=== PATIENT | female | born 1940 | race Caucasian/White ===

== ENCOUNTER 2017-03-11 11:23 | Outpatient (RCR) | payer MEDICARE, OTHER, SELFPAY ==
[2017-03-11 14:27] LABS: International Normalized Ratio 2.2; Prothrombin Time (Protime)PT. 23.9 SECONDS (11.7-14.9)
== END 2017-03-11 11:45 | disposition home or self-care (01) ==
LOC: MTLAB 11:23
PROVIDERS: Family Provider Internal Medicine; PCP Internal Medicine; Visit Provider Internal Medicine Cardiovascular Disease
DX: I48.0 Paroxysmal atrial fibrillation (principal)
CPT/HCPCS: 36415; 85610

== ENCOUNTER → 2017-05-08 10:17 | Outpatient (CLI) | payer MEDICARE, OTHER, SELFPAY ==
[2017-05-08 12:17] LABS: Hemoglobin A1c 7.6 % (4.2-6.3)
[2017-05-08 12:20] LABS: ALB/GLOB Ratio 1.2 RATIO (0.9-2.4); AST(SGOT) 19 U/L (15-37); Alanine Aminotransfer ALT/SGPT 24 U/L (13-56); Albumin, Serum 3.9 g/dL (3.2-5.0); Alkaline Phosphatase 119 U/L (45-117); Anion Gap 9 (5-15); BUN 20 mg/dL (7-18); BUN/Creat Ratio 22.7 RATIO (10-20); Calcium,Total 9.2 mg/dL (8.5-10.1); Chloride 100 mmol/L (98-107); Creatinine, Serum 0.88 mg/dL (0.55-1.02); EST Glomerular Filtration Rate 66 mL/min (>60); Est Glom Filt Rate - Afr Amer 80 mL/min (>60); Globulin 3.2 g/dL (2.2-4.2); Glucose 116 mg/dL (74-106); Protein, Total 7.1 g/dL (6.4-8.2); Sodium Level 139 mmol/L (136-145); Thyroid Stim Hormone (TSH) 1.79 uIU/mL (0.358-3.74)
[2017-05-08 12:27] LABS: Microalbumin,Random Urine 8.7 mg/L (NO RANGE EST.)
== END ==
PROVIDERS: Family Provider Internal Medicine; PCP Internal Medicine; Visit Provider Internal Medicine Endocrinology, Diabetes & Metabolism
DX: E11.65 Type 2 diabetes mellitus with hyperglycemia (principal); E03.8 Other specified hypothyroidism
CPT/HCPCS: 36415; 80053; 82043; 83036; 84443

== ENCOUNTER 2017-05-30 13:25 | Outpatient (RCR) | payer MEDICARE, OTHER, SELFPAY ==
[2017-05-05 10:35] LABS: International Normalized Ratio 2.9; Prothrombin Time (Protime)PT. 30.8 SECONDS (11.7-14.9)
[2017-05-30 14:40] LABS: Prothrombin Time (Protime)PT. 22.3 SECONDS (11.7-14.9)
== END 2017-05-30 14:00 | disposition home or self-care (01) ==
LOC: MTLAB 13:25
PROVIDERS: Family Provider Internal Medicine; PCP Internal Medicine; Visit Provider Internal Medicine Cardiovascular Disease
DX: I48.0 Paroxysmal atrial fibrillation (principal)
CPT/HCPCS: 36415; 85610

== ENCOUNTER → 2017-06-26 09:37 | Outpatient (CLI) | payer MEDICARE, OTHER, SELFPAY ==
--- NOTE | 2017-06-26 09:41 | RAD_ITS ---
STUDY: X-RAY - CERVICAL SPINE REASON FOR EXAM: Female, 77 years old. Radiculopathy. Pain. TECHNIQUE: 3 view(s) of the cervical spine were obtained with flexion and extension. COMPARISON: None FINDINGS: Normal anterior atlantoaxial articulation. Normal odontoid process. There is straightening of the normal cervical lordosis. There is multi-level endplate spondylosis. There is mild multi-level degenerative disc disease with multilevel disc space narrowing. Normal alignment. Extremely limited extension and decreased flexion. No subluxations. The soft tissue structures are unremarkable. RAD/Cerv Spine 4 or 5 Views IMPRESSION: Relatively mild multilevel degenerative changes significantly decreased range of motion. Electronically Signed: Atul Maurer MD at 17:14 EDT , Service support ,
== END ==
PROVIDERS: Family Provider Internal Medicine; PCP Internal Medicine; Visit Provider Internal Medicine
DX: M54.12 Radiculopathy, cervical region (principal)
CPT/HCPCS: 72050

== ENCOUNTER 2017-07-01 08:59 | Outpatient (RCR) | payer MEDICARE, OTHER, SELFPAY ==
[2017-07-01 10:52] LABS: AST(SGOT) 13 U/L (15-37); Alanine Aminotransfer ALT/SGPT 20 U/L (13-56); Albumin, Serum 3.7 g/dL (3.2-5.0); Alkaline Phosphatase 114 U/L (45-117); Cholesterol 203 mg/dL (200); Globulin 3.4 g/dL (2.2-4.2); High Density Lipoprotein 44 mg/dL; Protein, Total 7.1 g/dL (6.4-8.2); Triglycerides 165 mg/dL; Very Low Density Lipoprotein 33 mg/dL (5-40)
== END 2017-07-01 09:00 | disposition home or self-care (01) ==
LOC: MTLAB 08:59
PROVIDERS: Family Provider Internal Medicine; PCP Internal Medicine; Visit Provider Internal Medicine Cardiovascular Disease
DX: E78.5 Hyperlipidemia, unspecified (principal)
CPT/HCPCS: 36415; 80061; 80076

== ENCOUNTER → 2017-07-04 10:58 | Outpatient (CLI) | payer MEDICARE, OTHER, SELFPAY ==
[2017-07-04 12:26] LABS: International Normalized Ratio 2.4; Prothrombin Time (Protime)PT. 26.2 SECONDS (11.7-14.9)
== END ==
PROVIDERS: Family Provider Internal Medicine; PCP Internal Medicine; Visit Provider Internal Medicine Cardiovascular Disease
DX: I48.0 Paroxysmal atrial fibrillation (principal); Z79.01 Long term (current) use of anticoagulants
CPT/HCPCS: 36415; 85610

== ENCOUNTER 2017-07-10 11:30 | Outpatient (RCR) | payer MEDICARE, OTHER, SELFPAY ==
--- NOTE | 2017-07-01 09:26 | HP.PTEVAL_ITS ---
Patient's Visit Information EMMA HUNG is a 77 year old F referred to Physical Therapy by Maria C Melton with a diagnosis of Neck pain with radiculopathy. Date of Evaluation: 07/01/17 Physical Therapist: Kalyan Bess, PT, - Visit Plan Frequency: 2x /Week Duration: 3 Weeks Plan: Postural edu, DTR, US, C-Tx, scap stab ex's, and HEP - Subjective Subjective: Pt reports she has had neck pain for 6 weeks. 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 Pt reports she has been taking prednisone which has ;helped a little bit , but is still present. Pt notes sleep diff secondary to pain. Pt reports if she walks with her arms hanging down to her side, she feels increased L UE radiculopathy. Pt is R hand dominant. Pt has not found any way to relieve her pain. Pt reports no pain if she just sits and does nothing. 5/10 at rest, 10/10 at worst. - Pain neck Pain Intensity (Out of 10): 5 Pain Intensity Range: 10 - Objective Neuro: B UE sensation is WNL to light touch. B bicepital reflex= 1/3. Palpation : Pt is sore in the upper trap region. Pt has no obvious deformity. MMT: R shoulder 5/5 throughout. L shoulder flex and ER= 4-/5, abd and IR= 5/5. ROM: Pt is moderately limited with retraction, ext, L SB, and L rot. Pt has pain with all these movments. Repeated movements: RPIS has no effect. RRIS provokes L UE sx's. Special testing: repeated retraction and ext produce L UE radiculopathy - Goals Goal 1:: Decrease neck pain x 50% to aid with sleep Goal Time Frame: 2-4 Weeks Goal 2:: Decrease the frequency and intensity of L UE radiculopathy x 50% to aid with IADL's Goal Time Frame: 2-4 Weeks Goal 3:: Increase cervical spine ROM x 1 grade to aid with IADL's Goal Time Frame: 2-4 Weeks Goal 4:: I with HEP Goal Time Frame: 2-4 Weeks - Rehabilitation Potential Physical Therapy Diagnosis: Pt has neck pain, limited c/s ROM, and L UE radiculopathy secondary to deg changes of the C/S Rehabilitation Potential: Good - Anticipated Interventions Patient/Client Instruction: Educate patient on: Condition, Plan of Care For the Purpose of:: To improve self management Therapeutic Exercise to Include: Strength training, Endurance training, Postural training, Active ROM, Scapular Strength/Stabilization For the Purpose of:: To decrease pain, To increase ROM, To improve muscle performance and motor function Ultrasound (thermal/non thermal): Yes Intermittent cervical traction: Yes For the Purpose of:: To decrease pain Thank you for the opportunity to evaluate your patient. For Medicare and Medicare HMO plans, please review the plan of care and approve it. It will need to be FAXED BACK to us at [phone] for Medicare purposes. Please let me know if there are questions or concerns regarding this plan of care. Physician Signature: Date:
--- NOTE | 2017-10-02 17:21 | HP.PT.NRP ---
HP - Discharge Summary (1) - Patient Information EMMA HUNG was seen in my office for initial evaluation on 07/01/17. The following Plan of Care was established for this patient: Initial Frequency: 2x /Week Initial Duration: 3 Weeks - Anticipated Interventions Patient/Client Instruction: Educate patient on: Condition, Plan of Care For the Purpose of:: To improve self management Therapeutic Exercise to Include: Strength training, Endurance training, Postural training, Active ROM, Scapular Strength/Stabilization For the Purpose of:: To decrease pain, To increase ROM, To improve muscle performance and motor function Ultrasound (thermal/non thermal): Yes Intermittent cervical traction: Yes For the Purpose of:: To decrease pain This patient was last seen in our office . Pertinent comments regarding their Physical therapy will appear below: Pt was treated for neck pain for 3 PT visits through the date of 07/10/17. Pt did not return after that visit, and is therefore discontinued at this time At this point I will be discontinuing this patient from physical therapy. I would be happy to see this patient again in the future if found appropriate by the physician. Thank you! Kalyan Bess, PT,
== END 2017-07-10 19:00 | disposition home or self-care (01) ==
LOC: PT 11:30
PROVIDERS: Family Provider Internal Medicine; PCP Internal Medicine; Visit Provider Internal Medicine
DX: M54.12 Radiculopathy, cervical region (principal); M25.512 Pain in left shoulder
CPT/HCPCS: 97012; 97161

== ENCOUNTER → 2017-07-25 12:36 | Outpatient (CLI) | payer MEDICARE, OTHER, SELFPAY ==
--- NOTE | 2017-07-25 12:38 | ECHOD_ITS ---
Reason For Study: Afib, Aflutter Procedure This was a 2D Doppler, Color Flow transthoracic echocardiogram. Exam performed in department. Left Ventricle Normal LV size. Moderate concentric left ventricular hypertrophy. The estimated ejection fraction is 50 %. There is evidence of diastolic dysfunction. No regional wall motion abnormalities noted. Mitral Valve Normal mitral valve. Mild (1+) eccentric mitral valve insufficiency. Tricuspid Valve Normal tricuspid valve. Mild (1+) tricuspid valve insufficiency. Pulmonary artery systolic pressure is 38 mmHg. Aortic Valve Trisinus/trileaflet aortic valve. Moderate focal aortic valve calcification. Peak aortic valve gradient 38 mmHg. Mean aortic valve gradient 21 mmHg. Mild to moderate aortic stenosis. Calculated aortic valve area (continuity equation) is 1.4 cm2. Trivial aortic valve insufficiency. Pulmonic Valve Normal pulmonic valve. Great Vessels Normal aortic root. The pulmonary artery is normal size. Normal inferior vena cava. Pericardium/Pleural No pericardial effusion. MMode/2D Measurements & Calculations LVIDd: 4.0 cm IVSd: 1.4 cm LVOT diam: 2.1 cm LVIDs: 3.0 cm LVPWd: 1.4 cm LVOT area: 3.4 cm2 RVDd: 3.2 cm FS: 25.3 % Ao root diam: 3.4 cm LAV(MOD-bp): 89.2 ml LA A4 area: 26.8 cm2 LA dimension: 4.4 cm LAV(MOD-bp) Indexed: 45.7 ml/m2 LAV(MOD-sp2): 73.8 ml LAV(MOD-sp4): 89.9 ml Doppler Measurements & Calculations MV E max bradley: 133.8 cm/sec Lat Peak E' Bradley: 6.9 cm/sec Med Peak E' Bradley: 5.1 cm/sec MV A max bradley: 118.5 cm/sec E/E' lat: 19.3 E/E' med: 26.4 MV E/A: 1.1 MV V2 max: 139.5 cm/sec Ao V2 max: 302.9 cm/sec AI max bradley: 330.2 cm/sec MV max P.8 mmHg Ao max P.7 mmHg AI max P.7 mmHg MV V2 mean: 89.7 cm/sec Ao V2 mean: 216.3 cm/sec AI dec slope: 199.0 cm/sec2 MV mean P.5 mmHg Ao mean P.6 mmHg AI P1/2t: 485.9 msec MV V2 VTI: 37.1 cm Ao V2 VTI: 61.6 cm MVA(VTI): 2.3 cm2 NAIF(I,D): 1.4 cm2 NAIF(V,D): 1.4 cm2 LV V1 max: 120.6 cm/sec SV(LVOT): 84.8 ml PA V2 max: 99.8 cm/sec LV V1 max P.8 mmHg LV V1 mean P.8 mmHg LV V1 mean: 78.7 cm/sec LV V1 VTI: 24.7 cm TR max bradley: 290.4 cm/sec TR max P.8 mmHg Interpretation Summary Normal LV size. Moderate concentric left ventricular hypertrophy. The estimated ejection fraction is 50 %. Moderate focal aortic valve calcification. Mild to moderate aortic stenosis. Calculated aortic valve area (continuity equation) is 1.4 cm2. Compared to prior study, there is no significant change. Ordering Physician: Fish Muniz Referring Physician: Maria C Melton Performed By: Torrie Craig, RDCS, RVT
== END ==
PROVIDERS: Family Provider Internal Medicine; PCP Internal Medicine; Visit Provider Internal Medicine Cardiovascular Disease
DX: I50.32 Chronic diastolic (congestive) heart failure (principal)
CPT/HCPCS: 93306

== ENCOUNTER 2017-08-12 08:47 | Outpatient (RCR) | payer MEDICARE, OTHER, SELFPAY ==
[2017-08-12 10:39] LABS: International Normalized Ratio 2.6; Prothrombin Time (Protime)PT. 27.7 SECONDS (11.7-14.9)
[2017-08-12 10:50] LABS: Hemoglobin A1c 8.1 % (4.2-6.3)
[2017-08-12 10:52] LABS: ALB/GLOB Ratio 1.2 RATIO (0.9-2.4); AST(SGOT) 14 U/L (15-37); Alanine Aminotransfer ALT/SGPT 23 U/L (13-56); Albumin, Serum 3.6 g/dL (3.2-5.0); Alkaline Phosphatase 99 U/L (45-117); Anion Gap 9 (5-15); BUN 22 mg/dL (7-18); BUN/Creat Ratio 23.8 RATIO (10-20); Chloride 103 mmol/L (98-107); Cholesterol 209 mg/dL (200); Creatinine, Serum 0.92 mg/dL (0.55-1.02); EST Glomerular Filtration Rate 62 mL/min (>60); Est Glom Filt Rate - Afr Amer 76 mL/min (>60); Globulin 3.1 g/dL (2.2-4.2); Glucose 157 mg/dL (74-106); High Density Lipoprotein 38 mg/dL; Potassium 3.9 mmol/L (3.5-5.1); Protein, Total 6.7 g/dL (6.4-8.2); Sodium Level 141 mmol/L (136-145); Triglycerides 209 mg/dL; Very Low Density Lipoprotein 42 mg/dL (5-40)
== END 2017-08-12 10:00 | disposition home or self-care (01) ==
LOC: MTLAB 08:47
PROVIDERS: Family Provider Internal Medicine; PCP Internal Medicine; Visit Provider Internal Medicine Cardiovascular Disease
DX: I48.0 Paroxysmal atrial fibrillation (principal); Z79.01 Long term (current) use of anticoagulants; E11.65 Type 2 diabetes mellitus with hyperglycemia; E78.2 Mixed hyperlipidemia
CPT/HCPCS: 36415; 80053; 80061; 83036; 85610

== ENCOUNTER 2017-09-09 11:02 | Outpatient (RCR) | payer MEDICARE, OTHER, SELFPAY ==
[2017-09-09 14:23] LABS: International Normalized Ratio 2.9; Prothrombin Time (Protime)PT. 30.1 SECONDS (11.7-14.9)
== END 2017-09-09 12:00 ==
LOC: MTLAB 11:02
PROVIDERS: Family Provider Internal Medicine; PCP Internal Medicine; Visit Provider Internal Medicine Cardiovascular Disease
DX: I48.0 Paroxysmal atrial fibrillation (principal); Z79.01 Long term (current) use of anticoagulants
CPT/HCPCS: 36415; 85610

== ENCOUNTER 2017-10-06 14:41 | Outpatient (RCR) | payer MEDICARE, OTHER, SELFPAY ==
[2017-10-06 17:40] LABS: International Normalized Ratio 2.8; Prothrombin Time (Protime)PT. 29.3 SECONDS (11.7-14.9)
== END 2017-10-06 16:00 | disposition home or self-care (01) ==
LOC: MTLAB 14:41
PROVIDERS: Family Provider Internal Medicine; PCP Internal Medicine; Visit Provider Internal Medicine Cardiovascular Disease
DX: I48.0 Paroxysmal atrial fibrillation (principal); Z79.01 Long term (current) use of anticoagulants
CPT/HCPCS: 36415; 85610

== ENCOUNTER 2017-11-04 08:14 | Outpatient (RCR) | payer MEDICARE, OTHER, SELFPAY ==
[2017-11-04 10:10] LABS: International Normalized Ratio 2.4; Prothrombin Time (Protime)PT. 26.6 SECONDS (11.7-14.9)
[2017-11-04 10:25] LABS: Hemoglobin A1c 7.1 % (4.2-6.3)
[2017-11-04 10:34] LABS: ALB/GLOB Ratio 1.2 RATIO (0.9-2.4); AST(SGOT) 14 U/L (15-37); Alanine Aminotransfer ALT/SGPT 21 U/L (13-56); Albumin, Serum 3.7 g/dL (3.2-5.0); Alkaline Phosphatase 88 U/L (45-117); Anion Gap 11 (5-15); BUN 36 mg/dL (7-18); BUN/Creat Ratio 38.8 RATIO (10-20); Calcium,Total 8.9 mg/dL (8.5-10.1); Chloride 105 mmol/L (98-107); Creatinine, Serum 0.93 mg/dL (0.55-1.02); EST Glomerular Filtration Rate 62 mL/min (>60); Est Glom Filt Rate - Afr Amer 75 mL/min (>60); Globulin 3.2 g/dL (2.2-4.2); Glucose 193 mg/dL (74-106); Potassium 4.1 mmol/L (3.5-5.1); Protein, Total 6.9 g/dL (6.4-8.2); Sodium Level 138 mmol/L (136-145); Thyroid Stim Hormone (TSH) 1.38 uIU/mL (0.358-3.74)
[2017-11-05 08:42] LABS: Vitamin D,25 Hydroxy 33.7 ng/mL (29.95-100.01)
== END 2017-11-05 11:49 ==
LOC: MTLAB 08:14
PROVIDERS: Internal Medicine Endocrinology, Diabetes & Metabolism; Family Provider Internal Medicine; PCP Internal Medicine; Visit Provider Internal Medicine Cardiovascular Disease
DX: I48.0 Paroxysmal atrial fibrillation (principal); Z79.01 Long term (current) use of anticoagulants; E11.65 Type 2 diabetes mellitus with hyperglycemia; E55.9 Vitamin D deficiency, unspecified; E03.8 Other specified hypothyroidism
CPT/HCPCS: 36415; 80053; 82306; 83036; 84443; 85610

== ENCOUNTER → 2017-12-29 15:47 | Outpatient (CLI) | payer MEDICARE, OTHER, SELFPAY ==
--- NOTE | 2017-12-29 15:51 | RAD_ITS ---
STUDY: X-RAY - LUMBAR SPINE REASON FOR EXAM: Female, 77 years old. Low back pain TECHNIQUE: 5 view(s) of the lumbar spine were obtained. COMPARISON: 2014 FINDINGS: Normal lumbar lordosis. There is no substantial scoliosis. There is a normal alignment of the vertebrae. There is diffuse demineralization with multi-level endplate spondylosis. There is multi-level degenerative disc disease with multi-level disc space narrowing. There is no demonstrated fracture. There is atherosclerotic calcification of the abdominal aorta without a demonstrated aneurysm. RAD/L/S Spine Min 4 Views IMPRESSION: Degenerative changes of the spine, as detailed above. Electronically Signed: Golden Narayan MD at 16:01 EDT , Service support ,
--- NOTE | 2017-12-29 15:51 | RAD_ITS ---
STUDY: X-RAY - SACROILIAC JOINTS REASON FOR EXAM: Female, 77 years old. Pain TECHNIQUE: 3 view(s) of the sacroiliac joints were obtained. COMPARISON: None. FINDINGS: There are degenerative changes of the bilateral sacroiliac joints. Normal visualized sacral ala and sacrum. There is no demonstrated fracture. Normal visualized iliac bones. Normal visualized soft tissue structures. RAD/S-I Jts 3 or More Views IMPRESSION: Degenerative changes of the bilateral sacroiliac joints, as described above. Electronically Signed: Golden Narayan MD at 16:01 EDT , Service support ,
== END ==
PROVIDERS: Family Provider Internal Medicine; PCP Internal Medicine; Referring Provider Internal Medicine; Visit Provider Internal Medicine
DX: M54.5 Low back pain (principal); M54.16 Radiculopathy, lumbar region
CPT/HCPCS: 72110; 72202

== ENCOUNTER 2017-12-31 11:44 | Outpatient (RCR) | payer MEDICARE, OTHER, SELFPAY ==
[2017-12-01 14:09] LABS: International Normalized Ratio 2.6; Prothrombin Time (Protime)PT. 28.1 SECONDS (11.7-14.9)
[2017-12-31 14:46] LABS: International Normalized Ratio 2.7; Prothrombin Time (Protime)PT. 28.5 SECONDS (11.7-14.9)
== END 2017-12-31 13:00 | disposition home or self-care (01) ==
LOC: MTLAB 11:44
PROVIDERS: Family Provider Internal Medicine; PCP Internal Medicine; Referring Provider Internal Medicine Cardiovascular Disease; Visit Provider Internal Medicine Cardiovascular Disease
DX: I48.0 Paroxysmal atrial fibrillation (principal); Z79.01 Long term (current) use of anticoagulants; M54.16 Radiculopathy, lumbar region
CPT/HCPCS: 36415; 85610; 97161

== ENCOUNTER 2018-01-26 11:54 | Outpatient (RCR) | payer MEDICARE, OTHER, SELFPAY ==
[2018-01-05 10:29] VITALS: BMI 45.3
[2018-01-26 14:47] LABS: International Normalized Ratio 2.6; Prothrombin Time (Protime)PT. 27.7 SECONDS (11.7-14.9)
== END 2018-01-26 12:00 | disposition home or self-care (01) ==
LOC: MTLAB 11:54
PROVIDERS: Family Provider Internal Medicine; PCP Internal Medicine; Referring Provider Internal Medicine Cardiovascular Disease; Visit Provider Internal Medicine Cardiovascular Disease
DX: I48.0 Paroxysmal atrial fibrillation (principal); Z79.01 Long term (current) use of anticoagulants
CPT/HCPCS: 36415; 85610

== ENCOUNTER 2018-02-11 11:30 | Outpatient (RCR) | payer MEDICARE, OTHER, SELFPAY ==
--- NOTE | 2017-12-31 11:39 | HP.PTEVAL ---
Patient's Visit Information EMMA HUNG is a 77 year old F referred to Physical Therapy by Maria C Melton with a diagnosis of Lumbar with radiculopathy. Date of Evaluation: 12/31/17 Physical Therapist: Lakesha Castrejon - Visit Plan Frequency: 3x /Week Duration: 3 Weeks Plan: Focus on core s/s and endurance with functional activities. - Subjective Subjective: Patient reports that she has had back pain for a long time. She has pain in the back and is now in the buttocks and traveling down the back of the legs- right is worse than left. She was seeing chiro which made her better but it didn't last 2-3 years ago. Worst: 10/10 Agg: walking, being up on her feet, standing for long periods of time- has to lean on the counter when cooking. Best: 0/10 Eases: laying in bed at night. Takes 3 minutes from being up and moving when she sits down it goes away. Is still doing all her cleaning and ADL's she just has to sit down more often due to her back pain and A-fib. Can be described as sharp/shooting and dull/achy. Is still doing yard work but it is very hard. No N/T in the lower extremity. Sleep: uncomfortable when she turns the wrong way- side sleeper. Has had x-rays of the back but no MRI. Fully I lives alone- has stairs with HR on single side. PMHx: HTN, DM, thyroid,CHF, A-fib. The only injury she can think of was she fell back when pulling weeds- no car accidents. Meds: levothyroxine, victoza, metoprolol, fuosemide, lisinopril, isosorbide er, glipizide, warfarin, zetia, asprin, tylenel. - Objective Posture: FH, RS, Increased kyphosis- can correct minimally but required tactile and verbal cues. Gait: straight cane- decreased stance time bilateral LE- reported pain and fatigue- danilo was decreased. Stairs: asc 8 recip with 1 HR and one cane with significant UE use, Desc non recip with right leg leading with body turned sideways- HR and cane. HR/TR: able but reports significant pain with TR on right right- TR decreased by 75%. SLS: unable without UE A from table with reports of discomfort. ROM: LE: WFL, Lumbar: flexion to knees with UE A, extn to neutral, SB: decreased by 50% Rotation: decreased by 50%. Sensation: WNL. Flex: HS: severe. Gastroc: Severe. Palpation: not tender. Strength: Ankle: 4+/5, Knee: 4/5, Hip: 4-/5 Core: poor. Slump Test: positive - Goals Goal 1:: Patient will be I with HEP and progression Goal Time Frame: 4-6 Weeks Goal 2:: Patient will ambualte >300 feet with a normalized gait pattern with LRD Goal Time Frame: 4-6 Weeks Goal 3:: Patient will asc/desc 8 stairs recip with a normal pattern Goal Time Frame: 4-6 Weeks Goal 4:: Patient will maintain proper posture t/o demo increased core s/s. Goal Time Frame: 4-6 Weeks - Rehabilitation Potential Physical Therapy Diagnosis: Patient presents with hypomobility- she has decreased ROM, strength and muscular endurance leading to poor posture and increased pain with ADL's. Rehabilitation Potential: Fair - Anticipated Interventions Patient/Client Instruction: Educate patient on: Benefits of Fitness Program Therapeutic Exercise to Include: Strength training, Endurance training, Balance training, Agility training, Body mechanics, Postural training, Flexibilty training, Gait and locomotor training, Dynamic Lumbar Stabilization For the Purpose of:: To improve muscle performance and motor function TENS: Yes Cryotherapy (ice pack, ice massage): Yes Thermo therapy (hot pack): Yes For the Purpose of:: To decrease pain Thank you for the opportunity to evaluate your patient. For Medicare and Medicare HMO plans, please review the plan of care and approve it. It will need to be FAXED BACK to us at [phone] for Medicare purposes. Please let me know if there are questions or concerns regarding this plan of care. Physician Signature: Date:
--- NOTE | 2018-01-26 11:58 | HP.PTREVAL_ITS ---
Maria C Melton, It has been my pleasure to treat EMMA HUNG over the last 8 visits for Lumbar with radiculopathy. Please see the progress note below for an update on the physical therapy plan of care! Subjective: Vahe reports that is getting better- no pain medication at home. No back pain just the pain down the legs to the knees when she walks to far. Objective/Function: Posture: FH, RS, Increased kyphosis- sitting posture today was good but as she sat more than 3 min she started to slide out to keep her leg s straight instead of 90/90 Gait: straight cane- decreased stance time bilateral LE- reported no pain- good danilo. HR/TR: able but reports significant pain with TR on right right- TR decreased by 50%. SLS: unable without UE A from table with no reports of discomfort. ROM: LE: WFL, Lumbar: flexion to knees with UE A, extn to neutral, SB: decreased by 50% Rotation: decreased by 50%. Flex: HS: severe. Gastroc: moderate. Strength: Ankle:5/5, Knee: 4+/5, Hip: 4/5 Core: fair. Slump Test: positive Plan Plan: Continue 2x a week for 2 weeks- focus on progression of HEP- unable to get silver sneakers due to insurance limitations. Goals Goal 1:: Patient will be I with HEP and progression Goal Time Frame: 4-6 Weeks Goal Progress: Progressing Goal 2:: Patient will ambualte >300 feet with a normalized gait pattern with LRD Goal Time Frame: 4-6 Weeks Goal Progress: Progressing Goal 3:: Patient will asc/desc 8 stairs recip with a normal pattern Goal Time Frame: 4-6 Weeks Goal Progress: Progressing Goal 4:: Patient will maintain proper posture t/o demo increased core s/s. Goal Time Frame: 4-6 Weeks Goal Progress: Progressing Anticipated Interventions Patient/Client Instruction: Educate patient on: Benefits of Fitness Program Therapeutic Exercise to Include: Strength training, Endurance training, Balance training, Agility training, Body mechanics, Postural training, Flexibilty training, Gait and locomotor training, Dynamic Lumbar Stabilization For the Purpose of:: To improve muscle performance and motor function TENS: Yes Cryotherapy (ice pack, ice massage): Yes Thermo therapy (hot pack): Yes For the Purpose of:: To decrease pain Please do not hesitate to contact me at [phone] by phone or if you have questions or concerns regarding this new plan of care! Sincerely, Lakesha Castrejon
--- NOTE | 2018-02-11 11:55 | HP.PTDCSUM ---
HP - PT D/C Summary It has been my pleasure to treat EMMA HUNG under orders from Maria C Melton, for the diagnosis of Lumbar with radiculopathy for a total of 12 visit(s). Discharge Date: Please see the following information for a summary of their discharge status. - Subjective Subjective: Patient reports that she is very happy with progress and is doing her exercises at home. Now her left knee is bad and needs replaced - Pain bilat. buttocks Pain Intensity (Out of 10): 0 - Overall Improvement % Improvement: 75 - Objective Objective/Function: Posture: FH, RS, Increased kyphosis- sitting posture today was good Gait: straight cane- decreased stance time bilateral LE- reported no pain- good danilo. HR/TR: able but reports significant pain with TR on right right- TR decreased by 50%. SLS: unable without UE A from table with no reports of discomfort- maintain weight shift for 10 seconds each ROM: LE: WFL, Lumbar: flexion to knees with UE A, extn to neutral, SB: decreased by 50% Rotation: decreased by 50%. Flex: HS: severe. Gastroc: moderate. Strength: Ankle:5/5, Knee: 4+/5, Hip: 4/5 Core: fair. Slump Test: positive - Goals Goal 1:: Patient will be I with HEP and progression Goal Progress: Goal Met Goal 2:: Patient will ambualte >300 feet with a normalized gait pattern with LRD Goal Progress: Progressing Goal 3:: Patient will asc/desc 8 stairs recip with a normal pattern Goal Progress: Progressing Goal 4:: Patient will maintain proper posture t/o demo increased core s/s. Goal Progress: Progressing - Plan Plan: Patient is I with HEP and is appropriate for d.c - D/C Information If there are questions or concerns regarding this patient's physical therapy, please feel free to call me at [phone]. Thank you for the referral of this patient. Sincerely, Lakesha Castrejon
== END 2018-02-11 12:41 | disposition home or self-care (01) ==
LOC: PT 11:30
PROVIDERS: Family Provider Internal Medicine; PCP Internal Medicine; Referring Provider Internal Medicine; Visit Provider Internal Medicine
DX: M54.16 Radiculopathy, lumbar region (principal)
CPT/HCPCS: 97110; 97161; 97164

== ENCOUNTER 2018-02-25 08:18 | Outpatient (RCR) | payer MEDICARE, OTHER, SELFPAY ==
[2018-01-05 10:29] VITALS: BMI 45.3
[2018-02-25 10:17] LABS: International Normalized Ratio 2.9; Prothrombin Time (Protime)PT. 30.4 SECONDS (11.7-14.9)
[2018-02-25 10:31] LABS: AST(SGOT) 18 U/L (15-37); Alanine Aminotransfer ALT/SGPT 24 U/L (13-56); Albumin, Serum 3.8 g/dL (3.2-5.0); Alkaline Phosphatase 100 U/L (45-117); Bilirubin, Direct 0.14 mg/dL (0.00-0.30); Cholesterol 229 mg/dL (200); Globulin 3.1 g/dL (2.2-4.2); High Density Lipoprotein 40 mg/dL; Protein, Total 6.9 g/dL (6.4-8.2); Triglycerides 232 mg/dL; Very Low Density Lipoprotein 46 mg/dL (5-40)
== END 2018-02-25 09:00 | disposition home or self-care (01) ==
LOC: MTLAB 08:18
PROVIDERS: Family Provider Internal Medicine; PCP Internal Medicine; Referring Provider Internal Medicine Cardiovascular Disease; Visit Provider Internal Medicine Cardiovascular Disease
DX: I48.0 Paroxysmal atrial fibrillation (principal); Z79.01 Long term (current) use of anticoagulants; E78.5 Hyperlipidemia, unspecified
CPT/HCPCS: 36415; 80061; 80076; 85610

== ENCOUNTER → 2018-03-10 08:54 | Outpatient (CLI) | payer MEDICARE, OTHER, SELFPAY ==
[2018-01-05 10:29] VITALS: BMI 45.3
[2018-03-10 10:39] LABS: Microalbumin:Creatinine Ratio 148.1 mg/g CRE (<30 mg/g CRE)
[2018-03-10 10:46] LABS: ALB/GLOB Ratio 1.2 RATIO (0.9-2.4); AST(SGOT) 14 U/L (15-37); Alanine Aminotransfer ALT/SGPT 21 U/L (13-56); Albumin, Serum 3.7 g/dL (3.2-5.0); Alkaline Phosphatase 102 U/L (45-117); Anion Gap 9 (5-15); BUN 21 mg/dL (7-18); BUN/Creat Ratio 22.8 RATIO (10-20); Chloride 106 mmol/L (98-107); Cholesterol 228 mg/dL (200); Creatinine, Serum 0.92 mg/dL (0.55-1.02); EST Glomerular Filtration Rate 63 mL/min (>60); Est Glom Filt Rate - Afr Amer 76 mL/min (>60); Glucose 143 mg/dL (74-106); High Density Lipoprotein 42 mg/dL; Potassium 4.2 mmol/L (3.5-5.1); Protein, Total 6.7 g/dL (6.4-8.2); Sodium Level 141 mmol/L (136-145); Thyroid Stim Hormone (TSH) 3.14 uIU/mL (0.358-3.74); Triglycerides 171 mg/dL; Very Low Density Lipoprotein 34 mg/dL (5-40); Vitamin D,25 Hydroxy 38.7 ng/mL (29.95-100.01)
[2018-03-10 10:50] LABS: Hemoglobin A1c 8.4 % (4.2-6.3)
== END ==
PROVIDERS: Family Provider Internal Medicine; PCP Internal Medicine; Referring Provider Internal Medicine Endocrinology, Diabetes & Metabolism; Visit Provider Internal Medicine Endocrinology, Diabetes & Metabolism
DX: E11.65 Type 2 diabetes mellitus with hyperglycemia (principal); E78.2 Mixed hyperlipidemia; E03.8 Other specified hypothyroidism; E55.9 Vitamin D deficiency, unspecified
CPT/HCPCS: 36415; 80053; 80061; 82043; 82306; 82570; 83036; 84443

== ENCOUNTER 2018-03-25 12:10 | Outpatient (RCR) | payer MEDICARE, OTHER, SELFPAY ==
[2018-01-05 10:29] VITALS: BMI 45.3
[2018-03-25 14:44] LABS: International Normalized Ratio 2.5; Prothrombin Time (Protime)PT. 27.3 SECONDS (11.7-14.9)
--- OUTSIDE RECORDS SUMMARY | 2018-05-27 10:28 | XMS RPT_ITS ---
:1940 Author Organization OHIP Support Name Relationship Address Phone BETTE, CRYSTAL Unavailable [address] + [place] [address] R Unavailable Unavailable Unavailable BETTE, CRYSTAL Unavailable [address] + [place] [address] R Unavailable Unavailable Unavailable BETTE, CRYSTAL Unavailable [address] + [place] [address] R Unavailable Unavailable Unavailable BETTE, CRYSTAL Unavailable [address] + [place] [address] R Unavailable Unavailable Unavailable BETTE, CRYSTAL Unavailable [address] + [place] [address] R Unavailable Unavailable Unavailable BETTE, CRYSTAL Unavailable [address] + [place] [address] R Unavailable Unavailable Unavailable BETTE, CRYSTAL Unavailable [address] + [place] [address] R Unavailable Unavailable Unavailable BETTE, CRYSTAL Unavailable [address] + [place] [address] R Unavailable Unavailable Unavailable BETTE, CRYSTAL Unavailable [address] + [place] [address] R Unavailable Unavailable Unavailable BETTE, CRYSTAL Unavailable [address] + [place] [address] R Unavailable Unavailable Unavailable BETTE, CRYSTAL Unavailable [address] + [place] [address] R Unavailable Unavailable Unavailable BETTE, CRYSTAL Unavailable [address] + [place] [address] R Unavailable Unavailable Unavailable BETTE, CRYSTAL Unavailable [address] + [place] [address] R Unavailable Unavailable Unavailable BETTE, CRYSTAL Unavailable [address] + [place] [address] R Unavailable Unavailable Unavailable BETTE, CRYSTAL Unavailable [address] + [place] [address] R Unavailable Unavailable Unavailable BETTE, CRYSTAL Unavailable [address] [place] [address] DR + [place] [address] R Unavailable Unavailable Unavailable R Unavailable Unavailable Unavailable BETTE, CRYSTAL Unavailable [address] [place] [address] DR + [place] [address] R Unavailable Unavailable Unavailable BETTE, CRYSTAL Unavailable [address] [place] [address] DR + [place] [address] R Unavailable Unavailable Unavailable R Unavailable Unavailable Unavailable JENNIFER HUNG Unavailable [address] [phone] [place] [address] R Unavailable Unavailable Unavailable VERTUCCI, SCOT Unavailable [address] [place] [address] DR + [place] [address] JENNIFER HUNG Unavailable [address] [phone] [place] [address] R Unavailable Unavailable Unavailable VERTUCCI, SCOT Unavailable [address] [place] [address] DR + [place] [address] JENNIFER HUNG Unavailable [address] [phone] [place] [address] R Unavailable Unavailable Unavailable VERTUCCI, SCOT Unavailable [address] [place] [address] DR + [place] [address] JENNIFER HUNG Unavailable [address] [phone] [place] [address] R Unavailable Unavailable Unavailable VERTUCCI, SCOT Unavailable [address] [place] [address] DR + [place] [address] JENNIFER HUNG Unavailable [address] [phone] [place] [address] R Unavailable Unavailable Unavailable VERTUCCI, SCOT Unavailable [address] [place] [address] DR + [place] [address] Care Team Providers Name Role Phone Fish Muniz Attending Unavailable Cristy, Fish Referring Unavailable Linh, Maria C Primary Care Unavailable ELIE LOUISE Consulting Unavailable ELIE LOUISE Attending Unavailable ELIE LOUISE Referring Unavailable Linh, Maria C Primary Care Unavailable Cristy, Fish Attending Unavailable Cristy, Fish Referring Unavailable Linh, Maria C Primary Care Unavailable WIETECHA, ELIE Attending Unavailable WIETECHA, ELIE Referring Unavailable Linh, Maria C Primary Care Unavailable Cristy, Underwood Attending Unavailable Cristy, Underwood Referring Unavailable Linh, Maria C Primary Care Unavailable Linh, Maria C Attending Unavailable Linh, Maria C Referring Unavailable Linh, Maria C Primary Care Unavailable Linh, Maria C Attending Unavailable Linh, Maria C Referring Unavailable Linh, Maria C Primary Care Unavailable Vianca Ochoa Attending Unavailable Cristy, Underwood Attending Unavailable Linh, Maria C Referring Unavailable Linh, Maria C Primary Care Unavailable Cristy, Underwood Attending Unavailable Cristy, Fish Referring Unavailable Linh, Maria C Primary Care Unavailable Cristy, Fish Attending Unavailable Cristy, Underwood Referring Unavailable Linh, Maria C Primary Care Unavailable Cristy, Underwood Attending Unavailable Cristy, Underwood Referring Unavailable Linh, Maria C Primary Care Unavailable WIETECHA, ELIE Consulting Unavailable Cristy, Fish Attending Unavailable Cristy, Fish Attending Unavailable Cristy, Underwood Referring Unavailable Linh, Maria C Primary Care Unavailable WIETECHA, ELIE Consulting Unavailable Cristy, Fish Attending Unavailable Cristy, Underwood Referring Unavailable Linh, Maria C Primary Care Unavailable WIETECHA, ELIE Consulting Unavailable Cristy, Fish Attending Unavailable Cristy, Fish Referring Unavailable Linh, Maria C Primary Care Unavailable WIETECHA, ELIE Consulting Unavailable Cristy, Underwood Attending Unavailable Cristy, Underwood Referring Unavailable Linh, Maria C Primary Care Unavailable WIETECHA, ELIE Consulting Unavailable Cristy, Underwood Attending Unavailable Cristy, Underwood Referring Unavailable Linh, Maria C Primary Care Unavailable WIETECHA, ELIE Consulting Unavailable Linh, Maria C Attending Unavailable Linh, Maria C Referring Unavailable Linh, Maria C Primary Care Unavailable Linh, Maria C Attending Unavailable Linh, Maria C Referring Unavailable Linh, Maria C Primary Care Unavailable Cristy, Fish Attending Unavailable Cristy, Underwood Referring Unavailable Linh, Maria C Primary Care Unavailable WIETECHA, ELIE Consulting Unavailable Vianca Pinon Attending Unavailable Linh, Maria C Referring Unavailable Cristy, Fish Attending Unavailable Cristy, Underwood Referring Unavailable Linh, Maria C Primary Care Unavailable WIETECHA, ELIE Consulting Unavailable PROBLEMS PROBLEMS DATE TYPE CONDITION / CODE ATTENDING STATUS SOURCE 03/02/2018 Unknown I48.0 - Paroxysmal Cristy, Underwood Active [place] atrial fibrillation / Community I48.0(ICD-10) Hospital Repository 03/02/2018 Unknown E78.5 - Cristy, Underwood Active [place] Hyperlipidemia, Community unspecified / Hospital E78.5(ICD-10) Repository 02/11/2018 Unknown M54.16 - Linh, Active [place] Radiculopathy, lumbar [facility] region / Hospital M54.16(ICD-10) Repository 02/03/2018 Unknown Z79.01 - assisted Cristy, Fish Active [place] (current) use of Community anticoagulants / Hospital Z79.01(ICD-10) Repository 12/01/2017 Unknown E11.65 - Type 2 Cristy, Fish Active [place] diabetes mellitus Community with hyperglycemia / Hospital E11.65(ICD-10) Repository 12/01/2017 Unknown E55.9 - Vitamin D Cristy, Underwood Active [place] deficiency, Community unspecified / Hospital E55.9(ICD-10) Repository 10/08/2017 Unknown M54.12 - Linh, Active [place] Radiculopathy, [facility] cervical region / Hospital M54.12(ICD-10) Repository 07/04/2017 Unknown I50.32 - Chronic Cristy, Fish Active [place] diastolic [facility] (congestive[facility] heart Hospital failure / Repository I50.32(ICD-10) 07/04/2017 Unknown I25.10 - Cristy, Underwood Active [place] Atherosclerotic heart Community disease of [facility] coronary artery Repository without angina pectoris / I25.10(ICD-10) 07/04/2017 Unknown I34.2 - Nonrheumatic Cristy, Fish Active [place] mitral (valve) Community stenosis / Hospital I34.2(ICD-10) Repository 07/04/2017 Unknown I35.0 - Nonrheumatic Cristy, Fish Active [place] aortic (valve) Community stenosis / Hospital I35.0(ICD-10) Repository 07/04/2017 Unknown I10 - Essential Cristy, Underwood Active [place] (primary) Community hypertension / Hospital I10(ICD-10) Repository 05/08/2017 Unknown E03.8 - Other ELIE LOUISE Active [place] specified Community hypothyroidism / Hospital E03.8(ICD-10) Repository PROCEDURES PROCEDURES No Procedure Records FoundRESULTS RESULTS PROTHROMBIN TIME W/INR Collected: 03/25/2018 Status: F Source: [place] 12:20 PM [facility] [place] CODE TESTS RESULT OUT OF RANGE REFERENCE UNITS LAB L300.4150 11.7-14.9 SECONDS High PROTIME 27.3 LAB L300.4200 Normal INR 2.5 Performed By: #### L300.3900 #### [facility] [address] [place], [address] MICROALB:CREAT Collected: 03/10/2018 Status: F Source: [place] RATIO,RANDOM UR 8:59 AM [facility] [place] TYPE CODE TESTS RESULT OUT OF RANGE REFERENCE UNITS LAB L501.1200 NO RANGE EST. mg/dL Normal UR CREAT 37.80 LAB L502.0500 NO RANGE EST. mg/L Normal 56.0 MICROALBUMIN ,UR LAB L502.0600 <30 mg/g CRE mg/g CRE High 148.1 MALB:CREAT Performed By: #### L502.0250 #### [facility] [address] [place], [address] COMPREHENSIVE METABOLIC Collected: 03/10/2018 Status: F Source: [place] PROFIL 8:59 AM [facility] [place] TYPE CODE TESTS RESULT OUT OF RANGE REFERENCE UNITS LAB L501.0100 74-106 mg/dL High GLU 143 Result Comment: Fasting Glucose result greater than or equal to 126 mg/dL suggests DIABETES MELLITUS per A.D.A. criteria. Please note revised GLUCOSE reference range effective 2017. LAB L501.1000 7-18 mg/dL High BUN 21 LAB L501.1100 0.55-1.02 mg/dL Normal CREAT,SERUM 0.92 Result Comment: The validity of the calculated GFR AND GFRAA in patients over 70 years has not been determined. Clinical correlation is essential. LAB L501.1110 >60 mL/min Normal EST GFR 63 Result Comment: Non- GFR Calc LAB L501.1115 >60 mL/min Normal EST GFR - AA 76 Result Comment: GFR Calc LAB L501.1300 10-20 RATIO High BUN/CRE 22.8 LAB L501.1500 6.4-8.2 g/dL T Normal PROT 6.7 LAB L501.1800 3.2-5.0 g/dL Normal ALB 3.7 LAB L501.1950 2.2-4.2 g/dL Normal GLOB 3.0 LAB L501.2000 0.9-2.4 RATIO Normal A/G 1.2 LAB L501.2200 8.5-10.1 mg/dL CA Normal 9.0 LAB L501.4100 15-37 U/L Low AST 14 LAB L501.4305 45-117 U/L Normal ALK P 102 LAB L501.4405 13-56 U/L Normal ALT 21 LAB L501.4600 0.20-1.00 mg/dL T Normal BILI 0.50 LAB L501.5300 136-145 mmol/L NA Normal 141 LAB L501.5600 3.5-5.1 mmol/L K Normal 4.2 LAB L501.5900 98-107 mmol/L CL Normal 106 LAB L501.6100 21.0-32.0 mmol/L Normal CO2 26.0 LAB L501.6200 5-15 Normal GAP 9 Performed By: #### L500.4050, L500.4100, L501.9520 #### [facility] [address] [place], [address] LIPID PROFILE Collected: 03/10/2018 Status: F Source: [place] 8:59 AM [facility] [place] TYPE CODE TESTS RESULT OUT OF RANGE REFERENCE UNITS LAB L501.4900 200 mg/dL High CHOL 228 Result Comment: <200 mg/dL Desirable 200-240 mg/dL Borderline >240 mg/dL High Risk LAB L501.5000 mg/dL Normal TRIG 171 Result Comment: The drugs N-Acetylcysteine and Metamizole may falsely depress this assay. Serum Triglycerides Reference Interval Normal <150 mg/dL Borderline high 150 - 199 mg/dL High 200 - 499 mg/dL Very High > or = 500 mg/dL LAB L501.6400 mg/dL Normal HDL 42 Result Comment: The drugs N-Acetylcysteine and Metamizole may falsely depress this assay. Reference Range HDL <40 mg/dL Low HDL Cholesterol HDL >or= 60 mg/dL High HDL Cholesterol LAB L501.6500 0-130 mg/dL High LDL 152 LAB L501.6600 5-40 mg/dL Normal VLDL 34 Performed By: #### L500.4050, L500.4100, L501.9520 #### [facility] [address] [place], [address] THYROID STIM HORMONE Collected: 03/10/2018 Status: F Source: [place] (TSH) 8:59 AM [facility] [place] TYPE CODE TESTS RESULT OUT OF RANGE REFERENCE UNITS LAB L501.9520 0.358-3.74 uIU/mL Normal TSH 3.14 Performed By: #### L500.4050, L500.4100, L501.9520 #### [facility] [address] [place], [address] VITAMIN D,25 HYDROXY Collected: 03/10/2018 Status: F Source: [place] 8:59 AM [facility] [place] TYPE CODE TESTS RESULT OUT OF RANGE REFERENCE UNITS LAB L506.1000 29.95-100.01 ng/mL Normal Vitamin D 38.7 25-OH Result Comment: Vitamin D 25(OH) Status Range Deficiency <20 ng/mL (50nmol/L) Insuffciency 20 - 30 ng/mL (50 - 75 nmol/L) Sufficiency 30 - 100 ng/mL (75 - 250 nmol/L) Toxicity >100 ng/mL (>250 nmol/L) Performed By: #### L506.1000 #### [facility] [address] [place], [address] HEMOGLOBIN A1C Collected: 03/10/2018 Status: F Source: [place] 8:59 AM [facility] [place] TYPE CODE TESTS RESULT OUT OF RANGE REFERENCE UNITS LAB L501.9985 4.2-6.3 % High HGB A1C 8.4 Performed By: #### L501.9985 #### [facility] [address] [place], [address] PROTHROMBIN TIME W/INR Collected: 02/25/2018 Status: F Source: [place] 8:23 AM [facility] [place] TYPE CODE TESTS RESULT OUT OF RANGE REFERENCE UNITS LAB L300.4150 11.7-14.9 SECONDS High PROTIME 30.4 LAB L300.4200 Normal INR 2.9 Performed By: #### L300.3900 #### [facility] [address] [facility] [place], [place], [address] LIVER PROFILE Collected: 02/25/2018 Status: F Source: [place] 8:23 AM [facility] [place] TYPE CODE TESTS RESULT OUT OF RANGE REFERENCE UNITS LAB L501.1500 6.4-8.2 g/dL Normal T PROT 6.9 LAB L501.1800 3.2-5.0 g/dL Normal ALB 3.8 LAB L501.1950 2.2-4.2 g/dL Normal GLOB 3.1 LAB L501.4100 15-37 U/L Normal AST 18 LAB L501.4305 45-117 U/L Normal ALK P 100 LAB L501.4405 13-56 U/L Normal ALT 24 LAB L501.4600 0.20-1.00 mg/dL Normal T BILI 0.50 LAB L501.4700 0.00-0.30 mg/dL Normal D BILI 0.14 Performed By: #### L500.3400, L500.4100 #### [facility] [address] [facility] [place], [place], [address] LIPID PROFILE Collected: 02/25/2018 Status: F Source: [place] 8:23 AM [facility] [place] TYPE CODE TESTS RESULT OUT OF RANGE REFERENCE UNITS LAB L501.4900 200 mg/dL High CHOL 229 Result Comment: <200 mg/dL Desirable 200-240 mg/dL Borderline >240 mg/dL High Risk LAB L501.5000 mg/dL High TRIG 232 Result Comment: The drugs N-Acetylcysteine and Metamizole may falsely depress this assay. Serum Triglycerides Reference Interval Normal <150 mg/dL Borderline high 150 - 199 mg/dL High 200 - 499 mg/dL Very High > or = 500 mg/dL LAB L501.6400 mg/dL Normal HDL 40 Result Comment: The drugs N-Acetylcysteine and Metamizole may falsely depress this assay. Reference Range HDL <40 mg/dL Low HDL Cholesterol HDL >or= 60 mg/dL High HDL Cholesterol LAB L501.6500 0-130 mg/dL High LDL 143 LAB L501.6600 5-40 mg/dL High VLDL 46 Performed By: #### L500.3400, L500.4100 #### [facility] [address] [place], [address] PT D/C SUMMARY (1) Observed: 02/11/2018 Status: F Source: [place] 11:56 AM [facility] [place] [facility] [address] [place] [address] Fax REHABILITATION SERVICES DISCHARGE SUMMARY MR#: [id number] Acct: [id number] Name: EMMA HUNG Rep #: [id number] : 1940 78 From: Lakesha Castrejon DPT Referring Dr.: Maria C Melton DO Status: REG RCR Insurance: MEDICARE PART A B [employer] HP - PT D/C Summary It has been my pleasure to treat EMMA HUNG under orders from Maria C Melton, for the diagnosis of Lumbar with radiculopathy for a total of 12 visit(s). Discharge Date: Please see the following information for a summary of their discharge status. - Subjective Subjective: Patient reports that she is very happy with progress and is doing her exercises at home. Now her left knee is bad and needs replaced - Pain bilat. buttocks Pain Intensity (Out of 10): 0 - Overall Improvement % Improvement: 75 - Objective Objective/Function: Posture: FH, RS, Increased kyphosis- sitting posture today was good Gait: straight cane- decreased stance time bilateral LE- reported no pain- good danilo. HR/TR: able but reports significant pain with TR on right right- TR decreased by 50%. SLS: unable without UE A from table with no reports of discomfort- maintain weight shift for 10 seconds each ROM: LE: WFL, Lumbar: flexion to knees with UE A, extn to neutral, SB: decreased by 50% Rotation: decreased by 50%. Flex: HS: severe. Gastroc: moderate. Strength: Ankle:5/5, Knee: 4+/5, Hip: 4/5 Core: fair. Slump Test: positive - Goals Goal 1:: Patient will be I with HEP and progression Goal Progress: Goal Met Goal 2:: Patient will ambualte >300 feet with a normalized gait pattern with LRD Goal Progress: Progressing Goal 3:: Patient will asc/desc 8 stairs recip with a normal pattern Goal Progress: Progressing Goal 4:: Patient will maintain proper posture t/o demo increased core s/s. Goal Progress: Progressing - Plan Plan: Patient is I with HEP and is appropriate for d.c - D/C Information If there are questions or concerns regarding this patient's physical therapy, please feel free to call me at [phone]. Thank you for the referral of this patient. Sincerely, Lakesha Castrejon <Electronically signed by Lakesha Castrejon DPT> 02/11/18 1156 CC: Maria C Melton DO ELR Signed RE-EVALUATION - PT (1) Observed: 01/26/2018 Status: F Source: [place] 11:58 AM [facility] [place] [facility] [address] [place] [address]. [address] [place] [address] Fax REEVALUATION / MEDICARE RECERTIFICATION PHYSICAL THERAPY MR#: [id number] Acct: [id number] Name: EMMA HUNG Rep #: [id number] : 1940 78 From: Lakesha Castrejon DPT Referring DrLitzy: Maria C Melton DO Status: REG RCR Insurance: MEDICARE PART A B AGNES Melton, It has been my pleasure to treat EMMA HUNG over the last 8 visits for Lumbar with radiculopathy. Please see the progress note below for an update on the physical therapy plan of care! Subjective: Vahe reports that is getting better- no pain medication at home. No back pain just the pain down the legs to the knees when she walks to far. Objective/Function: Posture: FH, RS, Increased kyphosis- sitting posture today was good but as she sat more than 3 min she started to slide out to keep her legs straight instead of 90/90 Gait: straight cane- decreased stance time bilateral LE- reported no pain- good danilo. HR/TR: able but reports significant pain with TR on right right- TR decreased by 50%. SLS: unable without UE A from table with no reports of discomfort. ROM: LE: WFL, Lumbar: flexion to knees with UE A, extn to neutral, SB: decreased by 50% Rotation: decreased by 50%. Flex: HS: severe. Gastroc: moderate. Strength: Ankle:5/5, Knee: 4+/5, Hip: 4/5 Core: fair. Slump Test: positive Plan Plan: Continue 2x a week for 2 weeks- focus on progression of HEP- unable to get silver sneakers due to insurance limitations. Goals Goal 1:: Patient will be I with HEP and progression Goal Time Frame: 4-6 Weeks Goal Progress: Progressing Goal 2:: Patient will ambualte >300 feet with a normalized gait pattern with LRD Goal Time Frame: 4-6 Weeks Goal Progress: Progressing Goal 3:: Patient will asc/desc 8 stairs recip with a normal pattern Goal Time Frame: 4-6 Weeks Goal Progress: Progressing Goal 4:: Patient will maintain proper posture t/o demo increased core s/s. Goal Time Frame: 4-6 Weeks Goal Progress: Progressing Anticipated Interventions Patient/Client Instruction: Educate patient on: Benefits of Fitness Program Therapeutic Exercise to Include: Strength training, Endurance training, Balance training, Agility training, Body mechanics, Postural training, Flexibilty training, Gait and locomotor training, Dynamic Lumbar Stabilization For the Purpose of:: To improve muscle performance and motor function TENS: Yes Cryotherapy (ice pack, ice massage): Yes Thermo therapy (hot pack): Yes For the Purpose of:: To decrease pain Please do not hesitate to contact me at [phone] by phone or if you have questions or concerns regarding this new plan of care! Sincerely, Lakesha Castrejon <Electronically signed by Lakesha Castrejon DPT> 01/26/18 1158 CC: Maria C Melton DO ELR Signed For Medicare only, by signing this I certify the plan of care. Physicians Signature Date PROTHROMBIN TIME W/INR Collected: 01/26/2018 Status: F Source: [place] 11:57 AM [facility] [place] TYPE CODE TESTS RESULT OUT OF RANGE REFERENCE UNITS LAB L300.4150 11.7-14.9 SECONDS High PROTIME 27.7 LAB L300.4200 Normal INR 2.6 Performed By: #### L300.3900 #### [facility] [address] [place], [address] CARDIOLOGY VISIT Observed: 2018 Status: F Source: [place] REPORT 4:06 PM [facility] [place] [facility] [address] [place] [address] OFFICE VISIT Date of Service: 01/05/18 MR#: [id number] Acct: [id number] Name: EMMA HUNG Rep #: [id number] : 1940 Provider: Vianca Pinon Age/Sex: 77/F [place] [facility] [place] Status: Signed [facility] Chief Complaint: Follow-up visit. Details: EMMA HUNG, is a 77 F who presents to the office today for a cardiovascular follow-up. She has a history of paroxysmal atrial fibrillation, minimal coronary artery disease, hypertension, and diastolic dysfunction and diabetes. From a cardiac standpoint, patient is doing well. She does not have any chest discomfort/heaviness/tightness. She does not have any worsening symptoms of shortness of breath. She does not have any orthopnea. She denies PND. She does not have any symptoms of congestive heart failure. She does not have any palpitations that she is aware of. She does not have any lightheadedness or dizziness. She does not have any near-syncope or syncope. She does not have any lower extremity edema. She does not have any symptoms of claudication. 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 Accompanied by: none Is patient in pain?: No Allergies Fdwnooj-Txe-Bsr Reductase Inhibitor Adverse Reaction (Severe, Verified 07/04/17 10:00) myalgias Medications Aspirin [Aspirin, Baby] 81 mg PO DAILY@0800 06/30/15 [History Confirmed 01/05/18] Glipizide [Glucotrol Xl] 15 mg PO BID 06/30/15 [History Confirmed 01/05/18] Liraglutide [Victoza] 1.8 mg SQ DAILY 06/30/15 [History Confirmed 01/05/18] Metoprolol Succinate 200 mg PO DAILY 06/30/15 [History Confirmed 01/05/18] Ezetimibe [Zetia] 10 mg PO QHS 07/17/15 [History Confirmed 01/05/18] Calcium Carb/Vitamin D [Caltrate-600 With Vit D Tab] 1 tab PO QHS 05/22/16 [History Confirmed 01/05/18] Multivit-Min/FA/Lycopen/Lutein [Centrum Silver Tablet] 1 ea PO QHS 05/22/16 [History Confirmed 01/05/18] warfarin 5 mg tablet 5 mg PO SUSA #30 tab 03/10/17 [Rx Confirmed 01/05/18] furosemide 40 mg tablet 40 mg PO DAILY #90 tab 06/30/17 [Rx Confirmed 01/05/18] cholecalciferol (vitamin D3) 1,000 unit capsule 2,000 unit PO QHS cap 07/04/17 [History Confirmed 01/05/18] levothyroxine 75 mcg tablet 75 mcg PO QDAY 07/04/17 [History Confirmed 01/05/18] isosorbide mononitrate ER 30 mg tablet,extended release 24 hr 30 mg PO DAILY #90 tab 07/23/17 [Rx Confirmed 01/05/18] lisinopril 20 mg tablet 20 mg PO DAILY #90 tab 07/23/17 [Rx Confirmed 01/05/18] warfarin 1 mg tablet 1 mg PO .COMPLEX #90 tab 12/09/17 [Rx Confirmed 01/05/18] diclofenac 1 % topical gel TOPICAL 25 Days #100 g 01/05/18 [History Confirmed 01/05/18] PFSH Medical History Chronic diastolic heart failure (Chronic) Atherosclerotic heart disease of [place] coronary artery without angina pectoris (Chronic) Paroxysmal atrial fibrillation (Acute) Nonrheumatic mitral (valve) stenosis (Chronic) Peripheral vascular disease with claudication (Acute) Nonrheumatic aortic (valve) stenosis (Chronic) Acute on chronic diastolic (congestive) heart failure (Chronic) Nonrheumatic mitral valve regurgitation (Chronic) 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) Acquired hypothyroidism (Chronic) Benign hypertension (Chronic) Type II diabetes mellitus (Chronic) NSTEMI (non-ST elevated myocardial infarction) (Acute) Hyperlipidemia (Chronic) Surgical History History of cataract surgery (Resolved) History of cholecystectomy (Resolved) History of total right knee replacement (Resolved) Family History Father CVA (cerebral vascular accident) Mother Diabetes Hypertension Brother CAD (coronary artery disease) CVA (cerebral vascular accident) Hypertension Brother Diabetes Sister Diabetes Social History Smoking Status: Former smoker alcohol intake: never substance use type: does not use caffeine: No what type of physical activity do you participate in: other details: PT frequency: 1-2 times per week duration: 45-60 minutes/day seatbelt use: always do you feel safe at home: Yes ROS Const Const: Negative for weakness, fatigue, fever(s) or headache(s) Eyes Eyes: Negative for blind spots, loss of peripheral vision or transient loss of vision ENT ENT: Negative for headache(s), dizziness, tinnitus or Nosebleed/epistaxis Cardio Chest Pain: No Palpitations: No Edema: None Muscle aches with walking: None Resp Respiratory: Negative for SOB with activity, SOB at rest, SOB orthopnea\SOB lying down or Cough GI GI: Negative nausea, vomiting, heartburn or vomiting blood/hematemesis : Negative for hematuria Musc Musc: Negative for muscle aches/ myalgia Neuro Neuro: Negative for weakness, headache(s), dizziness, near syncope, syncope, lightheadedness or orthostatic symptoms [place] Hematologic/Lymphatic: Negative for easy bleeding Endo Endo: Negative for fatigue Cardiology Exam Const Appearance: cooperative, no acute distress and well developed Orientation: alert, awake and oriented x3 Head Head: normocephalic and atraumatic Mouth: moist mucous membranes Eyes General: appearance normal, both eyes and all related structures Conjunctivae: conjunctivae normal Pupils: PERRL EOM: EOM intact bilaterally Neck Neck: normal visual inspection, no lymphadenopathy and no JVD Carotids: Negative bruit Neck Mass: Negative Neck mass Chest Chest inspection: normal inspection of the chest and symmetric chest movement Auscultation: Bilateral: Clear to Auscultation Cardio Palpation: normal PMI Rate: regular rate Rhythm: regular rhythm Heart sounds: S1 normal and S2 normal; negative rub, gallop or murmur GI GI: normal to inspection, soft, no hepatosplenomegaly and bowel sounds present; negative tender Neuro General: alert, awake, oriented x3, CN's II-XI intact bilaterally and moves all extremities Extremities Pulses: Normal: Right Posterior Tibial Pulse, Left Posterior Tibial Pulse, Right Radial Pulse, Left Radial Pulse Lower Extremity Edema: None: Bilateral Psych Psychological: normal affect Supplemental Info Patient had a left and right heart catheterization in 2016 which demonstrated mild pulmonary hypertension, left circumflex moderate disease, RCA mild to moderate disease, LAD mild to moderate disease. Echocardiogram in 2018 demonstrated Normal LV size. Moderate concentric left ventricular hypertrophy. The estimated ejection fraction is 50 %. Moderate focal aortic valve calcification. Mild to moderate aortic stenosis. Calculated aortic valve area (continuity equation) is 1.4 cm2. Compared to prior study, there is no significant change. Assessment AND Plan 1. Atherosclerosis of solomon coronary artery of solomon heart without angina pectoris I25.10 MEDARDO Norris Patient has minimal coronary artery disease. We will continue to monitor. Will continue with risk factor modification. 2. Paroxysmal atrial fibrillation I48.0 MEDARDO Norris Patient is not symptomatic. She will continue with rate limiting medication in addition to her Coumadin with a therapeutic INR goal of 2-3. 3. Benign hypertension I10 MEDARDO Norris Blood pressure is well controlled on current medications, we do not recommend any changes at this time. 4. Pure hypercholesterolemia E78.00; E78.0 MEDARDO Norris Recent lipid profile demonstrates total cholesterol 209, HDL 38, LDL 29. These are less than ideal. Patient is aware of this. She is trying dietary modification. She is not tolerant of statins. 5. Nonrheumatic aortic (valve) stenosis I35.0 MEDARDO Norris Recent echocardiogram has been reviewed. We will continue to monitor by history, exam and echocardiograms as deemed appropriate. 6. Nonrheumatic mitral (valve) stenosis I34.2 MEDARDO Norris Recent echocardiogram has been reviewed. We will continue to monitor by history, exam and echocardiograms as deemed appropriate. Plan Detail Additional Comments - MEDARDO Pierre The above patient was discussed with Dr. Muniz, he agrees with plan of care. Thank you for allowing us to participate in patient's plan of care, if you have any questions please do not hesitate to call. This note was generated using a voice recognition system and there may be incorrect words, spelling or punctuation errors that were not noted when reviewing the office note prior to saving. 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 transplanted heart: solomon heart Paroxysmal atrial fibrillation I48.0 Benign hypertension I10 Pure hypercholesterolemia E78.00; E78.0 Hyperlipidemia type: pure hypercholesterolemia Nonrheumatic aortic (valve) stenosis I35.0 Nonrheumatic mitral (valve) stenosis I34.2 Coding Level of Care Code Off vis,est,level 3 Diagnoses Atherosclerosis of solomon coronary artery of solomon heart without angina pectoris I25.10 [place] vs. transplanted heart: solomon heart Paroxysmal atrial fibrillation I48.0 Benign hypertension I10 Pure hypercholesterolemia E78.00; E78.0 Hyperlipidemia type: pure hypercholesterolemia Nonrheumatic aortic (valve) stenosis I35.0 Nonrheumatic mitral (valve) stenosis I34.2 01/05/18 1145 <Electronically signed by Vianca BATRES> Date Vianca BATRES 01/09/18 1606<Electronically signed by Fish Muniz MD> Cosigner Signature: Date (if applicable) Fish Muniz MD CC: Maria C Melton DO PROTHROMBIN TIME W/INR Collected: 12/31/2017 Status: F Source: [place] 12:04 PM [facility] TYPE CODE TESTS RESULT OUT OF RANGE REFERENCE UNITS LAB L300.4150 11.7-14.9 SECONDS High PROTIME 28.5 LAB L300.4200 Normal INR 2.7 Performed By: #### L300.3900 #### [facility] [address] [place], [address] INITAL EVALUATION (1) Observed: 12/31/2017 Status: F Source: ACME - PT 11:40 AM [facility] [address] [place] [address] Fax REHABILITATION SERVICES INITIAL EVALUATION MR#: [id number] Acct: [id number] Name: EMMA HUNG Rep #: [id number] : 1940 77 From: Lakesha Castrejon DPT Referring Dr.: Maria C Melton DO Status: REG RCR Insurance: MEDICARE PART A B [employer] Patient's Visit Information EMMA HUNG is a 77 year old F referred to Physical Therapy by Maria C Melton with a diagnosis of Lumbar with radiculopathy. Date of Evaluation: 12/31/17 Physical Therapist: Lakesha Castrejon - Visit Plan Frequency: 3x /Week Duration: 3 Weeks Plan: Focus on core s/s and endurance with functional activities. - Subjective Subjective: Patient reports that she has had back pain for a long time. She has pain in the back and is now in the buttocks and traveling down the back of the legs- right is worse than left. She was seeing chiro which made her better but it didn't last 2-3 years ago. Worst: 10/10 Agg: walking, being up on her feet, standing for long periods of time- has to lean on the counter when cooking. Best: 0/10 Eases: laying in bed at night. Takes 3 minutes from being up and moving when she sits down it goes away. Is still doing all her cleaning and ADL's she just has to sit down more often due to her back pain and A-fib. Can be described as sharp/shooting and dull/achy. Is still doing yard work but it is very hard. No N/T in the lower extremity. Sleep: uncomfortable when she turns the wrong way- side sleeper. Has had x-rays of the back but no MRI. Fully I lives alone- has stairs with HR on single side. PMHx: HTN, DM, thyroid,CHF, A-fib. The only injury she can think of was she fell back when pulling weeds- no car accidents. Meds: levothyroxine, victoza, metoprolol, fuosemide, lisinopril, isosorbide er, glipizide, warfarin, zetia, asprin, tylenel. - Objective Posture: FH, RS, Increased kyphosis- can correct minimally but required tactile and verbal cues. Gait: straight cane- decreased stance time bilateral LE- reported pain and fatigue- danilo was decreased. Stairs: asc 8 recip with 1 HR and one cane with significant UE use, Desc non recip with right leg leading with body turned sideways- HR and cane. HR/TR: able but reports significant pain with TR on right right- TR decreased by 75%. SLS: unable without UE A from table with reports of discomfort. ROM: LE: WFL, Lumbar: flexion to knees with UE A, extn to neutral, SB: decreased by 50% Rotation: decreased by 50%. Sensation: WNL. Flex: HS: severe. Gastroc: Severe. Palpation: not tender. Strength: Ankle: 4+/5, Knee: 4/5, Hip: 4-/5 Core: poor. Slump Test: positive - Goals Goal 1:: Patient will be I with HEP and progression Goal Time Frame: 4-6 Weeks Goal 2:: Patient will ambualte >300 feet with a normalized gait pattern with LRD Goal Time Frame: 4-6 Weeks Goal 3:: Patient will asc/desc 8 stairs recip with a normal pattern Goal Time Frame: 4-6 Weeks Goal 4:: Patient will maintain proper posture t/o demo increased core s/s. Goal Time Frame: 4-6 Weeks - Rehabilitation Potential Physical Therapy Diagnosis: Patient presents with hypomobility- she has decreased ROM, strength and muscular endurance leading to poor posture and increased pain with ADL's. Rehabilitation Potential: Fair - Anticipated Interventions Patient/Client Instruction: Educate patient on: Benefits of Fitness Program Therapeutic Exercise to Include: Strength training, Endurance training, Balance training, Agility training, Body mechanics, Postural training, Flexibilty training, Gait and locomotor training, Dynamic Lumbar Stabilization For the Purpose of:: To improve muscle performance and motor function TENS: Yes Cryotherapy (ice pack, ice massage): Yes Thermo therapy (hot pack): Yes For the Purpose of:: To decrease pain Thank you for the opportunity to evaluate your patient. For Medicare and Medicare HMO plans, please review the plan of care and approve it. It will need to be FAXED BACK to us at [phone] for Medicare purposes. Please let me know if there are questions or concerns regarding this plan of care. Physician Signature: Date: <Electronically signed by Lakesha Castrejon DPT> 12/31/17 1140 CC: Maria C Melton DO ELR Signed For Medicare only, by signing this I certify the plan of care. Physicians Signature Date L/S SPINE MIN 4 Observed: 12/29/2017 Status: F Source: [facility] VIEWS 3:52 PM [facility] Services [address] [place] [id number] L/S Spine Min 4 Views MR#: [id number] Acct: [id number] Name: EMMA HUNG Rep #: [id number] : 1940 F 77 From: Aditya Narayan MD PCP: Maria C Melton DO Status: REG CLI Study: L/S Spine Min 4 Views Date of Exam: 12/29/17 Exam# [id number] Ordering Dr: Maria C Melton DO STUDY: X-RAY - LUMBAR SPINE REASON FOR EXAM: Female, 77 years old. Low back pain TECHNIQUE: 5 view(s) of the lumbar spine were obtained. COMPARISON: 2014 FINDINGS: Normal lumbar lordosis. There is no substantial scoliosis. There is a normal alignment of the vertebrae. There is diffuse demineralization with multi-level endplate spondylosis. There is multi-level degenerative disc disease with multi- level disc space narrowing. There is no demonstrated fracture. There is atherosclerotic calcification of the abdominal aorta without a demonstrated aneurysm. RAD/L/S Spine Min 4 Views IMPRESSION: Degenerative changes of the spine, as detailed above. Electronically Signed: Golden Narayan MD at 16:01 EDT , Service support , CC: Maria C Melton DO Pharmacology Professor: Signed S-I JTS 3 OR MORE Observed: 12/29/2017 Status: F Source: [facility] VIEWS 3:52 PM [facility] Services [address] [place] [id number] S-I Jts 3 or More Views MR#: [id number] Acct: [id number] Name: EMMA HUNG Rep #: [id number] : 1940 F 77 From: Aditya Narayan MD PCP: Maria C Melton DO Status: REG CLI Study: S-I Jts 3 or More Views Date of Exam: 12/29/17 Exam# [id number] Ordering Dr: Maria C Melton DO STUDY: X-RAY - SACROILIAC JOINTS REASON FOR EXAM: Female, 77 years old. Pain TECHNIQUE: 3 view(s) of the sacroiliac joints were obtained. COMPARISON: None. FINDINGS: There are degenerative changes of the bilateral sacroiliac joints. Normal visualized sacral ala and sacrum. There is no demonstrated fracture. Normal visualized iliac bones. Normal visualized soft tissue structures. RAD/S-I Jts 3 or More Views IMPRESSION: Degenerative changes of the bilateral sacroiliac joints, as described above. Electronically Signed: Golden Narayan MD at 16:01 EDT , Service support , CC: Maria C Melton DO Pharmacology Professor: Signed PROTHROMBIN TIME W/INR Collected: 12/01/2017 Status: F Source: [place] 12:04 PM [facility] [place] TYPE CODE TESTS RESULT OUT OF RANGE REFERENCE UNITS LAB L300.4150 11.7-14.9 SECONDS High PROTIME 28.1 LAB L300.4200 Normal INR 2.6 Performed By: #### L300.3900 #### [facility] [address] [place], [address] PROTHROMBIN TIME W/INR Collected: 11/04/2017 Status: F Source: [place] 8:37 AM [facility] Order Comment: DR. MUNIZ WANTS THE PT DR. LOUISE WANTS THE CMP TSH VITD A1C TYPE CODE TESTS RESULT OUT OF RANGE REFERENCE UNITS LAB L300.4150 11.7-14.9 SECONDS High PROTIME 26.6 LAB L300.4200 Normal INR 2.4 Performed By: #### L300.3900 #### [facility] [address] [place], [place], [address] HEMOGLOBIN A1C Collected: 11/04/2017 Status: F Source: [place] 8:26 AM [facility] Order Comment: DR. MUNIZ WANTS THE PT DR. LOUISE WANTS THE CMP TSH VITD A1C TYPE CODE TESTS RESULT OUT OF RANGE REFERENCE UNITS LAB L501.9985 4.2-6.3 % High HGB A1C 7.1 Performed By: #### L501.9985 #### [facility] [address] [place], [address] COMPREHENSIVE METABOLIC Collected: 11/04/2017 Status: F Source: [place] MAO 8:26 AM [facility] Order Comment: DR. MUNIZ WANTS THE PT DR. LOUISE WANTS THE CMP TSH VITD A1C TYPE CODE TESTS RESULT OUT OF RANGE REFERENCE UNITS LAB L501.0100 74-106 mg/dL High GLU 193 Result Comment: Fasting Glucose result greater than or equal to 126 mg/dL suggests DIABETES MELLITUS per A.D.A. criteria. Please note revised GLUCOSE reference range effective 2017. LAB L501.1000 7-18 mg/dL High BUN 36 LAB L501.1100 0.55-1.02 mg/dL Normal CREAT,SERUM 0.93 Result Comment: The validity of the calculated GFR AND GFRAA in patients over 70 years has not been determined. Clinical correlation is essential. LAB L501.1110 >60 mL/min Normal EST GFR 62 Result Comment: Non- GFR Calc LAB L501.1115 >60 mL/min Normal EST GFR - AA 75 Result Comment: GFR Calc LAB L501.1300 10-20 RATIO High BUN/CRE 38.8 LAB L501.1500 6.4-8.2 g/dL T Normal PROT 6.9 LAB L501.1800 3.2-5.0 g/dL Normal ALB 3.7 LAB L501.1950 2.2-4.2 g/dL Normal GLOB 3.2 LAB L501.2000 0.9-2.4 RATIO Normal A/G 1.2 LAB L501.2200 8.5-10.1 mg/dL CA Normal 8.9 LAB L501.4100 15-37 U/L Low AST 14 LAB L501.4305 45-117 U/L Normal ALK P 88 LAB L501.4405 13-56 U/L Normal ALT 21 LAB L501.4600 0.20-1.00 mg/dL T Normal BILI 0.40 LAB L501.5300 136-145 mmol/L NA Normal 138 LAB L501.5600 3.5-5.1 mmol/L K Normal 4.1 LAB L501.5900 98-107 mmol/L CL Normal 105 LAB L501.6100 21.0-32.0 mmol/L Normal CO2 22.0 LAB L501.6200 5-15 Normal GAP 11 Performed By: #### L500.4050, L501.9584 #### [facility] [address] [place], [address] THYROID STIM HORMONE Collected: 11/04/2017 Status: F Source: [place] (TSH) 8:26 AM [facility] Order Comment: DR. MUNIZ WANTS THE PT DR. LOUISE WANTS [facility] TSH VITD A1C TYPE CODE TESTS RESULT OUT OF RANGE REFERENCE UNITS LAB L501.9520 0.358-3.74 uIU/mL Normal TSH 1.38 Performed By: #### L500.4050, L501.9520 #### [facility] [address] [place], [address] VITAMIN D,25 HYDROXY Collected: 11/04/2017 Status: F Source: [place] 8:26 AM [facility] Order Comment: DR. MUNIZ WANTS THE PT DR. LOUISE WANTS [facility] TSH VITD A1C TYPE CODE TESTS RESULT OUT OF RANGE REFERENCE UNITS LAB L506.1000 29.95-100.01 ng/mL Normal Vitamin D 33.7 25-OH Result Comment: Vitamin D 25(OH) Status Range Deficiency <20 ng/mL (50nmol/L) Insuffciency 20 - 30 ng/mL (50 - 75 nmol/L) Sufficiency 30 - 100 ng/mL (75 - 250 nmol/L) Toxicity >100 ng/mL (>250 nmol/L) Performed By: #### L506.1000 #### [facility] [address] [place], [address] PROTHROMBIN TIME W/INR Collected: 10/06/2017 Status: F Source: [place] 2:54 PM [facility] TYPE CODE TESTS RESULT OUT OF RANGE REFERENCE UNITS LAB L300.4150 11.7-14.9 SECONDS High PROTIME 29.3 LAB L300.4200 Normal INR 2.8 Performed By: #### L300.3900 #### [facility] [address] [place], [address] PROTHROMBIN TIME W/INR Collected: 09/09/2017 Status: F Source: [place] 11:03 AM [facility] TYPE CODE TESTS RESULT OUT OF RANGE REFERENCE UNITS LAB L300.4150 11.7-14.9 SECONDS High PROTIME 30.1 LAB L300.4200 Normal INR 2.9 Performed By: #### L300.3900 #### [facility] [address] [place], [address] PROTHROMBIN TIME W/INR Collected: 08/12/2017 Status: F Source: [facility] 8:52 AM [facility] TYPE CODE TESTS RESULT OUT OF RANGE REFERENCE UNITS LAB L300.4150 11.7-14.9 SECONDS High PROTIME 27.7 LAB L300.4200 Normal INR 2.6 Performed By: #### L300.3900 #### [facility] [address] [place], [address] HEMOGLOBIN A1C Collected: 08/12/2017 Status: F Source: [place] 8:52 AM [facility] Order Comment: SEND RESULTS TO . TYPE CODE TESTS RESULT OUT OF RANGE REFERENCE UNITS LAB L501.9985 4.2-6.3 % High HGB A1C 8.1 Performed By: #### L501.9985 #### [facility] [address] [place], [address] COMPREHENSIVE METABOLIC Collected: 08/12/2017 Status: F Source: [facility] 8:52 AM [facility] Order Comment: SEND RESULTS TO . TYPE CODE TESTS RESULT OUT OF RANGE REFERENCE UNITS LAB L501.0100 74-106 mg/dL High GLU 157 Result Comment: Fasting Glucose result greater than or equal to 126 mg/dL suggests DIABETES MELLITUS per A.D.A. criteria. Please note revised GLUCOSE reference range effective 2017. LAB L501.1000 7-18 mg/dL High BUN 22 LAB L501.1100 0.55-1.02 mg/dL Normal CREAT,SERUM 0.92 Result Comment: The validity of the calculated GFR AND GFRAA in patients over 70 years has not been determined. Clinical correlation is essential. LAB L501.1110 >60 mL/min Normal EST GFR 62 Result Comment: Non- GFR Calc LAB L501.1115 >60 mL/min Normal EST GFR - AA 76 Result Comment: GFR Calc LAB L501.1300 10-20 RATIO High BUN/CRE 23.8 LAB L501.1500 6.4-8.2 g/dL T Normal PROT 6.7 LAB L501.1800 3.2-5.0 g/dL Normal ALB 3.6 LAB L501.1950 2.2-4.2 g/dL Normal GLOB 3.1 LAB L501.2000 0.9-2.4 RATIO Normal A/G 1.2 LAB L501.2200 8.5-10.1 mg/dL CA Normal 9.0 LAB L501.4100 15-37 U/L Low AST 14 LAB L501.4305 45-117 U/L Normal ALK P 99 LAB L501.4405 13-56 U/L Normal ALT 23 LAB L501.4600 0.20-1.00 mg/dL T Normal BILI 0.50 LAB L501.5300 136-145 mmol/L NA Normal 141 LAB L501.5600 3.5-5.1 mmol/L K Normal 3.9 LAB L501.5900 98-107 mmol/L CL Normal 103 LAB L501.6100 21.0-32.0 mmol/L Normal CO2 29.0 LAB L501.6200 5-15 Normal GAP 9 Performed By: #### L500.4050, L500.4100 #### [facility] [address] [place], [address] LIPID PROFILE Collected: 08/12/2017 Status: F Source: [facility] 8:52 AM [facility] Order Comment: SEND RESULTS TO . TYPE CODE TESTS RESULT OUT OF RANGE REFERENCE UNITS LAB L501.4900 200 mg/dL High CHOL 209 Result Comment: <200 mg/dL Desirable 200-240 mg/dL Borderline >240 mg/dL High Risk LAB L501.5000 mg/dL High TRIG 209 Result Comment: The drugs N-Acetylcysteine and Metamizole may falsely depress this assay. Serum Triglycerides Reference Interval Normal <150 mg/dL Borderline high 150 - 199 mg/dL High 200 - 499 mg/dL Very High > or = 500 mg/dL LAB L501.6400 mg/dL Low HDL 38 Result Comment: The drugs N-Acetylcysteine and Metamizole may falsely depress this assay. Reference Range HDL <40 mg/dL Low HDL Cholesterol HDL >or= 60 mg/dL High HDL Cholesterol LAB L501.6500 0-130 mg/dL Normal LDL 129 LAB L501.6600 5-40 mg/dL High VLDL 42 Performed By: #### L500.4050, L500.4100 #### [facility] [address] [place], [address] PROTHROMBIN TIME W/INR Collected: 07/04/2017 Status: F Source: [facility] 11:03 AM [facility] Order Comment: Comments: STANDING ORDER Comments: STANDING ORDER TYPE CODE TESTS RESULT OUT OF RANGE REFERENCE UNITS LAB L300.4150 11.7-14.9 SECONDS High PROTIME 26.2 LAB L300.4200 Normal INR 2.4 Performed By: #### L300.3900 #### [facility] [address] [place], [address] CARDIOLOGY VISIT Observed: 07/04/2017 Status: F Source: ACME REPORT 10:28 AM [facility] [address] [place] [address] OFFICE VISIT Date of Service: 07/04/17 MR#: [id number] Acct: [id number] Name: EMMA HUNG Rep #: [id number] : 1940 Provider: Fish Muniz MD Age/Sex: 77/F [place] [facility] [place] Status: Signed [facility] Chief Complaint: Follow-up visit. Details: EMMA HUNG, is a 77 F who presents to the office today for a follow-up visit. She is a lady with a history of mild coronary artery disease valvular heart disease paroxysmal atrial fibrillation who returns for follow-up visit. You do remember that approximately a year and a half ago she underwent a cardiac authorization with demonstrated normal left main coronary artery left circumflex artery and moderate disease in the proximal obtuse marginal branches in the right coronary artery with mild to moderate diffuse disease. There was mild disease noted in the left anterior descending artery ejection fraction was noted to be normal her aortic valve was mildly stenotic and she did have mild mitral valve stenosis with a mean transmitral gradient of 4 mmHg with mild to moderate mitral regurgitation. She has had no neck arm or jaw discomfort suggest angina no dizziness or diaphoresis no near syncope or syncope. She has been compliant with all her medications. She tells me that her major problems are related to body aches as well as neck discomfort with some tingling in her left arm. Intake Vital Signs07/04/17 Height 5 ft 2 in 07/04/17 Weight: 246 lb 07/04/17 Body Mass Index (BMI) 44.9 07/04/17 Blood Pressure 106/60 07/04/17 Blood Pressure Location Lt brachial Intake Visit Reasons: 6 M FU (pt moved from 4-10) Architectural Modeler Required: No Accompanied by: None Is patient in pain?: Yes (neck discomfort) Pain scale (1-10): 3 Allergies Wegnsjx-Qry-Axt Reductase Inhibitor Adverse Reaction (Severe, Verified 07/04/17 10:00) myalgias Medications Aspirin [Aspirin, Baby] 81 mg PO DAILY@0800 06/30/15 [History Confirmed 07/04/17] Glipizide [Glucotrol Xl] 15 mg PO BID 06/30/15 [History Confirmed 07/04/17] Liraglutide [Victoza] 1.8 mg SQ DAILY 06/30/15 [History Confirmed 07/04/17] Metoprolol Succinate 200 mg PO DAILY 06/30/15 [History Confirmed 07/04/17] Warfarin [Coumadin] 6 mg PO MOTUWETHFR 06/30/15 [History Confirmed 07/04/17] Isosorbide Mononitrate [Imdur] 30 mg PO DAILY #30 tab 07/03/15 [Rx Confirmed 07/04/17] Lisinopril [Zestril] 20 mg PO DAILY #30 tab 07/03/15 [Rx Confirmed 07/04/17] Ezetimibe [Zetia] 10 mg PO QHS 07/17/15 [History Confirmed 07/04/17] Calcium Carb/Vitamin D [Caltrate-600 With Vit D Tab] 1 tab PO QHS 05/22/16 [History Confirmed 07/04/17] Multivit-Min/FA/Lycopen/Lutein [Centrum Silver Tablet] 1 ea PO QHS 05/22/16 [History Confirmed 07/04/17] warfarin 5 mg tablet 5 mg PO SUSA #30 tab 03/10/17 [Rx Confirmed 07/04/17] furosemide 40 mg tablet 40 mg PO DAILY #90 tab 06/30/17 [Rx Confirmed 07/04/17] cholecalciferol (vitamin D3) 1,000 unit capsule 2,000 unit PO QHS cap 07/04/17 [History Confirmed 07/04/17] empagliflozin 10 mg tablet 10 mg PO QDAY 07/04/17 [History Confirmed 07/04/17] levothyroxine 75 mcg tablet 75 mcg PO QDAY 07/04/17 [History Confirmed 07/04/17] Ejection fraction %: 65 to 70 (65% per echo 04/18/2016 at [facility]) [facility] Medical History Chronic diastolic heart failure (Chronic) Atherosclerotic heart disease of solomon coronary artery without angina pectoris (Chronic) Paroxysmal atrial fibrillation (Acute) Nonrheumatic mitral (valve) stenosis (Chronic) Peripheral vascular disease with claudication (Acute) Nonrheumatic aortic (valve) stenosis (Chronic) Acute on chronic diastolic (congestive) heart failure (Chronic) Nonrheumatic mitral valve regurgitation (Chronic) assisted (current) use of anticoagulants (Chronic) Acquired hypothyroidism (Chronic) Benign hypertension (Chronic) Type II diabetes mellitus (Chronic) NSTEMI (non-ST elevated myocardial infarction) (Acute) Hyperlipidemia (Chronic) Surgical History History of cataract surgery (Resolved) History of cholecystectomy (Resolved) History of total right knee replacement (Resolved) Family History Father CVA (cerebral vascular accident) Mother Diabetes Hypertension Brother CAD (coronary artery disease) CVA (cerebral vascular accident) Hypertension Brother Diabetes Sister Diabetes Social History Smoking Status: Former smoker alcohol intake: never substance use type: does not use caffeine: No what type of physical activity do you participate in: other details: PT frequency: 1-2 times per week duration: 45-60 minutes/day seatbelt use: always do you feel safe at home: Yes ROS Const Const: Positive for body ache (atrhritis); negative for fever(s), chills, night sweats, daytime sleepiness, difficulty sleeping, weight gain, weight loss, increased appetite, poor appetite, anorexia, other, frequent falls, headache(s), weakness, fatigue or excessive sweating Eyes Eyes: Negative for blind spots, loss of peripheral vision, transient loss of vision, change in vision, floaters, tunnel vision, other, blurry vision or double vision ENT ENT: Positive for balance problems and neck pain; negative for hearing loss, tinnitus, Nosebleed/epistaxis, post nasal drip, bleeding gums, hoarseness, dry mouth, other, dizziness, headache(s), tongue swelling or lip swelling Cardio Chest Pain: No Palpitations: No Edema: None Muscle aches with walking: Bilateral (lower extremities) Resp Respiratory: Negative for SOB with activity, SOB at rest, SOB orthopnea\SOB lying down, Cough, Coughing up blood/hemoptysis, chest congestion, pain on inspiration, snoring, stridor, wheezing, crackles, paroxysmal nocturnal dyspnea or other GI GI: Negative nausea, vomiting, heartburn, constipation, belching, bloating, cramping, vomiting blood/hematemesis, bright, red blood in stools, black,tarry stools, loose stools, Difficulty Swallowing or other : Negative for hematuria, frequent nighttime urination/ nocturia, erectile dysfunction or abnormal vaginal bleeding Musc Musc: Positive for balance problems and joint pain; negative for muscle aches/ myalgia or muscle weakness Skin Skin: Negative redness, non-healing lesions, unusual bruising, skin ulcer, wounds, jaundice, other or rash Neuro Neuro: Negative for dizziness, lightheadedness, near syncope, syncope, orthostatic symptoms, frequent falls, headache(s), weakness, confusion, memory loss, restless legs, blurry vision, double vision, vertigo, seizures, lack of coordination or other [place] Hematologic/Lymphatic: Negative for easy bleeding, easy bruising, enlarged lymph nodes or other Endo Endo: Negative for fatigue, cold intolerance, heat intolerance, excessive sweating, flushing, increased thirst/drinking, increased hunger, hair loss, hair growth or other Psych Psych: Negative for anxiety, depression, thoughts of harming anyone, thoughts of harming yourself, visual hallucinations, panic attacks or audible hallucinations Allergy Allergy/Immunology: Negative for throat swelling, Negative for tongue swelling, Negative for hives, Negative for rash, Negative for lip swelling Cardiology Exam Const Appearance: cooperative, healthy appearing, well developed, well groomed and no acute distress Nutritional Appearance: well nourished and average body habitus Orientation: alert, awake and oriented x3 Head Head: normal to inspection, normocephalic and atraumatic Ears: hearing grossly normal bilaterally and external ears normal Nose: external nose normal, nasal mucous membranes and turbinates normal, nares normal, septum normal, no nasal discharge Face and Sinus: face symmetric Mouth: oral mucosae normal, tongue normal, oropharynx normal and moist mucous membranes Teeth and gingiva: dentition normal Throat: posterior oropharynx normal, tonsils normal and uvula midline Eyes General: appearance normal, both eyes and all related structures Eyelids: eyelids normal Conjunctivae: conjunctivae normal Pupils: PERRL, normal by confrontation and accommodation normal EOM: EOM intact bilaterally Neck Neck: normal visual inspection, trachea midline and no JVD JVD: +5 Carotids: normal carotid upstroke and bounding pulses Chest Chest inspection: normal inspection of the chest, symmetric chest movement and normal respiratory effort Auscultation: Bilateral: Clear to Auscultation Cardio Palpation: normal PMI Rate: regular rate Rhythm: regular rhythm Heart sounds: S1 normal, S2 normal and normal, physiologic split S2; negative rub, gallop or murmur GI GI: normal to inspection, soft, no hepatosplenomegaly and bowel sounds present Neuro General: alert, awake, oriented x3, no focal sensory deficit, gait normal and moves all extremities Skin Skin: no rashes or lesions noted Extremities Pulses: Normal: Right Femoral Pulse, Left Femoral Pulse, Right Dorsalis Pedis Pulse, Left Dorsalis Pedis Pulse, Right Posterior Tibial Pulse, Left Posterior Tibial Pulse, Right Radial Pulse, Left Radial Pulse Lower Extremity Edema: None: Bilateral Musculoskel Musculoskeletal: No joint tenderness Psych Psychological: normal affect Assessment AND Plan 1. 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 2. Nonrheumatic mitral (valve) stenosis I34.2 Plan She does have evidence of mild mitral stenosis with a peak gradient of 10 mmHg and a mean gradient of 4 mmHg noted on her last echocardiogram. This was in 2017 she appears to be free of symptoms my recommendation will be to observe her for another 6 months 3. Nonrheumatic aortic (valve) stenosis I35.0 Plan She does have mild aortic stenosis as well with a valve area of 1.3 cm . She should have a repeat echocardiogram to reassess her left ventricular function as well as the aortic valve area. Further recommendations will depend on the results of the above tests. 4. HTN (hypertension), benign I10 Plan Her blood pressure appears to be under good control on the current medical therapy. She has not had any dizziness or diaphoresis and once again I would not recommend that we make any changes. 5. Paroxysmal atrial fibrillation I48.0 Plan She does have paroxysmal atrial fibrillation but has been maintaining sinus rhythm. As you know she does have a history of hypertension diabetes and age over 75 giving her a chads vas score of 5. She therefore should be on the anticoagulation maintaining an INR of 2-3. 6. Chronic diastolic heart failure I50.32 Plan She does have a history of chronic diastolic heart failure and at this time she remains on 40 mg of furosemide which she appears to be tolerating. Fluid limitation as well as sodium limitation should be continued. Thank you for allowing me to participate in the care of your patient. 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 transplanted heart: solomon heart Nonrheumatic mitral (valve) stenosis I34.2 Nonrheumatic aortic (valve) stenosis I35.0 HTN (hypertension), benign I10 Paroxysmal atrial fibrillation I48.0 Chronic diastolic heart failure I50.32 07/04/17 1028 <Electronically signed by Fish Muniz MD> Date Fish Taylor Signature: Date (if applicable) CC: Maria C Melton DO INITAL EVALUATION (1) Observed: 07/01/2017 Status: F Source: [place] - PT 9:26 AM [facility] [address] [place] [address] Fax REHABILITATION SERVICES INITIAL EVALUATION MR#: [id number] Acct: [id number] Name: EMMA HUNG Rep #: [id number] : 1940 77 From: Kalyan Bess PT, ATC Referring Dr.: Maria C Melton DO Status: REG RCR Insurance: MEDICARE PART A B [employer] Patient's Visit Information EMMA HUNG is a 77 year old F referred to Physical Therapy by Maria C Melton with a diagnosis of Neck pain with radiculopathy. Date of Evaluation: 07/01/17 Physical Therapist: Kalyan Bess PT, - Visit Plan Frequency: 2x /Week Duration: 3 Weeks Plan: Postural edu, DTR, US, C-Tx, scap stab ex's, and HEP - Subjective Subjective: Pt reports she has had neck pain for 6 weeks. 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 Pt reports she has been taking prednisone which has ;helped a little bit , but is still present. Pt notes sleep diff secondary to pain. Pt reports if she walks with her arms hanging down to her side, she feels increased L UE radiculopathy. Pt is R hand dominant. Pt has not found any way to relieve her pain. Pt reports no pain if she just sits and does nothing. 5/10 at rest, 10/10 at worst. - Pain neck Pain Intensity (Out of 10): 5 Pain Intensity Range: 10 - Objective Neuro: B UE sensation is WNL to light touch. B bicepital reflex= 1/3. Palpation: Pt is sore in the upper trap region. Pt has no obvious deformity. MMT: R shoulder 5/5 throughout. L shoulder flex and ER= 4-/5, abd and IR= 5/5. ROM: Pt is moderately limited with retraction, ext, L SB, and L rot. Pt has pain with all these movments. Repeated movements: RPIS has no effect. RRIS provokes L UE sx's. Special testing: repeated retraction and ext produce L UE radiculopathy - Goals Goal 1:: Decrease neck pain x 50% to aid with sleep Goal Time Frame: 2-4 Weeks Goal 2:: Decrease the frequency and intensity of L UE radiculopathy x 50% to aid with IADL's Goal Time Frame: 2-4 Weeks Goal 3:: Increase cervical spine ROM x 1 grade to aid with IADL's Goal Time Frame: 2-4 Weeks Goal 4:: I with HEP Goal Time Frame: 2-4 Weeks - Rehabilitation Potential Physical Therapy Diagnosis: Pt has neck pain, limited c/s ROM, and L UE radiculopathy secondary to deg changes of the C/S Rehabilitation Potential: Good - Anticipated Interventions Patient/Client Instruction: Educate patient on: Condition, Plan of Care For the Purpose of:: To improve self management Therapeutic Exercise to Include: Strength training, Endurance training, Postural training, Active ROM, Scapular Strength/Stabilization For the Purpose of:: To decrease pain, To increase ROM, To improve muscle performance and motor function Ultrasound (thermal/non thermal): Yes Intermittent cervical traction: Yes For the Purpose of:: To decrease pain Thank you for the opportunity to evaluate your patient. For Medicare and Medicare HMO plans, please review the plan of care and approve it. It will need to be FAXED BACK to us at [phone] for Medicare purposes. Please let me know if there are questions or concerns regarding this plan of care. Physician Signature: Date: <Electronically signed by Kalyan Bess PT, ATC> 07/01/17 0926 CC: Maria C Melton DO [facility] Signed For Medicare only, by signing this I certify the plan of care. Physicians Signature Date LIVER PROFILE Collected: 07/01/2017 Status: F Source: [place] 9:02 AM [facility] Order Comment: Order Date: 01/28/17 Order Info: [id number] - *Hepatic Function Panel Order Info: [id number] - *Lipid Profile CC PCP Comments: 12 hours fasting, may have water. TYPE CODE TESTS RESULT OUT OF RANGE REFERENCE UNITS LAB L501.1500 6.4-8.2 g/dL Normal T PROT 7.1 LAB L501.1800 3.2-5.0 g/dL Normal ALB 3.7 LAB L501.1950 2.2-4.2 g/dL Normal GLOB 3.4 LAB L501.4100 15-37 U/L Low AST 13 LAB L501.4305 45-117 U/L Normal ALK P 114 LAB L501.4405 13-56 U/L Normal ALT 20 LAB L501.4600 0.20-1.00 mg/dL Normal T BILI 0.50 LAB L501.4700 0.00-0.30 mg/dL Normal D BILI 0.10 Performed By: #### L500.3400 #### [facility] [address] [place], [address] LIPID PROFILE Collected: 07/01/2017 Status: F Source: [place] 9:02 AM [facility] Order Comment: Order Date: 01/28/17 Order Info: [id number] - *Hepatic Function Panel Order Info: [id number] - *Lipid Profile CC PCP Comments: 12 hours fasting, may have water. TYPE CODE TESTS RESULT OUT OF RANGE REFERENCE UNITS LAB L501.4900 200 mg/dL High CHOL 203 Result Comment: <200 mg/dL Desirable 200-240 mg/dL Borderline >240 mg/dL High Risk LAB L501.5000 mg/dL Normal TRIG 165 Result Comment: The drugs N-Acetylcysteine and Metamizole may falsely depress this assay. Serum Triglycerides Reference Interval Normal <150 mg/dL Borderline high 150 - 199 mg/dL High 200 - 499 mg/dL Very High > or = 500 mg/dL LAB L501.6400 mg/dL Normal HDL 44 Result Comment: The drugs N-Acetylcysteine and Metamizole may falsely depress this assay. Reference Range HDL <40 mg/dL Low HDL Cholesterol HDL >or= 60 mg/dL High HDL Cholesterol LAB L501.6500 0-130 mg/dL Normal LDL 126 LAB L501.6600 5-40 mg/dL Normal VLDL 33 Performed By: #### L500.4100 #### [facility] [address] [place], [address] CERV SPINE 4 OR 5 Observed: 06/26/2017 Status: F Source: [facility] 9:42 AM [facility] Services [address] [place] [address] Cerv Spine 4 or 5 Views MR#: [id number] Acct: [id number] Name: EMMA HUNG Rep #: [id number] : 1940 F 77 From: Atul Maurer MD PCP: Maria C Melton DO Status: REG CLI Study: Cerv Spine 4 or 5 Views Date of Exam: 06/26/17 Exam# [id number] Ordering Dr: Maria C Melton DO STUDY: X-RAY - CERVICAL SPINE REASON FOR EXAM: Female, 77 years old. Radiculopathy. Pain. TECHNIQUE: 3 view(s) of the cervical spine were obtained with flexion and extension. COMPARISON: None FINDINGS: Normal anterior atlantoaxial articulation. Normal odontoid process. There is straightening of the normal cervical lordosis. There is multi-level endplate spondylosis. There is mild multi-level degenerative disc disease with multilevel disc space narrowing. Normal alignment. Extremely limited extension and decreased flexion. No subluxations. The soft tissue structures are unremarkable. RAD/Cerv Spine 4 or 5 Views IMPRESSION: Relatively mild multilevel degenerative changes significantly decreased range of motion. Electronically Signed: Atul Maurer MD at 17:14 EDT , Service support , CC: Maria C Melton DO Pharmacology Professor: Signed PROTHROMBIN TIME W/INR Collected: 05/30/2017 Status: F Source: [facility] 1:30 PM [facility] TYPE CODE TESTS RESULT OUT OF RANGE REFERENCE UNITS LAB L300.4150 11.7-14.9 SECONDS High PROTIME 22.3 LAB L300.4200 Normal INR 2.0 Performed By: #### L300.3900 #### [facility] [address] [place], [address] HEMOGLOBIN A1C Collected: 05/08/2017 Status: F Source: [facility] 10:22 AM [facility] TYPE CODE TESTS RESULT OUT OF RANGE REFERENCE UNITS LAB L501.9985 4.2-6.3 % High HGB A1C 7.6 Performed By: #### L501.9985 #### [facility] [address] [place], [address] COMPREHENSIVE METABOLIC Collected: 05/08/2017 Status: F Source: [facility] PROFIL 10:22 AM [facility] TYPE CODE TESTS RESULT OUT OF RANGE REFERENCE UNITS LAB L501.0100 74-106 mg/dL High GLU 116 Result Comment: Fasting Glucose result from 100 to 125 mg/dL suggests IMPAIRED HOMEOSTASIS per A.D.A. criteria. Please note revised GLUCOSE reference range effective 2017. LAB L501.1000 7-18 mg/dL High BUN 20 LAB L501.1100 0.55-1.02 mg/dL Normal CREAT,SERUM 0.88 Result Comment: The validity of the calculated GFR AND GFRAA in patients over 70 years has not been determined. Clinical correlation is essential. LAB L501.1110 >60 mL/min Normal EST GFR 66 Result Comment: Non- GFR Calc LAB L501.1115 >60 mL/min Normal EST GFR - AA 80 Result Comment: GFR Calc LAB L501.1300 10-20 RATIO High BUN/CRE 22.7 LAB L501.1500 6.4-8.2 g/dL T Normal PROT 7.1 LAB L501.1800 3.2-5.0 g/dL Normal ALB 3.9 LAB L501.1950 2.2-4.2 g/dL Normal GLOB 3.2 LAB L501.2000 0.9-2.4 RATIO Normal A/G 1.2 LAB L501.2200 8.5-10.1 mg/dL CA Normal 9.2 LAB L501.4100 15-37 U/L Normal AST 19 LAB L501.4305 45-117 U/L High ALK P 119 LAB L501.4405 13-56 U/L Normal ALT 24 Result Comment: Please note revised ALT reference range effective 2017. LAB L501.4600 0.20-1.00 mg/dL Normal T BILI 0.40 LAB L501.5300 136-145 mmol/L Normal NA 139 LAB L501.5600 3.5-5.1 mmol/L Normal K 4.0 LAB L501.5900 98-107 mmol/L Normal CL 100 LAB L501.6100 21.0-32.0 mmol/L Normal CO2 30.0 LAB L501.6200 5-15 Normal GAP 9 Performed By: #### L500.4050, L501.9520 #### [facility] [address] [place], [place], [address] THYROID STIM HORMONE Collected: 05/08/2017 Status: F Source: [place] (TSH) 10:22 AM [facility] TYPE CODE TESTS RESULT OUT OF RANGE REFERENCE UNITS LAB L501.9520 0.358-3.74 uIU/mL Normal TSH 1.79 Performed By: #### L500.4050, L501.9520 #### [facility] [address] [place], [place], [id number] MICROALBUMIN,RANDOM URINE Collected: Status: F Source: [place] 05/08/2017 10:22 AM [facility] TYPE CODE TESTS RESULT OUT OF RANGE REFERENCE UNITS LAB L502.0500 NO RANGE EST. mg/L Normal 8.7 MICROALBUMIN ,UR Performed By: #### L502.0500 #### [facility] [address] [place], [address] PROTHROMBIN TIME W/INR Collected: 05/05/2017 Status: F Source: [place] 8:21 AM [facility] TYPE CODE TESTS RESULT OUT OF RANGE REFERENCE UNITS LAB L300.4150 11.7-14.9 SECONDS High PROTIME 30.8 LAB L300.4200 Normal INR 2.9 Performed By: #### L300.3900 #### [facility] [address] [place], [address] ALLERGIES ALLERGIES DATE TYPE / CODE NAME / CODE REACTION SEVERITY SOURCE 07/04/2017 Drug Dqmelpb-Bws-Ves [facility] Allergy[facility]416 [facility] 000547(SNOM Inhibitor/G37026 Repository ED CT) 0095(RXNORM) 01/20/2017 Drug No Known [facility] Allergy/416 Allergies/M77303 Hospital 640512(SNOM 0388(RXNORM) Repository ED CT) ENCOUNTERS ENCOUNTERS ADMIT/DISCHARGE ACCOUNT ADMITTING ENCOUNTER LOCATION SOURCE NUMBER CLASS 03/25/2018 [id number] [place] 5 [facility] ing:MTLAB Repository 03/10/2018 [id number] [place] 9 [facility] ing:MTLAB Repository 02/25/2018/ [id number] [place] 8 6 [facility] ing:MTLAB Repository 02/11/2018/ [id number] [place] 7 [facility] ing:PT Repository 01/26/2018/ [id number] [place] 8 [facility] ing:MTLAB Repository 01/05/2018/ [id number] Ambulatory [facility] [place] 8 2 [facility] Repository 12/31/2017/ [id number] [place] 5 [facility] Repository 12/29/2017 [id number] [place] 2 [facility] ing:HPRAD Repository 11/11/2017 [id number] [place] 2 [facility] ing:[facility] Repository 11/04/2017/ [id number] [place] 6 [facility] ing:[facility] Repository 10/06/2017/ [id number] [place] 8 3 [facility] ing:[facility] Repository 09/09/2017/ [id number] [place] 7 [facility] ing:[facility] Repository 08/12/2017/ [id number] [place] 8 8 [facility] ing:[facility] Repository 07/25/2017 [id number] [place] 1 [facility] ing:[facility] Repository 07/25/2017 [id number] Ambulatory [facility] [place] 0 [facility] Repository 07/10/2017/ [id number] [place] 8 4 [facility] ing:PT Repository 07/04/2017 [id number] [place] 9 [facility] ing:[facility] Repository 07/04/2017/ [id number] Ambulatory [facility] [place] 8 6 [facility] Repository 07/01/2017 [id number] Ambulatory [facility] [place] 2 [facility] Repository 07/01/2017/ [id number] [place] 7 [facility] ing:MTLAB Repository 06/26/2017 [id number] [place] [facility] ing:HPRAD Repository 05/30/2017/ [id number] Ambulatory [place] 8 5 [facility] ing:MTLAB Repository 05/08/2017 [id number] Ambulatory [place] 4 [facility] ing:MTLAB Repository PAYERS PAYERS ENCOUNTER GUARANTOR PAYER SUBSCRIBER SOURCE 03/25/2018 EMMA E Primary EMMA Reynoso [id number] Insurance:MEDICARE MOOREDOB: [facility] PART A [facility] [id number] Number: Repository [address]Hmu: 330 [id number] [phone] () Date:2017-11-04 03/25/2018 Secondary EMMA E [place] Insurance:CIGNAPolicy MOOREDOB: Community Number: [id number] Hospital [id number] Repository Date:0920-75-26TP [address], [place] [address]XT: 03/25/2018 Tertiary NOT GIVENUNK [place] Insurance:SELF PAY [facility] Number: Effective Repository Date:2018-03-02 03/10/2018 EMMA E Primary EMMA E [place] [id number] Insurance:MEDICARE MOOREDOB: [facility] PART A [facility] [id number] Number[place] Repository [address]Ktz: 330 [id number] [phone] () Date:2018-03-10 03/10/2018 Secondary EMMA Ballesteros [place] Insurance:CIGNAPolicy MOOREDOB: Community Number: [id number] Hospital [id number] Repository Date:5933-03-32VE [address]CVZXNMOECJM, [place] [address]YY: 03/10/2018 Tertiary NOT GIVENUNK [place] Insurance:SELF PAY [facility] Number: Effective Repository Date:2018-03-10 02/25/2018 EMMA E Primary EMMA E [place] [id number] Insurance:MEDICARE MOOREDOB: [facility] PART A [facility] [id number] Number[place] Repository [address]Vmb: 330 [id number] [phone] () Date:2017-11-04 02/25/2018 Secondary EMMA E [place] Insurance:CIGNAPolicy MOOREDOB: Community Number: [id number] Hospital [id number] Repository Date:5448-59-06CF [address]DVQXJDGCFJD, [place] [address]MO: 02/25/2018 Tertiary NOT GIVENUNK [place] Insurance:SELF PAY [facility]: Effective Repository Date:2018-02-03 02/11/2018 EMMA E Primary EMMA [place] [id number] Insurance:MEDICARE MOOREDOB: Community [place] PART A [facility] [id number] [place] Number: Repository [address]Dem: [phone] [id number] [phone] () Date:2005-01-01 02/11/2018 Secondary EMMA Ballesteros [place] Insurance:CIGNAPolicy ABHILASHDOB: Community Number: [id number] Hospital [id number] Repository Date:3725-70-51WK [address]LTAHYFLBYQM, [place] [address]CL: 02/11/2018 Tertiary NOT GIVENUNK [place] Insurance:SELF PAY [facility] Effective Repository Date:2017-12-29 01/26/2018 EMMA E Primary EMMA Reynoso [id number] Insurance:MEDICARE MOOREDOB: Community [place] PART A [facility] [id number] [place] Number: Repository [address]Xne: [phone] [id number] [phone] () Date:2017-11-04 01/26/2018 Secondary EMMA E [place] Insurance:CIGNAPolicy MOOREDOB: Community Number: [id number] Hospital [id number] Repository Date:8388-35-20JX [address]NWOZKNULCTS, [place] [address]RP: 01/26/2018 Tertiary NOT GIVENUNK [place] Insurance:SELF PAY [facility] Number: Effective Repository Date:2018-01-01 01/05/2018 EMMA E Primary EMMA Reynoso [id number] Insurance:MEDICARE MOOREDOB: Community [place] PART A [facility] [id number] Number[place] Repository [address]Ymu: 330 [id number] [phone] () Date:2017-07-04 01/05/2018 Secondary EMMA Favian [place] Insurance:CIGNAPolicy MOOREDOB: Community Number: [id number] Hospital [id number] Repository Date:4156-27-31JR [address]NTHISFSTDHG, [place] [address]MN: 01/05/2018 Tertiary NOT GIVENUNK [place] Insurance:SELF PAY [facility] Number: Effective Repository Date:2018-01-05 12/31/2017 EMMA E Primary EMMA E [place] [id number] Insurance:MEDICARE MOOREDOB: Community [place] PART A [facility] [id number] [place] Number: Repository [address]Ank: 330 [id number] [phone] () Date:2017-11-04 12/31/2017 Secondary EMMA E [place] Insurance:CIGNAPolicy MOOREDOB: Community Number: [id number] Hospital [id number] Repository Date:9384-03-53[address]ZFOXUZXGIUX, [place] [address]FN: 12/31/2017 Tertiary NOT GIVENUNK [place] Insurance:SELF PAY [facility] Number: Effective Repository Date:2017-12-01 12/29/2017 EMMA E Primary EMMA E [place] [id number] Insurance:MEDICARE MOOREDOB: [facility] PART A [facility] [id number] [place] Number: Repository [address]Nij: 330 [id number] [phone] () Date:2017-12-29 12/29/2017 Secondary EMMA E [place] Insurance:CIGNAPolicy ABHILASHDOB: Community Number: [id number] Hospital [id number] Repository Date:8703-69-30WG [address]NRJZSWJDEZO, [place] [address]XQ: 12/29/2017 Tertiary NOT GIVENUNK [place] Insurance:SELF PAY [facility] Number: Effective Repository Date:2017-12-29 11/11/2017 EMMA E Primary EMMA E [place] [id number] Insurance:MEDICARE MOOREDOB: Community [place] PART A [facility] [id number] [place], [place] Number: Repository [address]Uix: 330 [id number] [phone] () Date:2017-04-08 11/11/2017 Secondary EMMA E [place] Insurance:CIGNAPolicy MOOREDOB: Community Number: [id number] Hospital [id number] Repository Date:9140-57-07UJ [address]IHOEKANUTFV, [place] [address]PC: 11/11/2017 Tertiary NOT GIVENUNK [place] Insurance:SELF PAY [facility] Number: Effective Repository Date:2017-11-05 11/04/2017 EMMA E Primary EMMA E [place] [id number] Insurance:MEDICARE MOOREDOB: Community [place] PART A [facility] [id number] Peaks [facility] [place] Number: Repository [address]Tsj: 330 [id number] [phone] () Date:2017-11-04 11/04/2017 Secondary EMMA E [place] Insurance:CIGNAPolicy MOOREDOB: Community Number: [id number] Hospital [id number] Repository Date:2036-07-78LT [address]YBQIRACGWLF, [place] [address]ZG: 11/04/2017 Tertiary NOT GIVENUNK [place] Insurance:SELF PAY [facility] Number: Effective Repository Date:2017-11-04 10/06/2017 EMMA E Primary EMMA E [place] [id number] Insurance:MEDICARE MOOREDOB: Community [place] PART A [facility] [id number] [facility]aks [facility] [place] Number: Repository [address]Sng: 330 [id number] [phone] () Date:2017-04-08 10/06/2017 Secondary EMMA E [place] Insurance:CIGNAPolicy MOOREDOB: Community Number: [id number] Hospital [id number] Repository Date:6382-75-06CB [address]NVRSJOAIGNL, [place] [address]FP: 10/06/2017 Tertiary NOT GIVENUNK [place] Insurance:SELF PAY [facility] Number: Effective Repository Date:2017-10-03 09/09/2017 EMMA E Primary EMMA E [place] [id number] Insurance:MEDICARE MOOREDOB: Community [place] PART A [facility] [id number] Number[place] Repository [address]Mfn: (104) [id number] [phone] () Date:2017-04-08 09/09/2017 Secondary EMMA E [place] Insurance:CIGNAPolicy MOOREDOB: Community Number: [id number] Hospital [id number] Repository Date:5839-62-02UT [address]HRPORJNYDKM, [place] [address]YS: 09/09/2017 Tertiary NOT GIVENUNK [place] Insurance:SELF PAY [facility] Number: Effective Repository Date:2017-08-29 08/12/2017 EMMA E Primary EMMA E [place] [id number] Insurance:MEDICARE MOOREDOB: Community [place] PART A [facility] [id number] [facility] Number[place] Repository [address]Cwi: 330 [id number] [phone] () Date:2017-04-08 08/12/2017 Secondary EMMA E [place] Insurance:CIGNAPolicy MOOREDOB: Community Number: [id number] Hospital [id number] Repository Date:9536-08-79TT [address]APYAQNLWGYRPEGRAM, [place] [address]YO: 08/12/2017 Tertiary NOT GIVENUNK [place] Insurance:SELF PAY [facility] Number: Effective Repository Date:2017-08-01 07/25/2017 EMMA E Primary EMMA E [place] [id number] Insurance:MEDICARE MOOREDOB: Community [place] PART A [facility] [id number] Samaritan [facility] Number[place] Repository [address]Pfa: [phone] [id number] [phone] () Date:2017-07-04 07/25/2017 Secondary EMMA E [place] Insurance:CIGNAPolicy MOOREDOB: Community Number: [id number] Hospital [id number] Repository Date:1665-22-09[address]DHDROCTGQYS, [place] [address]FG: 07/25/2017 Tertiary NOT GIVENUNK [place] Insurance:SELF PAY [facility] Number: Effective Repository Date:2017-07-04 07/25/2017 EMMA E Primary EMMA [id number] Insurance:MEDICARE MOOREDOB: Community [place] PART A [facility] [id number] [place] Number: Repository [address]Nzl: [phone] [id number] [phone] () Date:2017-07-04 07/25/2017 Secondary EMMA E [place] Insurance:CIGNAPolicy MOOREDOB: Community Number: [id number] Hospital [id number] Repository Date:1669-55-65FP [address]WXNVESFWQUH, [place] [address]FR: 07/25/2017 Tertiary NOT GIVENUNK [place] Insurance:SELF PAY [facility] Number: Effective Repository Date:2017-07-25 07/10/2017 EMMA E Primary EMMA Reynoso [id number] Insurance:MEDICARE MOOREDOB: Community [place] PART A [facility] [id number] [place] Number: Repository [address]Kyq: 330 [id number] [phone] () Date:2005-01-01 07/10/2017 Secondary EMMA Ballesteros [place] Insurance:CIGNAPolicy MOOREDOB: Community Number: [id number] Hospital [id number] Repository Date:7332-12-98SH [address]SMOKXTQUXKN, [place] [address]PL: 07/10/2017 Tertiary NOT GIVENUNK [place] Insurance:SELF PAY [facility] Number: Effective Repository Date:2017-06-26 07/04/2017 EMMA E Primary EMMA [place] [id number] Insurance:MEDICARE MOOREDOB: Community [place] PART A [facility] [id number] [facility] Number[place] Repository [address]Epd: 330 [id number] [phone] () Date:2017-07-04 07/04/2017 Secondary EMMA Favian [place] Insurance:CIGNAPolicy MOOREDOB: Community Number: [id number] Hospital [id number] Repository Date:2842-99-02RW [address]BUOYFHUYVFQ, [place] [address]QS: 07/04/2017 Tertiary NOT GIVENUNK [place] Insurance:SELF PAY [facility] Number: Effective Repository Date:2017-07-04 07/04/2017 EMMA E Primary EMMA E [place] [id number] Insurance:MEDICARE MOOREDOB: Community [place] PART A [facility] [id number] [place] Number[place]ository [address]Bpf: 330 [id number] [phone] () Date:2017-02-09 07/04/2017 Secondary EMMA E [place] Insurance:CIGNAPolicy MOOREDOB: Community Number: [id number] Hospital [id number] Repository Date:5865-95-60KB [address]ACMZRRABVVE, [place] [address]KZ: 07/04/2017 Tertiary NOT GIVENUNK [place] Insurance:SELF PAY [facility] Number: Effective Repository Date:2017-07-04 07/01/2017 EMMA E Primary EMMA E [place] [id number] Insurance:MEDICARE MOOREDOB: Community [place] PART A [facility] [id number] [facility] Number[place] Repository [address]Tsy: 330 [id number] [phone] () Date:2017-07-01 07/01/2017 Secondary EMMA E [place] Insurance:CIGNAPolicy MOOREDOB: Community Number: [id number] Hospital [id number] Repository Date:1448-43-29IX [address]RHLZUHJQTPM, [place] [address]TG: 07/01/2017 Tertiary NOT GIVENUNK [place] Insurance:SELF PAY [facility] Number: Effective Repository Date:2017-07-01 07/01/2017 EMMA E Primary EMMA E [place] [id number] Insurance:MEDICARE MOOREDOB: Community [place] PART A [facility] [id number] [facility]aritan [facility] Number[place] Repository [address]Nts: 330 [id number] [phone] () Date:2017-04-08 07/01/2017 Secondary EMMA E [place] Insurance:CIGNAPolicy MOOREDOB: Community Number: [id number] Hospital [id number] Repository Date:8732-22-62[address]UAXAUKTTJMT, [place] [address]IW: 07/01/2017 Tertiary NOT GIVENUNK [place] Insurance:SELF PAY [facility] Number: Effective Repository Date:2017-06-02 06/26/2017 EMMA E Primary EMMA E [place] [id number] Insurance:MEDICARE MOOREDOB: Community [place] PART A [facility] [id number] [facility]aritan [facility] Repository [address]Xgi: 330 [id number] [phone] () Date:2017-06-26 06/26/2017 Secondary EMMA E [place] Insurance:CIGNAPolicy MOOREDOB: Community Number: [id number] Hospital [id number] Repository Date:7330-45-76YW [address]DOHBLYMGARU, [place] [address]JY: 06/26/2017 Tertiary NOT GIVENUNK [place] Insurance:SELF PAY [facility] Number: Effective Repository Date:2017-06-26 05/30/2017 EMMA Primary EMMA [place] [id number] Insurance:MEDICARE MOOREDOB: Community [place] PART A [facility] [id number] [facility]aritan [facility] Number[place] Repository [address]Eqk: 330 [id number] [phone] (HP) Date:2017-04-08 05/30/2017 Secondary EMMA [place] Insurance:CIGNAPolicy MOOREDOB: Community Number: [id number] Hospital [id number] Repository Date:0834-56-26QF [address]TRJHCWNYOSI, [place] [address]NZ: 05/30/2017 Tertiary NOT GIVENUNK [place] Insurance:SELF PAY [facility] Number: Effective Repository Date:2017-04-08 05/08/2017 EMMA Primary EMMA [place] [id number] Insurance:MEDICARE MOOREDOB: Community [place] PART A [facility] [id number] [place] Number: Repository [address]Hph: [phone] [id number] [phone] () Date:2017-05-08 05/08/2017 Secondary EMMA [place] Insurance:CIGNAPolicy MOOREDOB: Community Number: [id number] Hospital [id number] Repository Date:2957-12-28BL [address]SBDGJCFMBSF, [place] [address]XW: 05/08/2017 Tertiary NOT GIVENUNK [place] Insurance:SELF PAY [facility] Number: Effective Repository Date:2017-05-08
== END 2018-03-25 13:00 | disposition home or self-care (01) ==
LOC: MTLAB 12:10
PROVIDERS: Family Provider Internal Medicine; PCP Internal Medicine; Referring Provider Internal Medicine Cardiovascular Disease; Visit Provider Internal Medicine Cardiovascular Disease
DX: I48.0 Paroxysmal atrial fibrillation (principal); Z79.01 Long term (current) use of anticoagulants
CPT/HCPCS: 36415; 85610

== ENCOUNTER 2018-05-12 11:49 | Outpatient (RCR) | payer MEDICARE, OTHER, SELFPAY ==
[2018-01-05 10:29] VITALS: BMI 45.3
[2018-05-12 14:05] LABS: International Normalized Ratio 2.7; Prothrombin Time (Protime)PT. 28.5 SECONDS (11.7-14.9)
== END 2018-05-12 12:00 | disposition home or self-care (01) ==
LOC: MTLAB 11:49
PROVIDERS: Family Provider Internal Medicine; PCP Internal Medicine; Referring Provider Internal Medicine Cardiovascular Disease; Visit Provider Internal Medicine Cardiovascular Disease
DX: I48.0 Paroxysmal atrial fibrillation (principal); Z79.01 Long term (current) use of anticoagulants
CPT/HCPCS: 36415; 85610

== ENCOUNTER → 2018-05-25 09:10 | Outpatient (CLI) | payer MEDICARE, OTHER, SELFPAY ==
[2018-01-05 10:29] VITALS: BMI 45.3
[2018-05-25 12:51] LABS: ALB/GLOB Ratio 1.2 RATIO (0.9-2.4); AST(SGOT) 17 U/L (15-37); Alanine Aminotransfer ALT/SGPT 21 U/L (13-56); Albumin, Serum 3.8 g/dL (3.2-5.0); Alkaline Phosphatase 107 U/L (45-117); Anion Gap 4 (5-15); BUN 21 mg/dL (7-18); BUN/Creat Ratio 21.5 RATIO (10-20); Calcium,Total 9.1 mg/dL (8.5-10.1); Chloride 103 mmol/L (98-107); Creatinine, Serum 0.98 mg/dL (0.55-1.02); EST Glomerular Filtration Rate 59 mL/min (>60); Est Glom Filt Rate - Afr Amer 71 mL/min (>60); Globulin 3.3 g/dL (2.2-4.2); Glucose 176 mg/dL (74-106); Protein, Total 7.1 g/dL (6.4-8.2); Sodium Level 137 mmol/L (136-145)
[2018-05-25 12:53] LABS: Hemoglobin A1c 7.7 % (4.2-6.3)
[2018-05-25 12:59] LABS: Microalbumin,Random Urine 20.2 mg/L (NO RANGE EST.); Microalbumin:Creatinine Ratio 70.9 mg/g CRE (<30 mg/g CRE)
== END ==
PROVIDERS: Family Provider Internal Medicine; PCP Internal Medicine; Referring Provider Internal Medicine Endocrinology, Diabetes & Metabolism; Visit Provider Internal Medicine Endocrinology, Diabetes & Metabolism
DX: E11.65 Type 2 diabetes mellitus with hyperglycemia (principal)
CPT/HCPCS: 36415; 80053; 82043; 82570; 83036

== ENCOUNTER 2018-06-11 08:56 | Outpatient (RCR) | payer MEDICARE, OTHER, SELFPAY ==
[2018-01-05 10:29] VITALS: BMI 45.3
[2018-06-11 10:01] LABS: International Normalized Ratio 2.4; Prothrombin Time (Protime)PT. 26.4 SECONDS (11.7-14.9)
== END 2018-06-30 16:00 | disposition home or self-care (01) ==
LOC: MTLAB 08:56
PROVIDERS: Family Provider Internal Medicine; PCP Internal Medicine; Referring Provider Internal Medicine Cardiovascular Disease; Visit Provider Internal Medicine Cardiovascular Disease
DX: I48.0 Paroxysmal atrial fibrillation (principal); Z79.01 Long term (current) use of anticoagulants
CPT/HCPCS: 36415; 85610

== ENCOUNTER 2018-07-09 11:23 | Outpatient (RCR) | payer MEDICARE, OTHER, SELFPAY ==
[2018-01-05 10:29] VITALS: BMI 45.3
[2018-07-01 12:21] LABS: AST(SGOT) 19 U/L (15-37); Alanine Aminotransfer ALT/SGPT 23 U/L (13-56); Albumin, Serum 3.8 g/dL (3.2-5.0); Alkaline Phosphatase 109 U/L (45-117); Cholesterol 207 mg/dL (200); Globulin 2.9 g/dL (2.2-4.2); High Density Lipoprotein 37 mg/dL; Protein, Total 6.7 g/dL (6.4-8.2); Triglycerides 211 mg/dL; Very Low Density Lipoprotein 42 mg/dL (5-40)
[2018-07-09 12:33] LABS: International Normalized Ratio 2.5; Prothrombin Time (Protime)PT. 26.7 SECONDS (11.7-14.9)
== END 2018-07-09 13:00 | disposition home or self-care (01) ==
LOC: MTLAB 11:23
PROVIDERS: Family Provider Internal Medicine; PCP Internal Medicine; Referring Provider Internal Medicine Cardiovascular Disease; Visit Provider Internal Medicine Cardiovascular Disease
DX: I48.0 Paroxysmal atrial fibrillation (principal); Z79.01 Long term (current) use of anticoagulants; E78.5 Hyperlipidemia, unspecified
CPT/HCPCS: 36415; 80061; 80076; 85610

== ENCOUNTER 2018-08-07 15:38 | Outpatient (RCR) | payer MEDICARE, OTHER, SELFPAY ==
[2018-07-16 09:16] VITALS: BMI 44.4
[2018-08-07 17:35] LABS: International Normalized Ratio 2.8; Prothrombin Time (Protime)PT. 29.7 SECONDS (11.7-14.9)
== END 2018-08-07 16:00 | disposition home or self-care (01) ==
LOC: MTLAB 15:38
PROVIDERS: Family Provider Internal Medicine; PCP Internal Medicine; Referring Provider Internal Medicine Cardiovascular Disease; Visit Provider Internal Medicine Cardiovascular Disease
DX: I48.0 Paroxysmal atrial fibrillation (principal); Z79.01 Long term (current) use of anticoagulants
CPT/HCPCS: 36415; 85610

== ENCOUNTER → 2018-08-17 13:42 | Outpatient (CLI) | payer MEDICARE, OTHER, SELFPAY ==
[2018-07-16 09:16] VITALS: BMI 44.4
--- NOTE | 2018-08-17 13:45 | ECHOD_ITS ---
Reason For Study: Murmur Procedure This was a 2D Doppler, Color Flow transthoracic echocardiogram. Exam performed in department. Left Ventricle Normal LV size. Moderate concentric left ventricular hypertrophy. Left ventricular systolic function is normal. The estimated ejection fraction is 60 %. No regional wall motion abnormalities noted. Right Ventricle Normal RV size. Normal systolic function. Atria The left atrium is moderately enlarged. Normal right atrium. Mitral Valve There is moderate mitral annular calcification. Mild-Moderate (1-2+) eccentric mitral valve insufficiency. Tricuspid Valve Normal tricuspid valve. Moderate (2+) tricuspid valve insufficiency. Right ventricular systolic pressure estimated to be 50 mmHg. Aortic Valve Trisinus/trileaflet aortic valve. Moderate focal aortic valve calcification. Peak aortic valve gradient 41 mmHg. Mean aortic valve gradient 22 mmHg. Moderate aortic stenosis. Calculated aortic valve area (continuity equation) is 1.0 cm2. Mild (1+) aortic valve insufficiency. Pulmonic Valve Normal pulmonic valve. Great Vessels Normal aortic root. The pulmonary artery is normal size. Normal inferior vena cava. Pericardium/Pleural No pericardial effusion. MMode/2D Measurements & Calculations LVIDd: 4.2 cm IVSd: 1.5 cm LVOT diam: 2.0 cm LVIDs: 2.9 cm LVPWd: 1.2 cm LVOT area: 3.0 cm2 FS: 29.2 % Ao root diam: 3.8 cm LAV(MOD-bp): 89.8 ml LVAd ap4: 28.8 cm2 LA dimension: 4.8 cm LAV(MOD-bp) Indexed: 42.0 ml/m2 EDV(MOD-sp4): 85.0 ml LAV(MOD-sp2): 79.8 ml EDV(sp4-el): 87.4 ml LAV(MOD-sp4): 101.8 ml LVAs ap4: 18.5 cm2 ESV(MOD-sp4): 42.6 ml ESV(sp4-el): 38.8 ml EF(MOD-sp4): 49.8 % EF(sp4-el): 55.6 % SV(MOD-sp4): 42.4 ml SV(sp4-el): 48.7 ml Aortic Valve Planimetry: 1.0 cm2 LA A4 area: 29.3 cm2 RA A4 area: 17.0 cm2 Time Measurements MV dec time: 0.22 sec Doppler Measurements & Calculations MV E max robert: 171.3 cm/sec MV V2 max: 192.6 cm/sec MV P1/2t max robert: 191.6 cm/sec MV A max robert: 89.1 cm/sec MV max P.8 mmHg MV P1/2t: 77.3 msec MV E/A: 1.9 MV V2 mean: 99.8 cm/sec MV dec slope: 726.2 cm/sec2 MV mean P.6 mmHg MVA(P1/2t): 2.8 cm2 MV V2 VTI: 48.5 cm MVA(VTI): 1.5 cm2 Ao V2 max: 322.1 cm/sec AI max robert: 319.0 cm/sec LV V1 max: 98.4 cm/sec Ao max P.5 mmHg AI max P.7 mmHg LV V1 max P.9 mmHg Ao V2 mean: 220.5 cm/sec AI dec slope: 208.7 cm/sec2 LV V1 mean P.0 mmHg Ao mean P.3 mmHg AI P1/2t: 447.7 msec LV V1 mean: 65.2 cm/sec Ao V2 VTI: 71.9 cm LV V1 VTI: 24.2 cm NAIF(I,D): 1.0 cm2 NAIF(V,D): 0.92 cm2 MR max robert: 569.4 cm/sec SV(LVOT): 72.8 ml PA V2 max: 93.4 cm/sec MR max P.7 mmHg MR mean robert: 455.4 cm/sec MR mean P.1 mmHg MR VTI: 185.0 cm TR max robert: 353.7 cm/sec TR max P.1 mmHg Interpretation Summary Normal LV size. Moderate concentric left ventricular hypertrophy. Left ventricular systolic function is normal. The estimated ejection fraction is 60 %. Moderate focal aortic valve calcification. Peak aortic valve gradient 41 mmHg. Mean aortic valve gradient 22 mmHg. Moderate aortic stenosis. The left atrium is moderately enlarged. Compared to previous the pulmonary pressures are higher Ordering Physician: Fish Muniz Referring Physician: Fish Muniz Performed By: Garret Telles RCS
== END ==
PROVIDERS: Family Provider Internal Medicine; PCP Internal Medicine; Referring Provider Internal Medicine Cardiovascular Disease; Visit Provider Internal Medicine Cardiovascular Disease
DX: I25.10 Atherosclerotic heart disease of native coronary artery without angina pectoris (principal)
CPT/HCPCS: 93306

== ENCOUNTER 2018-09-01 11:50 | Outpatient (RCR) | payer MEDICARE, OTHER, SELFPAY ==
[2018-07-16 09:16] VITALS: BMI 44.4
[2018-09-01 13:46] LABS: International Normalized Ratio 2.6; Prothrombin Time (Protime)PT. 27.9 SECONDS (11.7-14.9)
[2018-09-01 13:49] LABS: Hemoglobin A1c 8.1 % (4.2-6.3)
[2018-09-01 13:55] LABS: ALB/GLOB Ratio 1.2 RATIO (0.9-2.4); AST(SGOT) 18 U/L (15-37); Alanine Aminotransfer ALT/SGPT 27 U/L (13-56); Alkaline Phosphatase 106 U/L (45-117); Anion Gap 11 (5-15); BUN 22 mg/dL (7-18); BUN/Creat Ratio 23.7 RATIO (10-20); Calcium,Total 9.4 mg/dL (8.5-10.1); Chloride 104 mmol/L (98-107); Creatinine, Serum 0.93 mg/dL (0.55-1.02); EST Glomerular Filtration Rate 62 mL/min (>60); Est Glom Filt Rate - Afr Amer 75 mL/min (>60); Globulin 3.2 g/dL (2.2-4.2); Glucose 122 mg/dL (74-106); Potassium 4.1 mmol/L (3.5-5.1); Protein, Total 7.2 g/dL (6.4-8.2); Sodium Level 141 mmol/L (136-145); Thyroid Stim Hormone (TSH) 1.15 uIU/mL (0.358-3.74)
== END 2018-09-01 12:00 | disposition home or self-care (01) ==
LOC: MTLAB 11:50
PROVIDERS: Internal Medicine Endocrinology, Diabetes & Metabolism; Family Provider Internal Medicine; PCP Internal Medicine; Referring Provider Internal Medicine Cardiovascular Disease; Visit Provider Internal Medicine Cardiovascular Disease
DX: I27.21 Secondary pulmonary arterial hypertension (principal); I34.2 Nonrheumatic mitral (valve) stenosis; I34.0 Nonrheumatic mitral (valve) insufficiency; I50.32 Chronic diastolic (congestive) heart failure; I48.0 Paroxysmal atrial fibrillation; I73.9 Peripheral vascular disease, unspecified; I35.0 Nonrheumatic aortic (valve) stenosis; I10 Essential (primary) hypertension; E78.5 Hyperlipidemia, unspecified; I25.10 Atherosclerotic heart disease of native coronary artery without angina pectoris; Z79.01 Long term (current) use of anticoagulants; E11.65 Type 2 diabetes mellitus with hyperglycemia; E03.8 Other specified hypothyroidism
CPT/HCPCS: 36415; 80053; 83036; 84443; 85610

== ENCOUNTER 2018-10-06 13:32 | Outpatient (RCR) | payer MEDICARE, OTHER, SELFPAY ==
[2018-07-16 09:16] VITALS: BMI 44.4
[2018-10-06 15:47] LABS: International Normalized Ratio 2.4
== END 2018-10-06 14:32 | disposition home or self-care (01) ==
LOC: MTLAB 13:32
PROVIDERS: Family Provider Internal Medicine; PCP Internal Medicine; Referring Provider Internal Medicine Cardiovascular Disease; Visit Provider Internal Medicine Cardiovascular Disease
DX: I27.21 Secondary pulmonary arterial hypertension (principal); I34.2 Nonrheumatic mitral (valve) stenosis; I34.0 Nonrheumatic mitral (valve) insufficiency; I11.0 Hypertensive heart disease with heart failure; I50.32 Chronic diastolic (congestive) heart failure; I48.0 Paroxysmal atrial fibrillation; I73.9 Peripheral vascular disease, unspecified; I35.0 Nonrheumatic aortic (valve) stenosis; E78.5 Hyperlipidemia, unspecified; I25.10 Atherosclerotic heart disease of native coronary artery without angina pectoris; Z79.01 Long term (current) use of anticoagulants
CPT/HCPCS: 36415; 85610

== ENCOUNTER 2018-11-03 11:08 | Outpatient (RCR) | payer MEDICARE, OTHER, SELFPAY ==
[2018-07-16 09:16] VITALS: BMI 44.4
[2018-11-03 12:33] LABS: International Normalized Ratio 2.6; Prothrombin Time (Protime)PT. 27.8 SECONDS (11.7-14.9)
== END 2018-11-03 18:00 | disposition home or self-care (01) ==
LOC: MTLAB 11:08
PROVIDERS: Family Provider Internal Medicine; PCP Internal Medicine; Referring Provider Internal Medicine Cardiovascular Disease; Visit Provider Internal Medicine Cardiovascular Disease
DX: I27.21 Secondary pulmonary arterial hypertension (principal); I34.2 Nonrheumatic mitral (valve) stenosis; I34.0 Nonrheumatic mitral (valve) insufficiency; I11.0 Hypertensive heart disease with heart failure; I50.32 Chronic diastolic (congestive) heart failure; I48.0 Paroxysmal atrial fibrillation; I73.9 Peripheral vascular disease, unspecified; I35.0 Nonrheumatic aortic (valve) stenosis; E78.5 Hyperlipidemia, unspecified; I25.10 Atherosclerotic heart disease of native coronary artery without angina pectoris; Z79.01 Long term (current) use of anticoagulants
CPT/HCPCS: 36415; 85610

== ENCOUNTER 2018-12-01 09:52 | Outpatient (RCR) | payer MEDICARE, OTHER, SELFPAY ==
[2018-07-16 09:16] VITALS: BMI 44.4
[2018-12-01 12:38] LABS: International Normalized Ratio 2.5; Prothrombin Time (Protime)PT. 27.2 SECONDS (11.7-14.9)
== END 2018-12-01 18:00 | disposition home or self-care (01) ==
LOC: MTLAB 09:52
PROVIDERS: Family Provider Internal Medicine; PCP Internal Medicine; Referring Provider Internal Medicine Cardiovascular Disease; Visit Provider Internal Medicine Cardiovascular Disease
DX: I27.21 Secondary pulmonary arterial hypertension (principal); I34.2 Nonrheumatic mitral (valve) stenosis; I34.0 Nonrheumatic mitral (valve) insufficiency; I11.0 Hypertensive heart disease with heart failure; I50.32 Chronic diastolic (congestive) heart failure; I48.0 Paroxysmal atrial fibrillation; I73.9 Peripheral vascular disease, unspecified; I35.0 Nonrheumatic aortic (valve) stenosis; E78.5 Hyperlipidemia, unspecified; I25.10 Atherosclerotic heart disease of native coronary artery without angina pectoris; Z79.01 Long term (current) use of anticoagulants
CPT/HCPCS: 36415; 85610

== ENCOUNTER → 2018-12-09 14:44 | Outpatient (CLI) | payer MEDICARE, OTHER, SELFPAY ==
[2018-07-16 09:16] VITALS: BMI 44.4
[2018-12-09 15:55] LABS: Hemoglobin A1c 7.2 % (4.2-6.3)
[2018-12-09 16:06] LABS: ALB/GLOB Ratio 1.2 RATIO (0.9-2.4); AST(SGOT) 26 U/L (15-37); Alanine Aminotransfer ALT/SGPT 23 U/L (13-56); Albumin, Serum 3.7 g/dL (3.2-5.0); Alkaline Phosphatase 101 U/L (45-117); Anion Gap 7 (5-15); BUN 30 mg/dL (7-18); BUN/Creat Ratio 22.2 RATIO (10-20); Calcium,Total 8.9 mg/dL (8.5-10.1); Chloride 104 mmol/L (98-107); Creatinine, Serum 1.35 mg/dL (0.55-1.02); EST Glomerular Filtration Rate 40 mL/min (>60); Est Glom Filt Rate - Afr Amer 49 mL/min (>60); Glucose 179 mg/dL (74-106); Potassium 4.5 mmol/L (3.5-5.1); Protein, Total 6.7 g/dL (6.4-8.2); Sodium Level 143 mmol/L (136-145)
== END ==
PROVIDERS: Family Provider Internal Medicine; PCP Internal Medicine; Referring Provider Internal Medicine Endocrinology, Diabetes & Metabolism; Visit Provider Internal Medicine Endocrinology, Diabetes & Metabolism
DX: E11.65 Type 2 diabetes mellitus with hyperglycemia (principal)
CPT/HCPCS: 36415; 80053; 83036

== ENCOUNTER 2019-01-01 12:39 | Outpatient (RCR) | payer MEDICARE, OTHER, SELFPAY ==
[2018-07-16 09:16] VITALS: BMI 44.4
[2019-01-01 14:12] LABS: International Normalized Ratio 2.5; Prothrombin Time (Protime)PT. 27.1 SECONDS (11.7-14.9)
== END 2019-01-01 18:00 | disposition home or self-care (01) ==
LOC: MTLAB 12:39
PROVIDERS: Family Provider Internal Medicine; PCP Internal Medicine; Referring Provider Internal Medicine Cardiovascular Disease; Visit Provider Internal Medicine Cardiovascular Disease
DX: I27.21 Secondary pulmonary arterial hypertension (principal); I34.2 Nonrheumatic mitral (valve) stenosis; I34.0 Nonrheumatic mitral (valve) insufficiency; I11.0 Hypertensive heart disease with heart failure; I50.32 Chronic diastolic (congestive) heart failure; I48.0 Paroxysmal atrial fibrillation; I73.9 Peripheral vascular disease, unspecified; I35.0 Nonrheumatic aortic (valve) stenosis; E78.5 Hyperlipidemia, unspecified; I25.10 Atherosclerotic heart disease of native coronary artery without angina pectoris; Z79.01 Long term (current) use of anticoagulants
CPT/HCPCS: 36415; 85610

== ENCOUNTER → 2019-01-04 12:11 | Outpatient (CLI) | payer MEDICARE, OTHER, SELFPAY ==
[2018-07-16 09:16] VITALS: BMI 44.4
[2019-01-04 14:35] LABS: AST(SGOT) 16 U/L (15-37); Alanine Aminotransfer ALT/SGPT 25 U/L (13-56); Albumin, Serum 3.8 g/dL (3.2-5.0); Alkaline Phosphatase 113 U/L (45-117); Bilirubin, Direct 0.12 mg/dL (0.00-0.30); Cholesterol 265 mg/dL (200); Globulin 3.3 g/dL (2.2-4.2); High Density Lipoprotein 37 mg/dL; Protein, Total 7.1 g/dL (6.4-8.2); Triglycerides 216 mg/dL; Very Low Density Lipoprotein 43 mg/dL (5-40)
== END ==
PROVIDERS: Nurse Practitioner Family; Family Provider Internal Medicine; PCP Internal Medicine; Referring Provider Internal Medicine Cardiovascular Disease; Visit Provider Internal Medicine Cardiovascular Disease
DX: E78.5 Hyperlipidemia, unspecified (principal)
CPT/HCPCS: 36415; 80061; 80076

== ENCOUNTER → 2019-01-21 09:55 | Outpatient (CLI) | payer MEDICARE, OTHER, SELFPAY ==
[2019-01-18 10:56] VITALS: BMI 41.1
--- NOTE | 2019-01-21 09:57 | CDU_ITS ---
Reason For Study: vertigo Rt. Velocities/BP Lt. Velocities/BP Prox CCA 66.9/14.7 cm/sec. Prox CCA 72.8/14.6 cm/sec. Mid CCA 49.9/10.8 cm/sec. Mid CCA 77.2/15.7 cm/sec. Dist CCA 43.4/13.4 cm/sec. Dist CCA 48.7/12.4 cm/sec. Prox ICA 49.8/11.3 cm/sec. Prox ICA 49.8/11.3 cm/sec. Mid ICA 53.1/19.0 cm/sec. Mid ICA 78.3/26.7 cm/sec. Dist ICA 54.2/14.6 cm/sec. Dist ICA 75.0/21.2 cm/sec. Rt. ICA/CCA = 1.1. Lt. ICA/CCA = 1.0. Prox ECA 64.3/5.6 cm/sec. Prox ECA 74.0/8.0 cm/sec. Rt. Vert. 31.1/10.2 cm/sec. Lt. Vert. 59.7/12.4 cm/sec. Right Extracranial There is heterogeneous, irregular atherosclerotic plaque noted in the right common carotid artery. The right common carotid artery is tortuous. There is heterogeneous, irregular atherosclerotic plaque noted in the right internal carotid artery. The right internal carotid artery is very tortuous. There is heterogeneous, irregular atherosclerotic plaque noted in the right external carotid artery. Antegrade flow is noted in the right vertebral artery. Left Extracranial There is intimal thickening but no significant atherosclerotic plaque noted in the left common carotid artery. There is heterogeneous, irregular atherosclerotic plaque noted in the left internal carotid artery. The left internal carotid artery is very tortuous. There is intimal thickening but no significant atherosclerotic plaque noted in the left external carotid artery. Antegrade flow is noted in the left vertebral artery. Procedure Carotid Duplex [id number]. The exam was diagnostic. Exam performed in department. Interpretation Summary Mild (<50%) stenosis right extracranial internal carotid. Mild (<50%) stenosis left extracranial internal carotid. Flow within the vertebral arteries is antegrade bilaterally. Ordering Physician: Vianca Pinon Performed By: Arturo Huerta RVT
== END ==
PROVIDERS: Family Provider Internal Medicine; PCP Internal Medicine; Referring Provider Physician Assistant Medical; Visit Provider Physician Assistant Medical
DX: I25.10 Atherosclerotic heart disease of native coronary artery without angina pectoris (principal); I73.9 Peripheral vascular disease, unspecified; R42 Dizziness and giddiness
CPT/HCPCS: 93880

== ENCOUNTER 2019-02-01 10:00 | Outpatient (RCR) | payer MEDICARE, OTHER, SELFPAY ==
[2019-01-18 10:56] VITALS: BMI 41.1
[2019-02-01 12:22] LABS: International Normalized Ratio 2.4
== END 2019-02-01 18:00 | disposition home or self-care (01) ==
LOC: MTLAB 10:00
PROVIDERS: Family Provider Internal Medicine; PCP Internal Medicine; Referring Provider Internal Medicine Cardiovascular Disease; Visit Provider Internal Medicine Cardiovascular Disease
DX: I27.21 Secondary pulmonary arterial hypertension (principal); I34.2 Nonrheumatic mitral (valve) stenosis; I34.0 Nonrheumatic mitral (valve) insufficiency; I11.0 Hypertensive heart disease with heart failure; I50.32 Chronic diastolic (congestive) heart failure; I48.0 Paroxysmal atrial fibrillation; I73.9 Peripheral vascular disease, unspecified; I35.0 Nonrheumatic aortic (valve) stenosis; E78.5 Hyperlipidemia, unspecified; I25.10 Atherosclerotic heart disease of native coronary artery without angina pectoris; Z79.01 Long term (current) use of anticoagulants
CPT/HCPCS: 36415; 85610

== ENCOUNTER → 2019-02-15 10:38 | Outpatient (CLI) | payer MEDICARE, OTHER, SELFPAY ==
[2018-07-16 09:16] VITALS: BMI 44.4
[2019-01-18 10:56] VITALS: BMI 41.1
[2019-02-15 13:15] LABS: CPK Total, Creatine Kinase 65 U/L (26-192); Cholesterol 229 mg/dL (200); High Density Lipoprotein 37 mg/dL; Thyroid Stim Hormone (TSH) 1.87 uIU/mL (0.358-3.74); Triglycerides 201 mg/dL; Very Low Density Lipoprotein 40 mg/dL (5-40)
== END ==
PROVIDERS: Family Provider Internal Medicine; PCP Internal Medicine; Referring Provider Internal Medicine Endocrinology, Diabetes & Metabolism; Visit Provider Internal Medicine Endocrinology, Diabetes & Metabolism
DX: E11.65 Type 2 diabetes mellitus with hyperglycemia (principal); E78.2 Mixed hyperlipidemia; E03.8 Other specified hypothyroidism
CPT/HCPCS: 36415; 80061; 82550; 84443

== ENCOUNTER 2019-03-17 11:34 | Outpatient (RCR) | payer MEDICARE, OTHER, SELFPAY ==
[2019-01-18 10:56] VITALS: BMI 41.1
[2019-03-17 14:40] LABS: International Normalized Ratio 2.9; Prothrombin Time (Protime)PT. 30.1 SECONDS (11.7-14.9)
== END 2019-03-17 18:00 | disposition home or self-care (01) ==
LOC: MTLAB 11:34
PROVIDERS: Family Provider Internal Medicine; PCP Internal Medicine; Referring Provider Internal Medicine Cardiovascular Disease; Visit Provider Internal Medicine Cardiovascular Disease
DX: I27.21 Secondary pulmonary arterial hypertension (principal); I34.2 Nonrheumatic mitral (valve) stenosis; I34.0 Nonrheumatic mitral (valve) insufficiency; I11.0 Hypertensive heart disease with heart failure; I50.32 Chronic diastolic (congestive) heart failure; I48.0 Paroxysmal atrial fibrillation; I73.9 Peripheral vascular disease, unspecified; I35.0 Nonrheumatic aortic (valve) stenosis; E78.5 Hyperlipidemia, unspecified; I25.10 Atherosclerotic heart disease of native coronary artery without angina pectoris; Z79.01 Long term (current) use of anticoagulants
CPT/HCPCS: 36415; 85610

== ENCOUNTER 2019-04-14 11:25 | Outpatient (RCR) | payer MEDICARE, OTHER, SELFPAY ==
[2019-01-18 10:56] VITALS: BMI 41.1
[2019-04-14 15:00] LABS: International Normalized Ratio 2.1; Prothrombin Time (Protime)PT. 23.8 SECONDS (11.7-14.9)
== END 2019-04-14 18:00 | disposition home or self-care (01) ==
LOC: MTLAB 11:25
PROVIDERS: Family Provider Internal Medicine; PCP Internal Medicine; Referring Provider Internal Medicine Cardiovascular Disease; Visit Provider Internal Medicine Cardiovascular Disease
DX: I27.21 Secondary pulmonary arterial hypertension (principal); I34.2 Nonrheumatic mitral (valve) stenosis; I34.0 Nonrheumatic mitral (valve) insufficiency; I11.0 Hypertensive heart disease with heart failure; I50.32 Chronic diastolic (congestive) heart failure; I48.0 Paroxysmal atrial fibrillation; I73.9 Peripheral vascular disease, unspecified; I35.0 Nonrheumatic aortic (valve) stenosis; E78.5 Hyperlipidemia, unspecified; I25.10 Atherosclerotic heart disease of native coronary artery without angina pectoris; Z79.01 Long term (current) use of anticoagulants
CPT/HCPCS: 36415; 85610

== ENCOUNTER 2019-05-04 13:47 | Outpatient (RCR) | payer MEDICARE, OTHER, SELFPAY ==
[2019-01-18 10:56] VITALS: BMI 41.1
[2019-05-04 15:19] LABS: International Normalized Ratio 2.6; Prothrombin Time (Protime)PT. 27.9 SECONDS (11.7-14.9)
[2019-05-04 15:27] LABS: Hemoglobin A1c 7.9 % (4.2-6.3)
[2019-05-04 15:37] LABS: Microalbumin,Random Urine 11.6 mg/L (NO RANGE EST.)
[2019-05-04 17:55] LABS: Vitamin D,25 Hydroxy 56.9 ng/mL
[2019-05-04 17:56] LABS: ALB/GLOB Ratio 1.3 RATIO (0.9-2.4); AST(SGOT) 14 U/L (15-37); Alanine Aminotransfer ALT/SGPT 21 U/L (13-56); Albumin, Serum 3.8 g/dL (3.2-5.0); Alkaline Phosphatase 96 U/L (45-117); Anion Gap 5 (5-15); BUN 39 mg/dL (7-18); BUN/Creat Ratio 28.5 RATIO (10-20); Calcium,Total 9.2 mg/dL (8.5-10.1); Chloride 103 mmol/L (98-107); Creatinine, Serum 1.37 mg/dL (0.55-1.02); EST Glomerular Filtration Rate 40 mL/min (>60); Est Glom Filt Rate - Afr Amer 48 mL/min (>60); Glucose 220 mg/dL (74-106); Potassium 4.6 mmol/L (3.5-5.1); Protein, Total 6.8 g/dL (6.4-8.2); Sodium Level 138 mmol/L (136-145)
== END 2019-05-04 18:00 | disposition home or self-care (01) ==
LOC: MTLAB 13:47
PROVIDERS: Family Provider Internal Medicine; PCP Internal Medicine; Referring Provider Internal Medicine Cardiovascular Disease; Visit Provider Internal Medicine Cardiovascular Disease
DX: E11.65 Type 2 diabetes mellitus with hyperglycemia (principal); E55.9 Vitamin D deficiency, unspecified; I27.21 Secondary pulmonary arterial hypertension; I34.2 Nonrheumatic mitral (valve) stenosis; I34.0 Nonrheumatic mitral (valve) insufficiency; I11.0 Hypertensive heart disease with heart failure; I50.32 Chronic diastolic (congestive) heart failure; I48.0 Paroxysmal atrial fibrillation; I73.9 Peripheral vascular disease, unspecified; I35.0 Nonrheumatic aortic (valve) stenosis; E78.5 Hyperlipidemia, unspecified; I25.10 Atherosclerotic heart disease of native coronary artery without angina pectoris; Z79.01 Long term (current) use of anticoagulants
CPT/HCPCS: 36415; 80053; 82043; 82306; 83036; 85610

== ENCOUNTER 2019-06-30 12:18 | Outpatient (RCR) | payer MEDICARE, OTHER, SELFPAY ==
[2019-01-18 10:56] VITALS: BMI 41.1
[2019-06-03 18:17] LABS: Prothrombin Time (Protime)PT. 22.9 SECONDS (11.7-14.9)
[2019-06-30 12:35] LABS: Prothrombin Time Fingerstick 33.8 SEC (11.9-14.4)
== END 2019-07-01 18:00 | disposition home or self-care (01) ==
LOC: MTLAB 12:18
PROVIDERS: Family Provider Internal Medicine; PCP Internal Medicine; Referring Provider Internal Medicine Cardiovascular Disease; Visit Provider Internal Medicine Cardiovascular Disease
DX: I27.21 Secondary pulmonary arterial hypertension (principal); I34.2 Nonrheumatic mitral (valve) stenosis; I34.0 Nonrheumatic mitral (valve) insufficiency; I11.0 Hypertensive heart disease with heart failure; I50.32 Chronic diastolic (congestive) heart failure; I48.0 Paroxysmal atrial fibrillation; I73.9 Peripheral vascular disease, unspecified; E78.5 Hyperlipidemia, unspecified; I25.10 Atherosclerotic heart disease of native coronary artery without angina pectoris
CPT/HCPCS: 36415; 36416; 85610

== ENCOUNTER 2019-07-28 08:33 | Outpatient (RCR) | payer MEDICARE, OTHER, SELFPAY ==
[2019-01-18 10:56] VITALS: BMI 41.1
[2019-07-28 10:19] LABS: International Normalized Ratio 2.1; Prothrombin Time (Protime)PT. 22.7 SECONDS (11.7-14.9)
[2019-07-28 10:29] LABS: Microalbumin,Random Urine 8.1 mg/L (NO RANGE EST.)
[2019-07-28 10:32] LABS: Hemoglobin A1c 6.9 % (3.8-5.6)
[2019-07-28 10:44] LABS: ALB/GLOB Ratio 1.2 RATIO (0.9-2.4); AST(SGOT) 16 U/L (15-37); Alanine Aminotransfer ALT/SGPT 19 U/L (13-56); Albumin, Serum 3.8 g/dL (3.2-5.0); Alkaline Phosphatase 99 U/L (45-117); Anion Gap 8 (5-15); BUN 42 mg/dL (7-18); BUN/Creat Ratio 37.8 RATIO (10-20); Bilirubin, Direct 0.11 mg/dL (0.00-0.30); Calcium,Total 9.1 mg/dL (8.5-10.1); Chloride 103 mmol/L (98-107); Cholesterol 212 mg/dL (200); Creatinine, Serum 1.11 mg/dL (0.55-1.02); EST Glomerular Filtration Rate 50 mL/min (>60); Est Glom Filt Rate - Afr Amer 61 mL/min (>60); Globulin 3.1 g/dL (2.2-4.2); Glucose 148 mg/dL (74-106); High Density Lipoprotein 39 mg/dL; Potassium 4.2 mmol/L (3.5-5.1); Protein, Total 6.9 g/dL (6.4-8.2); Sodium Level 137 mmol/L (136-145); Triglycerides 149 mg/dL; Very Low Density Lipoprotein 30 mg/dL (5-40)
== END 2019-07-28 18:00 | disposition home or self-care (01) ==
LOC: MTLAB 08:33
PROVIDERS: Nurse Practitioner Family; Family Provider Internal Medicine; PCP Internal Medicine; Referring Provider Internal Medicine Cardiovascular Disease; Visit Provider Internal Medicine Cardiovascular Disease
DX: E11.65 Type 2 diabetes mellitus with hyperglycemia (principal); I27.21 Secondary pulmonary arterial hypertension; I34.2 Nonrheumatic mitral (valve) stenosis; I34.0 Nonrheumatic mitral (valve) insufficiency; I11.0 Hypertensive heart disease with heart failure; I50.32 Chronic diastolic (congestive) heart failure; I48.0 Paroxysmal atrial fibrillation; I73.9 Peripheral vascular disease, unspecified; E78.5 Hyperlipidemia, unspecified; I25.10 Atherosclerotic heart disease of native coronary artery without angina pectoris
CPT/HCPCS: 36415; 80053; 80061; 82043; 82248; 82306; 83036; 85610

== ENCOUNTER 2019-08-30 16:20 | Outpatient (RCR) | payer MEDICARE, OTHER, SELFPAY ==
[2019-01-18 10:56] VITALS: BMI 41.1
[2019-08-30 18:26] LABS: International Normalized Ratio 1.2; Prothrombin Time (Protime)PT. 14.2 SECONDS (11.7-14.9)
[2019-08-31 07:21] LABS: Prothrombin Time Fingerstick 14.6 SEC (11.9-14.4)
== END 2019-08-30 18:00 | disposition home or self-care (01) ==
LOC: MTLAB 16:20
PROVIDERS: Family Provider Internal Medicine; PCP Internal Medicine; Referring Provider Internal Medicine Cardiovascular Disease; Visit Provider Internal Medicine Cardiovascular Disease
DX: I27.21 Secondary pulmonary arterial hypertension (principal); I34.2 Nonrheumatic mitral (valve) stenosis; E11.65 Type 2 diabetes mellitus with hyperglycemia; I34.0 Nonrheumatic mitral (valve) insufficiency; I11.0 Hypertensive heart disease with heart failure; I50.32 Chronic diastolic (congestive) heart failure; I48.0 Paroxysmal atrial fibrillation; I73.9 Peripheral vascular disease, unspecified; E78.5 Hyperlipidemia, unspecified; I25.10 Atherosclerotic heart disease of native coronary artery without angina pectoris
CPT/HCPCS: 36415; 36416; 85610

== ENCOUNTER 2019-09-23 14:00 | Outpatient (RCR) | payer MEDICARE, OTHER, SELFPAY ==
[2019-01-18 10:56] VITALS: BMI 41.1
[2019-09-13 18:46] LABS: International Normalized Ratio 1.9; Prothrombin Time (Protime)PT. 21.3 SECONDS (11.7-14.9)
[2019-09-23 14:49] LABS: International Normalized Ratio 2.6; Prothrombin Time (Protime)PT. 27.1 SECONDS (11.7-14.9)
== END 2019-09-23 18:00 | disposition home or self-care (01) ==
LOC: LAB 14:00
PROVIDERS: Family Provider Internal Medicine; PCP Internal Medicine; Referring Provider Internal Medicine Cardiovascular Disease; Visit Provider Internal Medicine Cardiovascular Disease
DX: I48.0 Paroxysmal atrial fibrillation (principal); Z79.01 Long term (current) use of anticoagulants
CPT/HCPCS: 36415; 85610

== ENCOUNTER 2019-10-29 16:00 | Outpatient (RCR) | payer MEDICARE, OTHER, SELFPAY ==
[2019-09-23 12:22] VITALS: BMI 38.4
[2019-10-29 17:23] LABS: International Normalized Ratio 2.1
== END 2019-11-01 18:00 | disposition home or self-care (01) ==
LOC: LAB 16:00
PROVIDERS: Family Provider Internal Medicine; PCP Internal Medicine; Referring Provider Internal Medicine Cardiovascular Disease; Visit Provider Internal Medicine Cardiovascular Disease
DX: I48.0 Paroxysmal atrial fibrillation (principal); Z79.01 Long term (current) use of anticoagulants
CPT/HCPCS: 36415; 85610

== ENCOUNTER → 2019-11-04 14:06 | Outpatient (CLI) | payer MEDICARE, OTHER, SELFPAY ==
[2019-11-04 11:00] VITALS: BMI 39.0
[2019-11-04 15:34] LABS: Vitamin B12 659 pg/mL (211-911)
== END ==
PROVIDERS: PCP Internal Medicine; Referring Provider Nurse Practitioner Family; Visit Provider Nurse Practitioner Family
DX: G62.9 Polyneuropathy, unspecified (principal)
CPT/HCPCS: 36415; 82607; 82746

== ENCOUNTER → 2019-11-11 15:22 | Outpatient (CLI) | payer MEDICARE, OTHER, SELFPAY ==
[2019-11-04 11:00] VITALS: BMI 39.0
--- NOTE | 2019-11-11 15:23 | MRI_ITS ---
We are attempting to reach an attending provider to discuss findings. An addendum with communication details will be sent when the communication is complete. STUDY: MRI LUMBAR SPINE WITHOUT CONTRAST REASON FOR EXAM: Female, 79 years old. low back pain, rt leg/foot pain TECHNIQUE: Standardized fat and water weighted pulse sequences were obtained in the sagittal and axial planes. COMPARISON: Lumbar spine x-rays 12/29/2017 FINDINGS: T12-L1: Normal endplates. Normal disc height, hydration and morphology. Normal bilateral facet joints. Normal central canal and bilateral lateral recesses. Normal bilateral intervertebral neural foramina. Normal lumbar lordosis. There is no substantial scoliosis. Normal conus medullaris that terminates at T12-L1 L1-2: There is an expansile lesion within the L1 vertebral body on the left extending into the pedicle suspicious for neoplasm. There is disruption of the cortex with tumor extension into the left anterolateral epidural space and left nerve root foramen. Normal disc height, hydration and morphology. Normal bilateral facet joints. Normal central canal. Mild left lateral recess and neuroforaminal stenosis. L2-3: Normal endplates. Normal disc height, hydration and morphology. Normal bilateral facet joints. Normal central canal and bilateral lateral recesses. Normal bilateral intervertebral neural foramina. L3-4: Narrowed disc space with desiccation of disc and minimal annular bulge.. Bilateral facet arthropathy and thickening of ligamenta flava.. Severe central canal bilateral recess and neuroforaminal stenosis L4-5: There is expansile lesion within the L4 vertebral body more pronounced on the right extending into the pedicle with cortical disruption and extension into the anterior epidural space on the right narrowing the spinal canal and compressing the thecal sac.. Normal disc height, desiccation and mild annular bulge.. Bilateral facet arthropathy and thickening of ligamenta flava.. Severe central canal bilateral recess and neuroforaminal stenosis. L5-S1: There is expansile lesion in the L5 vertebral body extending into the right pedicle posterior cortical disruption extending into the spinal canal on the right compressing the thecal sac. Normal disc height, desiccation and normal morphology. Facet arthropathy and thickening of ligamenta flava greater on the left. Normal central canal and bilateral lateral recesses. Normal bilateral intervertebral neural foramina. Normal visualized sacral ala. Normal visualized paraspinous soft tissue structures. MRI/Spine Lumbar (Routine) IMPRESSION: Destructive lesions within the L1, L4 and L5 vertebral bodies extending into the pedicles in the anterior epidural extension consistent with metastatic disease or multiple myeloma. Limited repeat study with contrast would be useful for further evaluation if indicated.. Also noted is mild multilevel spinal stenosis secondary to disc disease and bony hypertrophy most severe at L3-4 and L4-5. Electronically Signed: Mitchell Armendariz MD at 22:50 EDT , Service support ,
== END ==
PROVIDERS: PCP Internal Medicine; Referring Provider Nurse Practitioner Family; Visit Provider Nurse Practitioner Family
DX: M54.16 Radiculopathy, lumbar region (principal)
CPT/HCPCS: 72148

== ENCOUNTER → 2019-11-16 11:04 | Outpatient (CLI) | payer MEDICARE, OTHER, SELFPAY ==
[2018-07-16 09:16] VITALS: BMI 44.4
[2019-11-04 11:00] VITALS: BMI 39.0
[2019-11-16 13:14] LABS: Hemoglobin A1c 7.2 % (3.8-5.6)
[2019-11-16 13:41] LABS: ALB/GLOB Ratio 1.2 RATIO (0.9-2.4); AST(SGOT) 15 U/L (15-37); Alanine Aminotransfer ALT/SGPT 20 U/L (13-56); Albumin, Serum 3.9 g/dL (3.2-5.0); Alkaline Phosphatase 118 U/L (45-117); Anion Gap 8 (5-15); BUN 23 mg/dL (7-18); BUN/Creat Ratio 22.5 RATIO (10-20); Calcium,Total 9.4 mg/dL (8.5-10.1); Chloride 102 mmol/L (98-107); Creatinine, Serum 1.02 mg/dL (0.55-1.02); EST Glomerular Filtration Rate 55 mL/min (>60); Est Glom Filt Rate - Afr Amer 67 mL/min (>60); Globulin 3.3 g/dL (2.2-4.2); Glucose 168 mg/dL (74-106); Potassium 4.1 mmol/L (3.5-5.1); Protein, Total 7.2 g/dL (6.4-8.2); Sodium Level 140 mmol/L (136-145); Thyroid Stim Hormone (TSH) 1.95 uIU/mL (0.358-3.74)
== END ==
PROVIDERS: Family Provider Internal Medicine; PCP Internal Medicine; Referring Provider Internal Medicine Endocrinology, Diabetes & Metabolism; Visit Provider Internal Medicine Endocrinology, Diabetes & Metabolism
DX: E11.42 Type 2 diabetes mellitus with diabetic polyneuropathy (principal); E11.65 Type 2 diabetes mellitus with hyperglycemia; E78.2 Mixed hyperlipidemia; E03.8 Other specified hypothyroidism
CPT/HCPCS: 36415; 80053; 83036; 84443

== ENCOUNTER → 2019-11-23 10:27 | Outpatient (CLI) | payer MEDICARE, OTHER, SELFPAY ==
[2019-11-17 15:25] VITALS: BMI 38.2
[2019-11-18 13:34] VITALS: BMI 38.2
--- NOTE | 2019-11-23 10:28 | NM_ITS ---
CLINICAL: 79-year-old female with reported history of low back discomfort and destructive radiographic abnormalities involving the first, fourth and fifth lumbar vertebra. WHOLE BODY 99m Tc MDP RADIONUCLIDE BONE SCINTIGRAPHY COMPARISON: MRI of the lumbar spine report 11/11/2019 FINDINGS: Following the intravenous administration of 25.5 mCi of 99m Tc MDP, whole body bone images reveal: 1. Heterogeneous increased radiopharmaceutical concentration is demonstrated in the first, fourth and fifth lumbar vertebra the left posterior ilium and sacroiliac joint correlating in part with the anatomic abnormalities defined on MRI of the lumbar spine report dated 11/11/2019. 2. Increased tracer uptake is defined in the medial and lateral femoral and tibial compartments of the left knee, the right ankle, the bilateral mid and forefoot, the acromioclavicular and sternoclavicular compartments of both shoulders, glenohumeral compartment of the right shoulder, mid cervical spine posteriorly on the left and right. 3. The remaining skeletal structures are scintigraphically unremarkable with normal-appearing renal images and urinary bladder activity identified. The presumably asymptomatic right knee prosthesis demonstrates no significant increase in tracer distribution. NM/Bone Scan Whole Body IMPRESSION: 1. The increase in radiopharmaceutical concentration identified in the first, fourth and fifth lumbar vertebra, the left posterior ilium and sacroiliac joint may represent skeletal metastatic disease. Uptake in the lumbar spine appears to correlate with the anatomic findings defined on MRI of the lumbar spine report dated 11/11/2019. 2. 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 Electronically Signed: Ruben Torres DO at 23:17 EDT Tel , Service support ,
== END ==
PROVIDERS: PCP Internal Medicine; Referring Provider Internal Medicine Medical Oncology; Visit Provider Internal Medicine Medical Oncology
DX: M89.9 Disorder of bone, unspecified (principal)
CPT/HCPCS: 78306

== ENCOUNTER → 2019-11-26 12:46 | Outpatient (CLI) | payer MEDICARE, OTHER, SELFPAY ==
[2019-11-17 15:25] VITALS: BMI 38.2
[2019-11-18 13:34] VITALS: BMI 38.2
--- NOTE | 2019-11-26 12:48 | CT_ITS ---
STUDY: CT CHEST WITH CONTRAST REASON FOR EXAM: Female, 79 years old. FOLLOW UP BONE LESION SEEN ON MRI RADIATION DOSAGE (If Supplied By Facility): CTDIvol = ( 22.88 ) mGy, DLP = ( 1790.28 ) mGycm TECHNIQUE: Transaxial imaging was performed following intravenous administration of Oral and amp; IV Readi-CAT and amp; 100mL Isovue-370. Multiplanar coronal and sagittal images were reformatted. Individualized dose optimization techniques were used for this CT. COMPARISON: None. FINDINGS: There is a 1.6 cm x 1.5 cm slightly irregular nodular density in the deep posterior aspect of the left breast inferior and lateral. Small benign appearing bilateral axillary lymph nodes. Mild degree of emphysematous changes in the right upper lobe with the small bolus formation. 2.5 mm noncalcified nodule in the peripheral lateral anterior aspect of the right upper lobe as seen on axial image #40. There is no demonstrated pleural abnormality. There are calcifications of the coronary arteries. Enlargement of the left atrium. There are multiple small lymph nodes within the mediastinum, which are normal in size and morphology most compatible with reactive lymph hyperplasia. Normal hilar regions. Normal enhanced pulmonary arteries. There is atherosclerotic calcification of the aortic arch with tortuosity and elongation of the aortic arch and descending thoracic aorta. There are multi-level degenerative changes of the thoracic spine. Demineralization of the thoracic vertebrae. There is no demonstrated abnormality of the visualized upper abdomen. CT/Chest WITH Contrast IMPRESSION: 1.6 cm x 1.5 cm irregular nodular mass in the deep posterior aspect of the left breast inferior and laterally. A neoplastic process should be ruled out. Mild degree of emphysematous changes more prominent in the right upper lobe. Electronically Signed: Joel Early, at 13:52 EDT , Service support ,
--- NOTE | 2019-11-26 13:00 | CT_ITS ---
STUDY: CT ABDOMEN AND PELVIS WITH CONTRAST REASON FOR EXAM: Female, 79 years old. Bone lesion on mri. RADIATION DOSAGE (If Supplied By Facility): CTDIvol = ( 22.88 ) mGy, DLP = ( 1790.28 ) mGycm TECHNIQUE: Transaxial images were obtained from the dome of the diaphragm to the symphysis pubis without oral contrast. Oral and amp;amp; IV Readi-CAT and amp;amp; 100mL Isovue-370 was administered. Sagittal and coronal images were reconstructed. Individualized dose optimization techniques were used for this CT. COMPARISON: None. FINDINGS: The visualized lung bases are unremarkable. Coronary artery calcification. Cardiomegaly. Normal liver. The patient is status post cholecystectomy. Mild splenomegaly. Normal pancreas. Normal bilateral adrenal glands. There is a 2.8 cm x 3.1 cm cyst in the lower pole of the right kidney. 1 cm cyst in the lateral posterior aspect of the left kidney. There is a small hiatal hernia. Normal small intestine. Normal colon. The appendix is visualized and appears normal. There is diffuse atherosclerotic calcification of the abdominal aorta, without a demonstrated aneurysm. Normal inferior vena cava. Normal retroperitoneum. Normal urinary bladder. Normal abdominal wall. There are diffuse degenerative changes of the visualized lumbar spine. Sclerotic foci are seen in the L1, L3-L4 and L5 vertebrae. There is destruction of the L5, L4 vertebrae with the posterior soft tissue extension or prominent on the right side. This extends into the pedicle posteriorly and causing compression of the thecal sac. This corresponds to the abnormal nuclear medicine bone scan. There is evidence of a 3.5 cm x 2.1 cm lytic lesion in the posterior aspect of the left iliac bone. Is also evidence of a 9.1 mm rounded lytic lesion in the posterior aspect of the right iliac bone. CT/Abdomen/Pelvis WITH Contrast IMPRESSION: Bony metastasis as described. Bilateral renal cysts more on the right side. Mild splenomegaly. Electronically Signed: Joel Early, at 13:57 EDT , Service support ,
== END ==
PROVIDERS: PCP Internal Medicine; Referring Provider Internal Medicine Medical Oncology; Visit Provider Internal Medicine Medical Oncology
DX: M89.9 Disorder of bone, unspecified (principal); R93.7 Abnormal findings on diagnostic imaging of other parts of musculoskeletal system
CPT/HCPCS: 71260; 74177; Q9967; A4216

== ENCOUNTER → 2019-12-01 09:21 | Outpatient (CLI) | payer MEDICARE, OTHER, SELFPAY ==
[2019-11-30 14:03] VITALS: BMI 37.4
--- NOTE | 2019-12-01 09:23 | US_ITS ---
STUDY: ULTRASOUND BREAST - LEFT REASON FOR EXAM: Female, 79 years old. Palpable lump left breast. TECHNIQUE: Axial and longitudinal images of the LEFT breast were performed with a high resolution ultrasound transducer. # OF IMAGES: 28 COMPARISON: Comparison is made with prior mammogram done earlier today. FINDINGS: LEFT Breast: There is a 1.7 cm x 1.9 cm x 1.5 cm irregular hypoechoic solid nodule at the 2 o''clock position of the breast at 3 cm from the nipple. There is evidence of increased vascularity. This corresponds to the mammographic findings. Biopsy is recommended. US/Breast Limited Unilateral IMPRESSION: 1.7 cm x 1.9 cm x 1.5 cm irregular hypoechoic solid nodule at the 2 o''clock position of the breast at 3 cm from the nipple. Biopsy is recommended. ASSESSMENT CATEGORY: BIRADS Category 5: Highly Suggestive of Malignancy - Appropriate Action Should Be Taken. A letter regarding these results will be sent to the patient by the facility within 30 days. Electronically Signed: Joel Early, at 11:11 EDT , Service support ,
--- NOTE | 2019-12-01 09:26 | BI_ITS ---
MAMMOGRAPHY - BILATERAL DIAGNOSTIC REASON FOR EXAM: Female, 79 years old. Left breast mass. PERTINENT HISTORY: Non-contributory. TECHNIQUE: Digital bilateral breast portillo (3D mammographic acquisition) in the CC and MLO projections. 2-D mediolateral oblique (MLO) and craniocaudad (CC) views of both breasts were obtained. CAD: Full Field Digital Mammography with Computer Added Detection was performed. COMPARISON: No comparison mammograms available at this time. If any prior films become available, an addendum to this report can be generated. FINDINGS: Breast Composition: The breasts are heterogeneously dense, which may obscure small masses. There is a 1.6 cm x 1.7 cm spiculated mass in the slightly upper lateral aspect of the left breast. A neoplastic process should be ruled out. Correlation with ultrasound is recommended. Small benign appearing bilateral axillary nodes. No other significant abnormalities are identified. BI/DIAG MAMM W/CAD, BILAT IMPRESSION: 1.6 cm x 1.7 cm spiculated mass in the left breast as described. Correlation with ultrasound is recommended. ASSESSMENT CATEGORY: BIRADS Category 0: Incomplete. Need additional imaging evaluation. A letter regarding these results will be sent to the patient by the facility within 30 days. Approximately 10% of breast cancers are not detected by mammography. A normal mammogram should not delay biopsy of a clinically suspicious abnormality. Electronically Signed: Joel Early, at 10:33 EDT , Service support ,
== END ==
PROVIDERS: PCP Internal Medicine; Referring Provider Internal Medicine Medical Oncology; Visit Provider Internal Medicine Medical Oncology
DX: N63.42 Unspecified lump in left breast, subareolar (principal); R93.89 Abnormal findings on diagnostic imaging of other specified body structures
CPT/HCPCS: 76642; 77062; 77066; G0279

== ENCOUNTER → 2019-12-07 | Outpatient (CLI) | payer MEDICARE, OTHER, SELFPAY ==
--- NOTE | 2019-12-07 | IMM_PTH ---
PATIENT: Favian HUNG LOC: [facility] U#:[id number] AGE/SX: 79/F ROOM: RE12/07/[address]: Dr. Romulo Thorpe MD : 1940 BED: DIS: 12/07/2019 SPEC #: [id number] RECD: 12/09/19 12:00 STATUS: ANASTACIA REPolina #: [id number] HARSHAD: 12/07/19 00:[address]: Romulo Thorpe DEPT: IMMUNOHISTOCHEMISTRY RECD BY: Katlin Ritchie ENTERED: 12/09/19 12:01 SP TYPE: IMMUNO OTHR DR: Dr. Merle Villagomez MD Tissues: Left breast, NOS Procedures: CALPONIN-1 (add) CK19 (add) CK5-6 (add) CK8 (add) E-CAD (add) HER2 MYCHAL (add) KI-67 (add) MAMM (add) P53 (add) LA (add) GATA3 (add) P40 (add) ER (initial) PHYSICIAN & INSTITUTION [address] [address] SPECIMEN INFORMATION: Tissue Source: Left breast tissue Clinical Info: Abnormal left mammogram Specimen Number: [id number] CPT code: 41752, 24096 x9, 77493 x3 METHODOLOGY: Deparaffinized sections of prefer/formalin-fixed tissue or PAP/DQ stained slides are incubated with monoclonal/polyclonal antibodies/oligonucleotide probes. Localization is made via biotin free immunoperoxidase method. Appropriate controls are performed and reacted as expected. Results on target cell population are indicated in the following table: RESULTS: ANTIBODY / CLONE RESULT P53 (DO-7) negative Ki-67 (30-9) positive, low CK8 (28ntipV82) positive CK5-6 (D5 & 1684) negative Calponin-1 (VJ454W) negative P40 (BC28) negative E-Cad (ECH-6) positive GATA3 (L50-823) positive Mammaglobin (31A5) positive, focal, dim CK19 (A53-B/A2.26) negative MORPHOMETRIC ANALYSIS ER (clone 6F11) >95%, strong LA (clone 16/1E2) >95%, strong Her-2Neu (clone CB11) 0 The prognostic test for HER2 is performed on formalin-fixed paraffin embedded tissue. A 3+ (positive) staining pattern is defined as intense, homogeneous, complete, circumferential membranous staining in >10% of contiguous tumor cells. A similar weak (2+) staining pattern is interpreted as equivocal. SHAYNE follow-up testing is recommended for all equivocal cases. Positivity/negativity for ER/LA is reported if > or < 1% of the tumor cells are immuno- reactive, respectively. The ASCO/CAP criteria is used for scoring. Reference: Journal of Clinical Oncology, 2013; 31:2597-4732 & 2010; 16:3616-1414. Duration of fixation: 31.5 Hrs; Sample Adequate: Yes. These assays have not been validated on decalcified tissues. Results should be interpreted with caution given the likelihood of false negativity on decalcified specimens. These tests were developed and their performance characteristics determined by [facility]. They may not have been cleared or approved by the U.S. Food and Drug Administration. The FDA has determined that such clearance or approval is not necessary. The above immunohistochemical/dualISH markers are ordered and reviewed by the Pathologist. 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 Positive for estrogen receptors (favorable prognostic indicator). Positive for progesterone receptors (favorable prognostic indicator). Negative for overexpression of [id number]. AM:kyle 12/10/19 Case has been reviewed in consultation with Dr. Tello who concurs with the above diagnosis. IDC:SJ
[2019-12-07 14:41] VITALS: BMI 35.6
--- NOTE | 2019-12-07 14:45 | BRBX_PTH ---
PATIENT: Favian HUNG LOC: [facility] U#:[id number] AGE/SX: 79/F ROOM: RE12/07/[address]: Dr. Romulo Thorpe MD : 1940 BED: DIS: 12/07/2019 SPEC #: [id number] RECD: 12/07/19 15:52 STATUS: ANASTACIA KEILA #: [id number] HARSHAD: 12/07/19 14:[address]: Romulo Thorpe DEPT: SURGICAL PATHOLOGY RECD BY: Cj Najera ENTERED: 12/08/19 10:22 SP TYPE: BREAST BX OTHR DR: Dr. Merle Villagomez MD Tissues: Left breast, NOS Procedures: Surgery Specimen Level IV HEADER OPERATION: Ultrasound-guided left breast biopsy PRE-OP DIAGNOSIS: Abnormal left mammogram TISSUE SUBMITTED: Left breast tissue MICROSCOPIC DIAGNOSIS Left breast, ultrasound-guided needle core biopsy: Invasive ductal carcinoma with the following characteristics: Maximal length - 8 millimeters Nuclear grade - 2/3. See comment. AM:kyle 12/09/19 COMMENT ER/LA/Gmr9pwh studies are being performed on sections of tumor and the results from this study will be reported separately ([id number]). Case has been reviewed in consultation with Dr. Tello who concurs with the above diagnosis. IDC:SJ MICROSCOPIC DESCRIPTION Slides are reviewed. GROSS DESCRIPTION Received in fixative is one container labeled with the patient's name and designated left breast. The specimen consists of multiple elongated fragments of horton-white tissue that in aggregate measure 2 x 1 x 0.1 cm. The specimen is totally submitted in one cassette. / AM:kyle 12/08/19 TC:0 CPT: 78622
== END | disposition home or self-care (01) ==
LOC: LABSPEC 16:08
PROVIDERS: PCP Internal Medicine; Referring Provider Surgery; Visit Provider Surgery
DX: R92.8 Other abnormal and inconclusive findings on diagnostic imaging of breast (principal)
CPT/HCPCS: 88305; 88341; 88342

== ENCOUNTER → 2019-12-08 | Outpatient (CLI) | payer MEDICARE, OTHER, SELFPAY ==
[2019-11-30 14:03] VITALS: BMI 37.4
[2019-12-07 14:41] VITALS: BMI 35.6
--- NOTE | 2019-12-08 15:19 | MRI_ITS ---
STUDY: MRI BRAIN WITH AND WITHOUT CONTRAST REASON FOR EXAM: Female, 79 years old. initial staging breast ca TECHNIQUE: Standardized multiplanar fat and water weighted pulse sequences were obtained. dotarem 19 ml was administered for the contrast portion of the examination. COMPARISON: None. FINDINGS: Normal size of the ventricles and extra-axial spaces for the patient''s age. Minor periventricular white matter ischemic changes.. Chronic ischemic changes in the cerebellar hemispheres Normal bilateral basal ganglia. Normal thalami. There is no extra-axial fluid accumulation. Normal flow voids within the major intracranial circulation suggesting patency by spin echo criteria. Normal venous enhancement. There is no enhancing intra-axial or extra-axial abnormality. Normal sella turcica, pituitary gland, infundibular stalk, optic chiasm and hypothalamus. Normal tectal plate and pineal gland. Normal midbrain, leila and medulla. . Normal basal cisterns. Normal bilateral temporal bones. Normal bilateral internal auditory canals. Postsurgical changes of the orbits.. Normal visualized paranasal sinuses. Normal calvarium and skull base. Normal visualized soft tissue structures. Normal visualized upper cervical spine. MRI/Brain W/WO Contrast IMPRESSION: Minor periventricular white matter ischemic changes and chronic ischemic changes in the cerebellar hemispheres. No evidence for acute infarct. No evidence for metastatic disease. Electronically Signed: Mitchell Armendariz MD at 16:54 EDT , Service support ,
== END | disposition home or self-care (01) ==
LOC: MRI 15:19
PROVIDERS: PCP Internal Medicine; Referring Provider Internal Medicine Medical Oncology; Visit Provider Internal Medicine Medical Oncology
DX: C80.0 Disseminated malignant neoplasm, unspecified (principal)
CPT/HCPCS: 70553; A9575

== ENCOUNTER → 2019-12-30 09:46 | Outpatient (CLI) | payer MEDICARE, OTHER, SELFPAY ==
[2019-12-09 08:55] VITALS: BMI 35.6
[2019-12-29 14:52] VITALS: BMI 37.5
--- NOTE | 2019-12-30 10:00 | BD_ITS ---
STUDY: DUAL ENERGY X-RAY ABSORPTIOMETRY / DXA REASON FOR EXAM: Female, 79 years old. Age of dominguez 38. Pat is 220.1# and 61.5 and quot; a loss of 5.5 and quot; per patient. Past hx of smoking. Type II diabetic and takes glypazide and victosa. Currently takes a thyroid med and a diuretic. Takes 600mg of calcium and a multi-vit. Does not exercise. Has had a recent diagnosis of spine CA. TECHNIQUE: Bone Mineral Density (BMD) measurements of lumbar spine and bilateral hips were obtained. COMPARISON: Comparison is made with prior study dated 01/17/2009. FINDINGS: Lumbar Spine (L1-L4): g/cm2 (1.486) / T-score (2.7) / Z-score (4.5) Findings are suggestive of normal bone density with a low fracture risk. Left Femur Total: g/cm2 (1.050) / T-score (0.3) / Z-score (2.3) Left Femoral Neck: g/cm2 (1.075) / T-score (0.3) / Z-score (2.4) Right Femur Total: g/cm2 (0.989) / T-score (-0.1) / Z-score (1.8) Right Femoral Neck: g/cm2 (1.051) / T-score (0.1) / Z-score (2.2) The T-Scores on the most recent prior examination were: Lumbar Spine (L1-L4): There has been improvement of bone density since the previous examination. Left Femur Total: which represents a worsening of 5.4%. Right Femur Total: which represents a worsening of 1.5%. BD/Dexa Bone Density Study IMPRESSION: The patient is considered normal as outlined below according to World Gonzalez Organization (WHO) criteria with a low fracture risk. There has been worsening of bone density since the previous examination. Reference Information: The T-score is the number of standard deviations above or below the standard which is normal for young adults at their peak bone mineral density. The World Health Organization (WHO) interprets the T-scores as follows: Above -1 Normal bone density Between -1 and -2.5 Osteopenia Equal to / or below -2.5 Osteoporosis As a practical clinical guideline, osteopenia may be graded as follows: Mild -1 through -1.5 Moderate -1.6 through -2.0 Severe -2.1 through -2.4 The Z-score is the number of standard deviations above or below age-matched controls. A Z-score of less than -1.5 would be considered abnormal. References: 1. NIH Osteoporosis and Related Bone Diseases www osteo.org 2. International Society for Clinical Densitometry www iscd.org 3. National Osteoporosis Foundation www nof.org Electronically Signed: Joel Early, at 11:03 EDT , Service support ,
== END ==
PROVIDERS: PCP Internal Medicine; Referring Provider Internal Medicine Medical Oncology; Visit Provider Internal Medicine Medical Oncology
DX: M81.0 Age-related osteoporosis without current pathological fracture (principal); C50.912 Malignant neoplasm of unspecified site of left female breast; C79.51 Secondary malignant neoplasm of bone; C78.89 Secondary malignant neoplasm of other digestive organs
CPT/HCPCS: 77014; 77080; 77290

== ENCOUNTER 2019-12-31 10:32 | Outpatient (RCR) | payer MEDICARE, OTHER, SELFPAY ==
[2019-09-23 12:22] VITALS: BMI 38.4
[2019-12-02 15:26] VITALS: BMI 35.6
[2019-12-02 17:44] LABS: International Normalized Ratio 2.1; Prothrombin Time (Protime)PT. 23.4 SECONDS (11.7-14.9)
[2019-12-17 15:19] LABS: International Normalized Ratio 1.6; Prothrombin Time (Protime)PT. 18.4 SECONDS (11.7-14.9)
[2019-12-31 13:42] LABS: International Normalized Ratio 2.3
== END 2019-12-31 18:00 | disposition home or self-care (01) ==
LOC: MTLAB 10:32
PROVIDERS: Family Provider Internal Medicine; PCP Internal Medicine; Referring Provider Internal Medicine Cardiovascular Disease; Visit Provider Internal Medicine Cardiovascular Disease
DX: I48.0 Paroxysmal atrial fibrillation (principal); Z79.01 Long term (current) use of anticoagulants
CPT/HCPCS: 36415; 85610

== ENCOUNTER 2020-01-14 16:28 | Outpatient (RCR) | payer MEDICARE, OTHER, SELFPAY ==
[2019-12-09 08:55] VITALS: BMI 35.6
[2019-12-29 14:52] VITALS: BMI 37.5
[2020-01-14 17:36] LABS: Prothrombin Time (Protime)PT. 21.8 SECONDS (11.7-14.9)
== END 2020-01-14 18:00 | disposition home or self-care (01) ==
LOC: MTLAB 16:28
PROVIDERS: Family Provider Internal Medicine; PCP Internal Medicine; Referring Provider Internal Medicine Cardiovascular Disease; Visit Provider Internal Medicine Cardiovascular Disease
DX: I48.0 Paroxysmal atrial fibrillation (principal); Z79.01 Long term (current) use of anticoagulants
CPT/HCPCS: 36415; 85610

== ENCOUNTER 2020-03-01 12:56 | Outpatient (RCR) | payer MEDICARE, OTHER, SELFPAY ==
[2019-12-09 08:55] VITALS: BMI 35.6
[2019-12-29 14:52] VITALS: BMI 37.5
[2020-02-02 14:27] VITALS: BMI 37.5
[2020-02-09 15:29] LABS: International Normalized Ratio 2.9; Prothrombin Time (Protime)PT. 29.7 SECONDS (11.7-14.9)
[2020-02-23 18:03] LABS: International Normalized Ratio 1.6; Prothrombin Time (Protime)PT. 18.3 SECONDS (11.7-14.9)
[2020-03-01 15:56] LABS: International Normalized Ratio 1.8; Prothrombin Time (Protime)PT. 19.9 SECONDS (11.7-14.9)
== END 2020-03-01 18:00 | disposition home or self-care (01) ==
LOC: MTLAB 12:56
PROVIDERS: Family Provider Internal Medicine; PCP Internal Medicine; Referring Provider Internal Medicine Cardiovascular Disease; Visit Provider Internal Medicine Cardiovascular Disease
DX: I48.0 Paroxysmal atrial fibrillation (principal); Z79.01 Long term (current) use of anticoagulants
CPT/HCPCS: 36415; 85610

== ENCOUNTER 2020-03-20 15:07 | Outpatient (RCR) | payer MEDICARE, OTHER, SELFPAY ==
[2019-12-29 14:52] VITALS: BMI 37.5
[2020-02-02 14:27] VITALS: BMI 37.5
[2020-03-08 17:57] LABS: International Normalized Ratio 1.9; Prothrombin Time (Protime)PT. 21.5 SECONDS (11.7-14.9)
[2020-03-08 18:05] LABS: ALB/GLOB Ratio 1.2 RATIO (0.9-2.4); AST(SGOT) 15 U/L (15-37); Alanine Aminotransfer ALT/SGPT 23 U/L (13-56); Albumin, Serum 3.8 g/dL (3.2-5.0); Alkaline Phosphatase 115 U/L (45-117); Anion Gap 6 (5-15); BUN 27 mg/dL (7-18); BUN/Creat Ratio 25.7 RATIO (10-20); Chloride 104 mmol/L (98-107); Creatinine, Serum 1.05 mg/dL (0.55-1.02); EST Glomerular Filtration Rate 54 mL/min (>60); Est Glom Filt Rate - Afr Amer 65 mL/min (>60); Globulin 3.1 g/dL (2.2-4.2); Glucose 229 mg/dL (74-106); Potassium 3.6 mmol/L (3.5-5.1); Protein, Total 6.9 g/dL (6.4-8.2); Sodium Level 139 mmol/L (136-145)
[2020-03-08 18:07] LABS: Hemoglobin A1c 7.2 % (3.8-5.6)
[2020-03-20 18:29] LABS: Prothrombin Time (Protime)PT. 21.8 SECONDS (11.7-14.9)
== END 2020-03-20 18:00 | disposition home or self-care (01) ==
LOC: MTLAB 15:07
PROVIDERS: Internal Medicine Endocrinology, Diabetes & Metabolism; Family Provider Internal Medicine; PCP Internal Medicine; Referring Provider Internal Medicine Cardiovascular Disease; Visit Provider Internal Medicine Cardiovascular Disease
DX: I48.0 Paroxysmal atrial fibrillation (principal); Z79.01 Long term (current) use of anticoagulants; E11.42 Type 2 diabetes mellitus with diabetic polyneuropathy
CPT/HCPCS: 36415; 80053; 83036; 85610

== ENCOUNTER 2020-04-03 11:16 | Outpatient (RCR) | payer MEDICARE, SELFPAY ==
[2019-12-29 14:52] VITALS: BMI 37.5
[2020-03-28 13:33] VITALS: BMI 37.0
[2020-04-03 15:25] LABS: International Normalized Ratio 2.3; Prothrombin Time (Protime)PT. 24.8 SECONDS (11.7-14.9)
[2020-04-03 15:50] LABS: AST(SGOT) 18 U/L (15-37); Alanine Aminotransfer ALT/SGPT 22 U/L (13-56); Albumin, Serum 3.8 g/dL (3.2-5.0); Alkaline Phosphatase 102 U/L (45-117); Bilirubin, Direct 0.09 mg/dL (0.00-0.30); Cholesterol 219 mg/dL (200); High Density Lipoprotein 43 mg/dL; Protein, Total 6.8 g/dL (6.4-8.2); Triglycerides 264 mg/dL; Very Low Density Lipoprotein 53 mg/dL (5-40)
== END 2020-04-03 18:00 | disposition home or self-care (01) ==
LOC: MTLAB 11:16
PROVIDERS: Physician Assistant Medical; Family Provider Internal Medicine; PCP Internal Medicine; Referring Provider Internal Medicine Cardiovascular Disease; Visit Provider Internal Medicine Cardiovascular Disease
DX: I48.0 Paroxysmal atrial fibrillation (principal); Z79.01 Long term (current) use of anticoagulants; I25.10 Atherosclerotic heart disease of native coronary artery without angina pectoris
CPT/HCPCS: 36415; 80061; 80076; 85610

== ENCOUNTER → 2020-04-06 13:34 | Outpatient (CLI) | payer MEDICARE, SELFPAY ==
[2019-12-29 14:52] VITALS: BMI 37.5
[2020-03-28 13:33] VITALS: BMI 37.0
[2020-04-05 13:12] VITALS: BMI 37.9
--- NOTE | 2020-04-06 13:36 | ECHODONC_ITS ---
Reason For Study: MODERATE AORTIC STENOSIS Procedure This was a 2D Doppler, Color Flow transthoracic echocardiogram. Myocardial strain analysis was performed in this exam to aid in the assessment of cardiac function. Exam performed in department. Left Ventricle Normal LV size. Left ventricular systolic function is normal. The estimated ejection fraction is 60 %. No regional wall motion abnormalities noted. Right Ventricle Normal RV size. Normal systolic function. Atria The left atrium is mildly enlarged. Normal right atrium. Mitral Valve Normal mitral valve. Mild (1+) eccentric mitral valve insufficiency. Tricuspid Valve Normal tricuspid valve. Mild (1+) tricuspid valve insufficiency. Pulmonary artery systolic pressure is 34 mmHg. Aortic Valve Trisinus/trileaflet aortic valve. Moderate focal aortic valve calcification. Peak aortic valve gradient 46 mmHg. Mean aortic valve gradient 27 mmHg. Moderate aortic stenosis. Calculated aortic valve area (continuity equation) is 0.93 cm2. Mild (1+) aortic valve insufficiency. Pulmonic Valve Normal pulmonic valve. Great Vessels Normal aortic root. The pulmonary artery is normal size. Normal inferior vena cava. Pericardium/Pleural No pericardial effusion. MMode/2D Measurements & Calculations LVIDd: 4.6 cm IVSd: 0.98 cm LVOT diam: 2.0 cm LVIDs: 3.2 cm LVPWd: 0.99 cm LVOT area: 3.2 cm2 RVDd: 3.3 cm FS: 30.0 % Ao root diam: 3.2 cm LAV(MOD-bp): 84.4 ml LVAd ap4: 32.8 cm2 LAV(MOD-bp) Indexed: 40.7 ml/m2 EDV(MOD-sp4): 108.0 ml LAV(MOD-sp2): 83.3 ml EDV(sp4-el): 111.0 ml LAV(MOD-sp4): 75.6 ml LVAs ap4: 18.2 cm2 ESV(MOD-sp4): 41.5 ml ESV(sp4-el): 40.0 ml EF(MOD-sp4): 61.6 % EF(sp4-el): 64.0 % SV(MOD-sp4): 66.5 ml SV(sp4-el): 71.0 ml LA A4 area: 24.4 cm2 LA dimension(2D): 4.0 cm RA A4 area: 16.2 cm2 Time Measurements MV dec time: 0.34 sec Doppler Measurements & Calculations MV E max bradley: 136.5 cm/sec Lat Peak E' Bradley: 6.9 cm/sec Med Peak E' Bradley: 6.5 cm/sec MV A max bradley: 106.3 cm/sec E/E' lat: 19.7 E/E' med: 21.1 MV E/A: 1.3 MV V2 max: 146.0 cm/sec MV P1/2t max bradley: 149.5 cm/sec Ao V2 max: 336.7 cm/sec MV max P.5 mmHg MV P1/2t: 101.9 msec Ao max P.4 mmHg MV V2 mean: 103.0 cm/sec Ao V2 mean: 249.7 cm/sec MV mean P.5 mmHg MV dec slope: 429.8 cm/sec2 Ao mean P.4 mmHg MV V2 VTI: 38.1 cm MVA(P1/2t): 2.2 cm2 Ao V2 VTI: 71.8 cm MVA(VTI): 1.7 cm2 NAIF(I,D): 0.90 cm2 NAIF(V,D): 0.93 cm2 LV V1 max: 96.4 cm/sec SV(LVOT): 64.4 ml PA V2 max: 117.2 cm/sec LV V1 max P.7 mmHg LV V1 mean P.8 mmHg LV V1 mean: 61.8 cm/sec LV V1 VTI: 19.9 cm TR max bradley: 269.3 cm/sec TR max P.0 mmHg Interpretation Summary Normal LV size. Left ventricular systolic function is normal. The estimated ejection fraction is 60 %. The left atrium is mildly enlarged. Mild (1+) eccentric mitral valve insufficiency. Peak aortic valve gradient 46 mmHg. Mean aortic valve gradient 27 mmHg. Moderate aortic stenosis. Calculated aortic valve area (continuity equation) is 0.93 cm2. Compared to previous study, the left ventricular systolic function is the same.. Ordering Physician: Vianca Pinon/Fish Muniz Referring Physician: LEW KLEIN Performed By: Leah Romero RDCS
== END ==
PROVIDERS: PCP Internal Medicine; Referring Provider Physician Assistant Medical; Visit Provider Physician Assistant Medical
DX: I35.0 Nonrheumatic aortic (valve) stenosis (principal)
CPT/HCPCS: 93306; 93356

== ENCOUNTER → 2020-04-28 10:33 | Outpatient (CLI) | payer MEDICARE, SELFPAY ==
[2019-12-29 14:52] VITALS: BMI 37.5
[2020-04-05 13:12] VITALS: BMI 37.9
--- NOTE | 2020-04-28 10:36 | NM_ITS ---
CLINICAL: 80-year-old female with reported history of carcinoma of the breast. WHOLE BODY 99m Tc MDP RADIONUCLIDE BONE SCINTIGRAPHY COMPARISON: Previous whole body bone scintigraphy study dated 11/23/2019, FDG PET CT report 12/18/2019 FINDINGS: Following the intravenous administration of 26.0 mCi of 99m Tc MDP, whole body bone images reveal: 1. On the current examination, there is increased radiopharmaceutical concentration redemonstrated, relatively unchanged in the first, fourth-fifth lumbar vertebra and left posterior ilium, sacroiliac joint (with a decrease in the intensity and spatial distribution of uptake). 2. Enhanced tracer uptake is observed in the bilateral shoulders, mid cervical spine posteriorly on the left, the left knee. 3. The remaining skeletal structures are scintigraphically unremarkable with normal-appearing renal images and urinary bladder activity identified. The presumably asymptomatic right knee arthroplasty continues to demonstrate no evidence of significant radiopharmaceutical concentration. NM/Bone Scan Whole Body IMPRESSION: 1. The increase in tracer uptake redemonstrated in the left sacroiliac joint, left posterior ilium, lumbar spine remains consistent with osteoblastic turnover attributed to skeletal metastatic disease. 2. Degenerative arthritis appears expressed in the bilateral shoulders, cervical spine and left knee. 3. 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 There is interval improvement in the degree of detected osteoblastic turnover (facilitated radiotracer uptake) in the left posterior ilium, sacroiliac joint commensurate with a component of interim healing. Electronically Signed: Ruben Torres DO at 8:06 EST Tel , Service support ,
== END ==
PROVIDERS: PCP Internal Medicine; Referring Provider Internal Medicine Medical Oncology; Visit Provider Internal Medicine Medical Oncology
DX: C50.912 Malignant neoplasm of unspecified site of left female breast (principal); C79.51 Secondary malignant neoplasm of bone
CPT/HCPCS: 78306

== ENCOUNTER 2020-05-09 08:58 | Outpatient (RCR) | payer MEDICARE, SELFPAY ==
[2019-12-29 14:52] VITALS: BMI 37.5
[2020-05-03 14:56] VITALS: BMI 38.6
[2020-05-09] MEDS: COVID-19 VACC, MRNA(PFIZER)/PF 30 MCG/0.3 ML SYRINGE IM (10:57)
[2020-05-30] MEDS: COVID-19 VACC, MRNA(PFIZER)/PF 30 MCG/0.3 ML SYRINGE IM (10:59)
== END 2020-08-08 23:59 ==
LOC: IMMUN 08:58
PROVIDERS: PCP Internal Medicine; Visit Provider Family Medicine
DX: Z23 Encounter for immunization (principal)
CPT/HCPCS: 0001A; 0002A; 91300

== ENCOUNTER 2020-05-29 09:58 | Outpatient (RCR) | payer MEDICARE, SELFPAY ==
[2019-12-29 14:52] VITALS: BMI 37.5
[2020-04-05 13:12] VITALS: BMI 37.9
[2020-05-02 15:42] LABS: International Normalized Ratio 2.1; Prothrombin Time (Protime)PT. 23.1 SECONDS (11.7-14.9)
[2020-05-29 12:10] LABS: International Normalized Ratio 2.5; Prothrombin Time (Protime)PT. 26.4 SECONDS (11.7-14.9)
== END 2020-05-29 18:00 | disposition home or self-care (01) ==
LOC: MTLAB 09:58
PROVIDERS: Family Provider Internal Medicine; PCP Internal Medicine; Referring Provider Internal Medicine Cardiovascular Disease; Visit Provider Internal Medicine Cardiovascular Disease
DX: I48.0 Paroxysmal atrial fibrillation (principal); Z79.01 Long term (current) use of anticoagulants
CPT/HCPCS: 36415; 85610

== ENCOUNTER 2020-06-26 13:11 | Outpatient (RCR) | payer MEDICARE, SELFPAY ==
[2019-12-29 14:52] VITALS: BMI 37.5
[2020-05-03 14:56] VITALS: BMI 38.6
[2020-06-06 11:28] VITALS: BMI 37.0
[2020-06-26 13:43] LABS: International Normalized Ratio 2.6; Prothrombin Time (Protime)PT. 27.2 SECONDS (11.7-14.9)
[2020-06-26 13:55] LABS: Anion Gap 5 (5-15); BUN 22 mg/dL (7-18); BUN/Creat Ratio 21.6 RATIO (10-20); Calcium,Total 9.1 mg/dL (8.5-10.1); Chloride 99 mmol/L (98-107); Creatinine, Serum 1.02 mg/dL (0.55-1.02); EST Glomerular Filtration Rate 55 mL/min (>60); Est Glom Filt Rate - Afr Amer 67 mL/min (>60); Glucose 137 mg/dL (74-106); Sodium Level 136 mmol/L (136-145)
== END 2020-06-26 18:00 | disposition home or self-care (01) ==
LOC: LAB 13:11
PROVIDERS: Physician Assistant Medical; Family Provider Internal Medicine; PCP Internal Medicine; Referring Provider Internal Medicine Cardiovascular Disease; Visit Provider Internal Medicine Cardiovascular Disease
DX: I48.0 Paroxysmal atrial fibrillation (principal); Z79.01 Long term (current) use of anticoagulants
CPT/HCPCS: 36415; 80048; 85610

== ENCOUNTER 2020-07-10 10:53 | Day surgery (SDC) | payer MEDICARE, SELFPAY ==
[2019-12-29 14:52] VITALS: BMI 37.5
[2020-06-30 14:26] VITALS: BMI 39.8
[2020-07-07 13:17] VITALS: BMI 39.8
--- NOTE | 2020-07-10 08:25 | HP_ITS ---
HPI HPI History of Present Illness Surgical H&P: Yes Details: EMMA HUNG, is a 80 F who presents to the office today for an urgent cardiovascular follow-up. She has a history of paroxysmal atrial fibrillation, minimal coronary artery disease, hypertension, and diastolic dysfunction and diabetes. 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 She just finished radiation. She is now taking a daily pill. She has had pain to her left breast. She does not think she has any chest pain. She does not have any worsening SOB. She does not have any palpitations. She does not have any orthopnea. She does have some swelling in her right foot. She use a walker. She still does have pain in her right leg and back. This did improve during radiation but has returned. Pt is here with her daughter today. She notes that she is more SOB with exertion. She finds that she is having rattling in her lungs. She feel that this is worse over the last month. She notes that he legs are more swollen. EKG today demonstrates Afib with a HR of 98 She has gained 10 lbs in the last 6 months. Intake Vital Signs 06/30/20 14:26 Height 5 ft 4 in Weight: 232 lb BMI 39.8 BP 121/75 H Blood Pressure Location Lt brachial Position Sitting Respiration 18 Pulse 100 Pulse Source Monitor Pulse Oximetry (%) 99 Intake Visit Reasons: Increased SOB Trauma Program Manager Required: No Is patient in pain?: No Allergies [id number]-Hmk Reductase Inhibitor Adverse Reaction (Severe, Verified 06/30/20 14:24) myalgias Medications aspirin 81 mg PO DAILY@0800 06/30/15 [History Confirmed 06/30/20] glipizide 15 mg PO BID 06/30/15 [History Confirmed 06/30/20] liraglutide 1.8 mg SQ DAILY 06/30/15 [History Confirmed 06/30/20] jbixysqk-bhi-NR-lycopen-lutein 1 each PO QHS 05/22/16 [History Confirmed 06/30/20] levothyroxine 75 mcg tablet 75 mcg PO QDAY 07/04/17 [History Confirmed 06/30/20] metoprolol succinate 200 mg tablet,extended release 24 hr 200 mg PO DAILY #90 tablet 01/18/19 [Rx Confirmed 06/30/20] ezetimibe 10 mg tablet 10 mg PO QHS #90 tablet 04/21/19 [Rx Confirmed 06/30/20] cholecalciferol (vitamin D3) 125 mcg (5,000 unit) capsule 125 mcg PO DAILY 09/23/19 [History Confirmed 06/30/20] isosorbide mononitrate 30 mg tablet,extended release 24 hr 30 mg PO DAILY #90 tablet 09/23/19 [Rx Confirmed 06/30/20] acetaminophen 500 mg tablet 500 mg PO Q6H PRN 11/16/19 [History Confirmed 06/30/20] anastrozole 1 mg PO DAILY #90 tablet 02/02/20 [Rx Confirmed 06/30/20] warfarin 5 mg tablet 5 mg PO .COMPLEX #90 tablet 02/29/20 [Rx Confirmed 06/30/20] dapagliflozin 5 mg tablet 10 mg PO DAILY tablet 03/28/20 [History Confirmed 06/30/20] warfarin 1 mg tablet 1 mg PO .COMPLEX #120 tablet 05/29/20 [Rx Confirmed 06/30/20] denosumab 120 mg/1.7 mL (70 mg/mL) subcutaneous solution 120 mg SC Q4W 06/06/20 [History Confirmed 06/30/20] furosemide 40 mg tablet 40 mg PO BID #180 tablet 06/12/20 [Rx Confirmed 06/30/20] gabapentin 100 mg capsule 200 mg PO TID #180 cap 06/26/20 [Rx Confirmed 06/30/20] [facility] Medical History (Updated 06/30/20 @ 15:03 by Vianca Pinon PA, PA) A-fib Acquired hypothyroidism Atherosclerotic heart disease of tejon coronary artery without angina pectoris Benign hypertension Cataracts, bilateral Chronic diastolic heart failure Gout History of non-ST elevation myocardial infarction (NSTEMI) (06/30/15) Hyperlipidemia care home (current) use of anticoagulants Nonrheumatic aortic (valve) stenosis Nonrheumatic mitral valve regurgitation Nonrheumatic mitral valve stenosis with insufficiency Osteoarthritis Paroxysmal atrial fibrillation Peripheral vascular disease with claudication Persistent atrial fibrillation Secondary pulmonary arterial hypertension Type 2 diabetes mellitus Surgical History History of carpal tunnel release History of cataract surgery History of cholecystectomy History of foot surgery History of right and left heart catheterization (07/03/15) History of total right knee replacement Family History Father CVA (cerebral vascular accident) Mother Diabetes Hypertension Brother CAD (coronary artery disease) CVA (cerebral vascular accident) Hypertension Brother Diabetes Sister Diabetes Social History (Updated 06/06/20 @ 21:[address] Yusef Canales MD) Smoking Status: Former smoker quit date: 03/03/69 Tobacco: How many years used: 5 Electronic Cigarette Use: not used how long ago did patient quit smokin second hand exposure: No alcohol intake: former substance use type: does not use caffeine: No what type of physical activity do you participate in: other details: PT frequency: 1-2 times per week duration: 45-60 minutes/day seatbelt use: always do you feel safe at home: Yes ROS Const Const: Positive for fatigue and weakness; Negative for fever(s), headache(s) or excessive sweating Eyes Eyes: Negative for blind spots, loss of peripheral vision or transient loss of vision ENT ENT: Negative for headache(s), dizziness, tinnitus, Nosebleed/epistaxis or balance problems Cardio Chest Pain: No Palpitations: No Edema: Bilateral Muscle aches with walking: None Resp Respiratory: Positive for SOB with activity and SOB at rest; Negative for SOB orthopnea\SOB lying down or Cough GI GI: Negative nausea, vomiting, heartburn or vomiting blood/hematemesis : Negative for hematuria Musc Musc: Negative for muscle aches/ myalgia, muscle weakness, joint pain or balance problems Neuro Neuro: Positive for weakness; Negative for dizziness, lightheadedness, near syncope, syncope, orthostatic symptoms or headache(s) [place] Hematologic/Lymphatic: Negative for easy bleeding or easy bruising Endo Endo: Positive for fatigue; Negative for excessive sweating or flushing Cardiology Exam Const Appearance: cooperative, no acute distress, well developed and other (in WC) Orientation: alert, awake and oriented x3 Head Head: normocephalic and atraumatic Mouth: moist mucous membranes Eyes General: appearance normal, both eyes and all related structures Conjunctivae: conjunctivae normal Pupils: PERRL EOM: EOM intact bilaterally Neck Neck: normal visual inspection, no lymphadenopathy and no JVD Carotids: Negative bruit Neck Mass: Negative Neck mass Chest Chest inspection: normal inspection of the chest and symmetric chest movement Auscultation: Bilateral: Diminished Lung Sounds Cardio Palpation: normal PMI Rate: tachycardic Rhythm: irregularly irregular Heart sounds: S1 normal, S2 normal and murmur; Negative rub or gallop Murmur: Grade 3/6 and mid systolic GI GI: normal to inspection, soft, no hepatosplenomegaly and bowel sounds present; Negative tender Neuro General: patient alert, patient awake, patient oriented x3, CN's II-XI intact bilaterally and moves all extremities Extremities Pulses: Normal: Right Posterior Tibial Pulse, Left Posterior Tibial Pulse, Right Radial Pulse and Left Radial Pulse Lower Extremity Edema: +1: Bilateral Psych Psychological: normal affect Coding Level of Care Code Off vis,est,level 4 Diagnoses Persistent atrial fibrillation I48.19 Nonrheumatic aortic (valve) stenosis I35.0 Chronic diastolic heart failure I50.32 Benign hypertension I10 Hyperlipidemia E78.00; E78.0 Hyperlipidemia type: pure hypercholesterolemia Coding Level of Care Code Off vis,est,level 4 Diagnoses Persistent atrial fibrillation I48.19 Nonrheumatic aortic (valve) stenosis I35.0 Chronic diastolic heart failure I50.32 Benign hypertension I10 Hyperlipidemia E78.00; E78.0 Hyperlipidemia type: pure hypercholesterolemia Supplemental Info Supplemental Information Echocardiogram 04/23: Normal LV size. Left ventricular systolic function is normal. The estimated ejection fraction is 60 %. The left atrium is mildly enlarged. Mild (1+) eccentric mitral valve insufficiency. Peak aortic valve gradient 46 mmHg. Mean aortic valve gradient 27 mmHg. Moderate aortic stenosis. Calculated aortic valve area (continuity equation) is 0.93 cm2. Compared to previous study, the left ventricular systolic function is the same.. Echocardiogram in 08/2018: Normal LV size. Moderate concentric left ventricular hypertrophy. Left ventricular systolic function is normal. The estimated ejection fraction is 60 %. Moderate focal aortic valve calcification. Peak aortic valve gradient 41 mmHg. Mean aortic valve gradient 22 mmHg. Moderate aortic stenosis. The left atrium is moderately enlarged. Compared to previous the pulmonary pressures are higher Echocardiogram in 2018: Normal LV size. Moderate concentric left ventricular hypertrophy. The estimated ejection fraction is 50 %. Moderate focal aortic valve calcification. Mild to moderate aortic stenosis. Calculated aortic valve area (continuity equation) is 1.4 cm2. Compared to prior study, there is no significant change. Labs: LDL Cholesterol 123 mg/dL (0-130) HDL Cholesterol 43 mg/dL (40-) Triglycerides 264 mg/dL (-199) H VLDL Cholesterol 53 mg/dL (5-40) H Diagnostics: Electrocardiogram Echocardiogram Pulmonary: No Data to Display COVID (Procedure Consent) Procedure Criteria Procedure Criteria: Yes Elective The surgeon/proceduralist and patient have discussed in detail the risk of exposure to and/or potential harm posed by the COVID-19 virus with having a surgery/procedure at this time versus the risk of? delaying the surgery/procedure. It is not possible to know either the risk of delaying the surgery or procedure or chance of getting an infection with perfect accuracy, but a joint decision was made between the patient and the surgeon/proceduralist ?to proceed at this time with the scheduled surgery/procedure as indicated on the consent form. Assessment and Plan Assessment and Plan (1) Persistent atrial fibrillation: Status: Acute MEDARDO Haile: It appears that patient has returned to atrial fibrillation. Feel that this is the cause of her diastolic heart failure. Would like for her to be scheduled for a cardioversion. This will be done in the near future. Will reassess after her cardioversion with her diastolic heart failure. Patient Instructions: I am going to schedule your for a cardioversion 07/10/2020. You will need a double bottom driver that day. Nothing to eat or drink after midnight. In the morning with a small sip of water take your: take all of your morning medications except your furosemide. You will need to have your INR done weekly until the procedure. (2) Nonrheumatic aortic (valve) stenosis: Status: Chronic Mingo BATRES PA: Patient does have moderately severe aortic stenosis. For now we will continue to monitor. Will reassess after cardioversion. Feel that her aortic stenosis is causing her congestive heart failure symptoms to be worse. (3) Chronic diastolic heart failure: Status: Chronic Mingo BATRES PA: Feel that patient does have diastolic heart failure symptoms from her atrial fibrillation. She will continue with her current dose of diuretics at 40 mg twice a day. (4) Benign hypertension: Status: MEDARDO Bustos: Blood pressure is well controlled on current medications, we do not recommend any changes at this time. (5) Hyperlipidemia: Status: Chronic Qualifiers: Hyperlipidemia type: pure hypercholesterolemia Qualified Code(s): E78.00 - Pure hypercholesterolemia, unspecified; E78.0 - Pure hypercholesterolemia Mingo Pinon PA, PA: Patient will continue with her Zetia. Plan Details Follow Up: 06/30/20 (Please schedule cardioversion with DATABASE MANAGEMENT SYSTEM SPECIALIST for 07/10. ) 6 Weeks (MMM/DATABASE MANAGEMENT SYSTEM SPECIALIST)
[2020-07-10 11:10] LABS: INR Fingerstick 3.5; Prothrombin Time Fingerstick 37.7 SEC (11.9-14.4)
--- NOTE | 2020-07-10 13:27 | PCM.OP.BLANK ---
Problems Associated Problem List Diagnoses (1) Persistent atrial fibrillation: Operative Report Date of Procedure: 07/10/20 Direct current cardioversion. Procedure: 80-year-old lady with a history of persistent symptomatic atrial fibrillation. The patient was brought to the noninvasive cardiovascular lab in the postabsorptive nonsedated state. Patient was seen by Dr. Campos of the critical care division. Informed consent was obtained. Anterior-posterior pads were applied. The patient was administered 40 mg of intravenous propofol. 200 J of synchronized DC cardioversion energy were applied with prompt reversal to sinus rhythm. Patient tolerated the procedure well. Conclusion: Successful DC cardioversion from atrial fibrillation to sinus rhythm. Continue current medical therapy. Follow-up as per office protocol.
--- NOTE | 2020-07-10 13:36 | PCM.OP.PRO ---
Procedure Report Date of Procedure: 07/10/20 CONSCIOUS SEDATION REPORT BRIEF HISTORY OF PRESENT ILLNESS: The patient is an 80-year-old female who presented to [facility] for an elective outpatient cardioversion due to underlying atrial fibrillation. The patient reports no PO intake since midnight. The patient does not have a history of obstructive sleep apnea. The patient reports a history of smoking, but denies COPD. The patient denies any recent constitutional symptoms such as fevers, chills, nausea or vomiting. The patient denies previous anesthetic complications. Patient's last known ejection fraction was 60%. Patient's INR on the day of the procedure was 3.5. PHYSICAL EXAMINATION: VITAL SIGNS: Reviewed and were acceptable. GENERAL: The patient is a female, in no apparent distress, speaking in full sentences. HEENT: Normocephalic, atraumatic. Mucous membranes are moist and pink. Good mouth opening noted. Trachea is midline. Good neck mobility. MP IV CHEST: S1, S2 irregularly irregular. No murmurs, rubs or gallops were noted. LUNGS: Clear to auscultation bilaterally without appreciable wheezes, rales or rhonchi. ABDOMEN: Soft, nontender, nondistended. Positive bowel sounds. EXTREMITIES: There is no clubbing, cyanosis or edema. ASA Class: II DESCRIPTION OF PROCEDURE: After confirmation of informed consent, the patient's anesthesia plan was reviewed in detail. Propofol was chosen. Risks and benefits were reviewed and the patient agreed to proceed. At 1:22 PM, the patient was given 40 mg of propofol. The patient achieved an appropriate level of sedation and received 1 attempt synchronized cardioversion, at [address] Muniz at the bedside. This was successful in achieving normal sinus rhythm. The patient was monitored until 1:34 PM, at which time the patient reached their baseline mental status and function. The patient tolerated the procedure well. COMPLICATIONS: None ESTIMATED BLOOD LOSS: None RECOMMENDATIONS: Okay to recover in usual fashion. Procedures Pulmonary 9xxxx: Other Procedure See Report ([id number] -12 minutes conscious sedation)
== END 2020-07-10 14:35 | disposition home or self-care (01) ==
LOC: CLSP 10:57
PROVIDERS: PCP Internal Medicine; Referring Provider Internal Medicine Cardiovascular Disease; Visit Provider Internal Medicine Cardiovascular Disease
DX: I48.19 Other persistent atrial fibrillation (principal); I25.10 Atherosclerotic heart disease of native coronary artery without angina pectoris; I11.0 Hypertensive heart disease with heart failure; I50.32 Chronic diastolic (congestive) heart failure; I08.0 Rheumatic disorders of both mitral and aortic valves; I27.21 Secondary pulmonary arterial hypertension; I25.2 Old myocardial infarction; E11.51 Type 2 diabetes mellitus with diabetic peripheral angiopathy without gangrene; E78.00 Pure hypercholesterolemia, unspecified; E03.9 Hypothyroidism, unspecified; C50.912 Malignant neoplasm of unspecified site of left female breast; C78.89 Secondary malignant neoplasm of other digestive organs; C79.51 Secondary malignant neoplasm of bone; M19.90 Unspecified osteoarthritis, unspecified site; Z79.82 Long term (current) use of aspirin; Z79.01 Long term (current) use of anticoagulants; Z79.84 Long term (current) use of oral hypoglycemic drugs; Z92.3 Personal history of irradiation; Z87.891 Personal history of nicotine dependence
CPT/HCPCS: 36416; 85610; 92960; 93005; J7040

== ENCOUNTER 2020-07-26 12:15 | Outpatient (RCR) | payer MEDICARE, SELFPAY ==
[2019-12-29 14:52] VITALS: BMI 37.5
[2020-06-30 14:26] VITALS: BMI 39.8
[2020-07-03 15:31] LABS: International Normalized Ratio 2.7; Prothrombin Time (Protime)PT. 27.7 SECONDS (11.7-14.9)
== END 2020-07-26 18:00 | disposition home or self-care (01) ==
LOC: MTLAB 12:15
PROVIDERS: Family Provider Internal Medicine; PCP Internal Medicine; Referring Provider Internal Medicine Cardiovascular Disease; Visit Provider Internal Medicine Cardiovascular Disease
DX: I48.0 Paroxysmal atrial fibrillation (principal); Z79.01 Long term (current) use of anticoagulants
CPT/HCPCS: 36415; 85610

== ENCOUNTER → 2020-08-11 15:49 | Outpatient (CLI) | payer MEDICARE, SELFPAY ==
[2019-12-29 14:52] VITALS: BMI 37.5
[2020-08-11 14:57] VITALS: BMI 39.9
[2020-08-11 17:22] LABS: Anion Gap 7 (5-15); BUN 32 mg/dL (7-18); Calcium,Total 9.8 mg/dL (8.5-10.1); Chloride 102 mmol/L (98-107); EST Glomerular Filtration Rate 33 mL/min (>60); Est Glom Filt Rate - Afr Amer 40 mL/min (>60); Glucose 113 mg/dL (74-106); Potassium 3.6 mmol/L (3.5-5.1); Sodium Level 139 mmol/L (136-145)
== END ==
PROVIDERS: PCP Internal Medicine; Referring Provider Physician Assistant Medical; Visit Provider Physician Assistant Medical
DX: I48.19 Other persistent atrial fibrillation (principal)
CPT/HCPCS: 36415; 80048

== ENCOUNTER 2020-08-16 16:04 | Outpatient (RCR) | payer MEDICARE, SELFPAY ==
[2019-12-29 14:52] VITALS: BMI 37.5
[2020-07-17 10:52] VITALS: BMI 39.8
[2020-08-02 15:14] LABS: International Normalized Ratio 2.4; Prothrombin Time (Protime)PT. 25.5 SECONDS (11.7-14.9)
[2020-08-16 18:15] LABS: International Normalized Ratio 2.9; Prothrombin Time (Protime)PT. 29.8 SECONDS (11.7-14.9)
== END 2020-08-16 18:00 | disposition home or self-care (01) ==
LOC: MTLAB 16:04
PROVIDERS: Family Provider Internal Medicine; PCP Internal Medicine; Referring Provider Internal Medicine Cardiovascular Disease; Visit Provider Internal Medicine Cardiovascular Disease
DX: I48.0 Paroxysmal atrial fibrillation (principal); Z79.01 Long term (current) use of anticoagulants
CPT/HCPCS: 36415; 85610

== ENCOUNTER 2020-08-21 10:28 | Day surgery (SDC) | payer MEDICARE, SELFPAY ==
[2019-12-29 14:52] VITALS: BMI 37.5
[2020-08-11 14:57] VITALS: BMI 39.9
[2020-08-18 08:06] VITALS: BMI 39.9
[2020-08-21 10:45] LABS: INR Fingerstick 3.7; Prothrombin Time Fingerstick 40.4 SEC (11.9-14.4)
[2020-08-21 10:45] LABS: INR Fingerstick 3.7; Prothrombin Time Fingerstick 39.6 SEC (11.9-14.4)
--- NOTE | 2020-08-21 12:12 | PCM.OP.PRO ---
Assessment & Plan Assessment/Plan (1) Persistent atrial fibrillation: Procedure Report Date of Procedure: 08/21/20 DC cardioversion. 80-year-old lady with a history of chronic persistent atrial fibrillation. Patient was noted to be therapeutic anticoagulated for at least 3 weeks. EKG confirmed atrial fibrillation. The patient was brought in in the postabsorptive nonsedated state. Patient was seen by Dr. Campos of the critical care division. Informed consent was obtained. Anterior-posterior pads were applied. The patient was then administered 40 mg of intravenous propofol and 200 J of synchronized DC cardioversion energy were applied with prompt reversal to sinus rhythm. Patient tolerated the procedure well. Conclusion: Successful DC cardioversion from atrial fibrillation to sinus rhythm. Continue office protocol.
--- NOTE | 2020-08-21 12:51 | PCM.OP.PRO ---
Assessment & Plan Assessment/Plan (1) Persistent atrial fibrillation: (2) Chronic diastolic heart failure: (3) Secondary pulmonary arterial hypertension: Procedure Report Date of Procedure: 08/21/20 CONSCIOUS SEDATION REPORT BRIEF HISTORY OF PRESENT ILLNESS: The patient is an 80-year-old female who presented to [facility] for an elective outpatient cardioversion due to underlying atrial fibrillation. The patient reports no PO intake since midnight, but is currently therapeutic on anticoagulation. The patient does not have a history of obstructive sleep apnea. The patient reports a history of smoking, but denies COPD. The patient denies any recent constitutional symptoms such as fevers, chills, nausea or vomiting. The patient denies previous applicable anesthetic complications. PHYSICAL EXAMINATION: VITAL SIGNS: Reviewed and were acceptable. GENERAL: The patient is a female, in no apparent distress, speaking in full sentences. HEENT: Normocephalic, atraumatic. Mucous membranes are moist and pink. Good mouth opening noted. Trachea is midline. Good neck mobility. MP IV CHEST: S1, S2 irregularly irregular. No murmurs, rubs or gallops were noted. LUNGS: Clear to auscultation bilaterally without appreciable wheezes, rales or rhonchi. ABDOMEN: Soft, nontender, nondistended. Positive bowel sounds. EXTREMITIES: There is no clubbing, cyanosis or edema. ASA Class: II DESCRIPTION OF PROCEDURE: After confirmation of informed consent, the patient's anesthesia plan was reviewed in detail. Propofol was chosen. Risks and benefits were reviewed and the patient agreed to proceed. At 12:05 PM, the patient was given 40 mg of propofol. The patient achieved an appropriate level of sedation and received 1 attempt synchronized cardioversion, at [address] Muniz at the bedside. This was successful in achieving normal sinus rhythm. The patient was monitored until 12:20 PM, at which time the patient reached their baseline mental status and function. The patient tolerated the procedure well. COMPLICATIONS: None ESTIMATED BLOOD LOSS: None RECOMMENDATIONS: Okay to recover in usual fashion. Procedures Pulmonary 9xxxx: [id number] Con Sedation
== END 2020-08-21 13:20 | disposition home or self-care (01) ==
PROVIDERS: PCP Internal Medicine; Referring Provider Internal Medicine Cardiovascular Disease; Visit Provider Internal Medicine Cardiovascular Disease
DX: I48.19 Other persistent atrial fibrillation (principal)
CPT/HCPCS: 36416; 85610; 92960; 93005; J7040

== ENCOUNTER 2020-08-22 09:00 | Observation (INO) | payer MEDICARE, SELFPAY ==
[2019-12-29 14:52] VITALS: BMI 37.5
[2020-08-18 08:06] VITALS: BMI 39.9
[2020-08-22] VITALS (14 sets, daily range): BP systolic 114–164; BP diastolic 59–79; PULSE 71–88; RESP 14–25; TEMP 36.1–37.1; O2SAT 88–98; BMI 39.9; BMI 39.4
--- NOTE | 2020-08-22 09:09 | RAD_ITS ---
STUDY: X-RAY CHEST REASON FOR EXAM: Female, 80 years old. sob TECHNIQUE: Portable upright COMPARISON: 01/20/2017 FINDINGS: The heart is slightly enlarged the lung zepeda are clear except for heavy markings centrally but no obvious consolidation or atelectasis seen. The costophrenic angles are clear no evidence of pneumothorax. The visualized bony structures are intact. There are calcifications noted in the thoracic aortic knob. RAD/Chest 1 View (Portable) IMPRESSION: Heavy markings centrally but no obvious active disease. No significant change noted since the last study. Electronically Signed: Jazmín Cuba, at 9:42 EDT Tel , Service support ,
--- NOTE | 2020-08-22 09:09 | EKG12_ITS ---
Test Reason : SOB Blood Pressure : / mmHG Vent. Rate : 078 BPM Atrial Rate : 078 BPM P-R Int : 198 ms QRS Dur : 092 ms QT Int : 428 ms P-R-T Axes : 065 069 096 degrees QTc Int : 487 ms Normal sinus rhythm Nonspecific ST abnormality Abnormal ECG Confirmed by DENNIS SPENCE, ZAMZAM ([id number]), story editor KENNETH EDWARDS ([id number]) on 08/24/2020 12:33:50 PM Referred By: [facility] Confirmed By:ZAMZAM COLLINS MD
--- NOTE | 2020-08-22 09:10 | ED.VIS.DYS ---
HPI History of Present Illness Chief Complaint: Shortness of Breath Informant: patient and EMS Onset/Context/Timing Onset: Yesterday Context: gradual Timing: Continuous Quality: Positive for Dyspnea on exertion and Orthopnea Current Severity: Moderate Maximum Severity: Severe Worsened by: Exertion, Lying flat and Coughing Relieved by: Nothing Associated Symptoms cough Chest Pain: Positive for None Narrative Narrative: Patient is an 80-year-old female with multiple comorbidities including paroxysmal atrial fibrillation, breast cancer with metastasis, diastolic CHF, pulmonary hypertension, and valvular heart disease who presents to the emergency department with increasing shortness of breath and weight gain. The patient underwent outpatient cardioversion yesterday. She states that she actually felt very well after it. She was out with family. She states they went to lunch. She states by the evening, she started to have more shortness of breath. She states she was only to sleep about an hour because of her dyspnea. She states she could not lay flat. She is also had increasing lower edema of her extremities. She denies any chest pain. She had a scant cough which she states is chronic. [facility] Medical History Acquired hypothyroidism Atherosclerotic heart disease of [place] coronary artery without angina pectoris Benign hypertension Cataracts, bilateral Chronic diastolic heart failure Gout History of non-ST elevation myocardial infarction (NSTEMI) (06/30/15) Hyperlipidemia skilled nursing (current) use of anticoagulants Nonrheumatic aortic (valve) stenosis Nonrheumatic mitral valve regurgitation Nonrheumatic mitral valve stenosis with insufficiency Osteoarthritis Paroxysmal atrial fibrillation Peripheral vascular disease with claudication Persistent atrial fibrillation Secondary pulmonary arterial hypertension Type 2 diabetes mellitus Home Medications aspirin 81 mg PO DAILY@0800 06/30/15 [History Last Taken 08/21/20] glipizide 15 mg PO BID 06/30/15 [History Last Taken 08/21/20] liraglutide 1.8 mg SQ DAILY 06/30/15 [History Last Taken 07/10/20] wnkbwmkt-ewu-JK-lycopen-lutein 1 each PO QHS 05/22/16 [History Last Taken 06/05/16 22:14] levothyroxine 75 mcg tablet 75 mcg PO QDAY 07/04/17 [History Last Taken 08/21/20] metoprolol succinate 200 mg tablet,extended release 24 hr 200 mg PO DAILY #90 tablet 01/18/19 [Rx Last Taken 08/21/20] ezetimibe 10 mg tablet 10 mg PO QHS #90 tablet 04/21/19 [Rx Last Taken Unknown] cholecalciferol (vitamin D3) 125 mcg (5,000 unit) capsule 125 mcg PO DAILY 09/23/19 [History Last Taken 08/21/20] isosorbide mononitrate 30 mg tablet,extended release 24 hr 30 mg PO DAILY #90 tablet 09/23/19 [Rx Last Taken 08/21/20] anastrozole 1 mg PO DAILY #90 tablet 02/02/20 [Rx Last Taken 07/10/20] warfarin 5 mg tablet 5 mg PO .COMPLEX #90 tablet 02/29/20 [Rx Last Taken 08/20/20] warfarin 1 mg tablet 1 mg PO .COMPLEX #120 tablet 05/29/20 [Rx Last Taken 07/09/20] gabapentin 100 mg capsule 200 mg PO TID #180 cap 06/26/20 [Rx Last Taken 07/10/20] amiodarone 200 mg tablet 200 mg PO DAILY #30 tab 07/18/20 [Rx Last Taken 08/21/20] furosemide 40 mg PO DAILY 08/22/20 [History Last Taken Unknown] Allergy/AdvReac Type Severity Reaction Status Date / Time Wjbbdam-Jqs-Wjc Reductase AdvReac Severe myalgias Verified 08/22/20 09:01 Inhibitor Family History Father CVA (cerebral vascular accident) Mother Diabetes Hypertension Brother CAD (coronary artery disease) CVA (cerebral vascular accident) Hypertension Brother Diabetes Sister Diabetes Surgical History History of cardioversion (07/10/20) History of carpal tunnel release History of cataract surgery History of cholecystectomy History of foot surgery History of right and left heart catheterization (07/03/15) History of total right knee replacement Social History Smoking Status: Former smoker quit date: 03/03/69 Tobacco: How many years used: 5 Electronic Cigarette Use: not used how long ago did patient quit smokin second hand exposure: No alcohol intake: former substance use type: does not use caffeine: No what type of physical activity do you participate in: other details: PT frequency: 1-2 times per week duration: 45-60 minutes/day seatbelt use: always do you feel safe at home: Yes ROS ROS ED Constitutional Constitutional ED: Denies chills or fever(s) Eyes Eyes: Denies blurry vision or change in vision ENT ENT ED: Denies ear pain or sore throat Cardiovascular Cardiovascular: Reports orthopnea Respiratory/Chest Respiratory/Chest: Reports cough, dyspnea, dyspnea on exertion and orthopnea Gastrointestinal Gastrointestinal: Reports nausea Genitourinary Genitourinary ED: Denies dysuria or urinary frequency Musculoskeletal Musculoskeletal: Denies arthralgias or myalgias Integumentary Denies rash Neurologic Neurologic: Denies headache(s) or paresthesias Psychiatric Psychiatric: Denies anxiety or depression Endocrine Endocrinology: Denies polydipsia or polyuria Allergic/Immunologic Allergic/Immunologic ED: Denies urticaria EXAM Physical Exam Const Vital Signs: 08/22/20 09:01 08/22/20 09:05 08/22/20 09:06 Temperature 98.2 F 98.2 F Temperature Source Temporal Temporal Pulse Rate 88 88 Respiratory Rate 25 H 25 H Respiratory Effort Blood Pressure 164/79 H 164/79 H Blood Pressure Mean 107 107 Pulse Ox 88 88 97 Oxygen Delivery Method Room Air Room Air Nasal Cannula Oxygen Flow Rate (L/min) 2 08/22/20 09:07 Temperature Temperature Source Pulse Rate Respiratory Rate Respiratory Effort Non-Labored Short of Breath Blood Pressure Blood Pressure Mean Pulse Ox Oxygen Delivery Method Nasal Cannula Oxygen Flow Rate (L/min) 2 Positive well nourished and well developed General Appearance ED: well developed HEENT Reports moist mucous membranes atraumatic Eyes PERRL and EOMs intact bilaterally Neck no lymphadenopathy, supple and No no JVD Resp normal respiratory effort Auscultation: rales and diminished lung sounds Cardio regular rate and regular rhythm Cardio Narrative: Systolic ejection murmur 3 out of 6 GI non-tender, non-distended and no masses Auscultation: normoactive bowel sounds Palpation: soft Back/Spine normal to inspection Extremity Extremity Narrative: 1+ symmetric lower extremity edema General Extremety ED: Yes edema; Negative for tenderness General Extremity: edema Neuro oriented x3, CN's II-XII intact bilaterally and no sensory deficits noted Sensorium / Orientation: alert, oriented to person and oriented to place Motor Exam: strength 5/5 throughout Psych mental status grossly normal Skin Lesions: no lesions Rashes: no rashes MDM MDM MDM Narrative Medical decision making narrative: Patient presents with shortness of breath status post cardioversion. She has had no chest pain. EKG was obtained. The patient is in a sinus rhythm. She does have rales in both bases and is requiring supplemental oxygen. She chest x-ray obtained. Is reviewed by both myself and the radiologist. I do suspect this is more likely congestive heart failure. There is increased vascularity and enlargement of the pulmonary arteries. Patient does have mildly elevated BNP. High sensitive troponin is 30. The patient will be started on IV diuresis. Given her hypoxia, the patient will be admitted. Impression 1. Decompensated CHF 2. Hypoxic respiratory failure Lab Data Attestation: I reviewed the patient's lab results. Labs: Laboratory Results - last 24 hr 08/22/20 08/22/20 08/22/20 09:10 09:10 09:10 WBC 5.7 RBC 4.19 L Hgb 11.6 L Hct 36.5 L MCV 87.1 MCH 27.7 MCHC 31.8 L RDW Std Deviation 54.7 H RDW Coeff of Cresencio 17.2 H Plt Count 157 MPV 9.7 Immature Gran % (Auto) 1.100 H Neut % (Auto) 74.5 H Lymph % (Auto) 13.5 L [place] % (Auto) 7.9 Eos % (Auto) 2.1 Baso % (Auto) 0.9 Absolute Neuts (auto) 4.3 Absolute Lymphs (auto) 0.77 L Nucleated RBC % 0 PT 27.0 H INR 2.6 Sodium 136 Potassium 4.9 Chloride 103 Carbon Dioxide 27.0 Anion Gap 6 BUN 35 H Creatinine 1.09 H Estim Creat Clear Calc 37.04 Est GFR (MDRD) Af Amer 62 Est GFR (MDRD) Non-Af 51 L BUN/Creatinine Ratio 32.1 H Glucose 170 H Calcium 9.2 Total Bilirubin 0.90 AST 52 H ALT 38 Alkaline Phosphatase 103 Troponin I Cancelled Troponin I High Sens 30.2 B-Natriuretic Peptide Total Protein 7.2 Albumin 3.8 Globulin 3.4 Albumin/Globulin Ratio 1.1 08/22/20 09:10 WBC RBC Hgb Hct MCV MCH MCHC RDW Std Deviation RDW Coeff of Cresencio Plt Count MPV Immature Gran % (Auto) Neut % (Auto) Lymph % (Auto) [place] % (Auto) Eos % (Auto) Baso % (Auto) Absolute Neuts (auto) Absolute Lymphs (auto) Nucleated RBC % PT INR Sodium Potassium Chloride Carbon Dioxide Anion Gap BUN Creatinine Estim Creat Clear Calc Est GFR (MDRD) Af Amer Est GFR (MDRD) Non-Af BUN/Creatinine Ratio Glucose Calcium Total Bilirubin AST ALT Alkaline Phosphatase Troponin I Troponin I High Sens B-Natriuretic Peptide 235.1 H Total Protein Albumin Globulin Albumin/Globulin Ratio Radiography Diagnostic Testing: Radiology Impression Chest X-Ray 08/22/20 09:09 IMPRESSION: Heavy markings centrally but no obvious active disease. No significant change noted since the last study. Electronically Signed: Jazmín [place], at 9:42 EDT Tel , Service support , Discharge Plan Triage Chief Complaint: Shortness of Breath ED Provider: Kal Sharma Dx/Rx/DC Orders Prescriptions: No Action levothyroxine 75 mcg tablet 75 mcg PO QDAY RF: 0 metoprolol succinate 200 mg tablet extended release 24 hr 200 mg PO DAILY Qty: 90 RF: 3 isosorbide mononitrate 30 mg tablet extended release 24 hr 30 mg PO DAILY Qty: 90 RF: 3 cholecalciferol (vitamin D3) 125 mcg (5,000 unit) capsule 125 mcg PO DAILY RF: 0 glipizide 10 MG tablet extended release 24hr 15 mg PO BID RF: 0 aspirin 81 MG tablet,chewable 81 mg PO DAILY@0800 RF: 0 liraglutide 0.6 MG/0.1 ML pen injector 1.8 mg SQ DAILY RF: 0 todpdjev-dse-YG-lycopen-lutein 1 EACH tablet 1 each PO QHS RF: 0 anastrozole 1 MG tablet 1 mg PO DAILY Qty: 90 RF: 3 furosemide 40 mg tablet 40 mg PO DAILY RF: 0 ezetimibe 10 mg tablet 10 mg PO QHS Qty: 90 RF: 3 warfarin 5 mg tablet 5 mg PO .COMPLEX Qty: 90 RF: 3 warfarin 1 mg tablet 1 mg PO .COMPLEX Qty: 120 RF: 3 gabapentin 100 mg capsule 200 mg PO TID Qty: 180 RF: 3 amiodarone 200 mg tablet 200 mg PO DAILY Qty: 30 RF: 11 Primary Care Provider: Merle Villagomez
[2020-08-22 09:19] LABS: Absolute Lymphocyte Count 0.77 X10^3/uL (0.83-4.51); Absolute Neutrophil Count 4.3 X10^3/uL (2.0-7.7); Basophil# 0.05 X10^3/uL; Basophil% 0.9 % (0-1); Eosinophil# 0.12 X10^3/uL; Eosinophils% 2.1 % (0-5); Hematocrit 36.5 % (37-47); Hemoglobin 11.6 g/dL (12.0-15.0); Lymphocyte # 0.77 X10^3/ul (0.83-4.51); Lymphocyte % 13.5 % (19-41); Mean Corp Hgb Conc 31.8 g/dL (32-36); Mean Corpuscular Hgb 27.7 pg (27.0-32.0); Mean Corpuscular Volume 87.1 fL (81-99); Mean Platelet Vol. 9.7 fl (6.2-12.0); Monocyte# 0.45 X10^3/uL; Monocyte% 7.9 % (0-10); NRBC Flagged by Analyzer 0 % (0-5); Neutrophil # 4.26 X10^3/uL (2.7-7.7); Neutrophil % 74.5 % (47-70); Platelet Count 157 K/mm3 (150-450); RBC Distribution Width CV 17.2 % (11.6-14.6); RBC Distribution Width SD 54.7 fl (35.1-43.9); Red Blood Count 4.19 M/mm3 (4.2-5.4); White Blood Count 5.7 K/mm3 (4.4-11.0)
[2020-08-22 09:26] LABS: International Normalized Ratio 2.6
[2020-08-22 09:37] LABS: BNP,B-Type NATRIURETIC PEPTIDE 235.1 pg/mL (0-100)
[2020-08-22 09:43] LABS: ALB/GLOB Ratio 1.1 RATIO (0.9-2.4); AST(SGOT) 52 U/L (15-37); Alanine Aminotransfer ALT/SGPT 38 U/L (13-56); Albumin, Serum 3.8 g/dL (3.2-5.0); Alkaline Phosphatase 103 U/L (45-117); Anion Gap 6 (5-15); BUN 35 mg/dL (7-18); BUN/Creat Ratio 32.1 RATIO (10-20); Calcium,Total 9.2 mg/dL (8.5-10.1); Chloride 103 mmol/L (98-107); Creatinine, Serum 1.09 mg/dL (0.55-1.02); EST Glomerular Filtration Rate 51 mL/min (>60); Est Glom Filt Rate - Afr Amer 62 mL/min (>60); Estimated Creatinine Clearance 37.04 ml/min; Globulin 3.4 g/dL (2.2-4.2); Glucose 170 mg/dL (74-106); Potassium 4.9 mmol/L (3.5-5.1); Protein, Total 7.2 g/dL (6.4-8.2); Sodium Level 136 mmol/L (136-145)
[2020-08-22 09:50] LABS: Troponin-I HS 30.2 pg/mL (3.0-53.7)
--- NOTE | 2020-08-22 10:00 | NURSING ---
HOSPITALIST FOR DR FERNÁNDEZ
--- NOTE | 2020-08-22 10:06 | HP.PCM.HOS_ITS ---
[facility] - General General Date of Admission: 08/22/20 Date of Service: 08/22/20 Chief Complaint: Shortness of breath, weight gain HPI Narrative Favian HUNG, is a 80 F who presents with progressive shortness of breath ongoing for about 1 week. Patient admits to dietary indiscretion. She had a couple of pieces a couple of days ago and gained more than 4 pounds overnight. She has noticed progressive weight gain as well as bilateral leg swelling with shortness of breath. She has orthopnea but denies PND. She underwent cardioversion yesterday and remains in normal sinus rhythm. Soon after that had cardioversion she went out for lunch and had a fish sandwich. She subsequently had a large watermelon for dessert. Patient's admitting EKG shows NSR. REPLACED BY [facility] Medical History Acquired hypothyroidism Atherosclerotic heart disease of [place] coronary artery without angina pectoris Benign hypertension Breast cancer Cataracts, bilateral Chronic diastolic heart failure Gout History of non-ST elevation myocardial infarction (NSTEMI) (06/30/15) Hyperlipidemia [facility] (current) use of anticoagulants Metastatic bone cancer Nonrheumatic aortic (valve) stenosis Nonrheumatic mitral valve regurgitation Nonrheumatic mitral valve stenosis with insufficiency Osteoarthritis Paroxysmal atrial fibrillation Peripheral vascular disease with claudication Persistent atrial fibrillation Secondary pulmonary arterial hypertension Type 2 diabetes mellitus Home Medications aspirin 81 mg PO DAILY@0800 06/30/15 [History Last Taken 08/22/20 08:00] glipizide 15 mg PO DAILY 06/30/15 [History Last Taken 08/21/20] liraglutide 1.8 mg SQ DAILY 06/30/15 [History Last Taken 08/22/20 08:00] vzzexcix-abn-OA-lycopen-lutein 1 each PO QHS 05/22/16 [History Last Taken 08/21/20 22:00] levothyroxine 75 mcg tablet 75 mcg PO QDAY 07/04/17 [History Last Taken 08/22/20 06:00] metoprolol succinate 200 mg tablet,extended release 24 hr 200 mg PO DAILY #90 tablet 01/18/19 [Rx Last Taken 08/22/20 08:00] ezetimibe 10 mg tablet 10 mg PO QHS #90 tablet 04/21/19 [Rx Last Taken 08/21/20 22:00] cholecalciferol (vitamin D3) 125 mcg (5,000 unit) capsule 125 mcg PO DAILY 09/23/19 [History Last Taken 08/21/20 22:00] isosorbide mononitrate 30 mg tablet,extended release 24 hr 30 mg PO DAILY #90 tablet 09/23/19 [Rx Last Taken 08/22/20 08:00] anastrozole 1 mg PO DAILY #90 tablet 02/02/20 [Rx Last Taken 08/22/20 07:30] warfarin 5 mg tablet 5 mg PO .COMPLEX #90 tablet 02/29/20 [Rx Last Taken 08/20/20] warfarin 1 mg tablet 1 mg PO .COMPLEX #120 tablet 05/29/20 [Rx Last Taken 07/09/20] gabapentin 100 mg capsule 200 mg PO TID #180 cap 06/26/20 [Rx Last Taken 08/22/20 08:00] amiodarone 200 mg tablet 200 mg PO DAILY #30 tab 07/18/20 [Rx Last Taken 08/21/20 12:00] calcium carbonate-vitamin D3 [Caltrate with Vitamin D3] 1 tab PO QHS 08/22/20 [History Last Taken 08/21/20] colesevelam 3.75 g PO DINNER 08/22/20 [History Last Taken 08/21/20 17:00] furosemide 40 mg PO DAILY 08/22/20 [History Last Taken 08/22/20 08:00] glipizide 10 mg PO 1200 08/22/20 [History Last Taken Unknown] glipizide 15 mg PO BIDCM 08/22/20 [History Last Taken 08/22/20 08:00] Allergy/AdvReac Type Severity Reaction Status Date / Time [id number]-Svh-Xwm Reductase AdvReac Severe myalgias Verified 08/22/20 12:00 Inhibitor Family History Father CVA (cerebral vascular accident) Mother Diabetes Hypertension Brother CAD (coronary artery disease) CVA (cerebral vascular accident) Hypertension Brother Diabetes Sister Diabetes Surgical History History of cardioversion (07/10/20) History of carpal tunnel release History of cataract surgery History of cholecystectomy History of foot surgery History of right and left heart catheterization (07/03/15) History of total right knee replacement Social History Smoking Status: Former smoker quit date: 03/03/69 Tobacco: How many years used: 5 Electronic Cigarette Use: not used how long ago did patient quit smokin second hand exposure: No alcohol intake: former substance use type: does not use caffeine: No what type of physical activity do you participate in: other details: PT frequency: 1-2 times per week duration: 45-60 minutes/day seatbelt use: always do you feel safe at home: Yes ROS ROS Narrative Constitutional: Reports: Malaise, Weakness, Fatigue. Denies: Anorexia, Chills, Fever, Night Sweats, Weight Change Eyes: Denies: Blurred vision, Cataracts, Conjunctivae Inflammation, Pain, Redness, Vision Change HEENT: Denies: Difficulty Hearing, Difficulty Swallowing, Head Aches, Hearing Changes, Sinus Congestion, Sinus Drainage Cardiovascular: Denies: Chest Pain, Orthopnea, Palpitations Respiratory: Denies: Cough, Shortness of breath at rest, Sputum production Gastrointestinal: Denies: Abdominal Pain, Nausea, Vomiting Genitourinary: Denies: Dysuria Musculoskeletal: Denies: Joint Pain, Joint stiffness, Joint swelling, Joint Tenderness Skin: Denies: Rash, Wounds Neurological: Denies: Numbness, Tingling, Focal weakness Vital Signs Vital Signs Vital Signs: 08/22/20 09:01 08/22/20 09:05 08/22/20 09:06 Temperature 98.2 F 98.2 F Temperature Source Temporal Temporal Pulse Rate 88 88 Respiratory Rate 25 H 25 H Respiratory Effort Blood Pressure 164/79 H 164/79 H Blood Pressure Mean 107 107 Pulse Ox 88 88 97 Oxygen Delivery Method Room Air Room Air Nasal Cannula Oxygen Flow Rate (L/min) 2 08/22/20 09:07 Temperature Temperature Source Pulse Rate Respiratory Rate Respiratory Effort Non-Labored Short of Breath Blood Pressure Blood Pressure Mean Pulse Ox Oxygen Delivery Method Nasal Cannula Oxygen Flow Rate (L/min) 2 Weight Weight: 108.9 kg Body Mass Index (BMI) 39.9 Physical Exam Narrative Physical exam: General: Alert, Oriented x3, Cooperative, No apparent distress, Well developed HEENT: Atraumatic Oral: Moist Mucosa Neck: Supple Lungs: Clear to auscultation Cardiovascular: HS I+II, regular, no murmurs Abdomen: Bowel Sounds Present, Soft, Non Tender Extremities: Bilateral edema +1 Results Lab / Micro Data Result Diagrams: 08/22/20 09:10 08/22/20 09:10 Labs: Laboratory Results - last 24 hr 08/22/20 08/22/20 08/22/20 09:10 09:10 09:10 WBC 5.7 RBC 4.19 L Hgb 11.6 L Hct 36.5 L MCV 87.1 MCH 27.7 MCHC 31.8 L RDW Std Deviation 54.7 H RDW Coeff of Cresencio 17.2 H Plt Count 157 MPV 9.7 Immature Gran % (Auto) 1.100 H Neut % (Auto) 74.5 H Lymph % (Auto) 13.5 L [place] % (Auto) 7.9 Eos % (Auto) 2.1 Baso % (Auto) 0.9 Absolute Neuts (auto) 4.3 Absolute Lymphs (auto) 0.77 L Nucleated RBC % 0 PT 27.0 H INR 2.6 Sodium 136 Potassium 4.9 Chloride 103 Carbon Dioxide 27.0 Anion Gap 6 BUN 35 H Creatinine 1.09 H Estim Creat Clear Calc 37.04 Est GFR (MDRD) Af Amer 62 Est GFR (MDRD) Non-Af 51 L BUN/Creatinine Ratio 32.1 H Glucose 170 H Calcium 9.2 Total Bilirubin 0.90 AST 52 H ALT 38 Alkaline Phosphatase 103 Troponin I Cancelled Troponin I High Sens 30.2 B-Natriuretic Peptide Total Protein 7.2 Albumin 3.8 Globulin 3.4 Albumin/Globulin Ratio 1.1 08/22/20 09:10 WBC RBC Hgb Hct MCV MCH MCHC RDW Std Deviation RDW Coeff of Cresencio Plt Count MPV Immature Gran % (Auto) Neut % (Auto) Lymph % (Auto) [place] % (Auto) Eos % (Auto) Baso % (Auto) Absolute Neuts (auto) Absolute Lymphs (auto) Nucleated RBC % PT INR Sodium Potassium Chloride Carbon Dioxide Anion Gap BUN Creatinine Estim Creat Clear Calc Est GFR (MDRD) Af Amer Est GFR (MDRD) Non-Af BUN/Creatinine Ratio Glucose Calcium Total Bilirubin AST ALT Alkaline Phosphatase Troponin I Troponin I High Sens B-Natriuretic Peptide 235.1 H Total Protein Albumin Globulin Albumin/Globulin Ratio Radiology Impression Chest X-Ray 08/22/20 09:09 IMPRESSION: Heavy markings centrally but no obvious active disease. No significant change noted since the last study. Electronically Signed: Jazmín [place], at 9:42 EDT Tel , Service support , Assessment & Plan Assessment/Plan (1) Acute CHF: QUALIFIERS: Heart failure type: unspecified Qualified Code(s): I50.9 - Heart failure, unspecified (2) Benign hypertension: (3) Hyperlipidemia: QUALIFIERS: Hyperlipidemia type: pure hypercholesterolemia Qualified Code(s): E78.00 - Pure hypercholesterolemia, unspecified; E78.0 - Pure hypercholesterolemia (4) Peripheral vascular disease with claudication: (5) MCFP (current) use of anticoagulants: PLAN: 1. Acute on chronic heart failure with preserved EF, EF of 60% Admitting EKG shows normal sinus rhythm Patient in clinical heart failure, admitting BNPep is 235 We will continue on IV Lasix, CHF protocol 2. Paroxysmal atrial fibrillation status post cardioversion, remains in normal sinus rhythm INR is therapeutic at 2.6, continue on metoprolol, warfarin, Recheck INR in a.m. 3. 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 Rest of chronic medical conditions including hypertension, hypothyroidism, history of breast CA Home medication reconciled Charges/Coding Visit Charges Inpatient E&M: 34548 Subs Hosp L2
--- NOTE | 2020-08-22 10:06 | NURSING ---
PCU CHF WITH HYPOXIA NAUMAH
[2020-08-22] MEDS: Furosemide 40 MG/4 ML Vial IV ×2 (10:51→17:17)
[2020-08-22] MEDS: Gabapentin 100 MG Capsule 200 MG PO ×2 (13:19→21:00)
[2020-08-22] MEDS: Amiodarone 200 MG Tablet PO (16:35)
--- NOTE | 2020-08-22 16:58 | CHAPLAIN ---
Type of Pastoral Visit _x__ Initial Visit ___ Follow-up Visit ___ On-call Visit ___ General Patient Visit ___ Spiritual Assessment ___ Family Conference ___ Bereavement ___ Rapid Response ___ Code Blue ___ Other (describe below) Pastoral Care Referral From _x__ Patient ___ Family ___ Nurse ___ Physician ___ Health Services Information Specialist ___ Paraffin Machine Operator ___ Other (describe below) Sacrament/Intervention _x__ Active listening ___ Anointing ___ Rastafari ___ Bereavement ___ Communion ___ Sivan exploration ___ ___ Life review _x__ Prayer ___ Reconciliation ___ Sacrament of Sick _x__ Supportive presence ___ Wedding ___ Other (describe below) Pastoral Comments
[2020-08-22 17:15] LABS: Bedside Glucose 142 mg/dL (70-110)
[2020-08-22] MEDS: 0.9% Saline Lock 10 ML Syringe IV (17:16)
[2020-08-22] MEDS: glipiZIDE 10 MG Tablet 15 MG PO (17:16)
[2020-08-22] MEDS: Calcium Carb/Vitamin D 1 TABLET Tablet PO (21:00)
[2020-08-22] MEDS: Insulin Lispro 100 UNIT/ML INSULN.PEN SC (21:06)
[2020-08-22 21:21] LABS: Bedside Glucose 153 mg/dL (70-110)
[2020-08-23] VITALS (9 sets, daily range): BP systolic 111–125; BP diastolic 58–67; PULSE 77–85; RESP 16–18; TEMP 36.8–37.1; O2SAT 93–96
[2020-08-23 06:05] LABS: Absolute Lymphocyte Count 0.78 X10^3/uL (0.83-4.51); Absolute Neutrophil Count 2.6 X10^3/uL (2.0-7.7); Basophil# 0.03 X10^3/uL; Basophil% 0.7 % (0-1); Eosinophil# 0.15 X10^3/uL; Eosinophils% 3.7 % (0-5); Hematocrit 32.7 % (37-47); Hemoglobin 10.7 g/dL (12.0-15.0); Lymphocyte # 0.78 X10^3/ul (0.83-4.51); Mean Corp Hgb Conc 32.7 g/dL (32-36); Mean Corpuscular Hgb 27.9 pg (27.0-32.0); Mean Corpuscular Volume 85.2 fL (81-99); Mean Platelet Vol. 9.8 fl (6.2-12.0); Monocyte# 0.49 X10^3/uL; NRBC Flagged by Analyzer 0 % (0-5); Neutrophil # 2.62 X10^3/uL (2.7-7.7); Neutrophil % 63.9 % (47-70); Platelet Count 158 K/mm3 (150-450); RBC Distribution Width CV 17.1 % (11.6-14.6); Red Blood Count 3.84 M/mm3 (4.2-5.4); White Blood Count 4.1 K/mm3 (4.4-11.0)
[2020-08-23 06:16] LABS: International Normalized Ratio 2.9; Prothrombin Time (Protime)PT. 29.3 SECONDS (11.7-14.9)
[2020-08-23] MEDS: Levothyroxine 75 MCG Tablet PO (06:22)
[2020-08-23 06:33] LABS: ALB/GLOB Ratio 1.3 RATIO (0.9-2.4); AST(SGOT) 22 U/L (15-37); Alanine Aminotransfer ALT/SGPT 31 U/L (13-56); Albumin, Serum 3.4 g/dL (3.2-5.0); Alkaline Phosphatase 82 U/L (45-117); Anion Gap 6 (5-15); BUN 31 mg/dL (7-18); BUN/Creat Ratio 32.8 RATIO (10-20); Calcium,Total 9.2 mg/dL (8.5-10.1); Chloride 104 mmol/L (98-107); Creatinine, Serum 0.94 mg/dL (0.55-1.02); EST Glomerular Filtration Rate 61 mL/min (>60); Est Glom Filt Rate - Afr Amer 73 mL/min (>60); Estimated Creatinine Clearance 42.95 ml/min; Globulin 2.7 g/dL (2.2-4.2); Glucose 105 mg/dL (74-106); Potassium 3.5 mmol/L (3.5-5.1); Protein, Total 6.1 g/dL (6.4-8.2); Sodium Level 142 mmol/L (136-145)
[2020-08-23 06:36] LABS: Bedside Glucose 122 mg/dL (70-110)
[2020-08-23] MEDS: Gabapentin 100 MG Capsule 200 MG PO (08:20)
[2020-08-23] MEDS: Aspirin 81 MG TAB.CHEW PO (08:20)
[2020-08-23] MEDS: glipiZIDE 10 MG Tablet 15 MG PO (08:20)
[2020-08-23] MEDS: 0.9% Saline Lock 10 ML Syringe IV (09:42)
[2020-08-23] MEDS: Amiodarone 200 MG Tablet PO (09:42)
[2020-08-23] MEDS: Furosemide 40 MG/4 ML Vial IV (09:42)
[2020-08-23] MEDS: Metoprolol(XL)Succ 200 MG Tablet PO (09:42)
[2020-08-23] MEDS: Cholecalciferol (VIT D3) 25 MCG TABLET (1,000 UNITS) 125 MCG PO (09:42)
[2020-08-23] MEDS: Isosorbide Mononitrate 30 MG Tablet PO (09:42)
--- NOTE | 2020-08-23 11:30 | CASEMGMT ---
RN CM Face to Face with patient for initial transition planning/care coordination assessment. RN CM introduced self and role at [facility]. Patient sitting in chair, alert and oriented. Patient willing to participate in assessment and is able to answer all questions appropriately. Care providers, pharmacy, and demographics verified. Patient wishes to discharge home, denies need for home health at this time. Patient states she has no further needs or concerns at this time. CM to follow for discharge planning needs that may arise. PCP: [facility] Specialists: Cristy, steel rule inspector; Ally, neurologist; Emile, oncologist Preferred Pharmacy: [facility] Insurance: [employer] Prescription Benefit: yes Living Will/HPOA: none LNOK: daughter, son Living Arrangements: patient lives alone in a 2 story home with bed and bath on first floor. Patient states she is independent at home. Transportation: self/daughter, son DME/HHC: Patient states she has raised toilet, cane, and rollator at home. Denies previous HHC or SNF. Disposition Plan: Patient to discharge home with family support and follow-up plans in place. Jolynn HAMILTON, RN, CM
[2020-08-23] MEDS: Insulin Lispro 100 UNIT/ML INSULN.PEN SC (11:54)
[2020-08-23 12:00] LABS: Bedside Glucose 228 mg/dL (70-110)
[2020-08-23] MEDS: glipiZIDE 10 MG Tablet PO (13:15)
--- NOTE | 2020-08-23 13:38 | PCM.DC ---
Discharge Instructions Diet Discharge Diet: Low fat / Low cholesterol, 8 Cup Fluid Restriction and 2000 mg Sodium Diet Activity Discharge Activity: Return to Normal Activity Follow Up Care Test Results: Test results from this visit will be discussed in further detail at your follow-up appointment, if applicable. Discharge Plan Admission Admit Date/Time: 08/22/20 10:03 Primary Reason for Your Visit: Acute CHF Attending Provider: Nai Taylor Primary Care Provider: Merle Villagomez Instructions Patient Instructions: Heart Failure, Heart Failure Dc, Heart Failure: Tracking Your Weight, Heart Failure: Medications to Help Your Heart, Heart Failure: Being Active, Heart Failure: Travel Concerns, Heart Failure VAD, Heart Failure Meds, Heart Failure: Know Your Baselines Additional Instructions / Restrictions: Continue to take all your medications as prescribed. Take note of changes to your medication. Continue on a low-fat and low-salt diet. Restrict your total fluid intake to less than 1500 mls. Weigh yourself every day. Let your doctor know when you gain more than 2 pounds of weight. Follow-up with your primary care doctor in 1 to 2 weeks. Follow-up Dr Muniz as scheduled. You would need repeat blood work to check on your kidney function within a week of discharge. Discharge Orders/Prescriptions Prescriptions: New furosemide [Lasix] 40 mg tablet 40 mg PO BID 30 Days Qty: 60 RF: 0 Continued levothyroxine 75 mcg tablet 75 mcg PO QDAY RF: 0 metoprolol succinate 200 mg tablet extended release 24 hr 200 mg PO DAILY Qty: 90 RF: 3 isosorbide mononitrate 30 mg tablet extended release 24 hr 30 mg PO DAILY Qty: 90 RF: 3 cholecalciferol (vitamin D3) 125 mcg (5,000 unit) capsule 125 mcg PO DAILY RF: 0 aspirin 81 MG tablet,chewable 81 mg PO DAILY@0800 RF: 0 liraglutide 0.6 MG/0.1 ML pen injector 1.8 mg SQ DAILY RF: 0 ruzwrsad-jvp-YB-lycopen-lutein 1 EACH tablet 1 each PO QHS RF: 0 anastrozole 1 MG tablet 1 mg PO DAILY Qty: 90 RF: 3 glipizide 10 mg Tablet 15 mg PO BIDCM RF: 0 glipizide 10 mg Tablet 10 mg PO 1200 RF: 0 calcium carbonate-vitamin D3 [Caltrate with Vitamin D3] 600 mg(1,500mg) -800 unit Tablet 1 tab PO QHS RF: 0 colesevelam 3.75 gram powder in packet 3.75 g PO DINNER RF: 0 ezetimibe 10 mg tablet 10 mg PO QHS Qty: 90 RF: 3 warfarin 5 mg tablet 5 mg PO .COMPLEX Qty: 90 RF: 3 warfarin 1 mg tablet 1 mg PO .COMPLEX Qty: 120 RF: 3 gabapentin 100 mg capsule 200 mg PO TID Qty: 180 RF: 3 amiodarone 200 mg tablet 200 mg PO DAILY Qty: 30 RF: 11 Discontinued glipizide 10 MG tablet extended release 24hr 15 mg PO DAILY RF: 0 furosemide 40 mg tablet 40 mg PO DAILY RF: 0 Referrals / Follow Up: Merle Villagomez MD [Primary Care Provider] - Within 1 Week CristyFish monaco MD [STAFF PHYSICIAN] - Within 2 Weeks (or as scheduled You will need repeat blood work to check on kidney function) Disposition Disposition (needs filled in before D/C Order can be placed): Home, Self Care
--- NOTE | 2020-08-23 13:45 | PCM.DC.SUM ---
Providers Date of Admission: 08/22/20 Date of Discharge: 08/23/20 Primary Care Physician: Dr. Merle Villagomez MD Reason For Visit: ACUTE CHF Diagnosis Discharge Diagnosis (1) Acute CHF: Status: Acute Code(s): I50.9 - Heart failure, unspecified Qualifiers: Heart failure type: unspecified Qualified Code(s): I50.9 - Heart failure, unspecified (2) Benign hypertension: Status: Chronic Code(s): I10 - Essential (primary) hypertension (3) Hyperlipidemia: Status: Chronic Code(s): E78.5 - Hyperlipidemia, unspecified Qualifiers: Hyperlipidemia type: pure hypercholesterolemia Qualified Code(s): E78.00 - Pure hypercholesterolemia, unspecified; E78.0 - Pure hypercholesterolemia (4) Peripheral vascular disease with claudication: Status: Chronic Code(s): I73.9 - Peripheral vascular disease, unspecified (5) prison (current) use of anticoagulants: Status: Chronic Code(s): Z79.01 - prison (current) use of anticoagulants Medications at Discharge Home Medications aspirin 81 mg PO DAILY@0800 06/30/15 liraglutide 1.8 mg SQ DAILY 06/30/15 islshxnj-dzx-YG-lycopen-lutein 1 each PO QHS 05/22/16 levothyroxine 75 mcg tablet 75 mcg PO QDAY 07/04/17 metoprolol succinate 200 mg tablet,extended release 24 hr 200 mg PO DAILY #90 tablet 01/18/19 ezetimibe 10 mg tablet 10 mg PO QHS #90 tablet 04/21/19 cholecalciferol (vitamin D3) 125 mcg (5,000 unit) capsule 125 mcg PO DAILY 09/23/19 isosorbide mononitrate 30 mg tablet,extended release 24 hr 30 mg PO DAILY #90 tablet 09/23/19 anastrozole 1 mg PO DAILY #90 tablet 02/02/20 warfarin 5 mg tablet 5 mg PO .COMPLEX #90 tablet 02/29/20 warfarin 1 mg tablet 1 mg PO .COMPLEX #120 tablet 05/29/20 gabapentin 100 mg capsule 200 mg PO TID #180 cap 06/26/20 amiodarone 200 mg tablet 200 mg PO DAILY #30 tab 07/18/20 calcium carbonate-vitamin D3 [Caltrate with Vitamin D3] 1 tab PO QHS 08/22/20 colesevelam 3.75 g PO DINNER 08/22/20 glipizide 10 mg PO 1200 08/22/20 glipizide 15 mg PO BIDCM 08/22/20 furosemide [Lasix] 40 mg PO BID 30 Days #60 tab 08/23/20 Hospital Course Operations None Procedures None Summary of Care Provided Minutes Spent on Discharge: 45 Hospital Course: 80 F who presents with progressive shortness of breath ongoing for about 1 week. Patient admits to dietary indiscretion. She had a couple of pieces a couple of days ago and gained more than 4 pounds overnight. She has noticed progressive weight gain as well as bilateral leg swelling with shortness of breath. She has orthopnea but denies PND. She underwent cardioversion yesterday and remains in normal sinus rhythm. Soon after that had cardioversion she went out for lunch and had a fish sandwich. She subsequently had a large watermelon for dessert. Patient's admitting EKG shows NSR. She was already telemetry floor, managed on IV Lasix with improvement. She diuresed a lot. She was evaluated for oxygen ambulation and did not qualify. She was discharged home on an increased dose of Lasix 40 mg twice daily. She was given CHF education. She is follow-up with Dr. Muniz as scheduled. Physical Exam Narrative Physical exam: General: Alert, Oriented x3, Cooperative, No apparent distress, Well developed HEENT: Atraumatic Oral: Moist Mucosa Neck: Supple Lungs: Clear to auscultation Cardiovascular: HS I+II, regular, no murmurs Abdomen: Bowel Sounds Present, Soft, Non Tender Extremities: Bilateral edema +1 Weight / BMI Weight Weight: 104.1 kg Body Mass Index (BMI) 39.4 ABG / Lab / Microbiology Data Result Diagrams: 08/23/20 05:45 08/23/20 05:45 Laboratory: Laboratory Results - last 24 hr 08/22/20 08/22/20 08/23/20 17:09 20:58 05:45 WBC 4.1 L RBC 3.84 L Hgb 10.7 L Hct 32.7 L MCV 85.2 MCH 27.9 MCHC 32.7 RDW Std Deviation 53.0 H RDW Coeff of Cresencio 17.1 H Plt Count 158 MPV 9.8 Immature Gran % (Auto) 0.700 Neut % (Auto) 63.9 Lymph % (Auto) 19.0 Stephenson % (Auto) 12.0 H Eos % (Auto) 3.7 Baso % (Auto) 0.7 Absolute Neuts (auto) 2.6 Absolute Lymphs (auto) 0.78 L Nucleated RBC % 0 PT INR Sodium Potassium Chloride Carbon Dioxide Anion Gap BUN Creatinine Estim Creat Clear Calc Est GFR (MDRD) Af Amer Est GFR (MDRD) Non-Af BUN/Creatinine Ratio Glucose Calcium Total Bilirubin AST ALT Alkaline Phosphatase Total Protein Albumin Globulin Albumin/Globulin Ratio POC Glucose 142 H 153 H 08/23/20 08/23/20 08/23/20 05:45 05:45 06:24 WBC RBC Hgb Hct MCV MCH MCHC RDW Std Deviation RDW Coeff of Cresencio Plt Count MPV Immature Gran % (Auto) Neut % (Auto) Lymph % (Auto) Stephenson % (Auto) Eos % (Auto) Baso % (Auto) Absolute Neuts (auto) Absolute Lymphs (auto) Nucleated RBC % PT 29.3 H INR 2.9 Sodium 142 Potassium 3.5 Chloride 104 Carbon Dioxide 32.0 Anion Gap 6 BUN 31 H Creatinine 0.94 Estim Creat Clear Calc 42.95 Est GFR (MDRD) Af Amer 73 Est GFR (MDRD) Non-Af 61 BUN/Creatinine Ratio 32.8 H Glucose 105 Calcium 9.2 Total Bilirubin 1.10 H AST 22 ALT 31 Alkaline Phosphatase 82 Total Protein 6.1 L Albumin 3.4 Globulin 2.7 Albumin/Globulin Ratio 1.3 POC Glucose 122 H 08/23/20 11:52 WBC RBC Hgb Hct MCV MCH MCHC RDW Std Deviation RDW Coeff of Cresencio Plt Count MPV Immature Gran % (Auto) Neut % (Auto) Lymph % (Auto) Stephenson % (Auto) Eos % (Auto) Baso % (Auto) Absolute Neuts (auto) Absolute Lymphs (auto) Nucleated RBC % PT INR Sodium Potassium Chloride Carbon Dioxide Anion Gap BUN Creatinine Estim Creat Clear Calc Est GFR (MDRD) Af Amer Est GFR (MDRD) Non-Af BUN/Creatinine Ratio Glucose Calcium Total Bilirubin AST ALT Alkaline Phosphatase Total Protein Albumin Globulin Albumin/Globulin Ratio POC Glucose 228 H D/C Instructions Discharge Diet: Low fat / Low cholesterol, 8 Cup Fluid Restriction and 2000 mg Sodium Diet Meaningful Use Info Meaningful Use Diagnoses (Choose all that apply): CHF AMI/Post PCI/Angioplasty Documented LVEF (%): 55 CHF MEE/ARB ordered at discharge?: No Reason MEE/ARB not ordered?: Not indicated Documented LVEF (%): 55 Discharge Plan Admission Admit Date/Time: 08/22/20 10:03 Primary Reason for Your Visit: Acute CHF Attending Provider: Nai Taylor Primary Care Provider: Merle Villagomez Instructions Patient Instructions: Heart Failure Meds, Heart Failure: Tracking Your Weight, Heart Failure: Being Active, Heart Failure: Medications to Help Your Heart, Heart Failure Dc, Heart Failure: Know Your Baselines, Heart Failure: Travel Concerns, Heart Failure VAD, Heart Failure Additional Instructions / Restrictions: Patient Problems: Altered Health Status related to Hospitalization Patient Goals: *Optimal Level of Health *Keep Appointments *Medication Compliance *Remain SafeContinue to take all your medications as prescribed. Take note of changes to your medication. Continue on a low-fat and low-salt diet. Restrict your total fluid intake to less than 1500 mls. Weigh yourself every day. Let your doctor know when you gain more than 2 pounds of weight. Follow-up with your primary care doctor in 1 to 2 weeks. Follow-up Dr Muniz as scheduled. You would need repeat blood work to check on your kidney function within a week of discharge. Discharge Orders/Prescriptions Prescriptions: New furosemide [Lasix] 40 mg tablet 40 mg PO BID 30 Days Qty: 60 RF: 0 Continued levothyroxine 75 mcg tablet 75 mcg PO QDAY RF: 0 metoprolol succinate 200 mg tablet extended release 24 hr 200 mg PO DAILY Qty: 90 RF: 3 isosorbide mononitrate 30 mg tablet extended release 24 hr 30 mg PO DAILY Qty: 90 RF: 3 cholecalciferol (vitamin D3) 125 mcg (5,000 unit) capsule 125 mcg PO DAILY RF: 0 aspirin 81 MG tablet,chewable 81 mg PO DAILY@0800 RF: 0 liraglutide 0.6 MG/0.1 ML pen injector 1.8 mg SQ DAILY RF: 0 zppjykuf-yhd-LV-lycopen-lutein 1 EACH tablet 1 each PO QHS RF: 0 anastrozole 1 MG tablet 1 mg PO DAILY Qty: 90 RF: 3 glipizide 10 mg Tablet 15 mg PO BIDCM RF: 0 glipizide 10 mg Tablet 10 mg PO 1200 RF: 0 calcium carbonate-vitamin D3 [Caltrate with Vitamin D3] 600 mg(1,500mg) -800 unit Tablet 1 tab PO QHS RF: 0 colesevelam 3.75 gram powder in packet 3.75 g PO DINNER RF: 0 ezetimibe 10 mg tablet 10 mg PO QHS Qty: 90 RF: 3 warfarin 5 mg tablet 5 mg PO .COMPLEX Qty: 90 RF: 3 warfarin 1 mg tablet 1 mg PO .COMPLEX Qty: 120 RF: 3 gabapentin 100 mg capsule 200 mg PO TID Qty: 180 RF: 3 amiodarone 200 mg tablet 200 mg PO DAILY Qty: 30 RF: 11 Discontinued glipizide 10 MG tablet extended release 24hr 15 mg PO DAILY RF: 0 furosemide 40 mg tablet 40 mg PO DAILY RF: 0 Referrals / Follow Up: Fish Muniz MD [STAFF PHYSICIAN] - Within 2 Weeks (or as scheduled You will need repeat blood work to check on kidney function) Merle Villagomez MD [Primary Care Provider] - Within 1 Week Disposition Disposition (needs filled in before D/C Order can be placed): Home, Self Care
== END 2020-08-23 14:29 | disposition home or self-care (01) | DRG 292 ==
LOC: ED 09:55 → PCU 10:45
PROVIDERS: Admitting Provider Internal Medicine; Emergency Provider Emergency Medicine; PCP Internal Medicine; Visit Provider Internal Medicine
DX: I11.0 Hypertensive heart disease with heart failure (principal); I48.19 Other persistent atrial fibrillation; C79.51 Secondary malignant neoplasm of bone; I50.33 Acute on chronic diastolic (congestive) heart failure; E78.5 Hyperlipidemia, unspecified; I27.21 Secondary pulmonary arterial hypertension; I25.10 Atherosclerotic heart disease of native coronary artery without angina pectoris; E03.9 Hypothyroidism, unspecified; M19.90 Unspecified osteoarthritis, unspecified site; E11.51 Type 2 diabetes mellitus with diabetic peripheral angiopathy without gangrene; E11.40 Type 2 diabetes mellitus with diabetic neuropathy, unspecified; I25.2 Old myocardial infarction; Z79.82 Long term (current) use of aspirin; Z79.84 Long term (current) use of oral hypoglycemic drugs; Z79.01 Long term (current) use of anticoagulants; Z79.890 Hormone replacement therapy; Z79.899 Other long term (current) drug therapy; Z87.891 Personal history of nicotine dependence
CPT/HCPCS: 36415; 36416; 71045; 80053; 82962; 83880; 84484; 85025; 85610; 92960; 93005; 96374; 96376; 97802; 99218; 99251; 99285; J7040; A4216; G0378; G0463; J1940

== ENCOUNTER → 2020-09-19 11:57 | Outpatient (CLI) | payer MEDICARE, SELFPAY ==
[2019-12-29 14:52] VITALS: BMI 37.5
[2020-09-13 10:11] VITALS: BMI 39.4
[2020-09-19 15:33] LABS: Vitamin D,25 Hydroxy 43.5 ng/mL
[2020-09-19 15:37] LABS: Hemoglobin A1c 7.2 % (3.8-5.6)
[2020-09-19 15:50] LABS: ALB/GLOB Ratio 1.2 RATIO (0.9-2.4); AST(SGOT) 15 U/L (15-37); Alanine Aminotransfer ALT/SGPT 24 U/L (13-56); Albumin, Serum 3.8 g/dL (3.2-5.0); Alkaline Phosphatase 88 U/L (45-117); Anion Gap 8 (5-15); BUN 24 mg/dL (7-18); BUN/Creat Ratio 24.2 RATIO (10-20); Calcium,Total 8.6 mg/dL (8.5-10.1); Chloride 104 mmol/L (98-107); Cholesterol 216 mg/dL (200); Creatinine, Serum 0.99 mg/dL (0.55-1.02); EST Glomerular Filtration Rate 57 mL/min (>60); Est Glom Filt Rate - Afr Amer 69 mL/min (>60); Globulin 3.1 g/dL (2.2-4.2); Glucose 119 mg/dL (74-106); High Density Lipoprotein 41 mg/dL; Protein, Total 6.9 g/dL (6.4-8.2); Sodium Level 141 mmol/L (136-145); Thyroid Stim Hormone (TSH) 5.13 uIU/mL (0.358-3.74); Triglycerides 187 mg/dL; Very Low Density Lipoprotein 37 mg/dL (5-40)
[2020-09-19 15:52] LABS: Microalbumin,Random Urine 17.9 mg/L (NO RANGE EST.); Microalbumin:Creatinine Ratio 84.8 mg/g CRE (<30 mg/g CRE)
== END ==
PROVIDERS: PCP Internal Medicine; Referring Provider Internal Medicine Endocrinology, Diabetes & Metabolism; Visit Provider Internal Medicine Endocrinology, Diabetes & Metabolism
DX: E11.42 Type 2 diabetes mellitus with diabetic polyneuropathy (principal); E78.2 Mixed hyperlipidemia; E03.8 Other specified hypothyroidism; M81.0 Age-related osteoporosis without current pathological fracture
CPT/HCPCS: 36415; 80053; 80061; 82043; 82306; 82570; 83036; 84443

== ENCOUNTER 2020-09-28 12:50 | Outpatient (RCR) | payer MEDICARE, SELFPAY ==
[2019-12-29 14:52] VITALS: BMI 37.5
[2020-08-28 14:31] VITALS: BMI 39.4
[2020-08-31 15:12] LABS: International Normalized Ratio 2.7; Prothrombin Time (Protime)PT. 27.8 SECONDS (11.7-14.9)
[2020-09-28 15:29] LABS: Prothrombin Time (Protime)PT. 30.5 SECONDS (11.7-14.9)
== END 2020-09-28 18:00 | disposition home or self-care (01) ==
LOC: MTLAB 12:50
PROVIDERS: Family Provider Internal Medicine; PCP Internal Medicine; Referring Provider Internal Medicine Cardiovascular Disease; Visit Provider Internal Medicine Cardiovascular Disease
DX: I48.0 Paroxysmal atrial fibrillation (principal); Z79.01 Long term (current) use of anticoagulants
CPT/HCPCS: 36415; 85610

== ENCOUNTER 2020-10-27 16:14 | Outpatient (RCR) | payer MEDICARE, SELFPAY ==
[2019-12-29 14:52] VITALS: BMI 37.5
[2020-09-21 14:50] VITALS: BMI 37.8
[2020-10-27 18:33] LABS: International Normalized Ratio 2.4; Prothrombin Time (Protime)PT. 25.6 SECONDS (11.7-14.9)
== END 2020-10-27 18:00 | disposition home or self-care (01) ==
LOC: MTLAB 16:14
PROVIDERS: Family Provider Internal Medicine; PCP Internal Medicine; Referring Provider Internal Medicine Cardiovascular Disease; Visit Provider Internal Medicine Cardiovascular Disease
DX: I48.19 Other persistent atrial fibrillation (principal); Z79.01 Long term (current) use of anticoagulants
CPT/HCPCS: 36415; 85610

== ENCOUNTER 2020-11-21 12:32 | Outpatient (RCR) | payer MEDICARE, SELFPAY ==
[2019-12-29 14:52] VITALS: BMI 37.5
[2020-11-01 01:35] VITALS: BMI 37.8
[2020-11-21 15:31] LABS: International Normalized Ratio 2.7; Prothrombin Time (Protime)PT. 27.9 SECONDS (11.7-14.9)
[2020-11-21 15:35] LABS: Thyroid Stim Hormone (TSH) 3.35 uIU/mL (0.358-3.74)
== END 2020-11-21 18:00 | disposition home or self-care (01) ==
LOC: MTLAB 12:32
PROVIDERS: Internal Medicine Endocrinology, Diabetes & Metabolism; Family Provider Internal Medicine; PCP Internal Medicine; Referring Provider Internal Medicine Cardiovascular Disease; Visit Provider Internal Medicine Cardiovascular Disease
DX: I48.19 Other persistent atrial fibrillation (principal); Z79.01 Long term (current) use of anticoagulants; E11.65 Type 2 diabetes mellitus with hyperglycemia
CPT/HCPCS: 36415; 84443; 85610

== ENCOUNTER 2020-11-30 00:51 | Observation (INO) | payer MEDICARE, SELFPAY ==
[2019-12-29 14:52] VITALS: BMI 37.5
[2020-11-30] VITALS (10 sets, daily range): BP systolic 118–163; BP diastolic 57–85; PULSE 72–90; RESP 16–20; TEMP 36.2–36.8; O2SAT 97–100; BMI 40.7; BMI 41.6
--- NOTE | 2020-11-30 01:24 | RAD_ITS ---
STUDY: X-RAY CHEST REASON FOR EXAM: Female, 80 years old. sob TECHNIQUE: Portable, upright, AP chest radiograph COMPARISON: 08/22/2020 FINDINGS: Right lower lung consolidative opacity. There is no demonstrated pleural abnormality. Normal size heart. Normal mediastinum and leydi. Normal visualized pulmonary arteries. There is atherosclerotic calcification of the aortic arch with tortuosity. There are diffuse degenerative changes of the visualized thoracic spine. There is degenerative osteoarthritis of the bilateral shoulders. There is no demonstrated abnormality of the visualized soft tissue structures of the upper abdomen. RAD/Chest 1 View (Portable) IMPRESSION: Findings suspicious for right lower lung pneumonia. Electronically Signed: Casa North MD at 2:31 EDT Tel , Service support ,
--- NOTE | 2020-11-30 01:25 | EKG12_ITS ---
Test Reason : REPEAT Blood Pressure : / mmHG Vent. Rate : 081 BPM Atrial Rate : 081 BPM P-R Int : 228 ms QRS Dur : 100 ms QT Int : 432 ms P-R-T Axes : 047 023 092 degrees QTc Int : 501 ms Sinus rhythm with 1st degree A-V block Prolonged QT Abnormal ECG Confirmed by ASHU SPENCE, ILA ([id number]), newspaper copy editor KENNETH EDWARDS ([id number]) on 12/04/2020 7:48:50 AM Referred By: KAVITA Confirmed By:ILA WAKEFIELD MD
--- NOTE | 2020-11-30 01:27 | ED.VIS.DYS ---
HPI History of Present Illness Chief Complaint: Shortness of Breath Informant: patient Narrative Narrative: Patient presents with dyspnea. She has a history of CHF. She states she has had about 3 exacerbations that feel exactly like this. If she lays flat she gets very short of breath. When she sits up she does feel better. It just would not get better tonight so she called EMS. She states that for the last few days to a week she has noticed some rattling sounds in her chest when she lays down. She was able to get up and take some deep breaths or sit up for a while and that would help. She was then trying to sleep upright in the chair and that did help. Tonight it just seemed like it would get better. She denies on initial and repeat questioning any chest pain or pressure at any time during this. She does stay she was coughing up some frothy white sputum tonight. She has never had a fever. They found her oxygen level at 72% on room air and she does not have home oxygen. She feels markedly better on oxygen now. She never had chest pain pressure or tightness. She has not been coughing or febrile. She has had about a 6 or 7 pound weight gain over the last week or so. She also had some ham for dinner. Her current Lasix dose is 40 twice daily. She is also on Coumadin for history of intermittent atrial fibrillation. 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 Gout History of non-ST elevation myocardial infarction (NSTEMI) (06/30/15) Hyperlipidemia jail (current) use of anticoagulants Metastatic bone cancer Nonrheumatic aortic (valve) stenosis Nonrheumatic mitral valve regurgitation Nonrheumatic mitral valve stenosis with insufficiency Osteoarthritis Paroxysmal atrial fibrillation Peripheral vascular disease with claudication Persistent atrial fibrillation Secondary pulmonary arterial hypertension Type 2 diabetes mellitus Home Medications aspirin 81 mg PO DAILY@0800 06/30/15 [History Last Taken 08/22/20 08:00] liraglutide 1.8 mg SQ DAILY 06/30/15 [History Last Taken 08/22/20 08:00] zdammaoq-qoz-ZT-lycopen-lutein 1 each PO QHS 05/22/16 [History Last Taken 08/21/20 22:00] metoprolol succinate 200 mg tablet,extended release 24 hr 200 mg PO DAILY #90 tablet 01/18/19 [Rx Last Taken 08/22/20 08:00] ezetimibe 10 mg tablet 10 mg PO QHS #90 tablet 04/21/19 [Rx Last Taken 08/21/20 22:00] cholecalciferol (vitamin D3) 125 mcg (5,000 unit) capsule 125 mcg PO DAILY 09/23/19 [History Last Taken 08/21/20 22:00] anastrozole 1 mg PO DAILY #90 tablet 02/02/20 [Rx Last Taken 08/22/20 07:30] warfarin 5 mg tablet 5 mg PO .COMPLEX #90 tablet 02/29/20 [Rx Last Taken 08/20/20] warfarin 1 mg tablet 1 mg PO .COMPLEX #120 tablet 05/29/20 [Rx Last Taken 07/09/20] amiodarone 200 mg tablet 200 mg PO DAILY #30 tab 07/18/20 [Rx Last Taken 08/21/20 12:00] calcium carbonate-vitamin D3 [Caltrate with Vitamin D3] 1 tab PO QHS 08/22/20 [History Last Taken 08/21/20] glipizide 10 mg PO 1200 08/22/20 [History Last Taken Unknown] glipizide 15 mg PO BIDCM 08/22/20 [History Last Taken 08/22/20 08:00] furosemide [Lasix] 40 mg PO BID 30 Days #60 tab 08/23/20 [Rx Last Taken Unknown] gabapentin 300 mg capsule See Rx Instructions .ROUTE .COMPLEX #270 cap 09/13/20 [Rx Last Taken Unknown] psyllium husk 0.4 gram capsule 0.4 g PO QHS 09/19/20 [History Last Taken Unknown] isosorbide mononitrate 30 mg tablet,extended release 24 hr 30 mg PO DAILY #90 tablet 10/09/20 [Rx Last Taken Unknown] baclofen 10 mg tablet 10 mg PO TID PRN #90 tab 11/08/20 [Rx Last Taken Unknown] levothyroxine 88 mcg tablet 88 mcg PO DAILY tab 11/08/20 [History Last Taken Unknown] Allergy/AdvReac Type Severity Reaction Status Date / Time Wwzyzbb-Roo-Yjp Reductase AdvReac Severe myalgias Verified 11/30/20 01:00 Inhibitor Family History Father CVA (cerebral vascular accident) Mother Diabetes Hypertension Brother CAD (coronary artery disease) CVA (cerebral vascular accident) Hypertension Brother Diabetes Sister Diabetes Surgical History History of cardioversion (07/10/20) History of carpal tunnel release History of cataract surgery History of cholecystectomy History of foot surgery History of right and left heart catheterization (07/03/15) History of total right knee replacement Social History Smoking Status: Former smoker quit date: 03/03/69 Tobacco: How many years used: 5 Electronic Cigarette Use: not used how long ago did patient quit smokin second hand exposure: No alcohol intake: former substance use type: does not use caffeine: No what type of physical activity do you participate in: other details: PT frequency: 1-2 times per week duration: 45-60 minutes/day seatbelt use: always do you feel safe at home: Yes ROS ROS ED Constitutional Constitutional ED: Denies chills or fever(s) Eyes Eyes: Denies change in vision ENT ENT ED: Denies rhinorrhea or sore throat Cardiovascular Cardiovascular: Reports orthopnea and paroxysmal nocturnal dyspnea; Denies chest pain, palpitations or racing heartbeat Respiratory/Chest Respiratory/Chest: Reports dyspnea, orthopnea and paroxysmal nocturnal dyspnea; Denies cough or sputum Gastrointestinal Gastrointestinal: Denies abdominal pain, nausea or vomiting Genitourinary Genitourinary ED: Denies dysuria Musculoskeletal Musculoskeletal: Denies arthralgias or myalgias Integumentary Denies rash Neurologic Neurologic: Denies headache(s) or weakness Psychiatric Psychiatric: Denies anxiety or depression Endocrine Endocrinology: Denies polydipsia or polyuria Hematologic/Lymphatic Hematologic/Lymphatic: Reports easy bleeding and easy bruising Allergic/Immunologic Allergic/Immunologic ED: Denies urticaria EXAM Physical Exam Const Vital Signs: 11/30/20 00:56 11/30/20 01:00 11/30/20 02:42 Temperature 97.2 F L Temperature Source Temporal Pulse Rate 90 82 Respiratory Rate 20 H 18 Respiratory Effort Short of Breath Accessory Muscle Use Respiratory Pattern Tachypnea Blood Pressure 163/85 H 118/65 Blood Pressure Mean 111 82 Pulse Ox 100 97 99 Oxygen Delivery Method Non-Rebreather Nasal Cannula Nasal Cannula Oxygen Flow Rate (L/min) 12 4 4 11/30/20 04:01 Temperature Temperature Source Pulse Rate 84 Respiratory Rate 18 Respiratory Effort Respiratory Pattern Blood Pressure 148/72 H Blood Pressure Mean 97 Pulse Ox 100 Oxygen Delivery Method Nasal Cannula Oxygen Flow Rate (L/min) 4 Currently patient looks comfortable. Her work of breathing is maybe just higher than normal but not markedly so. She carries on a normal conversation. Her oxygen levels are 96 to 99% on 2 L. Positive well nourished and well developed General Appearance ED: well developed and NAD; Negative for pallor HEENT Reports moist mucous membranes atraumatic; Negative for trauma Eyes General Eye ED: Negative for pale conjunctiva or scleral icterus Neck No no JVD Neck Narrative: JVD Resp Resp Narrative: Respiratory effort is just slightly above baseline. She does have diffuse rales on exam though. Auscultation: rales; Negative for rhonchi or wheezes Cardio regular rate and no murmurs GI non-tender and non-distended Palpation: soft Extremity normal to inspection Extremity Narrative: Trace bilateral lower extremity edema. General Extremety ED: Yes tenderness Neuro oriented x3 Sensorium / Orientation: alert Skin no wounds Skin Narrative: Not diaphoretic. General Skin Exam: Negative for jaundice or pallor Lesions: no lesions Rashes: no rashes MDM MDM MDM Narrative Medical decision making narrative: Patient's EKG showed some nonspecific changes but did look a little different than her past from August. This was repeated. There is no significant interval change. Her blood work showed no elevated white count. Her INR was therapeutic at 2.9. Electrolytes showed some mild renal dysfunction with a creatinine of 1.46. Initial troponin was 61. It did go up on second check to 347. Her BNP was 334. I rechecked her. She is now 100% oxygen on 4 L. She states she feels fine right now. I think the patient does have CHF. This has been building up for days. Her x-ray was read as possible right base pneumonia but this does not match her symptoms without sputum production fever or white count. She was given Lasix and nitro here which helped quite a bit. The oxygen also helped. I think she likely has elevated troponin due to global hypoxia since she had sats in the 70% at home. With her slight weight gain, hypoxia, elevated troponin I think she does need to come in the hospital. Case is discussed with the hospitalist. Lab Data Attestation: I reviewed the patient's lab results. Labs: Laboratory Results - last 24 hr 11/30/20 11/30/20 11/30/20 01:33 01:33 01:33 WBC 5.8 RBC 3.63 L Hgb 10.6 L Hct 33.5 L MCV 92.3 MCH 29.2 MCHC 31.6 L RDW Std Deviation 54.1 H RDW Coeff of Cresencio 15.9 H Plt Count 165 MPV 9.8 Immature Gran % (Auto) 1.400 H Neut % (Auto) 69.6 Lymph % (Auto) 17.0 L Pierce % (Auto) 9.1 Eos % (Auto) 2.2 Baso % (Auto) 0.7 Absolute Neuts (auto) 4.1 Absolute Lymphs (auto) 0.99 Nucleated RBC % 0 PT 29.1 H INR 2.9 Sodium 138 Potassium 3.9 Chloride 105 Carbon Dioxide 27.0 Anion Gap 6 BUN 31 H Creatinine 1.46 H Estim Creat Clear Calc 27.65 Est GFR (MDRD) Af Amer 44 L Est GFR (MDRD) Non-Af 37 L BUN/Creatinine Ratio 21.2 H Glucose 237 H Calcium 8.6 Troponin I High Sens 61 H B-Natriuretic Peptide 11/30/20 11/30/20 01:33 03:58 WBC RBC Hgb Hct MCV MCH MCHC RDW Std Deviation RDW Coeff of Cresencio Plt Count MPV Immature Gran % (Auto) Neut % (Auto) Lymph % (Auto) Pierce % (Auto) Eos % (Auto) Baso % (Auto) Absolute Neuts (auto) Absolute Lymphs (auto) Nucleated RBC % PT INR Sodium Potassium Chloride Carbon Dioxide Anion Gap BUN Creatinine Estim Creat Clear Calc Est GFR (MDRD) Af Amer Est GFR (MDRD) Non-Af BUN/Creatinine Ratio Glucose Calcium Troponin I High Sens 347 H* B-Natriuretic Peptide 334.1 H Radiography Diagnostic Testing: Radiology Impression Chest X-Ray 11/30/20 01:24 IMPRESSION: Findings suspicious for right lower lung pneumonia. Electronically Signed: Casa North MD at 2:31 EDT Tel , Service support , EKG Initial EKG: Comments: EKG done for dyspnea and read by me showed normal sinus rhythm with a slight first-degree AV block and overall rate of 80. There was 1 PVC. There was some mild lateral very subtle ST scalloped/depression. This was different than August of this year. Patient was rechecked. She still denies any chest pain at any time. We repeated the EKG. There is no marked interval change. Critical Care Time Critical Care Time: Yes Critical care time (excluding procedures): 30-74 minutes and - (30 minutes of critical care time. Patient was seen. She initially had been hypoxic and ill. She was a bit tachypneic. We have increased oxygen to control her hypoxia. We have now been able to wean that down. She has been treated with nitroglycerin. She is also on IV Lasix. We rechecked her s) Discharge Plan Dx/Rx/DC Orders Clinical Impression: Non-ST elevation (NSTEMI) myocardial infarction, Acute CHF, Respiratory failure with hypoxia Disposition Disposition: Acute Care Hospital [facility]
[2020-11-30 01:51] LABS: Absolute Lymphocyte Count 0.99 X10^3/uL (0.83-4.51); Absolute Neutrophil Count 4.1 X10^3/uL (2.0-7.7); Basophil# 0.04 X10^3/uL; Basophil% 0.7 % (0-1); Eosinophil# 0.13 X10^3/uL; Eosinophils% 2.2 % (0-5); Hematocrit 33.5 % (37-47); Hemoglobin 10.6 g/dL (12.0-15.0); Lymphocyte # 0.99 X10^3/ul (0.83-4.51); Mean Corp Hgb Conc 31.6 g/dL (32-36); Mean Corpuscular Hgb 29.2 pg (27.0-32.0); Mean Corpuscular Volume 92.3 fL (81-99); Mean Platelet Vol. 9.8 fl (6.2-12.0); Monocyte# 0.53 X10^3/uL; Monocyte% 9.1 % (0-10); NRBC Flagged by Analyzer 0 % (0-5); Neutrophil # 4.06 X10^3/uL (2.7-7.7); Neutrophil % 69.6 % (47-70); Platelet Count 165 K/mm3 (150-450); RBC Distribution Width CV 15.9 % (11.6-14.6); RBC Distribution Width SD 54.1 fl (35.1-43.9); Red Blood Count 3.63 M/mm3 (4.2-5.4); White Blood Count 5.8 K/mm3 (4.4-11.0)
[2020-11-30 02:00] LABS: International Normalized Ratio 2.9; Prothrombin Time (Protime)PT. 29.1 SECONDS (11.7-14.9)
[2020-11-30 02:09] LABS: Anion Gap 6 (5-15); BUN 31 mg/dL (7-18); BUN/Creat Ratio 21.2 RATIO (10-20); Calcium,Total 8.6 mg/dL (8.5-10.1); Chloride 105 mmol/L (98-107); Creatinine, Serum 1.46 mg/dL (0.55-1.02); EST Glomerular Filtration Rate 37 mL/min (>60); Est Glom Filt Rate - Afr Amer 44 mL/min (>60); Estimated Creatinine Clearance 27.65 ml/min; Glucose 237 mg/dL (74-106); Potassium 3.9 mmol/L (3.5-5.1); Sodium Level 138 mmol/L (136-145); Troponin-I HS 61 pg/mL (3.0-54.0)
[2020-11-30 02:15] LABS: BNP,B-Type NATRIURETIC PEPTIDE 334.1 pg/mL (0-100)
[2020-11-30] MEDS: Furosemide 40 MG/4 ML Vial IV (02:41)
[2020-11-30 04:30] LABS: Troponin-I HS 347 pg/mL (3.0-54.0)
--- NOTE | 2020-11-30 04:34 | EKG12_ITS ---
Test Reason : SOB Blood Pressure : / mmHG Vent. Rate : 080 BPM Atrial Rate : 080 BPM P-R Int : 220 ms QRS Dur : 092 ms QT Int : 412 ms P-R-T Axes : 044 020 099 degrees QTc Int : 475 ms Sinus rhythm with 1st degree A-V block with occasional Premature ventricular complexes Left ventricular hypertrophy with repolarization abnormality Abnormal ECG Confirmed by ASHU SPENCE, ILA ([id number]), aquatic laborer KENNETH EDWARDS ([id number]) on 12/04/2020 7:50:15 AM Referred By: KAVITA Confirmed By:ILA WAKEFIELD MD
[2020-11-30] MEDS: Aspirin 81 MG TAB.CHEW 162 MG PO (04:42)
--- NOTE | 2020-11-30 05:31 | HP.PCM.HOS_ITS ---
HPI - General HPI Narrative Favian HUNG, is a 80 F with a significant history of diabetes mellitus; and metastatic cancer who presents at the emergent department with 3 to 4 days history of progressively worsening shortness of breath. Associated with her symptoms is paroxysmal nocturnal dyspnea and orthopnea. Further the patient has fatigue and weakness. Patient denies chest pain. She reports rattling in her chest and a foamy sputum. When paramedics found patient her oxygen saturation was 72% on room air so she was placed on supplemental oxygenation. Patient has been vaccinated against Covid 19 virus. [facility] Medical History Acquired hypothyroidism Atherosclerotic heart disease of [place] coronary artery without angina pectoris Benign hypertension Breast cancer Cataracts, bilateral Chronic diastolic heart failure Chronic low back pain with bilateral sciatica Chronic low back pain with right-sided sciatica Gout History of non-ST elevation myocardial infarction (NSTEMI) (06/30/15) Hyperlipidemia [facility] (current) use of anticoagulants Metastatic bone cancer Nonrheumatic aortic (valve) stenosis Nonrheumatic mitral valve regurgitation Nonrheumatic mitral valve stenosis with insufficiency Osteoarthritis Paroxysmal atrial fibrillation Peripheral vascular disease with claudication Persistent atrial fibrillation Secondary pulmonary arterial hypertension Type 2 diabetes mellitus Home Medications aspirin 81 mg PO DAILY@0800 06/30/15 [History Last Taken 08/22/20 08:00] liraglutide 1.8 mg SQ DAILY 06/30/15 [History Last Taken 08/22/20 08:00] yzpzjzgi-jpg-NH-lycopen-lutein 1 each PO QHS 05/22/16 [History Last Taken 08/21/20 22:00] metoprolol succinate 200 mg tablet,extended release 24 hr 200 mg PO DAILY #90 tablet 01/18/19 [Rx Last Taken 08/22/20 08:00] ezetimibe 10 mg tablet 10 mg PO QHS #90 tablet 04/21/19 [Rx Last Taken 08/21/20 22:00] cholecalciferol (vitamin D3) 125 mcg (5,000 unit) capsule 125 mcg PO DAILY 09/23/19 [History Last Taken 08/21/20 22:00] anastrozole 1 mg PO DAILY #90 tablet 02/02/20 [Rx Last Taken 08/22/20 07:30] warfarin 5 mg tablet 5 mg PO .COMPLEX #90 tablet 02/29/20 [Rx Last Taken 08/20/20] warfarin 1 mg tablet 1 mg PO .COMPLEX #120 tablet 05/29/20 [Rx Last Taken 07/09/20] amiodarone 200 mg tablet 200 mg PO DAILY #30 tab 07/18/20 [Rx Last Taken 08/21/20 12:00] calcium carbonate-vitamin D3 [Caltrate with Vitamin D3] 1 tab PO QHS 08/22/20 [History Last Taken 08/21/20] glipizide 10 mg PO 1200 08/22/20 [History Last Taken Unknown] glipizide 15 mg PO BIDCM 08/22/20 [History Last Taken 08/22/20 08:00] furosemide [Lasix] 40 mg PO BID 30 Days #60 tab 08/23/20 [Rx Last Taken Unknown] gabapentin 300 mg capsule See Rx Instructions .ROUTE .COMPLEX #270 cap 09/13/20 [Rx Last Taken Unknown] psyllium husk 0.4 gram capsule 0.4 g PO QHS 09/19/20 [History Last Taken Unknown] isosorbide mononitrate 30 mg tablet,extended release 24 hr 30 mg PO DAILY #90 tablet 10/09/20 [Rx Last Taken Unknown] baclofen 10 mg tablet 10 mg PO TID PRN #90 tab 11/08/20 [Rx Last Taken Unknown] levothyroxine 88 mcg tablet 88 mcg PO DAILY tab 11/08/20 [History Last Taken Unknown] Allergy/AdvReac Type Severity Reaction Status Date / Time Aassdvg-Vyf-Ybg Reductase AdvReac Severe myalgias Verified 11/30/20 01:00 Inhibitor Family History Father CVA (cerebral vascular accident) Mother Diabetes Hypertension Brother CAD (coronary artery disease) CVA (cerebral vascular accident) Hypertension Brother Diabetes Sister Diabetes Surgical History History of cardioversion (07/10/20) History of carpal tunnel release History of cataract surgery History of cholecystectomy History of foot surgery History of right and left heart catheterization (07/03/15) History of total right knee replacement Social History Smoking Status: Former smoker quit date: 03/03/69 Tobacco: How many years used: 5 Electronic Cigarette Use: not used how long ago did patient quit smokin second hand exposure: No alcohol intake: former substance use type: does not use caffeine: No what type of physical activity do you participate in: other details: PT frequency: 1-2 times per week duration: 45-60 minutes/day seatbelt use: always do you feel safe at home: Yes ROS ROS Narrative Constitutional: Denies fever, chills, fatigue, anorexia and change in weight Eyes: Denies blurry vision, change in eye color, change in vision, discharge from eye(s), double vision, erythema, eye pain, loss of vision or other HEENT: Denies abnormal hearing, dysphagia, ear pain, epistaxis, headache(s), hearing loss, nasal congestion, nasal discharge, post nasal drip, sinus pressure, sore throat or other Cardiovascular: Denies chest pain or palpitations. Reports orthopnea and paroxysmal nocturnal dyspnea Respiratory/Chest: Reports productive cough with foamy sputum cough. Gastrointestinal: Denies abdominal pain, coffee ground emesis, constipation, diarrhea, dyspepsia, hematemesis, hematochezia, loose stools, melena, nausea, vomiting or other Genitourinary: Denies burning urination, difficulty urinating, dysuria, hematuria, nocturia, urinary frequency, urinary hesitancy, urinary incontinence, urinary urgency or other Musculoskeletal: Denies arthralgias, back pain, joint pain, joint stiffness, joint swelling, myalgias, neck pain or other Neurologic: Denies abnormal gait, abnormal speech, confusion, disequilibrium, dizziness, focal weakness, headache(s), numbness, paresthesias, seizure-like activity, seizures, syncope, tingling, tremor(s) or other Psychiatric: Denies anxiety, depression, homicidal ideation, suicidal ideation or other Endocrinology: Denies change in body appearance, cold intolerance, excessive sweating, heat intolerance, polydipsia, polyuria or other Hematologic/Lymphatic: Denies anemia, easy bleeding, easy bruising, lymphadenopathy or other Integumentary: Denies rashes Allergic/Immunologic: Denies rhinitis, hives, eczema, asthma or other Vital Signs Vital Signs Vital Signs: 11/30/20 00:56 11/30/20 01:00 11/30/20 02:42 Temperature 97.2 F L Temperature Source Temporal Pulse Rate 90 82 Respiratory Rate 20 H 18 Respiratory Effort Short of Breath Accessory Muscle Use Respiratory Pattern Tachypnea Blood Pressure 163/85 H 118/65 Blood Pressure Mean 111 82 Pulse Ox 100 97 99 Oxygen Delivery Method Non-Rebreather Nasal Cannula Nasal Cannula Oxygen Flow Rate (L/min) 12 4 4 11/30/20 04:01 Temperature Temperature Source Pulse Rate 84 Respiratory Rate 18 Respiratory Effort Respiratory Pattern Blood Pressure 148/72 H Blood Pressure Mean 97 Pulse Ox 100 Oxygen Delivery Method Nasal Cannula Oxygen Flow Rate (L/min) 4 Weight Weight: 111 kg Body Mass Index (BMI) 40.7 Physical Exam Narrative Physical exam: General: Well-nourished, well-developed. Head: Normocephalic, atraumatic, no tenderness Eyes: PERRLA, EOMI ENT, no trauma, moist mucous membranes, no rhinorrhea Neck: Nontender, full range of motion, no spinal tenderness, deformities, step- off CVS: Regular rate and rhythm. Murmur 5 out of 6. Respiratory : Mild Rales. Chest wall nontender, no wheezing Abdomen: Soft, nontender, nondistended, normal bowel sounds, no masses : Deferred Extremities: Nontender full range of motion, no trauma Skin: Normal color, no trauma, abrasions Neuro: Alert, oriented, cranial nerves II through XII grossly intact. Psychiatry: Normal mood. Normal affect. Not depressed. Not anxious. Results Lab / Micro Data Result Diagrams: 11/30/20 01:33 11/30/20 01:33 Labs: Laboratory Results - last 24 hr 11/30/20 01:33: WBC 5.8, RBC 3.63 L, Hgb 10.6 L, Hct 33.5 L, MCV 92.3, MCH 29.2, MCHC 31.6 L, RDW Std Deviation 54.1 H, RDW Coeff of Cresencio 15.9 H, Plt Count 165, MPV 9.8, Immature Gran % (Auto) 1.400 H, Neut % (Auto) 69.6, Lymph % (Auto) 17.0 L, [place]cd[place] % (Auto) 9.1, Eos % (Auto) 2.2, Baso % (Auto) 0.7, Absolute Neuts (auto) 4.1, Absolute Lymphs (auto) 0.99, Nucleated RBC % 0 11/30/20 01:33: PT 29.1 H, INR 2.9 11/30/20 01:33: Sodium 138, Potassium 3.9, Chloride 105, Carbon Dioxide 27.0, Anion Gap 6, BUN 31 H, Creatinine 1.46 H, Estim Creat Clear Calc 27.65, Est GFR (MDRD) Af Amer 44 L, Est GFR (MDRD) Non-Af 37 L, BUN/Creatinine Ratio 21.2 H, Glucose 237 H, Calcium 8.6, Troponin I High Sens 61 H 11/30/20 01:33: B-Natriuretic Peptide 334.1 H 11/30/20 03:58: Troponin I High Sens 347 H* Radiology Impression Chest X-Ray 11/30/20 01:24 IMPRESSION: Findings suspicious for right lower lung pneumonia. Electronically Signed: Casa North MD at 2:31 EDT Tel , Service support , Assessment & Plan Assessment/Plan (1) Heart failure with preserved ejection fraction: QUALIFIERS: Heart failure chronicity: acute on chronic Qualified Code(s): I50.33 - Acute on chronic diastolic (congestive) heart failure (2) Elevated troponin: (3) Respiratory failure with hypoxia: QUALIFIERS: Chronicity: acute Qualified Code(s): J96.01 - Acute respiratory failure with hypoxia (4) Disseminated cancer: (5) Paroxysmal atrial fibrillation: PLAN: Acute respiratory failure secondary to acute Exacerbation of heart failure with preserved ejection fraction Reportedly oxygen saturation was at 72% in route to the hospital. Patient required nonrebreather mask at the emergent department and later transitioned to nasal cannula oxygen. Place on monitored bed on progressive care unit Weight on admission to the floor; and then daily Strict I&O's CXR independently reviewed confirms bilateral opacities and cephalization BNP is mildly elevated at 334.1 Last echocardiogram on file was 04/06/2020. Echocardiogram showed estimated ejection fraction of 60% with no regional wall motion abnormalities. Mild eccentric mitral valve insufficiency. Mild tricuspid valve insufficiency. Pulmonary artery systolic pressure was 34 mmHg. Moderate focal aortic valve calcifications. Moderate aortic stenosis.] Monitor electrolytes and renal function Trend blood pressure Titrate diuretics and heart failure/blood pressure medications with blood pressure. Fluid restriction of 1500 mls daily Cardiac and diabetic diet ordered. Elevated troponin Troponin presentation was 347. EKG with subtle in V5 and V6. Discussed case with cardiology. Will trend troponin. Metastatic breast cancer Completed course of radiation. Now on chemotherapy. Patient to continue outpatient follow-up with oncology. Paroxysmal A. fib Status post cardioversion x2. Continue home rate and rhythm medications. INR therapeutic. Coumadin continued. Daily INR ordered. Hypothyroidism Synthroid continued. Diabetes mellitus Patient with hyperglycemia on presentation Continue home hypoglycemic regimen. Accu-Chek QA [facility] with correction scale insulin ordered. Hypertension Blood pressure is stable Continue home blood pressure medications Trend blood pressure and adjust blood pressure medications. DVT prophylaxis: Not indicated since patient is therapeutic on Lovenox. Lovenox continued. Charges/Coding Visit Charges Inpatient E&M: 57421 Init Hosp L3
--- NOTE | 2020-11-30 06:53 | EKG12_ITS ---
Test Reason : ELEV TROP Blood Pressure : / mmHG Vent. Rate : 073 BPM Atrial Rate : 073 BPM P-R Int : 212 ms QRS Dur : 098 ms QT Int : 454 ms P-R-T Axes : 053 039 092 degrees QTc Int : 500 ms Sinus rhythm with 1st degree A-V block Left ventricular hypertrophy with repolarization abnormality Prolonged QT Abnormal ECG Confirmed by ASHU SPENCE, ILA ([id number]), dictionary editor KENNETH EDWARDS ([id number]) on 12/04/2020 8:12:44 AM Referred By: AMY Confirmed By:ILA WAKEFIELD MD
--- NOTE | 2020-11-30 07:08 | PCS.PANDOC ---
PANDEMIC DOCUMENTATION INITIATED: Date: 10/16/2020 Time: 190
[2020-11-30 07:25] LABS: Bedside Glucose 190 mg/dL (70-110)
[2020-11-30] MEDS: Levothyroxine 88 MCG Tablet PO (07:54)
[2020-11-30 08:19] LABS: Troponin-I HS 349 pg/mL (3.0-54.0)
[2020-11-30] MEDS: guaiFENesin 1,200 MG Tablet 1200 MG PO (10:22)
--- NOTE | 2020-11-30 11:30 | CASEMGMT ---
LUIZ ARVIZU assessment: Face to Face with patient for initial transition planning/care coordination assessment. LUIZ ARVIZU introduced self and role at [facility], pt voices understanding and consents to assessment. Pt is sitting up on side of bed dressed in street clothes in no distress on room air. Pt is A/Ox4 and answers all questions appropriately. Care providers, pharmacy, and demographics verified. Presentation: Pt c/o SOB while getting ready for bed tonight, states recent episodes of same and hx CHF Admitting dx: Acute on Chronic HF PCP: [facility]ando Specialists: Cristy, cardio; Emile, onc; Ally, neuro Preferred Pharmacy: [facility] Insurance: [facility] Prescription Benefit: [facility] Living Will/HPOA: Pt states does not have LW/HPOA but was just working on her will with business executive and she will check on whether this was done. LNOK: Shaye Foote, daughter; Genevieve Gaitan, daughter Living Arrangements: Pt states lives alone on main level of 2 story home with 2-3 steps in and states no concerns at home. Pt states is independent with ADL's. Transportation: Pt states drives self and states no transportation concerns. DME/HHC: Pt states has a cane and rollator at home and states no need for any further DME. Pt states no hx of HHC or SNF. Pt states no concerns with going home at time of discharge. Pt is retired. Pt states does not smoke cigarettes or drink ETOH. Pt states no further concerns/needs. CM to follow for home oxygen and any further discharge planning/needs. Advised pt to ask for CM if any further questions/concerns/needs arise, voices understanding. Pt goal: Home Plan[place] LUIZ ARVIZU
[2020-11-30] MEDS: Isosorbide Mononitrate 30 MG Tablet PO (11:40)
[2020-11-30] MEDS: Amiodarone 200 MG Tablet PO (11:40)
[2020-11-30] MEDS: Insulin Lispro 100 UNIT/ML INSULN.PEN SC (11:45)
[2020-11-30 12:11] LABS: Bedside Glucose 238 mg/dL (70-110)
[2020-11-30] MEDS: Gabapentin 300 MG Capsule PO (12:22)
[2020-11-30] MEDS: Metoprolol(XL)Succ 200 MG Tablet PO (12:22)
[2020-11-30] MEDS: Anastrozole 1 MG TABLET PO (12:22)
--- NOTE | 2020-11-30 12:44 | CASEMGMT ---
Per Marcelle DEE, pt does not qualify for home oxygen. Rickie DEE CM
--- NOTE | 2020-11-30 13:47 | PCM.DC.SUM ---
Providers Date of Admission: 11/30/20 Primary Care Physician: Dr. Merle Villagomez MD Reason For Visit: ACUTE ON CHRONIC HEART FAILURE WITH PRESERVED Diagnosis Discharge Diagnosis (1) Heart failure with preserved ejection fraction: Status: Acute Code(s): I50.30 - Unspecified diastolic (congestive) heart failure Qualifiers: Heart failure chronicity: acute on chronic Qualified Code(s): I50.33 - Acute on chronic diastolic (congestive) heart failure (2) Elevated troponin: Status: Acute Code(s): R77.8 - Other specified abnormalities of plasma proteins (3) Respiratory failure with hypoxia: Status: Acute Code(s): J96.91 - Respiratory failure, unspecified with hypoxia Qualifiers: Chronicity: acute Qualified Code(s): J96.01 - Acute respiratory failure with hypoxia (4) Disseminated cancer: Status: Acute Code(s): C80.0 - Disseminated malignant neoplasm, unspecified (5) Paroxysmal atrial fibrillation: Status: Chronic Code(s): I48.0 - Paroxysmal atrial fibrillation Medications at Discharge Home Medications aspirin 81 mg PO DAILY@0800 06/30/15 kotidwzc-lmj-DJ-lycopen-lutein 1 each PO QHS 05/22/16 cholecalciferol (vitamin D3) 125 mcg (5,000 unit) capsule 125 mcg PO DAILY 09/23/19 calcium carbonate-vitamin D3 [Caltrate with Vitamin D3] 1 tab PO QHS 08/22/20 glipizide 10 mg PO 1200 08/22/20 glipizide 15 mg PO BIDCM 08/22/20 levothyroxine 88 mcg tablet 88 mcg PO DAILY tab 11/08/20 Victoza 3-Sd 1.8 mg SUBCUT DAILY 11/30/20 amiodarone 200 mg PO DAILY 11/30/20 anastrozole 1 mg PO DAILY 11/30/20 ezetimibe 10 mg PO QHS 11/30/20 furosemide [Lasix] 40 mg PO BID 11/30/20 gabapentin 300 mg PO TID 11/30/20 isosorbide mononitrate 30 mg PO DAILY 11/30/20 metoprolol succinate 200 mg PO DAILY 11/30/20 warfarin 1 mg PO .COMPLEX 11/30/20 warfarin 5 mg PO .COMPLEX 11/30/20 Hospital Course Operations None Procedures None Summary of Care Provided Minutes Spent on Discharge: 25 Hospital Course: Ms. Gaitan is an 80-year-old female with a complex past medical history including aortic stenosis, atrial fibrillation, and metastatic breast CA who [facility] the a.m. of 11/30/2020 with 3 to 4 days of progressively worsening dyspnea. She had paroxysmal nocturnal dyspnea and orthopnea as well as fatigue and weakness upon presentation. She complained of some rattling in her chest with foamy sputum. Oxygen saturations were 72% on room air upon presentation to the emergency department and she was placed on supplemental oxygen at that time. She initially required a nonrebreather and was later transitioned to nasal cannula. She was given Lasix in the emergency department and placed on IV diuretics along with daily weights and fluid restrictions of 1500 cc daily. She had a recent echo done on 04/06/2020 that showed an EF of 60% with no regional wall motion abnormalities, mild mitral valve insufficiency, mild tricuspid valve insufficiency moderate aortic stenosis with a valvular area of 0.96 and pulmonary artery hypertension that was mild with a pulmonary artery systolic pressure of 34 mmHg. Her initial troponin was also elevated at 347. I did discuss the case with cardiology as did the admitting physician and he felt that her troponin elevation was related to her heart failure and serum creatinine elevation and had no intent to perform any interventional studies with regards to her coronary anatomy at this time. Upon my evaluation on 11/30/2020 the patient had been weaned to room air and stated she felt back to baseline and felt that she was ready to go home. She was able to ambulate independently and an ambulatory pulse oximetry was done and she was found to require no supplemental oxygen. She was discharged home with a fluid restriction of 1500 cc with a sodium restricted diet and to continue her home Lasix. She remained in sinus rhythm throughout her hospitalization but I would question if she had had periods of atrial fibrillation prior to presentation that put her into heart failure. She is to follow-up with her primary installation specialist as scheduled and was discharged home in stable condition. I did also instruct her to follow-up with her PCP in 2 weeks. Discharge diagnoses: Acute hypoxic respiratory failure-resolved Acute on chronic HFpEF Troponin elevation Diastolic dysfunction PAF Metastatic breast CA Hyperlipidemia Neuropathy DM-2 Hypertension Hypothyroidism Chronic anticoagulation Chronic anemia CKD stage IIIa Physical Exam Narrative Patient states she is back to baseline. She is currently on room air. She has ambulated to the bathroom and denies any shortness of breath with this. Const alert, oriented x3 and no apparent distress Constitutional Narrative: Morbidly obese white female sitting up in bed on room air, appears comfortable, nontoxic General Appearance: cooperative, comfortable, well kempt and well developed Orientation / Consciousness: awake Exam Limitations: no limitations Nutritional Appearance: morbidly obese HEENT normocephalic, head/scalp atraumatic, hearing grossly normal bilaterally and moist oral mucous membranes Resp normal respiratory effort, no retractions, no use of accessory muscles and clear to auscultation bilaterally Resp Narrative: Few crackles at bases bilaterally-scattered but otherwise clear Auscultation: crackles; Negative for rhonchi or wheezes Cardio regular rate, regular rhythm, S1 normal heart sound, S2 normal heart sound, no murmurs, no rub, no gallops, no clicks and no JVD GI normal to inspection, nondistended, normoactive bowel sounds, soft to palpation, non-tender and non-distended Extremity no clubbing, cyanosis or edema Neuro oriented x3, CN's II-XII intact bilaterally, moves all extremities and no focal motor deficits Neuro Narrative: Mild generalized weakness Sensorium / Orientation: awake, alert, oriented to person, oriented to place and oriented to time Speech: speech normal Psych affect normal Psych Narrative: Extremely pleasant Weight / BMI Weight Weight: 106.7 kg Body Mass Index (BMI) 41.6 ABG / Lab / Microbiology Data Result Diagrams: 11/30/20 01:33 11/30/20 01:33 Laboratory: Laboratory Results - last 24 hr 11/30/20 01:33: WBC 5.8, RBC 3.63 L, Hgb 10.6 L, Hct 33.5 L, MCV 92.3, MCH 29.2, MCHC 31.6 L, RDW Std Deviation 54.1 H, RDW Coeff of Cresencio 15.9 H, Plt Count 165, MPV 9.8, Immature Gran % (Auto) 1.400 H, Neut % (Auto) 69.6, Lymph % (Auto) 17.0 L, Franklin % (Auto) 9.1, Eos % (Auto) 2.2, Baso % (Auto) 0.7, Absolute Neuts (auto) 4.1, Absolute Lymphs (auto) 0.99, Nucleated RBC % 0 11/30/20 01:33: PT 29.1 H, INR 2.9 11/30/20 01:33: Sodium 138, Potassium 3.9, Chloride 105, Carbon Dioxide 27.0, Anion Gap 6, BUN 31 H, Creatinine 1.46 H, Estim Creat Clear Calc 27.65, Est GFR (MDRD) Af Amer 44 L, Est GFR (MDRD) Non-Af 37 L, BUN/Creatinine Ratio 21.2 H, Glucose 237 H, Calcium 8.6, Troponin I High Sens 61 H 11/30/20 01:33: B-Natriuretic Peptide 334.1 H 11/30/20 03:58: Troponin I High Sens 347 H* 11/30/20 07:21: POC Glucose 190 H 11/30/20 07:34: Troponin I High Sens 349 H* 11/30/20 11:43: POC Glucose 238 H Radiography Diagnostic Testing: Radiology Impression Chest X-Ray 11/30/20 01:24 IMPRESSION: Findings suspicious for right lower lung pneumonia. Electronically Signed: Casa North MD at 2:31 EDT Tel , Service support , D/C Instructions Discharge Diet: Low fat / Low cholesterol, 1800 Calorie Control Diet, 8 Cup Fluid Restriction and 2000 mg Sodium Diet Discharge Activity: Return to Normal Activity Meaningful Use Info Meaningful Use Diagnoses (Choose all that apply): CHF CHF MEE/ARB ordered at discharge?: No Reason MEE/ARB not ordered?: Worsening renal disease Documented LVEF (%): 60 Discharge Plan Admission Admit Date/Time: 11/30/20 05:16 Primary Reason for Your Visit: Acute heart failure with preserved ejection fraction Attending Provider: Monique Walton Primary Care Provider: Merle Villagomez Discharge Orders/Prescriptions Prescriptions: Continued cholecalciferol (vitamin D3) 125 mcg (5,000 unit) capsule 125 mcg PO DAILY RF: 0 levothyroxine 88 mcg tablet 88 mcg PO DAILY RF: 0 aspirin 81 MG tablet,chewable 81 mg PO DAILY@0800 RF: 0 sfuatrqr-gxi-QC-lycopen-lutein 1 EACH tablet 1 each PO QHS RF: 0 glipizide 10 mg Tablet 15 mg PO BIDCM RF: 0 glipizide 10 mg Tablet 10 mg PO 1200 RF: 0 calcium carbonate-vitamin D3 [Caltrate with Vitamin D3] 600 mg(1,500mg) -800 unit Tablet 1 tab PO QHS RF: 0 Victoza 3-Sd 0.6 mg/0.1 mL (18 mg/3 mL) pen injector 1.8 mg SUBCUT DAILY RF: 0 metoprolol succinate 200 mg tablet extended release 24 hr 200 mg PO DAILY RF: 0 anastrozole 1 MG tablet 1 mg PO DAILY RF: 0 amiodarone 200 mg tablet 200 mg PO DAILY RF: 0 furosemide [Lasix] 40 mg tablet 40 mg PO BID RF: 0 isosorbide mononitrate 30 mg tablet extended release 24 hr 30 mg PO DAILY RF: 0 gabapentin 300 mg capsule 300 mg PO TID RF: 0 ezetimibe 10 mg tablet 10 mg PO QHS RF: 0 warfarin 5 mg tablet 5 mg PO .COMPLEX RF: 0 warfarin 1 mg tablet 1 mg PO .COMPLEX RF: 0 Referrals / Follow Up: Fish Muniz MD [STAFF PHYSICIAN] - See Referral Note (As scheduled) Merle Villagomez MD [Primary Care Provider] - Within 2 Weeks Disposition Disposition (needs filled in before D/C Order can be placed): Home, Self Care Charges/Coding Visit Charges Inpatient E&M: 76015 Disch Hosp
--- NOTE | 2020-11-30 14:02 | PCM.DC ---
Discharge Instructions Diet Discharge Diet: Low fat / Low cholesterol, 1800 Calorie Control Diet, 8 Cup Fluid Restriction and 2000 mg Sodium Diet Follow Up Care Test Results: Test results from this visit will be discussed in further detail at your follow-up appointment, if applicable. Discharge Plan Admission Admit Date/Time: 11/30/20 05:16 Primary Reason for Your Visit: Acute heart failure with preserved ejection fraction Attending Provider: Monique Walton Primary Care Provider: Merle Villagomez Discharge Orders/Prescriptions Prescriptions: Continued cholecalciferol (vitamin D3) 125 mcg (5,000 unit) capsule 125 mcg PO DAILY RF: 0 levothyroxine 88 mcg tablet 88 mcg PO DAILY RF: 0 aspirin 81 MG tablet,chewable 81 mg PO DAILY@0800 RF: 0 sweqmtvf-bbn-ES-lycopen-lutein 1 EACH tablet 1 each PO QHS RF: 0 glipizide 10 mg Tablet 15 mg PO BIDCM RF: 0 glipizide 10 mg Tablet 10 mg PO 1200 RF: 0 calcium carbonate-vitamin D3 [Caltrate with Vitamin D3] 600 mg(1,500mg) -800 unit Tablet 1 tab PO QHS RF: 0 Victoza 3-Sd 0.6 mg/0.1 mL (18 mg/3 mL) pen injector 1.8 mg SUBCUT DAILY RF: 0 metoprolol succinate 200 mg tablet extended release 24 hr 200 mg PO DAILY RF: 0 anastrozole 1 MG tablet 1 mg PO DAILY RF: 0 amiodarone 200 mg tablet 200 mg PO DAILY RF: 0 furosemide [Lasix] 40 mg tablet 40 mg PO BID RF: 0 isosorbide mononitrate 30 mg tablet extended release 24 hr 30 mg PO DAILY RF: 0 gabapentin 300 mg capsule 300 mg PO TID RF: 0 ezetimibe 10 mg tablet 10 mg PO QHS RF: 0 warfarin 5 mg tablet 5 mg PO .COMPLEX RF: 0 warfarin 1 mg tablet 1 mg PO .COMPLEX RF: 0 Referrals / Follow Up: Fish Muniz MD [STAFF PHYSICIAN] - See Referral Note (As scheduled) Merle Villagomez MD [Primary Care Provider] - Within 2 Weeks Disposition Disposition (needs filled in before D/C Order can be placed): Home, Self Care
--- NOTE | 2020-11-30 15:14 | PHA.DC.MR ---
Pharmacy Service has performed discharge medication reconciliation for this patient. No new medications at time of discharge review. Medications reviewed are from preivously reported home medications. Home Medications aspirin 81 mg PO DAILY@0800 06/30/15 oqkkoofu-knj-ZY-lycopen-lutein 1 each PO QHS 05/22/16 cholecalciferol (vitamin D3) 125 mcg (5,000 unit) capsule 125 mcg PO DAILY 09/23/19 calcium carbonate-vitamin D3 [Caltrate with Vitamin D3] 1 tab PO QHS 08/22/20 glipizide 10 mg PO 1200 08/22/20 glipizide 15 mg PO BIDCM 08/22/20 levothyroxine 88 mcg tablet 88 mcg PO DAILY tab 11/08/20 Victoza 3-Sd 1.8 mg SUBCUT DAILY 11/30/20 amiodarone 200 mg PO DAILY 11/30/20 anastrozole 1 mg PO DAILY 11/30/20 ezetimibe 10 mg PO QHS 11/30/20 furosemide [Lasix] 40 mg PO BID 11/30/20 gabapentin 300 mg PO TID 11/30/20 isosorbide mononitrate 30 mg PO DAILY 11/30/20 metoprolol succinate 200 mg PO DAILY 11/30/20 warfarin 1 mg PO .COMPLEX 11/30/20 warfarin 5 mg PO .COMPLEX 11/30/20 The patient's discharge medication list was reviewed for discrepancies and discrepancies were resolved.
--- NOTE | 2020-12-01 15:31 | CASEMGMT ---
LUIZ ARVIZU Discharge Follow-Up Phone Call. Viky: Migel Strata: 3 Discharge Date: 11/30/20 Adm Dx: A on C CHF w/preserved EF Call to pt to inquire about how she has been doing since being discharged from the hospital. Pt states, I'm doing okay. She states she still has a bit of a cough, but I think it's getting better. She denies having questions about the discharge instructions or medications. She called and scheduled an appt w/Dr Villagomez for 12/13 and had an appt previously scheduled w/Dr Muniz for 12/26. She inquired if she should have oxygen @ home. LUIZ ARVIZU informed her they tested her yesterday for home O2 and she did not qualify, as her ambulatory pulse ox was 97% on RA. Pt states she just checked her pulse ox at home just a little bit ago and states it was 100%. LUIZ ARVIZU informed her that is a great pulse ox and she does not need Oxygen at this time. Pt voices appreciation for this information. Kevan HAMILTON RN, CM
== END 2020-11-30 14:57 | disposition home or self-care (01) | DRG 291 ==
LOC: ED 05:01 → PCU 06:55
PROVIDERS: Admitting Provider Hospitalist; Emergency Provider Emergency Medicine; PCP Internal Medicine; Visit Provider Internal Medicine
DX: I13.0 Hypertensive heart and chronic kidney disease with heart failure and stage 1 through stage 4 chronic kidney disease, or unspecified chronic kidney disease (principal); I50.33 Acute on chronic diastolic (congestive) heart failure; J96.01 Acute respiratory failure with hypoxia; I48.19 Other persistent atrial fibrillation; I25.10 Atherosclerotic heart disease of native coronary artery without angina pectoris; E11.51 Type 2 diabetes mellitus with diabetic peripheral angiopathy without gangrene; E78.5 Hyperlipidemia, unspecified; I25.2 Old myocardial infarction; C50.919 Malignant neoplasm of unspecified site of unspecified female breast; C79.51 Secondary malignant neoplasm of bone; E03.9 Hypothyroidism, unspecified; I27.21 Secondary pulmonary arterial hypertension; E11.65 Type 2 diabetes mellitus with hyperglycemia; E11.22 Type 2 diabetes mellitus with diabetic chronic kidney disease; N18.31 Chronic kidney disease, stage 3a; E11.40 Type 2 diabetes mellitus with diabetic neuropathy, unspecified; Z79.82 Long term (current) use of aspirin; Z79.84 Long term (current) use of oral hypoglycemic drugs; Z79.01 Long term (current) use of anticoagulants; Z79.899 Other long term (current) drug therapy; Z79.890 Hormone replacement therapy; Z87.891 Personal history of nicotine dependence
CPT/HCPCS: 36415; 71045; 80048; 82962; 83880; 84484; 85025; 85610; 93005; 96374; 97162; 97165; 99218; 99285; H0012; A4216; G0378; J1940

== ENCOUNTER 2020-12-27 14:15 | Outpatient (RCR) | payer MEDICARE, SELFPAY ==
[2019-12-29 14:52] VITALS: BMI 37.5
[2020-12-01 02:11] VITALS: BMI 37.8
[2020-12-27 18:05] LABS: Prothrombin Time (Protime)PT. 40.8 SECONDS (11.7-14.9)
[2020-12-27 18:24] LABS: International Normalized Ratio 4.3
== END 2020-12-31 18:00 | disposition home or self-care (01) ==
LOC: MTLAB 14:15
PROVIDERS: Family Provider Internal Medicine; PCP Internal Medicine; Referring Provider Internal Medicine Cardiovascular Disease; Visit Provider Internal Medicine Cardiovascular Disease
DX: I48.19 Other persistent atrial fibrillation (principal); Z79.01 Long term (current) use of anticoagulants
CPT/HCPCS: 36415; 85610

== ENCOUNTER 2021-01-13 14:16 | Inpatient (IN) | payer MEDICARE, SELFPAY ==
[2019-12-29 14:52] VITALS: BMI 37.5
[2021-01-13] VITALS (10 sets, daily range): BP systolic 99–108; BP diastolic 54–69; PULSE 77–101; RESP 14–20; TEMP 36.1–36.9; O2SAT 89–100; BMI 44.2; BMI 42.6
--- NOTE | 2021-01-13 14:25 | EKG12_ITS ---
Test Reason : SOB Blood Pressure : / mmHG Vent. Rate : 093 BPM Atrial Rate : 108 BPM P-R Int : 000 ms QRS Dur : 096 ms QT Int : 364 ms P-R-T Axes : 000 046 153 degrees QTc Int : 452 ms Atrial fibrillation Nonspecific ST and T wave abnormality Abnormal ECG Confirmed by ASHU SPENCE, ILA ([id number]), material expeditor KENNETH EDWARDS ([id number]) on 01/15/2021 10:58:28 AM Referred By: Monique Walton Confirmed By:ILA WAKEFIELD MD
--- NOTE | 2021-01-13 14:25 | RAD_ITS ---
STUDY: X-RAY CHEST REASON FOR EXAM: Female, 81 years old. Chest pain. TECHNIQUE: Single frontal view of the chest. COMPARISON: 11/30/2040. FINDINGS: Stable diffuse interstitial pattern. There is no demonstrated pleural abnormality. Cardiomegaly unchanged. Normal mediastinum and leydi. Normal visualized pulmonary arteries. Stable aortic tortuosity with calcification. Normal visualized thoracic spine. Normal visualized ribs, clavicles, and shoulders. There is no demonstrated abnormality of the visualized soft tissue structures of the upper abdomen. RAD/Chest 1 View (Portable) IMPRESSION: Stable cardiomegaly with diffuse interstitial pattern. No active or acute cardiopulmonary disease. Electronically Signed: Torin Jordan MD at 15:40 EST , Service support ,
--- NOTE | 2021-01-13 14:33 | EDS_ITS ---
HPI History of Present Illness Chief Complaint: Shortness of Breath Informant: patient Onset/Context/Timing Onset: Days Context: gradual Timing: Continuous Quality: Positive for Dyspnea on exertion Current Severity: Mild Maximum Severity: Mild Associated Symptoms Negative for cough, fever, sore throat, subjective, chills, yellow sputum or green sputum Chest Pain: Positive for None Narrative Narrative: 81-year-old female history of hypertension, CHF, A. fib on Coumadin. History of diabetes and prior breast cancer. States that she has been short of breath in the last several days worse with exertion. Denies fever or chills. No significant cough. She was seen today at urgent care and they sent her in for further evaluation. She states her assessment director about 2 weeks ago added Lasix onto her medications due to what they thought was worsening congestive heart failure. She is a known heart murmur secondary to valvular heart disease which they are observing. She denies any chest pain. She denies any hemoptysis. No fever or significant cough. 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 pain with right-sided sciatica Disseminated cancer Elevated troponin Gout History of non-ST elevation myocardial infarction (NSTEMI) (06/30/15) Hyperlipidemia [facility] (current) use of anticoagulants Metastatic bone cancer Non-ST elevation (NSTEMI) myocardial infarction Nonrheumatic aortic (valve) stenosis Nonrheumatic mitral valve regurgitation Nonrheumatic mitral valve stenosis with insufficiency Osteoarthritis Paroxysmal atrial fibrillation Peripheral vascular disease with claudication Secondary pulmonary arterial hypertension Type 2 diabetes mellitus Home Medications aspirin 81 mg PO DAILY@0800 06/30/15 [History Last Taken 08/22/20 08:00] [id number]-lycopen-lutein 1 each PO QHS 05/22/16 [History Last Taken 08/21/20 22:00] cholecalciferol (vitamin D3) 125 mcg (5,000 unit) capsule 125 mcg PO DAILY 09/23/19 [History Last Taken 08/21/20 22:00] calcium carbonate-vitamin D3 [Caltrate with Vitamin D3] 1 tab PO QHS 08/22/20 [History Last Taken 08/21/20] glipizide 10 mg PO 1200 08/22/20 [History Last Taken Unknown] glipizide 15 mg PO BIDCM 08/22/20 [History Last Taken 08/22/20 08:00] levothyroxine 88 mcg tablet 88 mcg PO DAILY tab 11/08/20 [History Last Taken Unknown] Victoza 3-Sd 1.8 mg SUBCUT DAILY 11/30/20 [History Last Taken Unknown] ezetimibe 10 mg PO QHS 11/30/20 [History Last Taken Unknown] furosemide [Lasix] 40 mg PO BID 11/30/20 [History Last Taken Unknown] gabapentin 300 mg PO TID 11/30/20 [History Last Taken Unknown] isosorbide mononitrate 30 mg PO DAILY 11/30/20 [History Last Taken Unknown] metoprolol succinate 200 mg PO DAILY 11/30/20 [History Last Taken Unknown] warfarin 1 mg PO .COMPLEX 11/30/20 [History Last Taken Unknown] warfarin 5 mg PO .COMPLEX 11/30/20 [History Last Taken Unknown] anastrozole 1 mg tablet 1 mg PO DAILY #90 tab 12/14/20 [Rx Last Taken Unknown] diltiazem HCl 180 mg tablet,extended release 24 hr 180 mg PO DAILY #90 tab 12/26/20 [Rx Last Taken Unknown] spironolactone 50 mg tablet 50 mg PO DAILY #90 tab 12/26/20 [Rx Last Taken Unknown] baclofen 10 mg tablet 5 mg PO TID PRN tab 01/08/21 [History Last Taken Unknown] Allergy/AdvReac Type Severity Reaction Status Date / Time [id number] Reductase AdvReac Severe myalgias Verified 01/13/21 14:17 Inhibitor Family History Father CVA (cerebral vascular accident) Mother Diabetes Hypertension Brother CAD (coronary artery disease) CVA (cerebral vascular accident) Hypertension Brother Diabetes Sister Diabetes Surgical History History of cardioversion (07/10/20) History of carpal tunnel release History of cataract surgery History of cholecystectomy History of foot surgery History of right and left heart catheterization (07/03/15) History of total right knee replacement Social History Smoking Status: Former smoker quit date: 03/03/69 Tobacco: How many years used: 5 Electronic Cigarette Use: not used how long ago did patient quit smokin second hand exposure: No alcohol intake: former substance use type: does not use caffeine: No what type of physical activity do you participate in: other details: PT frequency: 1-2 times per week duration: 45-60 minutes/day seatbelt use: always do you feel safe at home: Yes ROS ROS ED ROS Narrative Exertional dyspnea. Weight gain in spite of Lasix. Decreased urine output. Review of Systems ROS Unobtainable: Denies due to encephalopathy Constitutional Constitutional ED: Denies chills or fever(s) Eyes Eyes: Denies change in vision ENT ENT ED: Denies ear pain or rhinorrhea Cardiovascular Cardiovascular: Denies chest pain, orthopnea or paroxysmal nocturnal dyspnea Respiratory/Chest Respiratory/Chest: Reports dyspnea and dyspnea on exertion; Denies cough, orthopnea, paroxysmal nocturnal dyspnea or sputum Gastrointestinal Gastrointestinal: Denies abdominal pain, constipation, diarrhea, melena, nausea or vomiting Genitourinary Genitourinary ED: Denies dysuria or hematuria Musculoskeletal Musculoskeletal: Denies myalgias Integumentary Denies rash Neurologic Neurologic: Denies headache(s) Psychiatric Psychiatric: Denies depression Endocrine Endocrinology: Denies polyuria Hematologic/Lymphatic Hematologic/Lymphatic: Denies easy bruising Allergic/Immunologic Allergic/Immunologic ED: Denies urticaria EXAM Physical Exam Narrative Exam Narrative: 81-year-old female no distress. Pulse ox 92% on room air no hypoxia. She does not look septic or toxic. HEENT exam unremarkable. Moist because membranes. Neck nontender no JVD. Lungs clear to auscultation bilaterally. Heart A. fib rate about 100 with a 4/6 systolic ejection murmur which she has a known murmur. Abdomen soft nontender normal bowel sounds no peritoneal signs. Moving all 4 extremities. Calves are nontender without edema or cords. Neurologically she is awake and alert with no focal motor deficits. Back nontender. Const Vital Signs: 01/13/21 14:18 01/13/21 14:30 01/13/21 14:45 Temperature 98.2 F Temperature Source Oral Pulse Rate 100 Respiratory Rate 20 H Respiratory Effort Normal Non-Labored Respiratory Depth Normal Respiratory Pattern Normal Blood Pressure 100/60 Blood Pressure Mean 73 Pulse Ox 92 94 89 Oxygen Delivery Method Room Air Room Air Room Air Oxygen Flow Rate (L/min) 01/13/21 15:13 Temperature Temperature Source Pulse Rate 101 H Respiratory Rate 16 Respiratory Effort Respiratory Depth Respiratory Pattern Blood Pressure 100/67 Blood Pressure Mean 78 Pulse Ox 98 Oxygen Delivery Method Nasal Cannula Oxygen Flow Rate (L/min) 2 Positive well nourished, well developed and obese; Negative for cachectic, contractures or unkempt General Appearance ED: well developed and NAD; Negative for unkempt, cachectic or contractures Nutritional Appearance: obese; Negative for cachectic HEENT Reports moist mucous membranes atraumatic; Negative for trauma or tenderness Eyes PERRL and EOMs intact bilaterally Neck no lymphadenopathy, supple, no meningeal signs and No no JVD General: Negative for tenderness Resp normal respiratory effort and clear to auscultation bilaterally Auscultation: Negative for rales, rhonchi or wheezes Cardio regular rate; Negative for no murmurs Cardio Narrative: A. fib rate about 100 with a 4/6 systolic ejection murmur. GI non-tender, non-distended and no masses Auscultation: normoactive bowel sounds Palpation: soft; Negative for tender, guarding or rebound tenderness present Back/Spine normal to inspection Extremity normal to inspection General Extremety ED: Negative for edema or tenderness General Extremity: Negative for edema Neuro oriented x3 Sensorium / Orientation: alert, oriented to person, oriented to place and oriented to time; Negative for orientation impaired, confused, lethargic or stuporous Motor Exam: strength 5/5 throughout Psych mental status grossly normal Appearance: Negative for unkempt Thought Process: normal thought process Skin no wounds General Skin Exam: Negative for jaundice Lesions: no lesions Rashes: no rashes MDM MDM MDM Narrative Medical decision making narrative: Elderly female history of A. fib on Coumadin and history of CHF with exertional dyspnea. She states she is gaining weight in spite of recently increased Lasix prior assessment director. She will be worked up for possible congestive heart failure versus other etiologies of her dyspnea. She is also having difficulty urinating a urinalysis and bladder scan will be obtained. Repeat exam unchanged. Patient has had pulse ox of 87% when she was walking the hallway on room air. No other specific reason for her hypoxia. She has a new anemia with a hemoglobin 8.3 which make her short of breath also her history of A. fib. She denies any recent dark or bloody stool. She also has a UTI. I will speak to the hospitalist about admission. Lab Data Attestation: I reviewed the patient's lab results. Lab results narrative: Electrolytes unremarkable gap 6 BUN of 33 creatinine 1.32 consistent with mild dehydration. This is baseline for her renal function. Glucose 254 troponin normal at 9. CBC shows a white count 2.9. Hemoglobin 8.3 which may be the cause the patient's shortness of breath. Previously her hemoglobin was around 11. On her urinalysis appears to be a UTI with white cells, positive nitrates and bacteria that will be sent for culture. Labs: Laboratory Results - last 24 hr 01/13/21 01/13/21 01/13/21 14:45 14:45 14:45 WBC 2.9 L RBC 2.94 L Hgb 8.3 L Hct 26.5 L MCV 90.1 MCH 28.2 MCHC 31.3 L RDW Std Deviation 58.1 H RDW Coeff of Cresencio 17.6 H Plt Count 205 MPV 9.6 Immature Gran % (Auto) 1.000 H Neut % (Auto) 73.2 H Lymph % (Auto) 11.7 L [place] % (Auto) 10.7 H Eos % (Auto) 2.7 Baso % (Auto) 0.7 Absolute Neuts (auto) 2.1 Absolute Lymphs (auto) 0.34 L Nucleated RBC % 0 Differential Comment SCANNED Diff Path Review July foll PT 17.2 H INR 1.5 Sodium 137 Potassium 3.5 Chloride 105 Carbon Dioxide 26.0 Anion Gap 6 BUN 33 H Creatinine 1.32 H Estim Creat Clear Calc 27.65 Est GFR (MDRD) Af Amer 50 L Est GFR (MDRD) Non-Af 41 L BUN/Creatinine Ratio 25.0 H Glucose 254 H Calcium 7.6 L Troponin I High Sens 9 B-Natriuretic Peptide Urine Color Urine Clarity Urine pH Ur Specific [place] Urine Protein Urine Glucose (UA) Urine Ketones Urine Occult Blood Urine Nitrite Urine Bilirubin Urine Urobilinogen Ur Leukocyte Esterase Urine RBC Urine WBC Ur Squamous Epith Cells Urine Bacteria Urine Mucus 01/13/21 01/13/21 14:45 17:00 WBC RBC Hgb Hct MCV MCH MCHC RDW Std Deviation RDW Coeff of Cresencio Plt Count MPV Immature Gran % (Auto) Neut % (Auto) Lymph % (Auto) [place] % (Auto) Eos % (Auto) Baso % (Auto) Absolute Neuts (auto) Absolute Lymphs (auto) Nucleated RBC % Differential Comment Diff Path Review PT INR Sodium Potassium Chloride Carbon Dioxide Anion Gap BUN Creatinine Estim Creat Clear Calc Est GFR (MDRD) Af Amer Est GFR (MDRD) Non-Af BUN/Creatinine Ratio Glucose Calcium Troponin I High Sens B-Natriuretic Peptide 711.5 H Urine Color Yellow Urine Clarity Sl. Cloudy Urine pH 5.0 Ur Specific [place] 1.015 Urine Protein 30 H Urine Glucose (UA) Normal Urine Ketones Negative Urine Occult Blood 50 H Urine Nitrite Positive H Urine Bilirubin Negative Urine Urobilinogen Normal Ur Leukocyte Esterase 100 H Urine RBC 0 SEEN Urine WBC 5-10 SEEN Ur Squamous Epith Cells 0-5 SEEN Urine Bacteria 4+ Urine Mucus 0 SEEN Radiography Chest X-Ray - ED: 1 View, Read by ED Physician, Heart, Lungs, Mediastinum, Bony Structures, No Acute Disease and Chronic Changes Diagnostic Testing: Clinical Impression(s) from Imaging Studies Chest X-Ray 01/13/21 14:25 IMPRESSION: Stable cardiomegaly with diffuse interstitial pattern. No active or acute cardiopulmonary disease. Electronically Signed: Torin Jordan MD at 15:40 EST , Service support , Chest x-ray shows chronic changes no acute process. Portable 1 view interpreted by myself and also the radiologist who agrees. Rhythm Strip Rhythm Strip: A-fib Rate: 93 Ectopy: None EKG Initial EKG: Attestation: I personally reviewed and interpreted this EKG as follows: Interpretation: No Acute Injury Pattern and Atrial Fibrillation Comments: Atrial fibrillation rate of 93 no acute signs of NE nor ischemia. Prior EKG tracings: not available for review Discharge Plan Dx/Rx/DC Orders Clinical Impression: Acute dyspnea, Hypoxia, CHF (congestive heart failure), Anemia, History of breast cancer, Chronic a-fib, Acute UTI Disposition Disposition: Acute Care [facility]
[2021-01-13 15:05] LABS: Absolute Lymphocyte Count 0.34 X10^3/uL (0.83-4.51); Absolute Neutrophil Count 2.1 X10^3/uL (2.0-7.7); Basophil# 0.02 X10^3/uL; Basophil% 0.7 % (0-1); Eosinophil# 0.08 X10^3/uL; Eosinophils% 2.7 % (0-5); Hematocrit 26.5 % (37-47); Hemoglobin 8.3 g/dL (12.0-15.0); Lymphocyte # 0.34 X10^3/ul (0.83-4.51); Lymphocyte % 11.7 % (19-41); Mean Corp Hgb Conc 31.3 g/dL (32-36); Mean Corpuscular Hgb 28.2 pg (27.0-32.0); Mean Corpuscular Volume 90.1 fL (81-99); Mean Platelet Vol. 9.6 fl (6.2-12.0); Monocyte# 0.31 X10^3/uL; Monocyte% 10.7 % (0-10); NRBC Flagged by Analyzer 0 % (0-5); Neutrophil # 2.13 X10^3/uL (2.7-7.7); Neutrophil % 73.2 % (47-70); POSITIVE DIFFERENTIAL YES; Platelet Count 205 K/mm3 (150-450); RBC Distribution Width CV 17.6 % (11.6-14.6); RBC Distribution Width SD 58.1 fl (35.1-43.9); Red Blood Count 2.94 M/mm3 (4.2-5.4); White Blood Count 2.9 K/mm3 (4.4-11.0)
[2021-01-13 15:12] LABS: International Normalized Ratio 1.5; Prothrombin Time (Protime)PT. 17.2 SECONDS (11.7-14.9)
[2021-01-13 15:21] LABS: Anion Gap 6 (5-15); BUN 33 mg/dL (7-18); Calcium,Total 7.6 mg/dL (8.5-10.1); Chloride 105 mmol/L (98-107); Creatinine, Serum 1.32 mg/dL (0.55-1.02); EST Glomerular Filtration Rate 41 mL/min (>60); Est Glom Filt Rate - Afr Amer 50 mL/min (>60); Estimated Creatinine Clearance 27.65 ml/min; Glucose 254 mg/dL (74-106); Potassium 3.5 mmol/L (3.5-5.1); Sodium Level 137 mmol/L (136-145); Troponin-I HS 9 pg/mL (3.0-54.0)
[2021-01-13 15:29] LABS: Differential Indicated SCAN CRITERIA MET
[2021-01-13 15:37] LABS: Differential Comment SCANNED
[2021-01-13 15:55] LABS: BNP,B-Type NATRIURETIC PEPTIDE 711.5 pg/mL (0-100)
[2021-01-13 17:06] LABS: Mucous, Urine 0 SEEN /hpf (<or=2+); Red Blood Cells-Urine 0 SEEN /hpf (0-5)
[2021-01-13 17:15] LABS: Color, Urine Yellow (Yellow); Glucose, Dipstick Normal (Normal); Ketone-Dipstick Negative (Negative); Leukocyte Esterase-Dipstick 100 /ul (Negative); Nitrite-Dipstick Positive (Negative); Occult Blood-Urine 50 /ul (Negative); Protein-Dipstick 30 mg/dl (Negative); Specific Gravity, Urine 1.015 (1.002-1.030); Urine Bilirubin Dipstick Negative (Negative); Urine Clarity Sl. Cloudy (Clear); Urine Urobilinogen Normal (Normal)
[2021-01-13 17:22] LABS: Bacteria 4+ /hpf (None Seen); Squamous Epithelial Cells - UA 0-5 SEEN /hpf (5-10); White Blood Cells 5-10 SEEN /hpf (0-5)
--- NOTE | 2021-01-13 18:04 | PCM.HP.STD ---
Documented by User: Kelvin BATRES 01/13/21 18:29 HPI - General General Date of Admission: 01/13/21 Date of Service: 01/13/21 Chief Complaint: Shortness of breath HPI Narrative Cinthya Gaitan is an 81-year-old female who presents to the ED at [facility] on 01/13/2021 with a chief complaint of progressively worsening shortness of breath with exertion that has been present for the past 4 days. Patient states that 4 days ago after ingesting some of her neighbors homemade chili, she began to have increasing shortness of breath with exertion and abdominal/chest discomfort. Patient reports feeling very full and swollen in her abdomen, which has been somewhat of a chronic problem as she has gained 20 pounds in the past 6 months. Patient also states that she has a UTI which was told to her at the urgent care clinic before reporting to the ED, patient denies any urinary symptoms. Patient does follow with Dr. Muniz for heart failure and atrial fibrillation. Patient recently met with Dr. Muniz in late December and spironolactone and diltiazem were added to her home medication regimen to increase with diuresis. Patient reports no improvement in symptoms and that her feeling of bloatedness is only gotten worse since these medication changes. Past cardiac medical history is significant for ASCVD, chronic diastolic heart failure, history of NSTEMI and paroxysmal atrial fibrillation. 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 Vital signs in the ED are 98 ?F, HR of 85, BP of 108/59, RR of 19 and patient is currently satting 100% on 2 L via nasal cannula. CBC does not demonstrate a leukocytosis however hemoglobin is 8.3, platelets are 205,000. BMP shows a mildly elevated creatinine at 1.3 with a BUN of 33. BNP is elevated at 711. High-sensitivity troponins are 9. UA shows yellow cloudy urine with positive nitrites, 100 leukocyte esterase and 4+ bacteria. Chest x-ray shows stable cardiomegaly with diffuse interstitial pattern, no evidence of an acute cardiopulmonary process. 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 Metastatic bone cancer Non-ST elevation (NSTEMI) myocardial infarction Nonrheumatic aortic (valve) stenosis Nonrheumatic mitral valve regurgitation Nonrheumatic mitral valve stenosis with insufficiency Osteoarthritis Paroxysmal atrial fibrillation Peripheral vascular disease with claudication Secondary pulmonary arterial hypertension Type 2 diabetes mellitus Home Medications aspirin 81 mg PO DAILY@0800 06/30/15 [History Last Taken 08/22/20 08:00] ddzhhjmj-nqg-OQ-lycopen-lutein 1 each PO QHS 05/22/16 [History Last Taken 08/21/20 22:00] cholecalciferol (vitamin D3) 125 mcg (5,000 unit) capsule 125 mcg PO DAILY 09/23/19 [History Last Taken 08/21/20 22:00] calcium carbonate-vitamin D3 [Caltrate with Vitamin D3] 1 tab PO QHS 08/22/20 [History Last Taken 08/21/20] glipizide 10 mg PO 1200 08/22/20 [History Last Taken Unknown] glipizide 15 mg PO BIDCM 08/22/20 [History Last Taken 08/22/20 08:00] levothyroxine 88 mcg tablet 88 mcg PO DAILY tab 11/08/20 [History Last Taken Unknown] Victoza 3-Sd 1.8 mg SUBCUT DAILY 11/30/20 [History Last Taken Unknown] ezetimibe 10 mg PO QHS 11/30/20 [History Last Taken Unknown] furosemide [Lasix] 40 mg PO BID 11/30/20 [History Last Taken Unknown] gabapentin 300 mg PO TID 11/30/20 [History Last Taken Unknown] isosorbide mononitrate 30 mg PO DAILY 11/30/20 [History Last Taken Unknown] metoprolol succinate 200 mg PO DAILY 11/30/20 [History Last Taken Unknown] warfarin 1 mg PO .COMPLEX 11/30/20 [History Last Taken Unknown] warfarin 5 mg PO .COMPLEX 11/30/20 [History Last Taken Unknown] anastrozole 1 mg tablet 1 mg PO DAILY #90 tab 12/14/20 [Rx Last Taken Unknown] diltiazem HCl 180 mg tablet,extended release 24 hr 180 mg PO DAILY #90 tab 12/26/20 [Rx Last Taken Unknown] spironolactone 50 mg tablet 50 mg PO DAILY #90 tab 12/26/20 [Rx Last Taken Unknown] baclofen 10 mg tablet 5 mg PO TID PRN tab 01/08/21 [History Last Taken Unknown] Allergy/AdvReac Type Severity Reaction Status Date / Time [id number] Reductase AdvReac Severe myalgias Verified 01/13/21 14:17 Inhibitor Family History Father CVA (cerebral vascular accident) Mother Diabetes Hypertension Brother CAD (coronary artery disease) CVA (cerebral vascular accident) Hypertension Brother Diabetes Sister Diabetes Surgical History History of cardioversion (07/10/20) History of carpal tunnel release History of cataract surgery History of cholecystectomy History of foot surgery History of right and left heart catheterization (07/03/15) History of total right knee replacement Social History Smoking Status: Former smoker quit date: 03/03/69 Tobacco: How many years used: 5 Electronic Cigarette Use: not used how long ago did patient quit smokin second hand exposure: No alcohol intake: former substance use type: does not use caffeine: No what type of physical activity do you participate in: other details: PT frequency: 1-2 times per week duration: 45-60 minutes/day seatbelt use: always do you feel safe at home: Yes ROS Constitutional Constitutional: Denies anorexia, change in weight, chills, fatigue, fever(s), malaise, night sweats, weakness or other Eyes Eyes: Denies blurry vision, change in eye color, change in vision, discharge from eye(s), double vision, erythema, eye pain, loss of vision or other ENT HEENT: Denies abnormal hearing, dysphagia, ear pain, epistaxis, headache(s), hearing loss, nasal congestion, nasal discharge, post nasal drip, sinus pressure, sore throat or other Cardiovascular Cardiovascular: Reports dyspnea on exertion; Denies chest pain, claudication, edema, lightheadedness, orthopnea, palpitations, paroxysmal nocturnal dyspnea, rapid heart rate, syncope or other Respiratory/Chest Respiratory/Chest: Reports dyspnea, shortness of breath at rest and shortness of breath with exertion; Denies cough, excessive phlegm production, hemoptysis, productive cough, wheezing or other Gastrointestinal Gastrointestinal: Denies abdominal pain, coffee ground emesis, constipation, diarrhea, dyspepsia, hematemesis, hematochezia, loose stools, melena, nausea, vomiting or other Genitourinary Genitourinary: Denies burning urination, difficulty urinating, dysuria, hematuria, nocturia, urinary frequency, urinary hesitancy, urinary incontinence, urinary urgency or other Musculoskeletal Musculoskeletal: Denies arthralgias, back pain, joint pain, joint stiffness, joint swelling, myalgias, neck pain or other Neurologic Neurologic: Denies abnormal gait, abnormal speech, confusion, disequilibrium, dizziness, focal weakness, headache(s), numbness, paresthesias, seizure-like activity, seizures, syncope, tingling, tremor(s) or other Psychiatric Psychiatric: Denies anxiety, depression, homicidal ideation, suicidal ideation or other Endocrine Endocrinology: Denies change in body appearance, cold intolerance, excessive sweating, heat intolerance, polydipsia, polyuria or other Hematologic/Lymphatic Hematologic/Lymphatic: Denies anemia, easy bleeding, easy bruising, lymphadenopathy or other Allergic/Immunologic Allergic/Immunologic: Denies rhinitis, hives, eczemia, asthma or other Vital Signs Vital Signs Vital Signs: 01/13/21 14:18 01/13/21 14:30 01/13/21 14:45 Temperature 98.2 F Temperature Source Oral Pulse Rate 100 Respiratory Rate 20 H Respiratory Effort Normal Non-Labored Respiratory Depth Normal Respiratory Pattern Normal Blood Pressure 100/60 Blood Pressure Mean 73 Pulse Ox 92 94 89 Oxygen Delivery Method Room Air Room Air Room Air Oxygen Flow Rate (L/min) 01/13/21 15:13 01/13/21 17:52 01/13/21 17:57 Temperature 98.0 F Temperature Source Oral Pulse Rate 101 H 88 85 Respiratory Rate 16 19 H 19 H Respiratory Effort Respiratory Depth Respiratory Pattern Blood Pressure 100/67 108/59 L 108/59 L Blood Pressure Mean 78 75 75 Pulse Ox 98 99 100 Oxygen Delivery Method Nasal Cannula Nasal Cannula Room Air Oxygen Flow Rate (L/min) 2 2 2 Weight Weight: 250 lb 0.067 oz Body Mass Index (BMI) 44.2 Physical Exam Const alert and oriented x3 General Appearance: cooperative HEENT normocephalic, head/scalp atraumatic and hearing grossly normal bilaterally Eyes PERRL, EOMs intact bilaterally and conjunctivae normal Neck no lymphadenopathy, supple and no JVD Resp Effort and Inspection: tachypneic, respiratory distress and labored Auscultation: diminished lung sounds Cardio regular rate, no murmurs and no JVD GI normal to inspection, nondistended, normoactive bowel sounds and soft to palpation Palpation: tender Extremity normal to inspection, full ROM and no clubbing, cyanosis or edema Peripheral Pulses: Yes pulses 2+ throughout Skin no rashes or lesions noted, no wounds and skin turgor normal Neuro CN's II-XII intact bilaterally Psych affect normal Results Lab / Micro Data Result Diagrams: 01/13/21 14:45 01/13/21 14:45 Labs: Laboratory Results - last 24 hr 01/13/21 14:45: WBC 2.9 L, RBC 2.94 L, Hgb 8.3 L, Hct 26.5 L, MCV 90.1, MCH 28.2, MCHC 31.3 L, RDW Std Deviation 58.1 H, RDW Coeff of Cresencio 17.6 H, Plt Count 205, MPV 9.6, Immature Gran % (Auto) 1.000 H, Neut % (Auto) 73.2 H, Lymph % (Auto) 11.7 L, [place] % (Auto) 10.7 H, Eos % (Auto) 2.7, Baso % (Auto) 0.7, Absolute Neuts (auto) 2.1, Absolute Lymphs (auto) 0.34 L, Nucleated RBC % 0, Differential Comment SCANNED, Diff Path Review July01/13/21 14:45: PT 17.2 H, INR 1.5 01/13/21 14:45: Sodium 137, Potassium 3.5, Chloride 105, Carbon Dioxide 26.0, Anion Gap 6, BUN 33 H, Creatinine 1.32 H, Estim Creat Clear Calc 27.65, Est GFR (MDRD) Af Amer 50 L, Est GFR (MDRD) Non-Af 41 L, BUN/Creatinine Ratio 25.0 H, Glucose 254 H, Calcium 7.6 L, Troponin I High Sens 9 01/13/21 14:45: B-Natriuretic Peptide 711.5 H 01/13/21 17:00: Urine Color Yellow, Urine Clarity Sl. Cloudy, Urine pH 5.0, Ur Specific [place] 1.015, Urine Protein 30 H, Urine Glucose (UA) Normal, Urine Ketones Negative, Urine Occult Blood 50 H, Urine Nitrite Positive H, Urine Bilirubin Negative, Urine Urobilinogen Normal, Ur Leukocyte Esterase 100 H, Urine RBC 0 SEEN, Urine WBC 5-10 SEEN, Ur Squamous Epith Cells 0-5 SEEN, Urine Bacteria 4+, Urine Mucus 0 SEEN Micro: Microbiology 01/13/21 14:53 Nasal Secretion SARS-CoV-2 Antigen (Rapid) - Final Rhythm Strip Rhythm Strip: A-fib Rate: 93 Ectopy: None Radiology Impression Chest X-Ray 01/13/21 14:25 IMPRESSION: Stable cardiomegaly with diffuse interstitial pattern. No active or acute cardiopulmonary disease. Electronically Signed: Torin Jordan MD at 15:40 EST , Service support , Assessment & Plan Assessment/Plan (1) Acute dyspnea: (2) CHF (congestive heart failure): (3) Acute UTI: (4) Hypoxia: PLAN: Patient is an 81-year-old female who presents to the ED at [facility] on 01/13/2021 with a chief complaint of shortness of breath x4 days. Patient will be admitted for management of UTI and CHF exacerbation. 1) Acute hypoxic respiratory failure secondary to acute on chronic diastolic CHF exacerbation Patient presents with a 4-day history of progressively worsening shortness of breath with exertion. Patient denies any positional nature to her shortness of breath. On initial presentation to the ED patient was hypoxic at 89% on room air with elevated respirations. Patient has also had variable tachycardia in the ED that is currently resolved. BNP obtained in the ED was 711. Chest x-ray did demonstrate stable cardiomegaly but did not demonstrate any acute cardiopulmonary process. High-sensitivity troponins not elevated. Echocardiogram from April 2020 demonstrated normal LV size and systolic function, an estimated EF of 60%, and moderate aortic stenosis. Patient does follow with Dr. Muniz. Plan; placed on PCU for cardiac monitoring, continue to trend cardiac enzymes, daily weights, monitor I's and O's, echocardiogram in a.m., CBC and CMP in a.m., magnesium and phosphorus in a.m., hold home Lasix, initiate IV Lasix 40 mg twice daily, Legionella and strep pneumo urinary antigens ordered, viral respiratory panel ordered,. 2) UTI Patient denies any urinary symptoms, however UA obtained in the ED demonstrates yellow cloudy urine with positive nitrites, 100 leukocyte esterase, 4+ bacteria. CBC does not demonstrate a leukocytosis. Rapid Covid negative. Complicates #1. Plan; initiate Rocephin, continue to monitor urinary symptoms, CBC and CMP in a.m, urine culture ordered. 3) normocytic anemia Hemoglobin 8.3, baseline appears around 10. Blood present in urine, continue to monitor CBC. Will transfuse if hemoglobin is less than 7. Continue to monitor CBC. 4) DM2 with neuropathy Hold home glipizide and Victoza. Accu-Cheks with sliding scale insulin ordered. Continue gabapentin. 5) atrial fibrillation On diltiazem and metoprolol for rate control, on Coumadin for anticoagulation. Continue home A. fib regimen. All medications for other chronic conditions continued unless otherwise noted. CODE STATUS: DNRCC-A, no intubation. DVT prophylaxis - Lovenox Advance care planning: Patient's daughter Genevieve is healthcare power of prosecuting attorney and is to make decisions in the event that patient cannot make decisions for herself. Patient seen by Kelvin Zuniga PA-C, under the supervision of Dr. Walton. Documented by User: Dr. Monique Walton DO 01/13/21 18:47 HPI - General General Date of Admission: 01/13/21 Date of Service: 01/13/21 Chief Complaint: Shortness of breath HPI Narrative This patient was seen in conjunction with [facility]. The following is a representation my independent history and physical examination. Please see below for any addendum the above. Mrs. Gaitan is an 81-year-old white female who presented to the emergency department with the chief complaint of shortness of breath. She states that been ongoing but worse in the last several days. 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 She reports approximately 20 pound weight gain but states it has been over more times in the last 2 weeks. She complains of orthopnea and states she is unable to sleep well secondary to her shortness of breath. She is sleeping on a couple of pillows and unable to lie flat. Her symptoms are worse with exertion and better with rest. She does not have any fever, chills, sore throat, nausea, vomiting, diarrhea, cough or change in smell or taste. In the emergency department she was 89% on room air and typically does not wear oxygen. Her vital signs are otherwise stable other than some mild tachypnea with respiratory rates in the low 20s to upper teens. Her CBC shows a leukopenia, worsened anemia, and a stable platelet count. Her INR is subtherapeutic at 1.5 and she is on chronic Coumadin. Her electrolytes are unremarkable. Her BUN and serum creatinine appear to be close to her baseline. Her glucose is elevated at 254. High-sensitivity troponin was 9 and a BNP was 711.5 which is markedly elevated compared to previously. So some diffuse interstitial changes but was read as no acute cardiopulmonary process. Weight was obtained and is consistent with a urinary tract infection however the patient is asymptomatic at this time. She does have nitrites, leuk esterase, marked amounts of white blood cells and 4+ bacteria. She was given ceftriaxone and 40 mg of IV push Lasix in the emergency department and will be admitted to PCU for further care. [facility] Medical History Acquired hypothyroidism Atherosclerotic heart disease of knik coronary artery without angina pectoris Benign hypertension Breast cancer Cataracts, bilateral Chronic diastolic heart failure Chronic low back pain with bilateral sciatica Chronic low back pain with right-sided sciatica Disseminated cancer Elevated troponin Gout History of non-ST elevation myocardial infarction (NSTEMI) (06/30/15) Hyperlipidemia [facility] (current) use of anticoagulants Metastatic bone cancer Non-ST elevation (NSTEMI) myocardial infarction Nonrheumatic aortic (valve) stenosis Nonrheumatic mitral valve regurgitation Nonrheumatic mitral valve stenosis with insufficiency Osteoarthritis Paroxysmal atrial fibrillation Peripheral vascular disease with claudication Secondary pulmonary arterial hypertension Type 2 diabetes mellitus Home Medications aspirin 81 mg PO DAILY@0800 06/30/15 [History Last Taken 08/22/20 08:00] awrlfkqm-efg-MP-lycopen-lutein 1 each PO QHS 05/22/16 [History Last Taken 08/21/20 22:00] cholecalciferol (vitamin D3) 125 mcg (5,000 unit) capsule 125 mcg PO DAILY 09/23/19 [History Last Taken 08/21/20 22:00] calcium carbonate-vitamin D3 [Caltrate with Vitamin D3] 1 tab PO QHS 08/22/20 [History Last Taken 08/21/20] glipizide 10 mg PO 1200 08/22/20 [History Last Taken Unknown] glipizide 15 mg PO BIDCM 08/22/20 [History Last Taken 08/22/20 08:00] levothyroxine 88 mcg tablet 88 mcg PO DAILY tab 11/08/20 [History Last Taken Unknown] Victoza 3-Sd 1.8 mg SUBCUT DAILY 11/30/20 [History Last Taken Unknown] ezetimibe 10 mg PO QHS 11/30/20 [History Last Taken Unknown] furosemide [Lasix] 40 mg PO BID 11/30/20 [History Last Taken Unknown] gabapentin 300 mg PO TID 11/30/20 [History Last Taken Unknown] isosorbide mononitrate 30 mg PO DAILY 11/30/20 [History Last Taken Unknown] metoprolol succinate 200 mg PO DAILY 11/30/20 [History Last Taken Unknown] warfarin 1 mg PO .COMPLEX 11/30/20 [History Last Taken Unknown] warfarin 5 mg PO .COMPLEX 11/30/20 [History Last Taken Unknown] anastrozole 1 mg tablet 1 mg PO DAILY #90 tab 12/14/20 [Rx Last Taken Unknown] diltiazem HCl 180 mg tablet,extended release 24 hr 180 mg PO DAILY #90 tab 12/26/20 [Rx Last Taken Unknown] spironolactone 50 mg tablet 50 mg PO DAILY #90 tab 12/26/20 [Rx Last Taken Unknown] baclofen 10 mg tablet 5 mg PO TID PRN tab 01/08/21 [History Last Taken Unknown] Allergy/AdvReac Type Severity Reaction Status Date / Time [id number]-Mel-Jtz Reductase AdvReac Severe myalgias Verified 01/13/21 14:17 Inhibitor Family History Father CVA (cerebral vascular accident) Mother Diabetes Hypertension Brother CAD (coronary artery disease) CVA (cerebral vascular accident) Hypertension Brother Diabetes Sister Diabetes Surgical History History of cardioversion (07/10/20) History of carpal tunnel release History of cataract surgery History of cholecystectomy History of foot surgery History of right and left heart catheterization (07/03/15) History of total right knee replacement Social History Smoking Status: Former smoker quit date: 03/03/69 Tobacco: How many years used: 5 Electronic Cigarette Use: not used how long ago did patient quit smokin second hand exposure: No alcohol intake: former substance use type: does not use caffeine: No what type of physical activity do you participate in: other details: PT frequency: 1-2 times per week duration: 45-60 minutes/day seatbelt use: always do you feel safe at home: Yes ROS Constitutional Constitutional: Reports change in weight; Denies anorexia, chills, fatigue, fever(s), malaise, night sweats, weakness or other Eyes Eyes: Denies blurry vision, change in eye color, change in vision, discharge from eye(s), double vision, erythema, eye pain, loss of vision or other ENT HEENT: Denies abnormal hearing, dysphagia, ear pain, epistaxis, headache(s), hearing loss, nasal congestion, nasal discharge, post nasal drip, sinus pressure, sore throat or other Cardiovascular Cardiovascular: Reports edema; Denies chest pain, claudication, dyspnea on exertion, lightheadedness, orthopnea, palpitations, paroxysmal nocturnal dyspnea, rapid heart rate, syncope or other Respiratory/Chest Respiratory/Chest: Reports dyspnea, shortness of breath at rest and shortness of breath with exertion; Denies cough, excessive phlegm production, hemoptysis, productive cough, wheezing or other Gastrointestinal Gastrointestinal: Reports dyspepsia; Denies abdominal pain, coffee ground emesis, constipation, diarrhea, hematemesis, hematochezia, loose stools, melena, nausea, vomiting or other Genitourinary Genitourinary: Reports urinary incontinence; Denies burning urination, difficulty urinating, dysuria, hematuria, nocturia, urinary frequency, urinary hesitancy, urinary urgency or other Musculoskeletal Musculoskeletal: Denies arthralgias, back pain, joint pain, joint stiffness, joint swelling, myalgias, neck pain or other Neurologic Neurologic: Denies abnormal gait, abnormal speech, confusion, disequilibrium, dizziness, focal weakness, headache(s), numbness, paresthesias, seizure-like activity, seizures, syncope, tingling, tremor(s) or other Psychiatric Psychiatric: Denies anxiety, depression, homicidal ideation, suicidal ideation or other Endocrine Endocrinology: Denies change in body appearance, cold intolerance, excessive sweating, heat intolerance, polydipsia, polyuria or other Hematologic/Lymphatic Hematologic/Lymphatic: Denies anemia, easy bleeding, easy bruising, lymphadenopathy or other Allergic/Immunologic Allergic/Immunologic: Denies rhinitis, hives, eczemia, asthma or other Physical Exam Const alert, oriented x3 and no apparent distress Constitutional Narrative: Morbidly obese by BMI elderly white female lying in bed, appears comfortable, nontoxic, sitting slightly reclined, nursing at bedside General Appearance: cooperative HEENT normocephalic, head/scalp atraumatic, hearing grossly normal bilaterally and moist oral mucous membranes HEENT Narrative: Dentures in place, Mallampati 2, no thrush Eyes PERRL and EOMs intact bilaterally Eyes Narrative: No scleral icterus, conjunctiva are mildly pale bilaterally Neck no lymphadenopathy and supple Neck Narrative: Cardiac murmur that radiates to bilateral carotid arteries, no bruit auscultated, trachea midline, no thyroid enlargement, mild JVD Resp no retractions, no use of accessory muscles and clear to auscultation bilaterally Resp Narrative: Mild tachypnea but no signs of respiratory distress, clear to auscultation without crackles or rales Auscultation: Negative for crackles, rales, rhonchi or wheezes Cardio regular rate, regular rhythm, S1 normal heart sound, no rub, no gallops and no clicks; Negative for S2 normal heart sound, no murmurs or no JVD Cardio Narrative: 4/6 systolic murmur most prominent at the right upper sternal border that radiates to bilateral carotids and a very soft S2 GI normal to inspection, nondistended, normoactive bowel sounds, soft to palpation and non-tender GI Narrative: Appears slightly distended but patient states this is baseline Extremity Extremity Narrative: Trace bilateral lower extremity edema without cyanosis or clubbing Peripheral Pulses: Yes pulses 2+ throughout Skin no rashes or lesions noted, no wounds, skin turgor normal, no jaundice, no petechiae and no mottling Neuro oriented x3, CN's II-XII intact bilaterally, moves all extremities and no focal motor deficits Neuro Narrative: Mild generalized weakness Sensorium / Orientation: awake and alert Speech: speech normal Psych affect normal Psych Narrative: Extremely pleasant Results Lab / Micro Data Result Diagrams: 01/13/21 14:45 01/13/21 14:45 Assessment & Plan Assessment/Plan (1) Acute dyspnea: (2) Acute UTI: (3) Hypoxia: PLAN: Assessment: Hypoxia Acute decompensated heart failure with preserved ejection fraction/diastolic and valvular heart failure Acute cystitis Normocytic anemia acute on chronic Chronic atrial fibrillation DM-2 Diabetic neuropathy Hypothyroidism Hypertension Metastatic breast CA Hyperlipidemia Chronic anticoagulation CKD the stage IIIa Plan: -We will diurese with Lasix IV push twice daily -Home dose was 40 mg p.o. twice daily -Accurate I's and O's, sodium restriction, fluid restriction, daily weights -We will repeat echocardiogram -Post recent echo from 04/2020 showed an EF of 60%, left atrial enlargement, moderate aortic stenosis with a calculated valve area of 0.93 -I would like to reassess her valve -Patient is possibly a poor TAVR candidate depending on the extensiveness of her metastatic breast CA and her overall life expectancy if her valve is worse -Check guaiac stool with drop in hemoglobin -This could be related to volume overload and will monitor with diuresis as well -No signs of acute bleeding at this time -Check respiratory panel, urine Legionella and strep pneumo antigens -Ceftriaxone for urinary tract infection -Urine culture is pending-await identification and sensitivities -Continue home cardiac medications -Hold home oral diabetic medications -Sliding scale insulin Accu-Cheks AC and at bedtime -INR is currently subtherapeutic will continue Coumadin and monitor daily INRs -Subcu enoxaparin until INR is greater than 2 for DVT prophylaxis -Patient was very clear on her CODE STATUS desiring to be DNR CCA without intubation as discussed with her in the emergency department Charges/Coding Visit Charges Inpatient E&M: 12084 Init Hosp L3
[2021-01-13] MEDS: Ceftriaxone 1 GM/50 ML BAG IV (18:10)
--- NOTE | 2021-01-13 18:53 | ECHOD_ITS ---
Version 2 Reason For Study: CHF Procedure This was a 2D Doppler, Color Flow transthoracic echocardiogram. Exam performed portable in patient room. Left Ventricle Normal LV size. Mild concentric left ventricular hypertrophy. Left ventricular systolic function is normal. The estimated ejection fraction is 55 %. No regional wall motion abnormalities noted. Right Ventricle Normal RV size. Normal systolic function. Atria The left atrium is severely enlarged. The right atrium is mildly enlarged. Mitral Valve Bileaflet diffuse mitral valve thickening. Moderate (2+) eccentric mitral valve insufficiency. Tricuspid Valve Normal tricuspid valve. Moderate (2+) tricuspid valve insufficiency. Pulmonary artery systolic pressure is 70 mmHg. Moderate pulmonary hypertension. Aortic Valve Moderate focal aortic valve calcification. Peak aortic valve gradient 35 mmHg. Mean aortic valve gradient 20 mmHg. Moderate aortic stenosis. Mild-Moderate (1-2+) eccentric aortic valve insufficiency. Pulmonic Valve Normal pulmonic valve. Great Vessels Normal aortic root. The pulmonary artery is normal size. Normal inferior vena cava. Pericardium/Pleural No pericardial effusion. Medication Definity deferred due to elevated PAP. MMode/2D Measurements & Calculations LVIDd: 4.3 cm IVSd: 1.2 cm LVOT diam: 2.0 cm LVIDs: 3.1 cm LVPWd: 1.2 cm RVDd: 4.5 cm FS: 27.3 % LVOT area: 3.3 cm2 Ao root diam: 3.5 cm LAV(MOD-bp): 126.1 ml LVAd ap4: 31.3 cm2 LAV(MOD-bp) Indexed: 59.8 ml/m2 LVLd ap4: 8.3 cm LAV(MOD-sp2): 113.9 ml EDV(MOD-sp4): 97.9 ml LAV(MOD-sp4): 130.6 ml EDV(sp4-el): 99.7 ml LVAs ap4: 19.9 cm2 LVLs ap4: 7.2 cm ESV(MOD-sp4): 47.8 ml ESV(sp4-el): 47.2 ml EF(MOD-sp4): 51.1 % EF(sp4-el): 52.7 % SV(MOD-sp4): 50.0 ml SV(sp4-el): 52.6 ml LA A4 area: 32.8 cm2 LA dimension(2D): 5.0 cm RA A4 area: 23.9 cm2 Doppler Measurements & Calculations MV E max bradley: 225.9 cm/sec Lat Peak E' Bradley: 4.6 cm/sec Med Peak E' Bradley: 5.3 cm/sec E/E' lat: 48.6 E/E' med: 42.7 MV V2 max: 246.8 cm/sec Ao V2 max: 298.0 cm/sec AI max bradley: 304.1 cm/sec MV max P.4 mmHg Ao max P.7 mmHg AI max P.1 mmHg MV V2 mean: 148.4 cm/sec Ao V2 mean: 213.5 cm/sec MV mean P.4 mmHg Ao mean P.2 mmHg AI dec slope: 426.7 cm/sec2 MV V2 VTI: 44.8 cm Ao V2 VTI: 60.8 cm AI P1/2t: 208.8 msec MVA(VTI): 1.0 cm2 NAIF(I,D): 0.76 cm2 NAIF(V,D): 0.88 cm2 LV V1 max: 80.8 cm/sec SV(LVOT): 45.9 ml TR max bradley: 403.5 cm/sec LV V1 max P.6 mmHg TR max P.1 mmHg LV V1 mean P.2 mmHg LV V1 mean: 50.8 cm/sec LV V1 VTI: 14.1 cm ECHO/Echo Complete Interpretation Summary Normal LV size. Left ventricular systolic function is normal. Mild concentric left ventricular hypertrophy. The left atrium is severely enlarged. Moderate (2+) eccentric mitral valve insufficiency. Pulmonary artery systolic pressure is 70 mmHg. Moderate pulmonary hypertension. Mean aortic valve gradient 20 mmHg. Moderate aortic stenosis. Compared to the previous echo the mitral regurgitation is worse in the tricuspi d regurgitation also appears to be worse. The aortic valve characteristics are stable. Ordering Physician: Monique Walton Referring Physician: LEW KLEIN Performed By: Chanel Potter RDCS, RVT
--- NOTE | 2021-01-13 19:49 | PCS.PANDOC ---
PANDEMIC DOCUMENTATION INITIATED: Date: 10/16/2020 Time: 190
[2021-01-13 20:46] LABS: Troponin-I HS 10 pg/mL (3.0-54.0)
[2021-01-13 21:39] LABS: Troponin-I HS 10 pg/mL (3.0-54.0)
[2021-01-13 23:06] LABS: Bedside Glucose 136 mg/dL (70-110)
[2021-01-13] MEDS: Gabapentin 300 MG Capsule PO (23:14)
[2021-01-13] MEDS: Calcium Carb/Vitamin D 1 TABLET Tablet PO (23:15)
[2021-01-13] MEDS: Ezetimibe 10 MG Tablet PO (23:15)
[2021-01-13] MEDS: Multivitamins,Ther W-Minerals Tablet 1 TABLET PO (23:15)
[2021-01-13] MEDS: Furosemide 40 MG/4 ML Vial IV (23:16)
[2021-01-14] VITALS (12 sets, daily range): BP systolic 90–103; BP diastolic 57–64; PULSE 75–117; RESP 16–18; TEMP 36.4–36.7; O2SAT 92–100
[2021-01-14] MEDS: Levothyroxine 88 MCG Tablet PO (06:22)
[2021-01-14] MEDS: Gabapentin 300 MG Capsule PO ×3 (06:22→21:54)
[2021-01-14 06:46] LABS: Bedside Glucose 132 mg/dL (70-110)
[2021-01-14 07:10] LABS: Absolute Lymphocyte Count 0.53 X10^3/uL (0.83-4.51); Absolute Neutrophil Count 2.8 X10^3/uL (2.0-7.7); Basophil# 0.01 X10^3/uL; Basophil% 0.3 % (0-1); Eosinophil# 0.17 X10^3/uL; Eosinophils% 4.3 % (0-5); Hematocrit 25.6 % (37-47); Hemoglobin 7.9 g/dL (12.0-15.0); Lymphocyte # 0.53 X10^3/ul (0.83-4.51); Lymphocyte % 13.4 % (19-41); Mean Corp Hgb Conc 30.9 g/dL (32-36); Mean Corpuscular Hgb 28.2 pg (27.0-32.0); Mean Corpuscular Volume 91.4 fL (81-99); Mean Platelet Vol. 9.8 fl (6.2-12.0); Monocyte# 0.42 X10^3/uL; Monocyte% 10.6 % (0-10); NRBC Flagged by Analyzer 0 % (0-5); Neutrophil # 2.79 X10^3/uL (2.7-7.7); Neutrophil % 70.4 % (47-70); POSITIVE DIFFERENTIAL YES; Platelet Count 197 K/mm3 (150-450); RBC Distribution Width CV 17.8 % (11.6-14.6)
[2021-01-14 07:28] LABS: International Normalized Ratio 1.4; Prothrombin Time (Protime)PT. 16.7 SECONDS (11.7-14.9)
[2021-01-14 07:41] LABS: Differential Indicated SCAN CRITERIA MET
[2021-01-14 07:43] LABS: AST(SGOT) 15 U/L (15-37); Alanine Aminotransfer ALT/SGPT 33 U/L (13-56); Albumin, Serum 2.9 g/dL (3.2-5.0); Alkaline Phosphatase 98 U/L (45-117); Anion Gap 5 (5-15); BUN 31 mg/dL (7-18); BUN/Creat Ratio 25.4 RATIO (10-20); Calcium,Total 7.4 mg/dL (8.5-10.1); Chloride 106 mmol/L (98-107); Creatinine, Serum 1.22 mg/dL (0.55-1.02); EST Glomerular Filtration Rate 45 mL/min (>60); Est Glom Filt Rate - Afr Amer 54 mL/min (>60); Estimated Creatinine Clearance 29.92 ml/min; Glucose 145 mg/dL (74-106); Magnesium 1.8 mg/dL (1.6-2.6); Phosphorus 1.2 mg/dL (2.5-4.9); Potassium 3.3 mmol/L (3.5-5.1); Protein, Total 5.9 g/dL (6.4-8.2); Sodium Level 139 mmol/L (136-145)
[2021-01-14 08:25] LABS: Differential Comment SCANNED
[2021-01-14 08:51] LABS: Ferritin 113 ng/mL (8-252); Iron 29 ug/dL (50-170); Iron Binding Capacity,Total 293 ug/dL (250-450); PERCENT IRON SATURATION 9.9 % (15.0-55.0)
[2021-01-14 08:52] LABS: Platelet Count 206 K/mm3 (150-450); RET-HE 25.6 pg (30-35); Reticulocyte Count 5.66 % (0.5-1.5)
[2021-01-14] MEDS: Potassium Chloride Oral Tablet 20 MEQ 40 MEQ PO (09:04)
[2021-01-14] MEDS: Spironolactone 50 MG Tablet PO (09:05)
[2021-01-14] MEDS: Isosorbide Mononitrate 30 MG Tablet PO (09:05)
[2021-01-14] MEDS: Anastrozole 1 MG TABLET PO (09:05)
[2021-01-14] MEDS: Aspirin 81 MG TAB.CHEW PO (09:05)
[2021-01-14] MEDS: dilTIAZem CD 180 MG Capsule PO (09:05)
[2021-01-14] MEDS: Furosemide 40 MG/4 ML Vial IV ×2 (09:06→17:30)
[2021-01-14] MEDS: Ceftriaxone 1 GM/50 ML BAG IV (09:06)
[2021-01-14] MEDS: Enoxaparin 30 MG/0.3 ML Syringe SC (09:06)
--- NOTE | 2021-01-14 10:55 | PN.HOSP_ITS ---
Documented by User: Kelvin BATRES 01/14/21 13:38 Subjective Subjective Patient is an 81-year-old female comfortably resting in a chair, alert and orient x3. Patient reports significant improvement in her shortness of breath and abdominal bloating from yesterday. She does feel that these 2 symptoms have improved. Denies development of any new symptoms overnight. Does not appear in acute distress. Objective Data Objective Data Vital Signs: Vital Signs Temp Pulse Resp BP Pulse Ox 97.5 F L 89 16 99/57 L 98 01/14/21 09:00 01/14/21 09:00 01/14/21 09:00 01/14/21 09:00 01/14/21 09:00 Oxygen Flow Rate (L/min) 2 Oxygen Delivery Method Nasal Cannula Weight: 243 lb 2.718 oz Body Mass Index (BMI) 42.6 Intake & Output: Intake and Output for Last 24 Hours 01/12/21 01/13/21 01/14/21 23:59 23:59 23:59 Intake Total 50 / 50 50 / 50 Output Total 250 / 250 Balance -200 / -200 50 / 50 Lab / Micro Data Result Diagrams: 01/14/21 06:50 01/14/21 06:50 Labs: Laboratory Results - last 24 hr 01/13/21 14:45: WBC 2.9 L, RBC 2.94 L, Hgb 8.3 L, Hct 26.5 L, MCV 90.1, MCH 28.2, MCHC 31.3 L, RDW Std Deviation 58.1 H, RDW Coeff of Cresencio 17.6 H, Plt Count 205, MPV 9.6, Immature Gran % (Auto) 1.000 H, Neut % (Auto) 73.2 H, Lymph % (Auto) 11.7 L, [place] % (Auto) 10.7 H, Eos % (Auto) 2.7, Baso % (Auto) 0.7, Absolute Neuts (auto) 2.1, Absolute Lymphs (auto) 0.34 L, Nucleated RBC % 0, Differential Comment SCANNED, Diff Path Review July01/13/21 14:45: PT 17.2 H, INR 1.5 01/13/21 14:45: Sodium 137, Potassium 3.5, Chloride 105, Carbon Dioxide 26.0, Anion Gap 6, BUN 33 H, Creatinine 1.32 H, Estim Creat Clear Calc 27.65, Est GFR (MDRD) Af Amer 50 L, Est GFR (MDRD) Non-Af 41 L, BUN/Creatinine Ratio 25.0 H, Glucose 254 H, Calcium 7.6 L, Troponin I High Sens 9 01/13/21 14:45: B-Natriuretic Peptide 711.5 H 01/13/21 17:00: Urine Color Yellow, Urine Clarity Sl. Cloudy, Urine pH 5.0, Ur Specific [place] 1.015, Urine Protein 30 H, Urine Glucose (UA) Normal, Urine Ketones Negative, Urine Occult Blood 50 H, Urine Nitrite Positive H, Urine Bilirubin Negative, Urine Urobilinogen Normal, Ur Leukocyte Esterase 100 H, Urine RBC 0 SEEN, Urine WBC 5-10 SEEN, Ur Squamous Epith Cells 0-5 SEEN, Urine Bacteria 4+, Urine Mucus 0 SEEN 01/13/21 18:12: Blood Type O POSITIVE, Antibody Screen NEGATIVE 01/13/21 20:04: Troponin I High Sens 10 01/13/21 21:00: Troponin I High Sens 10 01/13/21 23:02: POC Glucose 136 H 01/14/21 06:29: POC Glucose 132 H 01/14/21 06:50: WBC 4.0 L, RBC 2.80 L, Hgb 7.9 L, Hct 25.6 L, MCV 91.4, MCH 28.2, MCHC 30.9 L, RDW Std Deviation 59.0 H, RDW Coeff of Cresencio 17.8 H, Plt Count 197, MPV 9.8, Immature Gran % (Auto) 1.000 H, Neut % (Auto) 70.4 H, Lymph % (Auto) 13.4 L, [place] % (Auto) 10.6 H, Eos % (Auto) 4.3, Baso % (Auto) 0.3, Absolute Neuts (auto) 2.8, Absolute Lymphs (auto) 0.53 L, Nucleated RBC % 0, Differential Comment SCANNED, Diff Path Review July01/14/21 06:50: PT 16.7 H, INR 1.4 01/14/21 06:50: Sodium 139, Potassium 3.3 L, Chloride 106, Carbon Dioxide 28.0, Anion Gap 5, BUN 31 H, Creatinine 1.22 H, Estim Creat Clear Calc 29.92, Est GFR (MDRD) Af Amer 54 L, Est GFR (MDRD) Non-Af 45 L, BUN/Creatinine Ratio 25.4 H, Glucose 145 H, Calcium 7.4 L, Phosphorus 1.2 L, Magnesium 1.8, Total Bilirubin 0.70, AST 15, ALT 33, Alkaline Phosphatase 98, Total Protein 5.9 L, Albumin 2.9 L, Globulin 3.0, Albumin/Globulin Ratio 1.0 01/14/21 06:50: Retic Count 5.66 H, Immature Retic Fraction 29.20 H, Retic Hgb Equivalent 25.6 L 01/14/21 06:50: Iron 29 L, TIBC 293, Iron Saturation 9.9 L, Ferritin 113 Micro: Microbiology 01/14/21 08:40 Stool Stool Occult Blood (TINO) - Final Occult Blood Positive 01/13/21 20:35 Mucosa - Nasopharyngeal Respiratory Panel (PCR) - Final 01/13/21 22:53 Urine, Clean Catch Legionella Antigen - Final 01/13/21 22:53 Urine, Clean Catch Streptococcus pneumoniae Antigen (M - Final 01/13/21 14:53 Nasal Secretion SARS-CoV-2 Antigen (Rapid) - Final Radiography Diagnostic Testing: Radiology Impression Chest X-Ray 01/13/21 14:25 IMPRESSION: Stable cardiomegaly with diffuse interstitial pattern. No active or acute cardiopulmonary disease. Electronically Signed: Torin Jordan MD at 15:40 EST , Service support , Rhythm Strip Rhythm Strip: A-fib Rate: 93 Ectopy: None Physical Exam Const alert, oriented x3 and no apparent distress HEENT head/scalp atraumatic and moist oral mucous membranes Head and Scalp: normocephalic Eyes PERRL, EOMs intact bilaterally and conjunctivae normal Neck no lymphadenopathy, supple and no JVD Resp normal respiratory effort, no retractions, no use of accessory muscles and clear to auscultation bilaterally Cardio regular rate, regular rhythm, no murmurs and no JVD GI normal to inspection, nondistended, normoactive bowel sounds, soft to palpation and non-tender Extremity normal to inspection, full ROM and no clubbing, cyanosis or edema Peripheral Pulses: Yes pulses 2+ throughout Skin no rashes or lesions noted, no wounds, skin turgor normal and no jaundice Neuro CN's II-XII intact bilaterally Psych affect normal Assessment & Plan Assessment/Plan (1) Acute dyspnea: (2) Hypoxia: (3) CHF (congestive heart failure): (4) Acute UTI: PLAN: Day 1 Discharge planning: Current plan is for patient to discharge home. 1) acute decompensated heart failure with preserved ejection fraction/diastolic and valvular heart failure Patient's respiratory status has improved from admission and she has no longer hypoxic or in respiratory distress. Currently satting at 98% on 2 L via nasal cannula and respirations are at 16 breaths/min. Patient no longer feels that she is short of breath. Echocardiogram was ordered on admission, however due to the fact that it is Friday will not be completed till 01/15/2021. Echocardiogram will be compared to prior study and recommendations will be obtained from cardiology about inpatient versus outpatient management. Viral respiratory panel, Legionella and strep strep pneumo urinary antigens and rapid Covid are negative. Plan; remain on PCU, continue Lasix 40 mg IV twice daily, continue beta-robbie, continue to monitor I's and O's and daily weights. 2) UTI Patient denies any urinary symptoms, however UA obtained in the ED demonstrates yellow cloudy urine with positive nitrites, 100 leukocyte esterase, 4+ bacteria. CBC does not demonstrate a leukocytosis. CBC does not demonstrate a leukocyto sis and vital signs are stable, patient is afebrile. Urine culture pending. Plan; continue Rocephin, continue to monitor urinary symptoms, continue to monitor CBC. 3) normocytic anemia Hemoglobin 7.9, baseline appears around 10. Iron studies obtained and patient is low on iron, stool is occult positive. GI consulted and anticoagulants have been stopped. 4) DM2 with neuropathy Hold home glipizide and Victoza. Accu-Cheks with sliding scale insulin ordered. Continue gabapentin. 5) atrial fibrillation Rate controlled. On diltiazem and metoprolol for rate control, on Coumadin for anticoagulation. Continue home A. fib regimen. Anticoagulants on hold as above. All medications for other chronic conditions continued unless otherwise noted. DVT prophylaxis - not indicated. Patient seen by Kelvin Zuniga PA-C, under the supervision of Dr. Walton. Documented by User: Dr. Monique Walton DO 01/14/21 14:58 Subjective Subjective This patient was seen in conjunction with [facility]. The following represents my independent history and physical examination. Please see below for any addendum the above. Patient states that she is feeling a little bit better with regards to her shortness of breath especially with exertion. She has had several bowel movements today which is atypical for her and she was not having at presentation. Rapid Covid study was negative. She is on 2 L nasal cannula with oxygen saturation at 92 to 100%. Objective Data Lab / Micro Data Result Diagrams: 01/14/21 06:50 01/14/21 06:50 Physical Exam Const alert, oriented x3 and no apparent distress Constitutional Narrative: Morbidly obese by BMI elderly white female sitting up in a chair at the bedside, appears comfortable, nontoxic, nursing at bedside General Appearance: cooperative Exam Limitations: no limitations Nutritional Appearance: morbidly obese HEENT normocephalic, head/scalp atraumatic, hearing grossly normal bilaterally and moist oral mucous membranes HEENT Narrative: Mallampati 2, no thrush Head and Scalp: normocephalic Resp no retractions, no use of accessory muscles and clear to auscultation bilaterally Resp Narrative: Mild tachypnea but no signs of respiratory distress, clear to auscultation without crackles or rales Auscultation: Negative for crackles, rales, rhonchi or wheezes Cardio regular rate, regular rhythm, S1 normal heart sound, no rub, no gallops and no clicks; Negative for S2 normal heart sound, no murmurs or no JVD Cardio Narrative: 4/6 systolic murmur most prominent at the right upper sternal border that radiates to bilateral carotids and a very soft S2 GI normal to inspection, nondistended, normoactive bowel sounds, soft to palpation and non-tender GI Narrative: Appears slightly distended but patient states this is baseline Extremity Extremity Narrative: Trace bilateral lower extremity edema without cyanosis or clubbing Peripheral Pulses: Yes pulses 2+ throughout Neuro oriented x3, moves all extremities and no focal motor deficits Neuro Narrative: Mild generalized weakness Sensorium / Orientation: awake and alert Speech: speech normal Assessment & Plan Assessment/Plan (1) Acute dyspnea: (2) Hypoxia: (3) Anemia: (4) GI bleed: PLAN: Assessment: Hypoxia Acute decompensated heart failure with preserved ejection fraction/diastolic and valvular heart failure Acute E. coli urinary tract infection Hypokalemia Hypophosphatemia Normocytic anemia acute on chronic Guaiac positive stool Chronic atrial fibrillation DM-2 Diabetic neuropathy Hypothyroidism Hypertension Metastatic breast CA Hyperlipidemia Chronic anticoagulation CKD the stage IIIa Plan: -Continue Lasix 40 mg twice daily -Continue to monitor I's and O's/daily weights Continue fluid and sodium restricted diet -Echocardiogram is pending--> I am concerned that she may have worsening aortic valve disease -Consider cardiology consultation depending on echocardiogram -Avoid marked afterload reduction given severe aortic stenosis -Stool guaiac is positive and will therefore hold Coumadin and subcutaneous enoxaparin -Consult GI -Current urine culture showing presumptive E. coli with sensitivities pending -Continue ceftriaxone -P.o. potassium replacement -Phosphorus replacement Iron studies ordered -Renal function has actually improved despite diuresis -Patient was very clear on her CODE STATUS desiring to be DNR CCA without intubation as discussed with her in the emergency department Charges/Coding Visit Charges Inpatient E&M: 77294 Subs Hosp L2
[2021-01-14] MEDS: Insulin Lispro 100 UNIT/ML INSULN.PEN SC ×2 (12:19→17:30)
[2021-01-14] MEDS: Metoprolol(XL)Succ 200 MG Tablet PO (12:19)
[2021-01-14] MEDS: Ferrous Sulfate 325 MG Tablet PO (12:20)
[2021-01-14 12:25] LABS: Bedside Glucose 281 mg/dL (70-110)
[2021-01-14 15:37] LABS: Probe Check PASS; Specimen Processing Control PASS
--- NOTE | 2021-01-14 16:02 | EX.PCM.CON.G ---
HPI Consult Data Date of Consult: 01/14/21 HPI Narrative HPI Narrative: 81-year-old female history of hypertension, CHF, A. fib on Coumadin. She states that she has been short of breath in the last several days worse with exertion. Denies fever or chills. No significant cough. She states her copy messenger about 2 weeks ago added Lasix onto her medications due to what they thought was worsening congestive heart failure. She is a known heart murmur secondary to valvular heart disease which they are observing. She presented last year with persistent low back ache. She had MRI of the lumbar spine on 11/11/2019 which showed destructive lesions in L1, L4 and 5 so was referred by Dr. Ledezma for further evaluation. CT c/a/p on 11/26/2019 showed L breast lump, destructive/sclerotic lesion in L1,3/4/5. PET/CT on 12/18/2019 showed hypermetabolic activities in L breast lump, spleen and LS spine. Started Anastrozole 1mg daily on 12/22/2019. She got radiation therapy to LS spine from 01/05/2020-01/18/2020. Remains on Anastrozole. Dentist cleared her for Xgeva therapy on 02/07/2020. She started Xgeva injection on 04/05/2020. Bone scan on 04/28/2020 showed improvement in bone metastases. Remains on Anastrozole. Xgeva was changed to every 3 months in June 2020. I was called because she was determined to have iron deficiency anemia with a hemoglobin of 7.7 and a ferritin of 9.9. She has not received any blood transfusions. She is not on any iron therapy. She has been having some diarrhea stools since being in the hospital and this was attributed to antibiotics. The stool studies are pending. FORMERLY [facility], 1928–1983 Medical History Acquired hypothyroidism Atherosclerotic heart disease of [place] coronary artery without angina pectoris Benign hypertension Breast cancer Cataracts, bilateral Chronic diastolic heart failure Chronic low back pain with bilateral sciatica Chronic low back pain with right-sided sciatica Disseminated cancer Elevated troponin Gout History of non-ST elevation myocardial infarction (NSTEMI) (06/30/15) Hyperlipidemia penitentiary (current) use of anticoagulants Metastatic bone cancer Non-ST elevation (NSTEMI) myocardial infarction Nonrheumatic aortic (valve) stenosis Nonrheumatic mitral valve regurgitation Nonrheumatic mitral valve stenosis with insufficiency Osteoarthritis Paroxysmal atrial fibrillation Peripheral vascular disease with claudication Secondary pulmonary arterial hypertension Type 2 diabetes mellitus Home Medications aspirin 81 mg PO DAILY@0800 06/30/15 [History Last Taken 08/22/20 08:00] jvxamsyw-rog-BV-lycopen-lutein 1 each PO QHS 05/22/16 [History Last Taken 08/21/20 22:00] cholecalciferol (vitamin D3) 125 mcg (5,000 unit) capsule 125 mcg PO DAILY 09/23/19 [History Last Taken 08/21/20 22:00] calcium carbonate-vitamin D3 [Caltrate with Vitamin D3] 1 tab PO QHS 08/22/20 [History Last Taken 08/21/20] glipizide 10 mg PO 1200 08/22/20 [History Last Taken Unknown] glipizide 15 mg PO BIDCM 08/22/20 [History Last Taken 08/22/20 08:00] levothyroxine 88 mcg tablet 88 mcg PO DAILY tab 11/08/20 [History Last Taken Unknown] Victoza 3-Sd 1.8 mg SUBCUT DAILY 11/30/20 [History Last Taken Unknown] ezetimibe 10 mg PO QHS 11/30/20 [History Last Taken Unknown] furosemide [Lasix] 40 mg PO BID 11/30/20 [History Last Taken Unknown] gabapentin 300 mg PO TID 11/30/20 [History Last Taken Unknown] isosorbide mononitrate 30 mg PO DAILY 11/30/20 [History Last Taken Unknown] metoprolol succinate 200 mg PO DAILY 11/30/20 [History Last Taken Unknown] warfarin 1 mg PO .COMPLEX 11/30/20 [History Last Taken Unknown] warfarin 5 mg PO .COMPLEX 11/30/20 [History Last Taken Unknown] anastrozole 1 mg tablet 1 mg PO DAILY #90 tab 12/14/20 [Rx Last Taken Unknown] diltiazem HCl 180 mg tablet,extended release 24 hr 180 mg PO DAILY #90 tab 12/26/20 [Rx Last Taken Unknown] spironolactone 50 mg tablet 50 mg PO DAILY #90 tab 12/26/20 [Rx Last Taken Unknown] baclofen 10 mg tablet 5 mg PO TID PRN tab 01/08/21 [History Last Taken Unknown] Allergy/AdvReac Type Severity Reaction Status Date / Time Ulimxpn-Rnw-Naf Reductase AdvReac Severe myalgias Verified 01/13/21 14:17 Inhibitor Family History Father CVA (cerebral vascular accident) Mother Diabetes Hypertension Brother CAD (coronary artery disease) CVA (cerebral vascular accident) Hypertension Brother Diabetes Sister Diabetes Surgical History History of cardioversion (07/10/20) History of carpal tunnel release History of cataract surgery History of cholecystectomy History of foot surgery History of right and left heart catheterization (07/03/15) History of total right knee replacement Social History (Updated 01/13/21 @ 22:34 by Deepti Samaniego) household members: none housing: house number of children: 4 Smoking Status: Former smoker quit date: 03/03/69 Tobacco: How many years used: 5 Electronic Cigarette Use: not used how long ago did patient quit smokin second hand exposure: No alcohol intake: former substance use type: does not use caffeine: No what type of physical activity do you participate in: other details: PT frequency: 1-2 times per week duration: 45-60 minutes/day seatbelt use: always do you feel safe at home: Yes ROS Review of Systems ROS Unobtainable: other Constitutional Constitutional: Denies fatigue, fever(s), poor appetite, weight gain or weight loss ENT HEENT: Denies mouth lesions Cardiovascular Cardiovascular: Denies abdominal bloating, abdominal edema or abdominal pain Respiratory/Chest Respiratory/Chest: Denies change in mental status, change in phlegm color, chest congestion or chest tightness Gastrointestinal Gastrointestinal: Denies belching, bloating, change in bowel habits, change in stool character, chewing difficulty, coffee ground emesis, constipation, cramping, diarrhea, dyspepsia, dysphagia, early satiety, excessive flatus, fecal incontinence, heartburn, hematemesis, hematochezia, hemorrhoids, loose stools, melena, nausea, odynophagia, rectal bleeding, tenesmus, vomiting or weight changes Genitourinary Genitourinary: Denies abdominal discomfort, burning urination or itching Musculoskeletal Musculoskeletal: Reports as per HPI; Denies muscle weakness or myalgias Integumentary Integumentary: Denies jaundice Neurologic Neurologic: Denies lack of coordination or weakness Psychiatric Psychiatric: Denies confusion, depression, memory loss, mood swings, paranoia or suicidal ideation Endocrine Endocrinology: Denies systems reviewed and no addt'l complaints, except as documented Hematologic/Lymphatic Hematologic/Lymphatic: Denies anemia, easy bleeding, easy bruising or lymphadenopathy Allergic/Immunologic Allergic/Immunologic: Denies systems reviewed and no addt'l complaints, except as documented Physical Exam Const alert General Appearance: cooperative Orientation / Consciousness: oriented to person HEENT hearing grossly normal bilaterally Head and Scalp: normal to inspection Face and Sinus: face symmetric Nose: external nose normal Mouth: oral and palatal mucosa normal Eyes conjunctivae normal General Eye: normal appearance of both eyes Neck full ROM General: normal visual inspection Lymph Lymphatic: no lymphadenopathy noted Chest inspection of chest normal and palpation of chest normal Chest: symmetrical chest wall rise Resp normal respiratory effort Effort and Inspection: able to speak in complete sentences Cardio regular rate GI non-distended Percussion: normal to percussion Rectal Exam: deferred Neuro Speech: speech normal Gait (Neuro): normal gait Lab / Micro Data Result Diagrams: 01/14/21 06:50 01/14/21 06:50 Labs: Laboratory Results - last 24 hr 01/13/21 17:00: Urine Color Yellow, Urine Clarity Sl. Cloudy, Urine pH 5.0, Ur Specific [place] 1.015, Urine Protein 30 H, Urine Glucose (UA) Normal, Urine Ketones Negative, Urine Occult Blood 50 H, Urine Nitrite Positive H, Urine Bilirubin Negative, Urine Urobilinogen Normal, Ur Leukocyte Esterase 100 H, Urine RBC 0 SEEN, Urine WBC 5-10 SEEN, Ur Squamous Epith Cells 0-5 SEEN, Urine Bacteria 4+, Urine Mucus 0 SEEN 01/13/21 18:12: Blood Type O POSITIVE, Antibody Screen NEGATIVE 01/13/21 20:04: Troponin I High Sens 10 01/13/21 21:00: Troponin I High Sens 10 01/13/21 23:02: POC Glucose 136 H 01/14/21 06:29: POC Glucose 132 H 01/14/21 06:50: WBC 4.0 L, RBC 2.80 L, Hgb 7.9 L, Hct 25.6 L, MCV 91.4, MCH 28.2, MCHC 30.9 L, RDW Std Deviation 59.0 H, RDW Coeff of Cresencio 17.8 H, Plt Count 197, MPV 9.8, Immature Gran % (Auto) 1.000 H, Neut % (Auto) 70.4 H, Lymph % (Auto) 13.4 L, [place] % (Auto) 10.6 H, Eos % (Auto) 4.3, Baso % (Auto) 0.3, Absolute Neuts (auto) 2.8, Absolute Lymphs (auto) 0.53 L, Nucleated RBC % 0, Differential Comment SCANNED, Diff Path Review July foll 01/14/21 06:50: PT 16.7 H, INR 1.4 01/14/21 06:50: Sodium 139, Potassium 3.3 L, Chloride 106, Carbon Dioxide 28.0, Anion Gap 5, BUN 31 H, Creatinine 1.22 H, Estim Creat Clear Calc 29.92, Est GFR (MDRD) Af Amer 54 L, Est GFR (MDRD) Non-Af 45 L, BUN/Creatinine Ratio 25.4 H, Glucose 145 H, Calcium 7.4 L, Phosphorus 1.2 L, Magnesium 1.8, Total Bilirubin 0.70, AST 15, ALT 33, Alkaline Phosphatase 98, Total Protein 5.9 L, Albumin 2.9 L, Globulin 3.0, Albumin/Globulin Ratio 1.0 01/14/21 06:50: Retic Count 5.66 H, Immature Retic Fraction 29.20 H, Retic Hgb Equivalent 25.6 L 01/14/21 06:50: Iron 29 L, TIBC 293, Iron Saturation 9.9 L, Ferritin 113 01/14/21 12:06: POC Glucose 281 H 01/14/21 14:25: COVID-19 (FELIPE) Negative Micro: Microbiology 01/13/21 17:00 Urine, Clean Catch Urine Culture - Preliminary Presumptive E. coli 01/14/21 08:40 Stool Stool Occult Blood (TINO) - Final Occult Blood Positive 01/13/21 20:35 Mucosa - Nasopharyngeal Respiratory Panel (PCR) - Final 01/13/21 22:53 Urine, Clean Catch Legionella Antigen - Final 01/13/21 22:53 Urine, Clean Catch Streptococcus pneumoniae Antigen (M - Final 01/13/21 14:53 Nasal Secretion SARS-CoV-2 Antigen (Rapid) - Final Rhythm Strip Rhythm Strip: A-fib Rate: 93 Ectopy: None Assessment & Plan Assessment/Plan (1) GI bleed: PLAN: I have seen cases of breast cancer metastasizing to the stomach. She did not know she was anemic but did know she had been having some diarrhea stools that were black in content. The differential diagnosis does include AVMs of the upper GI tract, peptic ulcer disease, metastatic breast cancer to the stomach, gastritis, duodenitis. She should undergo evaluation of the upper GI tract with an EGD and if that is negative she may need a colonoscopy plus or minus capsule endoscopy (2) Anemia: PLAN: I would recommend iron transfusions and blood transfusion of 1 unit of packed red blood cells. Due to the fact that she is on anticoagulation for atrial fibrillation, CHF, COPD and metastatic breast cancer.
[2021-01-14] MEDS: 0.9% Saline Lock 10 ML Syringe IV (17:31)
[2021-01-14 17:41] LABS: Bedside Glucose 160 mg/dL (70-110)
[2021-01-14] MEDS: Ezetimibe 10 MG Tablet PO (21:54)
[2021-01-14] MEDS: Calcium Carb/Vitamin D 1 TABLET Tablet PO (21:54)
[2021-01-14] MEDS: Multivitamins,Ther W-Minerals Tablet 1 TABLET PO (21:54)
[2021-01-14 22:06] LABS: Bedside Glucose 196 mg/dL (70-110)
[2021-01-15] VITALS (18 sets, daily range): BP systolic 92–123; BP diastolic 44–88; PULSE 70–125; RESP 15–19; TEMP 36.2–36.8; O2SAT 95–100; BMI 43.4
[2021-01-15 06:26] LABS: Bedside Glucose 181 mg/dL (70-110)
[2021-01-15 07:55] LABS: Absolute Neutrophil Count 2.9 X10^3/uL (2.0-7.7); Basophil# 0.04 X10^3/uL; Basophil% 0.9 % (0-1); Eosinophil# 0.16 X10^3/uL; Eosinophils% 3.7 % (0-5); Hematocrit 26.3 % (37-47); Lymphocyte % 16.3 % (19-41); Mean Corp Hgb Conc 30.4 g/dL (32-36); Mean Corpuscular Hgb 27.7 pg (27.0-32.0); Mean Platelet Vol. 9.8 fl (6.2-12.0); Monocyte# 0.39 X10^3/uL; Monocyte% 9.1 % (0-10); NRBC Flagged by Analyzer 0 % (0-5); Neutrophil % 67.7 % (47-70); Platelet Count 172 K/mm3 (150-450); RBC Distribution Width CV 17.8 % (11.6-14.6); RBC Distribution Width SD 58.8 fl (35.1-43.9); Red Blood Count 2.89 M/mm3 (4.2-5.4); White Blood Count 4.3 K/mm3 (4.4-11.0)
[2021-01-15 08:12] LABS: Anion Gap 5 (5-15); BUN 37 mg/dL (7-18); BUN/Creat Ratio 25.5 RATIO (10-20); Calcium,Total 8.3 mg/dL (8.5-10.1); Chloride 108 mmol/L (98-107); Creatinine, Serum 1.45 mg/dL (0.55-1.02); EST Glomerular Filtration Rate 37 mL/min (>60); Est Glom Filt Rate - Afr Amer 45 mL/min (>60); Estimated Creatinine Clearance 25.17 ml/min; Glucose 209 mg/dL (74-106); Potassium 4.4 mmol/L (3.5-5.1); Sodium Level 138 mmol/L (136-145)
[2021-01-15] MEDS: Furosemide 40 MG/4 ML Vial IV ×2 (10:38→18:15)
[2021-01-15] MEDS: 0.9% Saline Lock 10 ML Syringe IV ×2 (10:38→18:15)
[2021-01-15] MEDS: Ceftriaxone 1 GM/50 ML BAG IV (10:38)
--- NOTE | 2021-01-15 10:44 | CASEMGMT ---
LUIZ ARVIZU assessment: Face to Face with patient for initial transition planning/care coordination assessment. RN NOLBERTO introduced self and role at [facility], pt voices understanding and consents to assessment. Pt is sitting up in bed in no distress on 2L nc. Pt is A/Ox4 and answers all questions appropriately. Care providers, pharmacy, and demographics verified. Presentation: Pt c/o increased SOB for several days, states hx Afib Admitting dx: Decomp HR, cystitis PCP: [facility] Specialists: Cristy, cardio; Eimle, onc; Ally neuro Preferred [facility]acy: [facility] Insurance: [facility] Prescription Benefit: [facility] Living Will/HPOA: Pt has LW/HPOA and is aware that they are not on file at [facility]. Pt's daughter, Genevieve Gaitan, is HPOA. LNOK: Genevieve Gaitan, daughter/HPOA; Shaye Foote, daughter Living Arrangements: Pt lives on main level of 2 story home with 2-3 steps in and states no concerns at home. Pt is independent with ADL's. Transportation: Pt states drives self and states no transportation concerns. DME/HHC: Pt has the following DME: cane and rollator. Pt states no need for any further DME. Pt states no hx of HHC or SNF. Pt states has a nurse thru [facility] and they are working on aides for her. Pt states no concerns with going home at time of discharge. Pt is retired. Pt states does not smoke cigarettes or drink ETOH. Pt voices no further concerns/needs. CM to follow for PT/OT notes, home oxygen need, and any further discharge planning/needs. Advised pt to ask for CM if any further questions/concerns/need arise, voices understanding. Pt Goal: Home Plan: Home [place] LUIZ ARVIZU
[2021-01-15 11:40] LABS: Bedside Glucose 246 mg/dL (70-110)
--- NOTE | 2021-01-15 11:55 | PN.HOSP_ITS ---
Documented by User: Kelvin BATRES 01/15/21 12:04 Subjective Subjective Patient is an 81-year-old female comfortably resting in bed, alert and orient x3. Patient reports improvement of shortness of breath from admission, does report some abdominal discomfort that she does not report as pain and rates it i s manageable. Patient does not appear in acute distress. Objective Data Objective Data Vital Signs: Vital Signs Temp Pulse Resp BP Pulse Ox 97.6 F L 86 16 115/88 H 97 01/15/21 11:16 01/15/21 11:16 01/15/21 11:16 01/15/21 11:16 01/15/21 11:16 Oxygen Flow Rate (L/min) 2 Oxygen Delivery Method Nasal Cannula Weight: 245 lb 2.464 oz Body Mass Index (BMI) 43.4 Intake & Output: Intake and Output for Last 24 Hours 01/13/21 01/14/21 01/15/21 23:59 23:59 23:59 Intake Total 50 / 50 1203.3333 / 1203.3333 50 / 50 Output Total 250 / 250 Balance -200 / -200 1203.3333 / 1203.3333 50 / 50 Lab / Micro Data Result Diagrams: 01/15/21 07:40 01/15/21 07:40 Labs: Laboratory Results - last 24 hr 01/14/21 12:06: POC Glucose 281 H 01/14/21 14:25: COVID-19 (FELIPE) Negative 01/14/21 17:30: POC Glucose 160 H 01/14/21 21:59: POC Glucose 196 H 01/15/21 06:21: POC Glucose 181 H 01/15/21 07:40: WBC 4.3 L, RBC 2.89 L, Hgb 8.0 L, Hct 26.3 L, MCV 91.0, MCH 27.7, MCHC 30.4 L, RDW Std Deviation 58.8 H, RDW Coeff of Cresencio 17.8 H, Plt Count 172, MPV 9.8, Immature Gran % (Auto) 2.300 H, Neut % (Auto) 67.7, Lymph % (Auto) 16.3 L, [place] % (Auto) 9.1, Eos % (Auto) 3.7, Baso % (Auto) 0.9, Absolute Neuts (auto) 2.9, Absolute Lymphs (auto) 0.70 L, Nucleated RBC % 0 01/15/21 07:40: Sodium 138, Potassium 4.4, Chloride 108 H, Carbon Dioxide 25.0, Anion Gap 5, BUN 37 H, Creatinine 1.45 H, Estim Creat Clear Calc 25.17, Est GFR (MDRD) Af Amer 45 L, Est GFR (MDRD) Non-Af 37 L, BUN/Creatinine Ratio 25.5 H, Glucose 209 H, Calcium 8.3 L 01/15/21 11:36: POC Glucose 246 H Micro: Microbiology 01/13/21 17:00 Urine, Clean Catch Urine Culture - Final Presumptive E. coli 01/14/21 08:40 Stool Stool Occult Blood (TINO) - Final Occult Blood Positive 01/13/21 20:35 Mucosa - Nasopharyngeal Respiratory Panel (PCR) - Final 01/13/21 22:53 Urine, Clean Catch Legionella Antigen - Final 01/13/21 22:53 Urine, Clean Catch Streptococcus pneumoniae Antigen (M - Final 01/13/21 14:53 Nasal Secretion SARS-CoV-2 Antigen (Rapid) - Final Rhythm Strip Rhythm Strip: A-fib Rate: 93 Ectopy: None Physical Exam Const alert, oriented x3 and no apparent distress HEENT head/scalp atraumatic and moist oral mucous membranes Head and Scalp: normocephalic Eyes PERRL, EOMs intact bilaterally and conjunctivae normal Neck no lymphadenopathy, supple and no JVD Resp normal respiratory effort, no retractions, no use of accessory muscles and clear to auscultation bilaterally Cardio regular rate, regular rhythm, no murmurs and no JVD GI normal to inspection, nondistended, normoactive bowel sounds, soft to palpation and non-tender Extremity normal to inspection, full ROM and no clubbing, cyanosis or edema Peripheral Pulses: Yes pulses 2+ throughout Skin no rashes or lesions noted, no wounds, skin turgor normal and no jaundice Neuro CN's II-XII intact bilaterally Psych affect normal Assessment & Plan Assessment/Plan (1) Acute dyspnea: (2) Hypoxia: (3) CHF (congestive heart failure): (4) Acute UTI: PLAN: Day 2 Discharge planning: Current plan is for patient to discharge home. 1) acute decompensated heart failure with preserved ejection fraction/diastolic and valvular heart failure Patient's respiratory status has improved from admission and she has no longer hypoxic or in respiratory distress. Currently satting at 98% on 2 L via nasal cannula and respirations are at 16 breaths/min. Patient no longer feels that she is short of breath. Echocardiogram ordered/pending. Viral respiratory panel, Legionella and strep strep pneumo urinary antigens and rapid Covid are negative. Plan; remain on PCU, continue Lasix 40 mg IV twice daily, continue beta-robbie, continue to monitor I's and O's and daily weights. 2) UTI Patient denies any urinary symptoms, however UA obtained in the ED demonstrates yellow cloudy urine with positive nitrites, 100 leukocyte esterase, 4+ bacteria. CBC does not demonstrate a leukocytosis. CBC does not demonstrate a leukocytosis and vital signs are stable, patient is afebrile. Urine culture p ending. Plan; continue Rocephin, continue to monitor urinary symptoms, continue to monitor CBC. 3) normocytic anemia secondary to GI bleed Hemoglobin 8.0, baseline appears around 10. Iron studies obtained and patient is low on iron, stool is occult positive. GI consulted and anticoagulants have been stopped. Patient to have an EGD, per GI today. 4) DM2 with neuropathy Hold home glipizide and Victoza. Accu-Cheks with sliding scale insulin ordered. Continue gabapentin. 5) atrial fibrillation Rate controlled. On diltiazem and metoprolol for rate control, on Coumadin for anticoagulation. Continue home A. fib regimen. Anticoagulants on hold as above. All medications for other chronic conditions continued unless otherwise noted. DVT prophylaxis - on Warfarin for Afib, stopped per GI. Patient seen by Kelvin Zuniga PA-C, under the supervision of Dr. Milan. Documented by User: Dr. Khadra Milan MD 01/15/21 15:31 Objective Data Lab / Micro Data Result Diagrams: 01/15/21 07:40 01/15/21 07:40 Charges/Coding Addendum Addendum: Patient seen by Kelvin Zuniga PA-C under my supervision. Patient seen and examined. She had no active complaints. Her shortness of breath had improved. Review of systems otherwise negative. She has remained hemodynamically stable. Const alert, oriented x3 and no apparent distress HEENT head/scalp atraumatic and moist oral mucous membranes Head and Scalp: normocephalic Eyes PERRL, EOMs intact bilaterally and conjunctivae normal Neck no lymphadenopathy, supple and no JVD Resp normal respiratory effort, no retractions, no use of accessory muscles and clear to auscultation bilaterally Cardio regular rate, regular rhythm, no murmurs and no JVD GI normal to inspection, nondistended, normoactive bowel sounds, soft to palpation and non-tender Extremity normal to inspection, full ROM and no clubbing, cyanosis or edema Peripheral Pulses: Yes pulses 2+ throughout Skin no rashes or lesions noted, no wounds, skin turgor normal and no jaundice Neuro CN's II-XII intact bilaterally Psych affect normal Patient is being managed for acute decompensated heart failure with preserved ejection fraction. She is currently on 2 L of oxygen saturating at 98%. 2D echo is pending. On IV Lasix 40 mg twice daily. On beta-robbie. Monitor intake and output. Fluid restriction 1500 cc daily. She is also being managed for UTI. On IV Rocephin. Hemoglobin is 7.9 so GI is on board. Iron studies showed low iron level and a stool for occult blood is also positive. Anticoagulants have been held. On Cardizem and metoprolol for A. fib rate control. Continue beta-robbie and Cardizem for A. fib. Continue Synthroid continue IV PPI drip. 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 Continue PPI drip. Also on sucralfate. 2D echo showed EF of 55% and RVSP of 70 mmHg with severely enlarged left atrium and mildly enlarged right atrium as well as moderate aortic stenosis. Rest as per Kelvin Zuniga PA-C's note which I reviewed and endorsed. Visit Charges Inpatient E&M: 95718 Subs Hosp L2
[2021-01-15 13:11] LABS: Pathologist Review Reviewed
[2021-01-15 13:11] LABS: Pathologist Review Reviewed
--- NOTE | 2021-01-15 13:23 | OP.EGD_ITS ---
Patient Name: Favian Gaitan Procedure Date: 01/15/2021 12:43 PM Date of : 1940 Age: 81 Procedure: Upper GI endoscopy Indications: Acute post hemorrhagic anemia Providers: Luis M Rees DO Medicines: See the Anesthesia note for documentation of the administered medications Patient Profile: This is an 81 year old female. Refer to note in patient chart for documentation of history and physical. Patient has symptoms. The symptoms first began August. Complications: No immediate complications. Procedure: Pre-Anesthesia Assessment: - Prior to the procedure, a History and Physical was performed, and patient medications and allergies were reviewed. The patient is competent. The risks and benefits of the procedure and the sedation options and risks were discussed with the patient. All questions were answered and informed consent was obtained. Patient identification and proposed procedure were verified by the physician in the pre-procedure area. Mental Status Examination: alert and oriented. Airway Examination: normal oropharyngeal airway and neck mobility. Respiratory Examination: clear to auscultation. CV Examination: normal. Prophylactic Antibiotics: The patient does not require prophylactic antibiotics. Prior Anticoagulants: The patient has taken no previous anticoagulant or antiplatelet agents. ASA Grade Assessment: II - A patient with mild systemic disease. After reviewing the risks and benefits, the patient was deemed in satisfactory condition to undergo the procedure. The anesthesia plan was to use moderate sedation / analgesia (conscious sedation). Immediately prior to administration of medications, the patient was re-assessed for adequacy to receive sedatives. The heart rate, respiratory rate, oxygen saturations, blood pressure, adequacy of pulmonary ventilation, and response to care were monitored throughout the procedure. The physical status of the patient was re-assessed after the procedure. After obtaining informed consent, the endoscope was passed under direct vision. Throughout the procedure, the patient's blood pressure, pulse, and oxygen saturations were monitored continuously. The Colonoscope was introduced through the and advanced to the. The upper GI endoscopy was accomplished without difficulty. The patient tolerated the procedure well. Moderate Sedation: Moderate (conscious) sedation was administered by the endoscopy nurse and supervised by the endoscopist. The patient's oxygen saturation, heart rate, blood pressure and response to care were monitored. Total physician intraservice time was 15 minutes. Moderate (conscious) sedation was administered by the endoscopy nurse and supervised by the endoscopist. The patient's oxygen saturation, heart rate, blood pressure and response to care were monitored. Total physician intraservice time was 15 minutes. Scope In: 12:52:19 PM Scope Out: 1:07:52 PM Total Procedure Duration Time 0 hours 15 minutes 33 seconds Findings: There were esophageal mucosal changes suspicious for short-segment Shaikh's esophagus present in the lower third of the esophagus. The maximum longitudinal extent of these mucosal changes was 1 cm in length. Two oozing cratered gastric ulcers with pigmented material were found on the anterior wall of the gastric body. The largest lesion was 6 mm in largest dimension. Coagulation for hemostasis using argon plasma at 0.3 liters/minute and 20 hernandez was successful. Estimated blood loss was minimal. Coagulation for hemostasis using argon plasma at 0.4 liters/minute and 20 hernandez was successful. Estimated blood loss was minimal. Two 5 mm no bleeding angiodysplastic lesions were found on the lesser curvature of the stomach. Coagulation for bleeding prevention using argon plasma at 0.3 liters/minute and 20 hernandez was successful. Estimated blood loss was minimal. Two 5 mm angiodysplastic lesions without bleeding were found in the first portion of the duodenum. Coagulation for bleeding prevention using argon plasma at 0.3 liters/minute and 20 hernandez was successful. Estimated blood loss was minimal. 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 - Gastric ulcers with a flat pigmented spot (Tal Class IIc). Treated with argon plasma coagulation (APC). - Two non-bleeding angiodysplastic lesions in the stomach. Treated with argon plasma coagulation (APC). - Two non-bleeding angiodysplastic lesions in the duodenum. Treated with argon plasma coagulation (APC). - No specimens collected. Recommendation: - Return patient to [facility] for ongoing care. - Clear liquid diet today. - Give Protonix (pantoprazole): initiate therapy with 80 mg IV bolus, then 8 mg/hr IV by continuous infusion today. - Use sucralfate suspension 1 gram PO QID for 3 weeks. - Continue present medications. Procedure Code(s): --- Professional --- 10923, Moderate sedation services provided by the same physician or other qualified health palliative care nurse practitioner performing the diagnostic or therapeutic service that the sedation supports, requiring the presence of an independent trained observer to assist in the monitoring of the patient's level of consciousness and physiological status; initial 15 minutes of intraservice time, patient age 5 years or older 11601, Moderate sedation services provided by the same physician or other qualified health palliative care nurse practitioner performing the diagnostic or therapeutic service that the sedation supports, requiring the presence of an independent trained observer to assist in the monitoring of the patient's level of consciousness and physiological status; initial 15 minutes of intraservice time, patient age 5 years or older Diagnosis Code(s): --- Professional --- K25.9, Gastric ulcer, unspecified as acute or chronic, without hemorrhage or perforation K22.8, Other specified diseases of esophagus K31.819, Angiodysplasia of stomach and duodenum without bleeding D62, Acute posthemorrhagic anemia CPT copyright 2017 [employer]. All rights reserved. The codes documented in this report are preliminary and upon promos executive producer review may be revised to meet current compliance requirements. Luis M Rees DO 01/15/2021 1:23:29 PM This report has been signed electronically. Number of Addenda: 1 Note Initiated On: 01/15/2021 12:43 PM Addendum Number: 1 Addendum Date: 11/02/2021 6:23:01 AM MAC was used instead of moderate sedation for this patient. Luis M Rees DO 11/02/2021 6:23:07 AM This report has been signed electronically.
--- NOTE | 2021-01-15 13:58 | CASEMGMT ---
Pt qualifies for palliative c/s per [facility] palliative screening tool and Dr. Milan is agreeable. Order placed and referral faxed. Rickie DEE CM
[2021-01-15] MEDS: Metoprolol(XL)Succ 200 MG Tablet PO (14:22)
[2021-01-15] MEDS: dilTIAZem CD 180 MG Capsule PO (14:23)
[2021-01-15] MEDS: Isosorbide Mononitrate 30 MG Tablet PO (14:23)
[2021-01-15] MEDS: Levothyroxine 88 MCG Tablet PO (14:23)
[2021-01-15] MEDS: Ferrous Sulfate 325 MG Tablet PO (14:24)
[2021-01-15] MEDS: Gabapentin 300 MG Capsule PO ×2 (14:25→21:06)
[2021-01-15] MEDS: Anastrozole 1 MG TABLET PO (14:25)
[2021-01-15] MEDS: Spironolactone 50 MG Tablet PO (14:25)
--- NOTE | 2021-01-15 15:18 | NURSING ---
This RN reviewed SN charting
[2021-01-15] MEDS: Sucralfate 1 GM Tablet PO ×2 (16:47→21:06)
[2021-01-15] MEDS: Insulin Lispro 100 UNIT/ML INSULN.PEN SC (16:48)
[2021-01-15 17:55] LABS: Bedside Glucose 204 mg/dL (70-110)
[2021-01-15] MEDS: Multivitamins,Ther W-Minerals Tablet 1 TABLET PO (21:06)
[2021-01-15] MEDS: Calcium Carb/Vitamin D 1 TABLET Tablet PO (21:06)
[2021-01-15] MEDS: Ezetimibe 10 MG Tablet PO (21:06)
[2021-01-15 21:35] LABS: Bedside Glucose 166 mg/dL (70-110)
[2021-01-16] VITALS (8 sets, daily range): BP systolic 110–115; BP diastolic 66–82; PULSE 75–88; RESP 14–18; TEMP 36.1–36.6; O2SAT 83–99
[2021-01-16] MEDS: Sucralfate 1 GM Tablet PO ×2 (05:55→13:36)
[2021-01-16] MEDS: Gabapentin 300 MG Capsule PO ×2 (05:55→13:36)
[2021-01-16] MEDS: Levothyroxine 88 MCG Tablet PO (05:55)
[2021-01-16] MEDS: Insulin Lispro 100 UNIT/ML INSULN.PEN SC ×2 (06:53→12:05)
[2021-01-16 07:00] LABS: Bedside Glucose 157 mg/dL (70-110)
[2021-01-16 09:30] LABS: ALB/GLOB Ratio 0.9 RATIO (0.9-2.4); AST(SGOT) 11 U/L (15-37); Alanine Aminotransfer ALT/SGPT 29 U/L (13-56); Albumin, Serum 2.9 g/dL (3.2-5.0); Alkaline Phosphatase 91 U/L (45-117); Anion Gap 7 (5-15); BUN 36 mg/dL (7-18); Calcium,Total 8.2 mg/dL (8.5-10.1); Chloride 109 mmol/L (98-107); Creatinine, Serum 1.44 mg/dL (0.55-1.02); EST Glomerular Filtration Rate 37 mL/min (>60); Est Glom Filt Rate - Afr Amer 45 mL/min (>60); Estimated Creatinine Clearance 25.35 ml/min; Globulin 3.3 g/dL (2.2-4.2); Glucose 207 mg/dL (74-106); Potassium 4.8 mmol/L (3.5-5.1); Protein, Total 6.2 g/dL (6.4-8.2); Sodium Level 139 mmol/L (136-145)
--- NOTE | 2021-01-16 09:37 | PCM.CONS.P ---
Assessment & Plan Assessment/Plan (1) GI bleed: (2) CHF (congestive heart failure): (3) Anemia: (4) History of breast cancer: (5) Chronic a-fib: (6) Acute UTI: (7) Nonrheumatic aortic (valve) stenosis: (8) Debility: PLAN: EMMA HUNG, is a 81 F who was referred to [facility] for hospitalization for dyspnea related to CHF and anemia. Patient agrees to [facility] phone call follow up from Palliative following discharge. Plan would be as follows: 1) CHF/Dyspnea: Palliative would assist with education and monitoring fluid balance, compliance with Coumadin, INRs, beta blockers and cardiology follow up appointments. 2) anemia/GI bleed: Palliative can educate and encourage continued PPI, diet/medication changes and follow up with GI as ordered. 3) Debility/ weakness; Patient could benefit from home PT/OT. Patient denies any recent falls but does acknowledge weakness. 4) Chronic conditions: DM/Afib/ Hs of breast CA with bone mets/GI bleed/ aortic valve stenosis: complicate overall prognosis,care and recovery. Defer to PCP and specialist for management Thank you for the opportunity to participate in this patient's care, please do not hesitate to contact [facility] with any further questions or concerns. Palliative direct line is [phone]. [facility] will call patient after discharge home. Greater than 50% of F2F visit dedicated to education and counseling of palliative care services, medications, comorbid conditions and potential assistance with management, and plan of care moving forward. Start time: 914 End time: 1025 HPI Consult Data Date of Consult: 01/16/21 HPI Narrative HPI Narrative: EMMA HUNG, is a 81 F who was referred to [facility] for hospitalization for dyspnea related to CHF and anemia. Past medical history listed below. She was seen at urgent care for worsening shortness of breath for the last several days with exertion. She had also noted a weight increase and clothes not fitting. She was sent from Urgent care to [facility] ER for eval. Denied fever or chills or significant cough. Two weeks ago cardiology had added Lasix due to worsening CHF. She does have a known murmur that cardiology has been monitoring. She is on Coumadin for Afib. Rate has been controlled with medications. O2 sat was 87% while ambulating on room air and does not have oxygen at home. Chest X ray showed Stable cardiomegaly with diffuse interstitial pattern. No active or acute cardiopulmonary disease. EKG showed no acute injury and Afib. 2D echo showed Normal LV size. Left ventricular systolic function is normal. Mild concentric left ventricular hypertrophy.The left atrium is severely enlarged.Moderate (2+) eccentric mitral valve insufficiency. Pulmonary artery systolic pressure is 70 mmHg. Moderate pulmonary hypertension.Mean aortic valve gradient 20 mmHg.Moderate aortic stenosis. Electrolytes unremarkable gap 6 BUN of 33 creatinine 1.32 consistent with mild dehydration. This is baseline for her renal function. Glucose 254 troponin normal at 9. CBC shows a white count 2.9. Hemoglobin 8.3 which may be the cause the patient's shortness of breath. Previously her hemoglobin was around 11. U/A appears to be a UTI with white cells, positive nitrates and bacteria that will be sent for culture. She was started on Lasix 40mg IV twice daily with continued beta blockers, I&Os and daily weights. 98% on 2 liters and denies any further dyspnea. Rocephin for urine leukocytosis, patient denies any urinary symptoms. Coumadin was held and EGD yesterday showed gastric ulcers with a flat pigmented spot treated with (APC) Two nonbleeding angiodysplastic lesions in the stomach and duodenum also treated with (APC). She was on clear liquid diet for 01/15 with Protonix 80mg bolus with 8mg/per hour continuous. Started on Sucralfate 1 gm PO QID for 3 weeks. She was advanced to a full liquid diet today on 01/16 Pt lives on main level of 2 story home with 2-3 steps in and states no concerns at home. Pt is independent with ADL's. Pt states drives self and states no transportation concerns. DME/HHC: Pt has the following DME: cane and rollator. Pt states no hx of HHC or SNF. Pt states has a nurse thru [facility] and they are working on aides for her. Pt states no concerns with going home at time of discharge. Pt is retired. Pt states does not smoke cigarettes or drink ETOH. PCP: Hernando, Specialists: Cristy, cardio; Emile, onc; Ally neuro Preferred [facility]. Seen in hospital bed. Alert and pleasant. O2 per nasal cannula. Denies any dyspnea, chest pain or abdominal pain. Has neuropathy, but is controlled with Gabapentin. Palliative care discussed and questions answered. Patient is anxious to get home and is understanding that Palliative will follow up after discharge to offer services. 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 Disseminated cancer Elevated troponin Gout History of non-ST elevation myocardial infarction (NSTEMI) (06/30/15) Hyperlipidemia intermission coordinator (current) use of anticoagulants Metastatic bone cancer Non-ST elevation (NSTEMI) myocardial infarction Nonrheumatic aortic (valve) stenosis Nonrheumatic mitral valve regurgitation Nonrheumatic mitral valve stenosis with insufficiency Osteoarthritis Paroxysmal atrial fibrillation Peripheral vascular disease with claudication Secondary pulmonary arterial hypertension Type 2 diabetes mellitus Home Medications aspirin 81 mg PO DAILY@0800 06/30/15 [History Last Taken 08/22/20 08:00] sfedrarx-bnw-GO-lycopen-lutein 1 each PO QHS 05/22/16 [History Last Taken 08/21/20 22:00] cholecalciferol (vitamin D3) 125 mcg (5,000 unit) capsule 125 mcg PO DAILY 09/23/19 [History Last Taken 08/21/20 22:00] calcium carbonate-vitamin D3 [Caltrate with Vitamin D3] 1 tab PO QHS 08/22/20 [History Last Taken 08/21/20] glipizide 10 mg PO 1200 08/22/20 [History Last Taken Unknown] glipizide 15 mg PO BIDCM 08/22/20 [History Last Taken 08/22/20 08:00] levothyroxine 88 mcg tablet 88 mcg PO DAILY tab 11/08/20 [History Last Taken Unknown] Victoza 3-Sd 1.8 mg SUBCUT DAILY 11/30/20 [History Last Taken Unknown] ezetimibe 10 mg PO QHS 11/30/20 [History Last Taken Unknown] furosemide [Lasix] 40 mg PO BID 11/30/20 [History Last Taken Unknown] gabapentin 300 mg PO TID 11/30/20 [History Last Taken Unknown] isosorbide mononitrate 30 mg PO DAILY 11/30/20 [History Last Taken Unknown] metoprolol succinate 200 mg PO DAILY 11/30/20 [History Last Taken Unknown] warfarin 1 mg PO .COMPLEX 11/30/20 [History Last Taken Unknown] warfarin 5 mg PO .COMPLEX 11/30/20 [History Last Taken Unknown] anastrozole 1 mg tablet 1 mg PO DAILY #90 tab 12/14/20 [Rx Last Taken Unknown] diltiazem HCl 180 mg tablet,extended release 24 hr 180 mg PO DAILY #90 tab 12/26/20 [Rx Last Taken Unknown] spironolactone 50 mg tablet 50 mg PO DAILY #90 tab 12/26/20 [Rx Last Taken Unknown] baclofen 10 mg tablet 5 mg PO TID PRN tab 01/08/21 [History Last Taken Unknown] Allergy/AdvReac Type Severity Reaction Status Date / Time Kilxycc-Ptn-Zmz Reductase AdvReac Severe myalgias Verified 01/13/21 14:17 Inhibitor Family History Father CVA (cerebral vascular accident) Mother Diabetes Hypertension Brother CAD (coronary artery disease) CVA (cerebral vascular accident) Hypertension Brother Diabetes Sister Diabetes Surgical History History of cardioversion (07/10/20) History of carpal tunnel release History of cataract surgery History of cholecystectomy History of foot surgery History of right and left heart catheterization (07/03/15) History of total right knee replacement Social History household members: none housing: house number of children: 4 Smoking Status: Former smoker quit date: 03/03/69 Tobacco: How many years used: 5 Electronic Cigarette Use: not used how long ago did patient quit smokin second hand exposure: No alcohol intake: former substance use type: does not use caffeine: No what type of physical activity do you participate in: other details: PT frequency: 1-2 times per week duration: 45-60 minutes/day seatbelt use: always do you feel safe at home: Yes ROS Constitutional Constitutional: Reports systems reviewed and no addt'l complaints, except as documented Eyes Eyes: Reports none Cardiovascular Cardiovascular: Reports dyspnea on exertion; Denies abdominal edema, chest pain, chest pain at rest, diaphoresis, dyspnea at rest or pedal edema Respiratory/Chest Respiratory/Chest: Denies change in mental status, chest congestion, chest tightness, inability to speak, pain with cough or stuart-oral cyanosis Gastrointestinal Gastrointestinal: Denies abdominal pain or anorexia Genitourinary Genitourinary: Denies anuria, burning urination or change in urinary stream Musculoskeletal Musculoskeletal: Denies joint pain, joint stiffness or joint swelling Integumentary Integumentary: Reports none Neurologic Neurologic: Denies abnormal speech, behavior changes or dizziness Psychiatric Psychiatric: Denies anxiety, behavioral changes or depression Physical Exam Const alert, oriented x3 and no apparent distress General Appearance: cooperative, comfortable, well kempt and well developed HEENT normocephalic and head/scalp atraumatic Nose: external nose normal and nares normal Mouth: oral and palatal mucosa normal and lips normal Eyes EOMs intact bilaterally, conjunctivae normal and no scleral icterus Neck full ROM, supple and no JVD Chest Chest: symmetrical chest wall rise Resp normal respiratory effort, normal air movement, no use of accessory muscles and clear to auscultation bilaterally Effort and Inspection: able to speak in complete sentences Cardio regular rate, regular rhythm, S1 normal heart sound and S2 normal heart sound Cardio Narrative: Murmur present GI normal to inspection, nondistended, normoactive bowel sounds, soft to palpation and non-tender Extremity normal to inspection and no clubbing, cyanosis or edema Skin no rashes or lesions noted, no wounds and skin turgor normal Neuro oriented x3, CN's II-XII intact bilaterally and moves all extremities Speech: speech normal Psych mental status grossly normal, thought process normal, cooperative, affect normal and speech normal
[2021-01-16] MEDS: Ceftriaxone 1 GM/50 ML BAG IV (10:24)
[2021-01-16] MEDS: Furosemide 40 MG Tablet PO (10:25)
[2021-01-16] MEDS: Spironolactone 50 MG Tablet PO (10:25)
[2021-01-16] MEDS: Anastrozole 1 MG TABLET PO (10:25)
[2021-01-16] MEDS: Isosorbide Mononitrate 30 MG Tablet PO (10:26)
[2021-01-16] MEDS: dilTIAZem CD 180 MG Capsule PO (10:26)
[2021-01-16] MEDS: Metoprolol(XL)Succ 200 MG Tablet PO (10:26)
[2021-01-16] MEDS: Aspirin 81 MG TAB.CHEW PO (10:26)
--- NOTE | 2021-01-16 11:13 | DCINST_ITS ---
Discharge Instructions Diet Discharge Diet: No restrictions Activity Discharge Activity: Return to Normal Activity Weight Bearing Status: Weight bearing as tolerated Dressing / Incision Call your doctor if you observe: Fever of 101 or Higher, Numbness or Tingling, Shortness of breath, Dizziness, Chest pain, Increased palpitations (irregular heartbeat) and Calf discomfort Follow Up Care Please Follow Up With: Primary care provider When: Within the next two weeks. Test Results: Test results from this visit will be discussed in further detail at your follow-up appointment, if applicable. Discharge Plan Admission Admit Date/Time: 01/14/21 19:47 Primary Reason for Your Visit: Shortness of breath Attending Provider: Khadra Milan Primary Care Provider: Merle Villagomez Discharge Orders/Prescriptions Prescriptions: New cefdinir 300 mg capsule 300 mg PO BID Qty: 10 RF: 0 pantoprazole 40 mg tablet,delayed release (DR/EC) 40 mg PO DAILY Qty: 30 RF: 0 sucralfate [Carafate] 1 gram tablet 1 g PO TID Qty: 180 RF: 0 Continued cholecalciferol (vitamin D3) 125 mcg (5,000 unit) capsule 125 mcg PO DAILY RF: 0 spironolactone 50 mg tablet 50 mg PO DAILY Qty: 90 RF: 3 diltiazem HCl 180 mg tablet extended release 24 hr 180 mg PO DAILY Qty: 90 RF: 3 levothyroxine 88 mcg tablet 88 mcg PO DAILY RF: 0 anastrozole 1 mg tablet 1 mg PO DAILY Qty: 90 RF: 3 baclofen 10 mg tablet 5 mg PO TID PRN (Reason: sciatica) RF: 0 aspirin 81 MG tablet,chewable 81 mg PO DAILY@0800 RF: 0 ojjgyvje-tae-NK-lycopen-lutein 1 EACH tablet 1 each PO QHS RF: 0 glipizide 10 mg Tablet 15 mg PO BIDCM RF: 0 glipizide 10 mg Tablet 10 mg PO 1200 RF: 0 calcium carbonate-vitamin D3 [Caltrate with Vitamin D3] 600 mg(1,500mg) -800 unit Tablet 1 tab PO QHS RF: 0 Victoza 3-Sd 0.6 mg/0.1 mL (18 mg/3 mL) pen injector 1.8 mg SUBCUT DAILY RF: 0 metoprolol succinate 200 mg tablet extended release 24 hr 200 mg PO DAILY RF: 0 furosemide [Lasix] 40 mg tablet 40 mg PO BID RF: 0 isosorbide mononitrate 30 mg tablet extended release 24 hr 30 mg PO DAILY RF: 0 gabapentin 300 mg capsule 300 mg PO TID RF: 0 ezetimibe 10 mg tablet 10 mg PO QHS RF: 0 warfarin 5 mg tablet 5 mg PO .COMPLEX RF: 0 warfarin 1 mg tablet 1 mg PO .COMPLEX RF: 0 Other Ambulatory Orders: Prothrombin Time w/INR (Routine) Timeframe: 20210119 Facility: [facility] - Location: Laboratory Ordered By: Kelvin BATRES Referrals / Follow Up: Merle Villagomez MD [Primary Care Provider] - Within 2 Weeks Luis M Rees DO [STAFF PHYSICIAN] - Within 2 Weeks Disposition Disposition (needs filled in before D/C Order can be placed): Home, Self Care
[2021-01-16] MEDS: Ferrous Sulfate 325 MG Tablet PO ×2 (12:04→12:05)
[2021-01-16 12:16] LABS: Bedside Glucose 307 mg/dL (70-110)
--- NOTE | 2021-01-16 12:43 | CASEMGMT ---
Per Luna RN, pt qualifies for 2L nc continuous home oxygen. This RN CM to room and pt states no preference for DME company. Per [facility], they do have a concentrator available and referral faxed. Pt updated on home oxygen and process, voices understanding. Pt states no further concerns/needs with going home at discharge. Pt voices no further questions/concerns/needs and states has palliative card to call them once home. Rickie DEE CM
--- NOTE | 2021-01-16 12:55 | PCM.DC.SUM ---
Documented by User: Kelvin BATRES 01/16/21 13:06 Providers Date of Admission: 01/14/21 Primary Care Physician: Dr. Merle Villagomez MD Consultations 01/14/21 12:26 Consult: Gastroenterology Routine Consulting Provider: Carlos Manuel Gastroenterology Reason for Consult: Positive occult stool EMERGENT Consult: No MD Notified: Yes Date Notified: 01/14/21 Time Notified: 12:26 Method of Notification: Text Reason For Visit: DECOMPENSATED HFPEF/ACUTE CYSTITIS Diagnosis Discharge Diagnosis (1) GI bleed: Status: Acute Code(s): K92.2 - Gastrointestinal hemorrhage, unspecified (2) CHF (congestive heart failure): Status: Acute Code(s): I50.9 - Heart failure, unspecified (3) Anemia: Status: Acute Code(s): D64.9 - Anemia, unspecified (4) History of breast cancer: Status: Acute Code(s): Z85.3 - Personal history of malignant neoplasm of breast (5) Chronic a-fib: Status: Chronic Code(s): I48.20 - Chronic atrial fibrillation, unspecified (6) Acute UTI: Status: Acute Code(s): N39.0 - Urinary tract infection, site not specified (7) Nonrheumatic aortic (valve) stenosis: Status: Chronic Code(s): I35.0 - Nonrheumatic aortic (valve) stenosis (8) Debility: Status: Acute Code(s): R53.81 - Other malaise Medications at Discharge Home Medications aspirin 81 mg PO DAILY@0800 06/30/15 zibhzyei-rrq-NU-lycopen-lutein 1 each PO QHS 05/22/16 cholecalciferol (vitamin D3) 125 mcg (5,000 unit) capsule 125 mcg PO DAILY 09/23/19 calcium carbonate-vitamin D3 [Caltrate with Vitamin D3] 1 tab PO QHS 08/22/20 glipizide 10 mg PO 1200 08/22/20 glipizide 15 mg PO BIDCM 08/22/20 levothyroxine 88 mcg tablet 88 mcg PO DAILY tab 11/08/20 Victoza 3-Sd 1.8 mg SUBCUT DAILY 11/30/20 ezetimibe 10 mg PO QHS 11/30/20 furosemide [Lasix] 40 mg PO BID 11/30/20 gabapentin 300 mg PO TID 11/30/20 isosorbide mononitrate 30 mg PO DAILY 11/30/20 metoprolol succinate 200 mg PO DAILY 11/30/20 warfarin 1 mg PO .COMPLEX 11/30/20 warfarin 5 mg PO .COMPLEX 11/30/20 anastrozole 1 mg tablet 1 mg PO DAILY #90 tab 12/14/20 diltiazem HCl 180 mg tablet,extended release 24 hr 180 mg PO DAILY #90 tab 12/26/20 spironolactone 50 mg tablet 50 mg PO DAILY #90 tab 12/26/20 baclofen 10 mg tablet 5 mg PO TID PRN tab 01/08/21 cefdinir 300 mg PO BID #10 cap 01/16/21 pantoprazole 40 mg PO DAILY #30 tab 01/16/21 sucralfate [Carafate] 1 g PO TID #180 tab 01/16/21 Hospital Course Procedures 2-D Echocardiogram and Transthoracic echo Summary of Care Provided Minutes Spent on Discharge: 35 Hospital Course: Patient is an 81-year-old female who was admitted to the hospital on 01/13/2021 for acute hypoxic respiratory failure secondary to acute on chronic diastolic CHF exacerbation as well as acute cystitis.. On initial evaluation chest x-ray did demonstrate cardiomegaly and without any other acute cardiopulmonary process. BNP was elevated over 711. Other infectious respiratory etiologies were tested and ruled out. Patient was initiated on IV Lasix, to which she was responsive quickly. Repeat echocardiogram was obtained and demonstrated normal LV size and systolic function, no ejection fraction was given. Patient's mitral regurgitation and tricuspid regurgitation were also noted to be worse on evaluation, however aortic valve was noted as stable. Patient was also noted to be anemic with a stool positive guaiac. Dr. Rees was consulted who performed an EGD and noticed Shaikh's esophagus as well as nonbleeding gastric ulcers and 2 nonbleeding angiodysplastic lesions in the stomach and duodenum respectively. Lesions were treated with argon plasma and patient was initiated on IV PPI as well as sulcrafate. Patient is to continue sucrafaltate, initiate pantoprazole followed milligrams p.o. daily and is to continue cefdinir for another 5 days to manage her acute cystitis. Patient is to follow-up with Dr. Rees and her primary care provider within the next 2 weeks. Patient is chronically anticoagulated on Coumadin, which was held in preparation for her EGD. INR was observed to be subtherapeutic throughout admission. Patient is to obtain repeat INR on 01/19/2021. All other medications for chronic conditions were continued. Patient seen by Kelvin Zuniga PA-C, under the supervision of Dr. Milan. Physical Exam Narrative Patient is an 81-year-old female comfortably resting in bed, alert and orient x3. Patient reports resolution of her shortness of breath from admission. Denies development of any new symptoms overnight. Does not appear in acute distress. Const alert, oriented x3 and no apparent distress HEENT normocephalic, head/scalp atraumatic and hearing grossly normal bilaterally Eyes PERRL, EOMs intact bilaterally and conjunctivae normal Neck no lymphadenopathy, supple and no JVD Resp normal respiratory effort, no retractions, no use of accessory muscles and clear to auscultation bilaterally Cardio regular rate, regular rhythm, no murmurs and no JVD GI normal to inspection, nondistended, normoactive bowel sounds, soft to palpation and non-tender Extremity normal to inspection, full ROM and no clubbing, cyanosis or edema Skin no rashes or lesions noted, no wounds and skin turgor normal Neuro CN's II-XII intact bilaterally Psych affect normal Weight / BMI Weight Weight: 242 lb 8.136 oz Body Mass Index (BMI) 43.4 ABG / Lab / Microbiology Data Result Diagrams: 01/16/21 06:06 01/16/21 08:56 Laboratory: Laboratory Results - last 24 hr 01/13/21 14:45: Diff Path Review Reviewed 01/14/21 06:50: Diff Path Review Reviewed 01/15/21 16:46: POC Glucose 204 H 01/15/21 21:05: POC Glucose 166 H 01/16/21 06:06: Hgb 9.0 L, Hct 28.0 L 01/16/21 06:52: POC Glucose 157 H 01/16/21 08:56: Sodium 139, Potassium 4.8, Chloride 109 H, Carbon Dioxide 23.0, Anion Gap 7, BUN 36 H, Creatinine 1.44 H, Estim Creat Clear Calc 25.35, Est GFR (MDRD) Af Amer 45 L, Est GFR (MDRD) Non-Af 37 L, BUN/Creatinine Ratio 25.0 H, Glucose 207 H, Calcium 8.2 L, Total Bilirubin 0.50, AST 11 L, ALT 29, Alkaline Phosphatase 91, Total Protein 6.2 L, Albumin 2.9 L, Globulin 3.3, Albumin/Globulin Ratio 0.9 01/16/21 12:02: POC Glucose 307 H Microbiology: Microbiology 01/13/21 17:00 Urine, Clean Catch Urine Culture - Final Presumptive E. coli 01/14/21 08:40 Stool Stool Occult Blood (TINO) - Final Occult Blood Positive 01/13/21 20:35 Mucosa - Nasopharyngeal Respiratory Panel (PCR) - Final 01/13/21 22:53 Urine, Clean Catch Legionella Antigen - Final 01/13/21 22:53 Urine, Clean Catch Streptococcus pneumoniae Antigen (M - Final 01/13/21 14:53 Nasal Secretion SARS-CoV-2 Antigen (Rapid) - Final Radiography Diagnostic Testing: Radiology Impression Echocardiogram 01/13/21 18:53 Interpretation Summary Normal LV size. Left ventricular systolic function is normal. Mild concentric left ventricular hypertrophy. The left atrium is severely enlarged. Moderate (2+) eccentric mitral valve insufficiency. Pulmonary artery systolic pressure is 70 mmHg. Moderate pulmonary hypertension. Mean aortic valve gradient 20 mmHg. Moderate aortic stenosis. Compared to the previous echo the mitral regurgitation is worse in the tricuspid regurgitation also appears to be worse. The aortic valve characteristics are stable. Ordering Physician: Monique Walton Referring Physician: MERLE VILLAGOMEZ Performed By: Chanel Potter, BROCK, RVT D/C Instructions Discharge Diet: No restrictions Weight Bearing Status: Weight bearing as tolerated Call your doctor if you observe: Fever of 101 or Higher, Numbness or Tingling, Shortness of breath, Dizziness, Chest pain, Increased palpitations (irregular heartbeat) and Calf discomfort Please Follow Up With: Primary care provider When: Within the next two weeks. Meaningful Use Info Meaningful Use Diagnoses (Choose all that apply): CHF CHF MEE/ARB ordered at discharge?: No Reason MEE/ARB not ordered?: Normal EF Documented LVEF (%): 60 Discharge Plan Admission Admit Date/Time: 01/14/21 19:47 Primary Reason for Your Visit: Shortness of breath Attending Provider: Khadra Milan Primary Care Provider: Merle Villagomez Discharge Orders/Prescriptions Prescriptions: New cefdinir 300 mg capsule 300 mg PO BID Qty: 10 RF: 0 pantoprazole 40 mg tablet,delayed release (DR/EC) 40 mg PO DAILY Qty: 30 RF: 0 sucralfate [Carafate] 1 gram tablet 1 g PO TID Qty: 180 RF: 0 Continued cholecalciferol (vitamin D3) 125 mcg (5,000 unit) capsule 125 mcg PO DAILY RF: 0 spironolactone 50 mg tablet 50 mg PO DAILY Qty: 90 RF: 3 diltiazem HCl 180 mg tablet extended release 24 hr 180 mg PO DAILY Qty: 90 RF: 3 levothyroxine 88 mcg tablet 88 mcg PO DAILY RF: 0 anastrozole 1 mg tablet 1 mg PO DAILY Qty: 90 RF: 3 baclofen 10 mg tablet 5 mg PO TID PRN (Reason: sciatica) RF: 0 aspirin 81 MG tablet,chewable 81 mg PO DAILY@0800 RF: 0 ouhdkxxw-vvm-QL-lycopen-lutein 1 EACH tablet 1 each PO QHS RF: 0 glipizide 10 mg Tablet 15 mg PO BIDCM RF: 0 glipizide 10 mg Tablet 10 mg PO 1200 RF: 0 calcium carbonate-vitamin D3 [Caltrate with Vitamin D3] 600 mg(1,500mg) -800 unit Tablet 1 tab PO QHS RF: 0 Victoza 3-Sd 0.6 mg/0.1 mL (18 mg/3 mL) pen injector 1.8 mg SUBCUT DAILY RF: 0 metoprolol succinate 200 mg tablet extended release 24 hr 200 mg PO DAILY RF: 0 furosemide [Lasix] 40 mg tablet 40 mg PO BID RF: 0 isosorbide mononitrate 30 mg tablet extended release 24 hr 30 mg PO DAILY RF: 0 gabapentin 300 mg capsule 300 mg PO TID RF: 0 ezetimibe 10 mg tablet 10 mg PO QHS RF: 0 warfarin 5 mg tablet 5 mg PO .COMPLEX RF: 0 warfarin 1 mg tablet 1 mg PO .COMPLEX RF: 0 Other Ambulatory Orders: Prothrombin Time w/INR (Routine) Timeframe: 20210119 Facility: [facility] - Location: Laboratory Ordered By: Kelvin BATRES Referrals / Follow Up: Merle Villagomez MD [Primary Care Provider] - 01/30/21 1:00 am Luis M Rees DO [STAFF PHYSICIAN] - 01/31/21 3:00 pm Disposition Disposition (needs filled in before D/C Order can be placed): Home, Self Care Documented by User: Dr. Khadra Milan MD 01/16/21 15:44 Providers Date of Admission: 01/14/21 Reason For Visit: DECOMPENSATED HFPEF/ACUTE CYSTITIS Medications at Discharge Home Medications aspirin 81 mg PO DAILY@0800 06/30/15 qtwsjuja-xkk-OI-lycopen-lutein 1 each PO QHS 05/22/16 cholecalciferol (vitamin D3) 125 mcg (5,000 unit) capsule 125 mcg PO DAILY 09/23/19 calcium carbonate-vitamin D3 [Caltrate with Vitamin D3] 1 tab PO QHS 08/22/20 glipizide 10 mg PO 1200 08/22/20 glipizide 15 mg PO BIDCM 08/22/20 levothyroxine 88 mcg tablet 88 mcg PO DAILY tab 11/08/20 Victoza 3-Sd 1.8 mg SUBCUT DAILY 11/30/20 ezetimibe 10 mg PO QHS 11/30/20 furosemide [Lasix] 40 mg PO BID 11/30/20 gabapentin 300 mg PO TID 11/30/20 isosorbide mononitrate 30 mg PO DAILY 11/30/20 metoprolol succinate 200 mg PO DAILY 11/30/20 warfarin 1 mg PO .COMPLEX 11/30/20 warfarin 5 mg PO .COMPLEX 11/30/20 anastrozole 1 mg tablet 1 mg PO DAILY #90 tab 12/14/20 diltiazem HCl 180 mg tablet,extended release 24 hr 180 mg PO DAILY #90 tab 12/26/20 spironolactone 50 mg tablet 50 mg PO DAILY #90 tab 12/26/20 baclofen 10 mg tablet 5 mg PO TID PRN tab 01/08/21 cefdinir 300 mg PO BID #10 cap 01/16/21 pantoprazole 40 mg PO DAILY #30 tab 01/16/21 sucralfate [Carafate] 1 g PO TID #180 tab 01/16/21 ABG / Lab / Microbiology Data Result Diagrams: 01/16/21 06:06 01/16/21 08:56 Discharge Plan Admission Admit Date/Time: 01/14/21 19:47 Primary Reason for Your Visit: Shortness of breath Attending Provider: Khadra Milan Primary Care Provider: Merle Villagomez Discharge Orders/Prescriptions Prescriptions: New cefdinir 300 mg capsule 300 mg PO BID Qty: 10 RF: 0 pantoprazole 40 mg tablet,delayed release (DR/EC) 40 mg PO DAILY Qty: 30 RF: 0 sucralfate [Carafate] 1 gram tablet 1 g PO TID Qty: 180 RF: 0 Continued cholecalciferol (vitamin D3) 125 mcg (5,000 unit) capsule 125 mcg PO DAILY RF: 0 spironolactone 50 mg tablet 50 mg PO DAILY Qty: 90 RF: 3 diltiazem HCl 180 mg tablet extended release 24 hr 180 mg PO DAILY Qty: 90 RF: 3 levothyroxine 88 mcg tablet 88 mcg PO DAILY RF: 0 anastrozole 1 mg tablet 1 mg PO DAILY Qty: 90 RF: 3 baclofen 10 mg tablet 5 mg PO TID PRN (Reason: sciatica) RF: 0 aspirin 81 MG tablet,chewable 81 mg PO DAILY@0800 RF: 0 pmboofjw-dlc-MH-lycopen-lutein 1 EACH tablet 1 each PO QHS RF: 0 glipizide 10 mg Tablet 15 mg PO BIDCM RF: 0 glipizide 10 mg Tablet 10 mg PO 1200 RF: 0 calcium carbonate-vitamin D3 [Caltrate with Vitamin D3] 600 mg(1,500mg) -800 unit Tablet 1 tab PO QHS RF: 0 Victoza 3-Sd 0.6 mg/0.1 mL (18 mg/3 mL) pen injector 1.8 mg SUBCUT DAILY RF: 0 metoprolol succinate 200 mg tablet extended release 24 hr 200 mg PO DAILY RF: 0 furosemide [Lasix] 40 mg tablet 40 mg PO BID RF: 0 isosorbide mononitrate 30 mg tablet extended release 24 hr 30 mg PO DAILY RF: 0 gabapentin 300 mg capsule 300 mg PO TID RF: 0 ezetimibe 10 mg tablet 10 mg PO QHS RF: 0 warfarin 5 mg tablet 5 mg PO .COMPLEX RF: 0 warfarin 1 mg tablet 1 mg PO .COMPLEX RF: 0 Other Ambulatory Orders: Prothrombin Time w/INR (Routine) Timeframe: 20210119 Facility: [facility] - Location: Laboratory Ordered By: Kelvin BATRES Referrals / Follow Up: Merle Villagomez MD [Primary Care Provider] - 01/30/21 1:00 am FriendLuis M DO [STAFF PHYSICIAN] - 01/31/21 3:00 pm Disposition Disposition (needs filled in before D/C Order can be placed): Home, Self Care Charges/Coding Addendum Addendum: Patient seen by Kelvin Zuniga PA-C under my supervision Patient is an 81-year-old female with past medical history as outlined was admitted through the ED on 01/13/2021 with a complaint of worsening shortness of breath with associated exertion. She also had abdominal and chest discomfort which started after she ate some homemade chili. She was requiring 2 L of oxygen in the ED and high-sensitivity troponins were negative. Urinalysis showed evidence of UTI with 4+ bacteria chest x-ray showed stable cardiomegaly with diffuse interstitial pattern. BNP was elevated and she was admitted and managed for acute on chronic heart failure with preserved ejection fraction. She was diuresed with IV Lasix. She had a known EF of 60%. Patient was also noted to have acute on chronic anemia and stool for occult blood was positive. Gastroenterology was consulted. She was started on ceftriaxone for UTI. She had EGD which showed evidence of possible Shaikh's esophagus as well as nonbleeding gastric ulcers and 2 nonbleeding angiodysplastic lesions in the stomach and duodenum which were treated with argon plasma coagulation. She was put on IV PPI drip and started on sucralfate. Shortness of breath improved and she felt much better. She was weaned off of oxygen. She was discharged home on 01/16/2021 on p.o. pantoprazole as well as sucralfate. She was also discharged on p.o. cefdinir for 5 days. Her Coumadin was resumed and she is to have repeat INR in 2 to 3 days after discharge. Patient was seen and examined prior to discharge. She felt well and had no active complaints. Review of systems otherwise negative. Labs and vitals reviewed. Her medication reviewed and reconciled. O/E: alert, oriented x3 and no apparent distress HEENT head/scalp atraumatic and moist oral mucous membranes Head and Scalp: normocephalic Eyes PERRL, EOMs intact bilaterally and conjunctivae normal Neck no lymphadenopathy, supple and no JVD Resp normal respiratory effort, no retractions, no use of accessory muscles and clear to auscultation bilaterally Cardio regular rate, regular rhythm, no murmurs and no JVD GI normal to inspection, nondistended, normoactive bowel sounds, soft to palpation and non-tender Extremity normal to inspection, full ROM and no clubbing, cyanosis or edema Peripheral Pulses: Yes pulses 2+ throughout Skin no rashes or lesions noted, no wounds, skin turgor normal and no jaundice Neuro CN's II-XII intact bilaterally Psych affect normal Plan is for discharge home as above. Rest as per Kelvin Zuniga PA-C's notes which I have reviewed and endorsed. Visit Charges Inpatient E&M: 33516 Disch Hosp
--- NOTE | 2021-01-16 15:17 | PHA.DC.MR ---
Pharmacy Service has performed discharge medication reconciliation for this patient. The patient's discharge medication list was reviewed for discrepancies and discrepancies were resolved. This [facility] spoke to MEDARDO Warren, patient started on sucralfate by GI in hospital but not continued outpatient and warfarin has not been given this admission (INR subtherapeutic). Kelvin will confirm with GI if sucralfate should be continued and follow-up plan for warfarin. I was unable to preparole counseling aide before patient was discharged. Home Medications aspirin 81 mg PO DAILY@0800 06/30/15 kqxvujwp-ufy-BY-lycopen-lutein 1 each PO QHS 05/22/16 cholecalciferol (vitamin D3) 125 mcg (5,000 unit) capsule 125 mcg PO DAILY 09/23/19 calcium carbonate-vitamin D3 [Caltrate with Vitamin D3] 1 tab PO QHS 08/22/20 glipizide 10 mg PO 1200 08/22/20 glipizide 15 mg PO BIDCM 08/22/20 levothyroxine 88 mcg tablet 88 mcg PO DAILY tab 11/08/20 Victoza 3-Sd 1.8 mg SUBCUT DAILY 11/30/20 ezetimibe 10 mg PO QHS 11/30/20 furosemide [Lasix] 40 mg PO BID 11/30/20 gabapentin 300 mg PO TID 11/30/20 isosorbide mononitrate 30 mg PO DAILY 11/30/20 metoprolol succinate 200 mg PO DAILY 11/30/20 warfarin 1 mg PO .COMPLEX 11/30/20 warfarin 5 mg PO .COMPLEX 11/30/20 anastrozole 1 mg tablet 1 mg PO DAILY #90 tab 12/14/20 diltiazem HCl 180 mg tablet,extended release 24 hr 180 mg PO DAILY #90 tab 12/26/20 spironolactone 50 mg tablet 50 mg PO DAILY #90 tab 12/26/20 baclofen 10 mg tablet 5 mg PO TID PRN tab 01/08/21 cefdinir 300 mg PO BID #10 cap 01/16/21 pantoprazole 40 mg PO DAILY #30 tab 01/16/21 sucralfate [Carafate] 1 g PO TID #180 tab 01/16/21
--- NOTE | 2021-01-16 16:04 | CASEMGMT ---
LUIZ ARVIZU received message from daughter Shaye. LUIZ ARVIZU returned call. Daughter states that she called the 800 phone number on [employer] to setup concentrator and [facility] stated they didn't have an order. LUIZ ARVIZU call [employer] and spoke with Annetta who states they have the order and they are on their way to deliver concentrator. LUIZ ARVIZU called Shaye back and confirmed that [employer] had the order and they were on their way to deliver concentrator. Shaye had no further questions or concerns at this time.
== END 2021-01-16 14:54 | disposition home or self-care (01) | DRG 291 ==
LOC: ED 17:49 → PCU 18:07
PROVIDERS: Internal Medicine Gastroenterology; Physician Assistant; Admitting Provider Internal Medicine; Emergency Provider Emergency Medicine; PCP Internal Medicine; Referring Provider Internal Medicine; Visit Provider Student in an Organized Health Care Education/Training Program
DX: I13.0 Hypertensive heart and chronic kidney disease with heart failure and stage 1 through stage 4 chronic kidney disease, or unspecified chronic kidney disease (principal); I50.33 Acute on chronic diastolic (congestive) heart failure; J96.01 Acute respiratory failure with hypoxia; K25.4 Chronic or unspecified gastric ulcer with hemorrhage; I48.20 Chronic atrial fibrillation, unspecified; D62 Acute posthemorrhagic anemia; N30.00 Acute cystitis without hematuria; C79.51 Secondary malignant neoplasm of bone; Z68.41 Body mass index [BMI] 40.0-44.9, adult; E83.39 Other disorders of phosphorus metabolism; I27.21 Secondary pulmonary arterial hypertension; R19.5 Other fecal abnormalities; B96.20 Unspecified Escherichia coli [E. coli] as the cause of diseases classified elsewhere; Z85.3 Personal history of malignant neoplasm of breast; R53.81 Other malaise; I25.10 Atherosclerotic heart disease of native coronary artery without angina pectoris; I08.3 Combined rheumatic disorders of mitral, aortic and tricuspid valves; I25.2 Old myocardial infarction; K22.70 Barrett's esophagus without dysplasia; K31.819 Angiodysplasia of stomach and duodenum without bleeding; E11.40 Type 2 diabetes mellitus with diabetic neuropathy, unspecified; E11.22 Type 2 diabetes mellitus with diabetic chronic kidney disease; N18.31 Chronic kidney disease, stage 3a; E11.51 Type 2 diabetes mellitus with diabetic peripheral angiopathy without gangrene; E03.9 Hypothyroidism, unspecified; E78.5 Hyperlipidemia, unspecified; E87.6 Hypokalemia; E66.01 Morbid (severe) obesity due to excess calories; M19.90 Unspecified osteoarthritis, unspecified site; M54.41 Lumbago with sciatica, right side; M54.42 Lumbago with sciatica, left side; G89.29 Other chronic pain; Z66 Do not resuscitate; Z90.49 Acquired absence of other specified parts of digestive tract; Z79.01 Long term (current) use of anticoagulants; Z79.82 Long term (current) use of aspirin; Z79.84 Long term (current) use of oral hypoglycemic drugs; Z79.899 Other long term (current) drug therapy; Z87.891 Personal history of nicotine dependence; Z82.49 Family history of ischemic heart disease and other diseases of the circulatory system
CPT/HCPCS: 36415; 71045; 80048; 80053; 81001; 82274; 82728; 82962; 83540; 83550; 83735; 83880; 84100; 84484; 85014; 85018; 85025; 85045; 85610; 86850; 86900; 86901; 87086; 87088; 87186; 87426; 87449; 87633; 87635; 93005; 93306; 97162; 97166; 97802; 99251; 99285; J7040; U0005; A4216; G0463; J1940; J2405; U0003

== ENCOUNTER 2021-01-29 10:09 | Outpatient (RCR) | payer MEDICARE, SELFPAY ==
[2019-12-29 14:52] VITALS: BMI 37.5
[2020-12-31 20:50] VITALS: BMI 37.8
[2021-01-03 18:01] LABS: Prothrombin Time (Protime)PT. 53.1 SECONDS (11.7-14.9)
[2021-01-03 18:23] LABS: International Normalized Ratio 6.1
[2021-01-08 17:58] LABS: International Normalized Ratio 2.6
[2021-01-29 12:33] LABS: International Normalized Ratio 1.9; Prothrombin Time (Protime)PT. 20.8 SECONDS (11.7-14.9)
== END 2021-01-30 18:00 | disposition home or self-care (01) ==
LOC: MTLAB 10:09
PROVIDERS: Family Provider Internal Medicine; PCP Internal Medicine; Referring Provider Internal Medicine Cardiovascular Disease; Visit Provider Internal Medicine Cardiovascular Disease
DX: I48.19 Other persistent atrial fibrillation (principal); Z79.01 Long term (current) use of anticoagulants
CPT/HCPCS: 36415; 85610

== ENCOUNTER 2021-02-14 16:24 | Outpatient (RCR) | payer MEDICARE, SELFPAY ==
[2021-01-16 13:30] VITALS: BMI 37.5
[2021-01-31 04:19] VITALS: BMI 37.8
[2021-02-14 18:06] LABS: International Normalized Ratio 2.4
== END 2021-03-03 18:00 | disposition home or self-care (01) ==
LOC: MTLAB 16:24
PROVIDERS: Family Provider Internal Medicine; PCP Internal Medicine; Referring Provider Internal Medicine Cardiovascular Disease; Visit Provider Internal Medicine Cardiovascular Disease
DX: I48.19 Other persistent atrial fibrillation (principal); Z79.01 Long term (current) use of anticoagulants
CPT/HCPCS: 36415; 85610

== ENCOUNTER → 2021-02-27 14:31 | Outpatient (CLI) | payer MEDICARE, SELFPAY ==
[2021-01-16 13:30] VITALS: BMI 37.5
[2021-02-27 19:03] LABS: ALB/GLOB Ratio 1.3 RATIO (0.9-2.4); AST(SGOT) 15 U/L (15-37); Alanine Aminotransfer ALT/SGPT 28 U/L (13-56); Albumin, Serum 4.4 g/dL (3.2-5.0); Alkaline Phosphatase 97 U/L (45-117); Anion Gap 8 (5-15); BUN 86 mg/dL (7-18); BUN/Creat Ratio 36.6 RATIO (10-20); Calcium,Total 9.1 mg/dL (8.5-10.1); Chloride 96 mmol/L (98-107); Creatinine, Serum 2.35 mg/dL (0.55-1.02); EST Glomerular Filtration Rate 21 mL/min (>60); Est Glom Filt Rate - Afr Amer 26 mL/min (>60); Globulin 3.3 g/dL (2.2-4.2); Glucose 340 mg/dL (74-106); Potassium 4.7 mmol/L (3.5-5.1); Protein, Total 7.7 g/dL (6.4-8.2); Sodium Level 132 mmol/L (136-145)
[2021-02-27 19:07] LABS: Hemoglobin A1c 7.9 % (3.8-5.6)
== END ==
PROVIDERS: PCP Internal Medicine; Referring Provider Internal Medicine Endocrinology, Diabetes & Metabolism; Visit Provider Internal Medicine Endocrinology, Diabetes & Metabolism
DX: E11.65 Type 2 diabetes mellitus with hyperglycemia (principal)
CPT/HCPCS: 36415; 80053; 83036

== ENCOUNTER 2021-03-06 15:59 | Outpatient (CLI) | payer MEDICARE, SELFPAY ==
[2021-01-16 13:30] VITALS: BMI 37.5
[2021-03-06 18:37] LABS: Anion Gap 9 (5-15); BUN 55 mg/dL (7-18); BUN/Creat Ratio 32.5 RATIO (10-20); Calcium,Total 8.8 mg/dL (8.5-10.1); Chloride 98 mmol/L (98-107); Creatinine, Serum 1.69 mg/dL (0.55-1.02); EST Glomerular Filtration Rate 31 mL/min (>60); Est Glom Filt Rate - Afr Amer 37 mL/min (>60); Glucose 365 mg/dL (74-106); Sodium Level 134 mmol/L (136-145)
[2021-03-08 10:25] LABS: CA 15-3 26.6 U/mL (0.0-25.0)
== END 2021-03-06 23:59 | disposition short-term general hospital (02) ==
LOC: MTLAB 16:00
PROVIDERS: Nurse Practitioner Family; PCP Internal Medicine; Referring Provider Physician Assistant Medical; Visit Provider Physician Assistant Medical
DX: N28.9 Disorder of kidney and ureter, unspecified (principal); C50.412 Malignant neoplasm of upper-outer quadrant of left female breast; Z17.0 Estrogen receptor positive status [ER+]
CPT/HCPCS: 36415; 80048; 86300

== ENCOUNTER 2021-03-14 14:11 | Outpatient (CLI) | payer MEDICARE, SELFPAY ==
[2021-01-16 13:30] VITALS: BMI 37.5
[2021-03-14 14:49] LABS: Absolute Lymphocyte Count 0.74 X10^3/uL (0.83-4.51); Absolute Neutrophil Count 2.8 X10^3/uL (2.0-7.7); Basophil# 0.03 X10^3/uL; Basophil% 0.7 % (0-1); Eosinophil# 0.13 X10^3/uL; Eosinophils% 3.2 % (0-5); Hematocrit 34.8 % (37-47); Lymphocyte # 0.74 X10^3/ul (0.83-4.51); Lymphocyte % 18.5 % (19-41); Mean Corp Hgb Conc 31.6 g/dL (32-36); Mean Corpuscular Hgb 27.1 pg (27.0-32.0); Mean Corpuscular Volume 85.7 fL (81-99); Mean Platelet Vol. 9.3 fl (6.2-12.0); Monocyte# 0.31 X10^3/uL; Monocyte% 7.7 % (0-10); NRBC Flagged by Analyzer 0 % (0-5); Neutrophil # 2.78 X10^3/uL (2.7-7.7); Neutrophil % 69.4 % (47-70); Platelet Count 165 K/mm3 (150-450); RBC Distribution Width CV 16.9 % (11.6-14.6); RBC Distribution Width SD 53.1 fl (35.1-43.9); Red Blood Count 4.06 M/mm3 (4.2-5.4)
[2021-03-14 15:29] LABS: ALB/GLOB Ratio 1.1 RATIO (0.9-2.4); AST(SGOT) 13 U/L (15-37); Alanine Aminotransfer ALT/SGPT 24 U/L (13-56); Albumin, Serum 3.7 g/dL (3.2-5.0); Alkaline Phosphatase 88 U/L (45-117); Anion Gap 8 (5-15); BUN 52 mg/dL (7-18); BUN/Creat Ratio 39.7 RATIO (10-20); Calcium,Total 9.2 mg/dL (8.5-10.1); Chloride 100 mmol/L (98-107); Creatinine, Serum 1.31 mg/dL (0.55-1.02); EST Glomerular Filtration Rate 41 mL/min (>60); Est Glom Filt Rate - Afr Amer 50 mL/min (>60); Globulin 3.5 g/dL (2.2-4.2); Glucose 241 mg/dL (74-106); Potassium 4.6 mmol/L (3.5-5.1); Protein, Total 7.2 g/dL (6.4-8.2); Sodium Level 136 mmol/L (136-145)
[2021-03-14 15:31] LABS: Ferritin 94 ng/mL (8-252); Iron 57 ug/dL (50-170); Iron Binding Capacity,Total 413 ug/dL (250-450); PERCENT IRON SATURATION 13.8 % (15.0-55.0)
== END 2021-03-14 23:59 | disposition short-term general hospital (02) ==
LOC: LAB 14:13
PROVIDERS: PCP Internal Medicine; Referring Provider Internal Medicine Gastroenterology; Visit Provider Internal Medicine Gastroenterology
DX: I48.0 Paroxysmal atrial fibrillation (principal); D64.9 Anemia, unspecified
CPT/HCPCS: 36415; 80053; 82728; 83540; 83550; 85025

== ENCOUNTER 2021-03-22 09:27 | Outpatient (CLI) | payer MEDICARE, SELFPAY ==
[2021-01-16 13:30] VITALS: BMI 37.5
--- NOTE | 2021-03-22 09:32 | RAD_ITS ---
STUDY: X-RAY - PELVIS REASON FOR EXAM: Female, 81 years old. PAIN TECHNIQUE: One view of the pelvis was obtained. COMPARISON: None. FINDINGS: There is a non-specific bowel gas pattern. Normal visualized soft tissue structures. There is diffuse demineralization of the osseous structures. There is narrowing with cortical sclerosis and osteophyte formation of the sacroiliac joint consistent with degenerative osteoarthritic changes. Additionally, there is irregularity in the iliac side of the left SI joint concerning for metastatic lesion as well as a sclerotic area in the left symphysis pubis also suspicious for metastasis. Normal visualized bilateral superior and inferior pubic rami. Normal right pubic symphysis. Normal ischial tuberosities. Normal visualized right femoral head. Normal right acetabulum. There is moderate articular joint space narrowing of the right hip. Normal visualized left femoral head. Normal left acetabulum. There is moderate articular joint space narrowing of the left hip. RAD/Pelvis 1 or 2 Views IMPRESSION: Age consistent hip and SI joint arthrosis no demonstrated fracture Concerning sclerotic areas within the left symphysis pubis and left iliac suggestive of metastasis Electronically Signed: Golden Narayan MD at 10:26 EST , Service support ,
--- NOTE | 2021-03-22 09:32 | NM_ITS ---
CLINICAL: 80-year-old female with reported history of primary breast carcinoma. WHOLE BODY 99m Tc MDP RADIONUCLIDE BONE SCINTIGRAPHY COMPARISON: Previous whole body bone scintigraphy study dated 04/28/2020, plain film radiograph report lumbar spine and pelvis 03/22/2021 FINDINGS: Following the intravenous administration of 26.0 mCi of 99m Tc MDP, whole body bone images reveal: 1. Increased radiopharmaceutical concentration remains apparent in the first, fourth-fifth lumbar vertebra, the right and left sacroiliac joints demonstrating an increase in intensity of uptake on the present examination. 2. Enhanced tracer uptake is persistently defined in the acromioclavicular and sternoclavicular compartments of both shoulders, glenohumeral compartment of the right shoulder, multifocally apparent in the left knee, mid cervical spine posteriorly on the left. 3. The remaining skeletal structures are scintigraphically unremarkable with normal-appearing renal images and urinary bladder activity identified. The visualized right knee arthroplasty demonstrates no evidence of significant increased radiotracer distribution. Facilitated uptake is noted in the intertrochanteric aspect of the left proximal femur likely representing periostitis. Plain film x-ray correlation may be of benefit. NM/Bone Scan Whole Body IMPRESSION: 1. 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 2. Degenerative arthritis appears expressed in the bilateral shoulders, left knee, the cervical spine. 3. Overall compared to the previous whole body bone scintigraphy study dated 04/28/2019, there is persistent apparent demonstration of limited axial skeletal metastatic disease. Plain film radiography correlation may be of benefit. Electronically Signed: Ruben Torres DO at 8:47 EST Tel , Service support ,
--- NOTE | 2021-03-22 09:32 | RAD_ITS ---
STUDY: X-RAY - LUMBAR SPINE REASON FOR EXAM: Female, 81 years old. Acute low back pain TECHNIQUE: 5 view(s) of the lumbar spine were obtained. COMPARISON: None FINDINGS: There is straightening of the normal lumbar lordosis. There is a mild levoscoliosis of the lumbar spine. There is a normal alignment of the vertebrae in the lateral view. There is diffuse demineralization with multi-level endplate spondylosis. There is multi-level degenerative disc disease with multi-level disc space narrowing. There is no demonstrated fracture. There are sclerotic areas within L3-L4 and L5 suggested of metastasis. There is atherosclerotic calcification of the abdominal aorta without a demonstrated aneurysm. RAD/L/S Spine Min 4 Views IMPRESSION: Degenerative changes of the spine, as detailed above. No demonstrated fracture Concerning sclerotic areas within the lower lumbar spine and symphysis pubis suggestive of metastasis. Electronically Signed: Golden Narayan MD at 10:25 EST , Service support ,
== END 2021-03-22 23:59 | disposition short-term general hospital (02) ==
PROVIDERS: PCP Internal Medicine; Referring Provider Internal Medicine Medical Oncology; Visit Provider Internal Medicine Medical Oncology
DX: C79.51 Secondary malignant neoplasm of bone (principal); C78.89 Secondary malignant neoplasm of other digestive organs; C50.912 Malignant neoplasm of unspecified site of left female breast
CPT/HCPCS: 72110; 72170; 78306; A9503

== ENCOUNTER 2021-03-27 13:31 | Outpatient (RCR) | payer MEDICARE, SELFPAY ==
[2021-01-16 13:30] VITALS: BMI 37.5
[2021-03-04 19:44] VITALS: BMI 37.8
[2021-03-27 14:24] LABS: Prothrombin Time (Protime)PT. 21.5 SECONDS (11.7-14.9)
== END 2021-04-02 18:00 | disposition home or self-care (01) ==
LOC: MTLAB 13:31
PROVIDERS: Family Provider Internal Medicine; PCP Internal Medicine; Referring Provider Internal Medicine Cardiovascular Disease; Visit Provider Internal Medicine Cardiovascular Disease
DX: I48.19 Other persistent atrial fibrillation (principal); Z79.01 Long term (current) use of anticoagulants
CPT/HCPCS: 36415; 85610

== ENCOUNTER 2021-04-16 18:38 | Outpatient (CLI) | payer MEDICARE, SELFPAY ==
[2021-01-16 13:30] VITALS: BMI 37.5
[2021-04-16 20:16] LABS: M R Staph aureus DNA By PCR Negative (Negative); Probe Check PASS; Specimen Processing Control PASS; Staph aureus DNA By PCR NEGATIVE (Negative)
== END 2021-04-16 23:59 | disposition home or self-care (01) ==
PROVIDERS: PCP Internal Medicine; Visit Provider Podiatrist
DX: L03.116 Cellulitis of left lower limb (principal)
CPT/HCPCS: 87070; 87075; 87077; 87186; 87205; 87640

== ENCOUNTER 2021-04-24 13:11 | Outpatient (CLI) | payer MEDICARE, SELFPAY ==
[2021-01-16 13:30] VITALS: BMI 37.5
[2021-04-24 15:59] LABS: AST(SGOT) 16 U/L (15-37); Alanine Aminotransfer ALT/SGPT 23 U/L (13-56); Albumin, Serum 3.6 g/dL (3.2-5.0); Alkaline Phosphatase 98 U/L (45-117); Anion Gap 8 (5-15); BUN 27 mg/dL (7-18); BUN/Creat Ratio 22.9 RATIO (10-20); Calcium,Total 8.7 mg/dL (8.5-10.1); Chloride 104 mmol/L (98-107); Cholesterol 211 mg/dL (200); Creatinine, Serum 1.18 mg/dL (0.55-1.02); EST Glomerular Filtration Rate 47 mL/min (>60); Est Glom Filt Rate - Afr Amer 57 mL/min (>60); Globulin 3.7 g/dL (2.2-4.2); Glucose 203 mg/dL (74-106); High Density Lipoprotein 35 mg/dL; Potassium 4.8 mmol/L (3.5-5.1); Protein, Total 7.3 g/dL (6.4-8.2); Sodium Level 137 mmol/L (136-145); Triglycerides 126 mg/dL; Very Low Density Lipoprotein 25 mg/dL (5-40)
[2021-04-24 17:31] LABS: Hemoglobin A1c 9.3 % (3.8-5.6)
[2021-04-27 14:05] LABS: Vitamin D 1,25-Dihydroxy 72.3 pg/mL (19.9-79.3)
== END 2021-04-24 23:59 | disposition home or self-care (01) ==
PROVIDERS: PCP Internal Medicine; Referring Provider Internal Medicine Endocrinology, Diabetes & Metabolism; Visit Provider Internal Medicine Endocrinology, Diabetes & Metabolism
DX: E11.65 Type 2 diabetes mellitus with hyperglycemia (principal); E03.8 Other specified hypothyroidism; E78.2 Mixed hyperlipidemia
CPT/HCPCS: 36415; 80053; 80061; 82652; 83036; 84443

== ENCOUNTER 2021-04-25 15:20 | Outpatient (RCR) | payer MEDICARE, SELFPAY ==
[2021-01-16 13:30] VITALS: BMI 37.5
[2021-04-03 02:35] VITALS: BMI 37.8
[2021-04-25 17:59] LABS: International Normalized Ratio 1.9; Prothrombin Time (Protime)PT. 20.9 SECONDS (11.7-14.9)
[2021-04-25 18:29] LABS: Microalbumin,Random Urine 40.9 mg/L (NO RANGE EST.); Microalbumin:Creatinine Ratio 77.8 mg/g CRE (<30 mg/g CRE)
== END 2021-04-25 18:00 | disposition home or self-care (01) ==
LOC: MTLAB 15:20
PROVIDERS: Family Provider Internal Medicine; PCP Internal Medicine; Referring Provider Internal Medicine Cardiovascular Disease; Visit Provider Internal Medicine Cardiovascular Disease
DX: I48.19 Other persistent atrial fibrillation (principal); Z79.01 Long term (current) use of anticoagulants
CPT/HCPCS: 36415; 82043; 82570; 85610

== ENCOUNTER 2021-05-29 16:11 | Outpatient (RCR) | payer MEDICARE, SELFPAY ==
[2021-01-16 13:30] VITALS: BMI 37.5
[2021-05-01 10:45] VITALS: BMI 37.8
[2021-05-08 18:06] LABS: International Normalized Ratio 2.2; Prothrombin Time (Protime)PT. 23.5 SECONDS (11.7-14.9)
[2021-05-29 17:50] LABS: International Normalized Ratio 1.8; Prothrombin Time (Protime)PT. 19.9 SECONDS (11.7-14.9)
== END 2021-05-31 18:00 | disposition home or self-care (01) ==
LOC: MTLAB 16:11
PROVIDERS: Family Provider Internal Medicine; PCP Internal Medicine; Referring Provider Internal Medicine Cardiovascular Disease; Visit Provider Internal Medicine Cardiovascular Disease
DX: I48.19 Other persistent atrial fibrillation (principal); Z79.01 Long term (current) use of anticoagulants
CPT/HCPCS: 36415; 85610

== ENCOUNTER 2021-06-12 16:27 | Outpatient (RCR) | payer MEDICARE, SELFPAY ==
[2021-01-16 13:30] VITALS: BMI 37.5
[2021-06-01 03:17] VITALS: BMI 37.8
[2021-06-12 17:35] LABS: Prothrombin Time (Protime)PT. 21.9 SECONDS (11.7-14.9)
== END 2021-06-12 18:00 | disposition home or self-care (01) ==
LOC: MTLAB 16:27
PROVIDERS: Family Provider Internal Medicine; PCP Internal Medicine; Referring Provider Internal Medicine Cardiovascular Disease; Visit Provider Internal Medicine Cardiovascular Disease
DX: I48.19 Other persistent atrial fibrillation (principal); Z79.01 Long term (current) use of anticoagulants
CPT/HCPCS: 36415; 85610

== ENCOUNTER → 2021-06-25 | Outpatient (CLI) | payer MEDICARE, SELFPAY ==
[2021-01-16 13:30] VITALS: BMI 37.5
--- NOTE | 2021-06-25 10:51 | ART_ITS ---
Reason For Study: Neuropathy Procedure A bilateral lower extremity continuous wave Doppler with analog waveform analysis and ankle brachial indexes. Left Segmental Pressures Left brachial= 118mmHg. Left posterior tibial artery = 183mmHg. Left dorsalis pedis artery = 163mmHg. Left digit = 61 mmHg. Right Segmental Pressures Right brachial= 117mmHg. Right posterior tibial artery = 159mmHg. Right dorsalis pedis artery = 138mmHg. Right digit = 95 mmHg. Indices The right ankle brachial index by the posterior tibial artery is 1.35. The right ankle brachial index by the dorsalis pedis is 1.17. The right digital-brachial index is 0.81. The left ankle brachial index by the posterior tibial artery is 1.55. The left ankle brachial index by the dorsalis pedis is 1.38. The left digital-brachial index is 0.52. VL/Ankle Brachial Index Interpretation Summary Normal right posterior tibial ankle-brachial index of 1.35 and normal right betsey salis pedis ankle- brachial index of 1.17With normal triphasic Doppler waveforms Normal right digital brachial index of 0.81 Normal left PT ankle-brachial index of 1.55 and normal left dorsalis pedis digi greg brachial index of 1.38. Normal triphasic PT and DP Doppler waveforms. Abnormal left digital brachial index of 0.52 possibly consistent with temperatu re effect or distal small vessel disease Ordering Physician: Merle Villagomez Referring Physician: Merle Villagomez Performed By: Chelo Hanson RDCS/RVT
== END | disposition home or self-care (01) ==
LOC: CVS 10:49
PROVIDERS: PCP Internal Medicine; Referring Provider Internal Medicine; Visit Provider Internal Medicine
DX: I73.9 Peripheral vascular disease, unspecified (principal)
CPT/HCPCS: 93922

== ENCOUNTER 2021-07-25 16:06 | Outpatient (RCR) | payer MEDICARE, SELFPAY ==
[2021-01-16 13:30] VITALS: BMI 37.5
[2021-07-01 05:19] VITALS: BMI 37.8
[2021-07-04 18:40] LABS: International Normalized Ratio 1.9; Prothrombin Time (Protime)PT. 21.1 SECONDS (11.7-14.9)
[2021-07-25 18:03] LABS: International Normalized Ratio 2.2; Prothrombin Time (Protime)PT. 24.3 SECONDS (11.7-14.9)
== END 2021-07-25 18:00 | disposition home or self-care (01) ==
LOC: MTLAB 16:06
PROVIDERS: Family Provider Internal Medicine; PCP Internal Medicine; Referring Provider Internal Medicine Cardiovascular Disease; Visit Provider Internal Medicine Cardiovascular Disease
DX: I48.19 Other persistent atrial fibrillation (principal); Z79.01 Long term (current) use of anticoagulants
CPT/HCPCS: 36415; 85610

== ENCOUNTER 2021-09-27 14:07 | Outpatient (RCR) | payer MEDICARE, SELFPAY ==
[2021-07-31 21:59] VITALS: BMI 37.8
[2021-08-23 10:48] VITALS: BMI 37.5
[2021-09-27 18:03] LABS: International Normalized Ratio 1.7; Prothrombin Time (Protime)PT. 19.3 SECONDS (11.7-14.9)
== END 2021-09-30 03:37 | disposition home or self-care (01) ==
LOC: MTLAB 14:07
PROVIDERS: Family Provider Internal Medicine; PCP Internal Medicine; Referring Provider Internal Medicine Cardiovascular Disease; Visit Provider Internal Medicine Cardiovascular Disease
DX: I48.19 Other persistent atrial fibrillation (principal); Z79.01 Long term (current) use of anticoagulants
CPT/HCPCS: 36415; 85610